=== PATIENT | male | born 1945 | race Caucasian/White ===

== ENCOUNTER 2021-05-02 07:51 | Emergency (ER) | payer OTHER, SELFPAY ==
[2021-05-02 07:51] VITALS: BP 140/75; PULSE 56; RESP 16; TEMP 35.8; O2SAT 99; BMI 26.2
--- NOTE | 2021-05-02 08:59 | RAD_ITS ---
STUDY: X-RAY - LEFT HAND REASON FOR EXAM: Male, 75 years old. Injury/Pain TECHNIQUE: 3 view(s) of the hand. COMPARISON: None. FINDINGS: Normal radiocarpal articulation. Normal distal radioulnar joint. Normal visualized carpal bones. Normal carpal articulations Normal carpometacarpal articulation of the thumb. Normal second through fifth carpometacarpal joints. Normal metacarpi. Normal metacarpophalangeal joint of the thumb. Normal interphalangeal joint of the thumb. Normal proximal and distal phalanges of the thumb. Normal metacarpophalangeal joints of the second through fifth fingers. Normal proximal and distal interphalangeal joints of the second through fifth fingers. Normal phalanges of the second through fifth fingers. The soft tissue structures are unremarkable. RAD/Hand Min 3 Views IMPRESSION: Normal x-ray examination of the hand. Electronically Signed: Heath Oneill DO at 9:54 EST Tel [phone], Service support ,
--- NOTE | 2021-05-02 08:59 | RAD_ITS ---
STUDY: X-RAY - PELVIS AND RIGHT HIP REASON FOR EXAM: Male, 75 years old. Injury/Pain TECHNIQUE: 4 views of the pelvis and hip. COMPARISON: None. FINDINGS: There is a non-specific bowel gas pattern. Colonic fecal retention. Normal visualized soft tissue structures. Normal bilateral iliac wings, sacroiliac joints and visualized sacrum. Normal bilateral superior and inferior pubic rami. Normal pubic symphysis. Normal bilateral ischial tuberosities. Normal visualized femoral head. Normal acetabulum. Normal hip joint. RAD/HIP, UNI W/ Pelvis 2-3 Views IMPRESSION: Normal x-ray examination of the pelvis and hip. Electronically Signed: Heath Oneill DO at 9:51 EST Tel [phone], Service support ,
--- NOTE | 2021-05-02 08:59 | RAD_ITS ---
HISTORY: Injury/Pain. TECHNIQUE: XR Elbow Min 3 Views. # of images incl. paperwork: 4. COMPARISON: None. FINDINGS: BONES: No acute fracture identified. Mineralization unremarkable. JOINT SPACES: No dislocation. Mild degenerative change. RAD/Elbow min 3 Views IMPRESSION: No acute fracture or dislocation identified in the right elbow. at 0956 Reported and signed by: aTsh Gannon MD Electronically Signed: Tash Gannon MD at 9:54 EST Tel , Service support ,
--- NOTE | 2021-05-02 08:59 | RAD_ITS ---
STUDY: X-RAY - RIGHT HAND REASON FOR EXAM: Male, 75 years old. Injury/Pain TECHNIQUE: 3 view(s) of the hand. COMPARISON: None. FINDINGS: Normal radiocarpal articulation. Normal distal radioulnar joint. Normal visualized carpal bones. Normal carpal articulations Normal carpometacarpal articulation of the thumb. Normal second through fifth carpometacarpal joints. Normal metacarpi. Normal metacarpophalangeal joint of the thumb. Normal interphalangeal joint of the thumb. Normal proximal and distal phalanges of the thumb. Normal metacarpophalangeal joints of the second through fifth fingers. Normal proximal and distal interphalangeal joints of the second through fifth fingers. Normal phalanges of the second through fifth fingers. The soft tissue structures are unremarkable. RAD/Hand Min 3 Views IMPRESSION: No acute bony injury of the hand. Electronically Signed: Heath Oneill DO at 9:48 EST Tel [phone], Service support ,
--- NOTE | 2021-05-02 09:00 | EDS_ITS ---
HPI HPI - Fall History of Present Illness Chief Complaint: Fall Informant: patient Occured/Mechanism Occurred: Today Narrative: Patient fell out of bed Pain/Injury Pain Location: neck, upper extremity (Bilateral hands, right elbow) and lower extremity (Bilateral hips) Worsened by: Nothing Relieved by: Nothing Associated Symptoms Associated Symptoms: Negative for Parasthesias, Weakness and Loss of consciousness Narrative Narrative: Patient presents after a fall that occurred today. Patient fell out of bed this morning. Patient thinks he hit his head. Patient denies any loss of consciousness. Patient complains of pain in both hands, the right elbow, and both hips. Patient thinks his last tetanus was approximately 10 years ago. Patient noted some skin tears on the backs of his hands. Patient also admits to some mild neck pain. Patient denies any paresthesias or weakness. Patient denies any other injuries. Tetanus Immunization: >10 years [facility] Medical History Coronary artery disease High cholesterol Hypertension Parkinson disease Allergy/AdvReac Type Severity Reaction Status Date / Time atorvastatin [From Lipitor] AdvReac Pain in Verified 05/02/21 07:54 joints Social History Smoking Status: Former smoker ROS ROS ED Constitutional Constitutional ED: Denies chills or fever(s) Eyes Eyes: Denies blurry vision or change in vision ENT ENT ED: Denies rhinorrhea or sore throat Cardiovascular Cardiovascular: Denies chest pain or palpitations Respiratory/Chest Respiratory/Chest: Denies cough or dyspnea Gastrointestinal Gastrointestinal: Denies nausea or vomiting Genitourinary Genitourinary ED: Denies dysuria or hematuria Musculoskeletal Musculoskeletal: Reports neck pain; Denies back pain Integumentary Denies abscess or rash Neurologic Neurologic: Denies headache(s) or weakness Allergic/Immunologic Allergic/Immunologic ED: Denies mouth swelling or urticaria EXAM Physical Exam Const Vital Signs: 05/02/21 07:51 05/02/21 08:06 Temperature 96.5 F L Temperature Source Temporal Pulse Rate 56 L Respiratory Rate 16 Respiratory Effort Normal Blood Pressure 140/75 H Blood Pressure Mean 96 Pulse Ox 99 Oxygen Delivery Method Room Air Positive well nourished and well developed General Appearance ED: well developed HEENT Reports normocephalic HEENT Narrative: There is a superficial abrasion over the right frontal scalp area. There is no active bleeding. There is no bony crepitance or step-off. Resp normal respiratory effort and clear to auscultation bilaterally Cardio regular rate and regular rhythm GI non-tender and non-distended Palpation: soft Extremity Extremity Narrative: There is tenderness of the hands bilaterally. There is mild tenderness of the right elbow. There is also mild tenderness over the shoulders bilaterally. There is no bony crepitance or step-off. There is no deformity noted. Range of motion was limited in all motions of the hands bilaterally and right elbow secondary to pain. Radial and pedal pulses are equal bilaterally. Strength is 5/5 bilaterally in the upper and lower extremities. There are no sensory deficits. Neuro oriented x3, CN's II-XII intact bilaterally, moves all extremities, no focal motor deficits and no sensory deficits noted Sensorium / Orientation: alert Psych mental status grossly normal Skin Skin Narrative: There are superficial skin tears noted over the dorsal aspects o f the hands bilaterally. There is no active bleeding. MDM MDM MDM Narrative Medical decision making narrative: X-rays of the right elbow were obtained. There are 4 views. On my interpretation, there is no acute fracture. There is no dislocation. There is no soft tissue swelling. Radiologist also interpreted the x-rays and agrees. X-rays of the left hand were obtained. There are 3 views. On my interpretation, there is no acute fracture. There is no dislocation. There is no soft tissue swelling. Radiologist also interpreted the x-rays and agrees. X-rays of the right hand were obtained. There are 3 views. On my interpretation, there is no acute fracture. There is no dislocation. There is no soft tissue swelling. Radiologist also interpreted the x-rays and agrees. X-rays of the right hip and pelvis were obtained. There are 4 views. On my interpretation, there is no acute fracture. There is no dislocation. There is no soft tissue swelling. There is no deformity noted. Radiologist also interpreted the x-rays and agrees. CT scan of the brain was obtained. There is no acute intracranial abnormality. This was interpreted by the radiologist and reviewed by myself. CT scan of the cervical spine was obtained. There are mild degenerative changes. There is no acute fracture or dislocation. This was interpreted by the radiologist and reviewed by myself. The skin tears were cleaned and dressed. Patient was given a tetanus booster. Patient was instructed to take Tylenol or ibuprofen as needed for pain. Patient was instructed to follow-up with his primary care physician in 5 to 7 days. Patient understood and was agreeable with the plan. All questions were answered. Radiography Diagnostic Testing: Clinical Impression(s) from Imaging Studies Elbow X-Ray 05/02/21 08:59 IMPRESSION: No acute fracture or dislocation identified in the right elbow. at 0956 Reported and signed by: Tash Gannon MD Electronically Signed: Tash Gannon MD at 9:54 EST Tel , Service support , Hand X-Ray 05/02/21 08:59 IMPRESSION: No acute bony injury of the hand. Electronically Signed: Heath Oneill DO at 9:48 EST Tel [phone], Service support , Hand X-Ray 05/02/21 08:59 IMPRESSION: Normal x-ray examination of the hand. Electronically Signed: Heath Oneill DO at 9:54 EST Tel [phone], Service support , Hip/Pelvis X-Ray 05/02/21 08:59 IMPRESSION: Normal x-ray examination of the pelvis and hip. Electronically Signed: Heath Oneill DO at 9:51 EST Tel [phone], Service support , Brain CT 05/02/21 09:08 IMPRESSION: No acute intracranial process identified. Chronic small vessel ischemic gliosis. Individualized dose optimization techniques were used for this CT. at 0958 Reported and signed by: Tash Gannon MD Electronically Signed: Tash Gannon MD at 9:57 EST Tel , Service support , Cervical Spine CT 05/02/21 09:08 IMPRESSION: No evidence of acute cervical spinal fracture or dislocation. Mild degenerative change. Individualized dose optimization techniques were used for this CT. at 1001 Reported and signed by: Tash Gannon MD Electronically Signed: Tash Gannon MD at 10:00 EST Tel , Service support , Discharge Plan Triage Chief Complaint: Fall ED Provider: Paul Mcneil Dx/Rx/DC Orders Clinical Impression: Multiple skin tears, Contusion of right elbow, Closed head injury Instructions: ED Contusion, Elbow, ED Head Injury (Adult), ED Skin Avulsion [facility] [Primary [facility] Provider[facility] - 3-5 Days Disposition Disposition: Home, Self Care
--- NOTE | 2021-05-02 09:08 | CT_ITS ---
HISTORY: Injury/Pain. TECHNIQUE: Multiple axial images were obtained of the brain without intravenous contrast. A radiation dose optimization technique was used for this scan. # of images incl. paperwork: 246. COMPARISON: None. FINDINGS: BRAIN PARENCHYMA:Multiple small foci and zones of low attenuation in the cerebral white matter most compatible with chronic small vessel ischemic gliosis. 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 INTRACRANIAL HEMORRHAGE: No acute intracranial hemorrhage. CSF SPACES/MASS EFFECT: Diffuse atrophy with compensatory ventricular enlargement. No midline shift or other significant mass effect. ORBITS: Left lens resection. CALVARIUM: Intact. PARANASAL SINUSES AND MASTOID AIR CELLS: Clear. CT/Brain/Head without Contrast IMPRESSION: No acute intracranial process identified. Chronic small vessel ischemic gliosis. Individualized dose optimization techniques were used for this CT. at 0958 Reported and signed by: Tash Gannon MD Electronically Signed: Tash Gannon MD at 9:57 EST Tel , Service support ,
--- NOTE | 2021-05-02 09:08 | CT_ITS ---
HISTORY: Injury/Pain. TECHNIQUE: Helically acquired images were obtained of the cervical spine. 2D reformatted images were reviewed. A radiation dose optimization technique was used for this scan. # of images incl. paperwork: 392. IV Contrast dosage and agent: None. COMPARISON: None. FINDINGS: VERTEBRAE: No acute fracture identified. Generalized osteopenia present. Old fracture of the left medial clavicle seen. VERTEBRAL ALIGNMENT: No significant anterior or posterior subluxation. Straightening of the cervical lordosis. DISCS: Mild posterior disc bulge osteophyte complexes with uncovertebral and facet arthropathy. SOFT TISSUES: No prevertebral soft tissue swelling. CT/Spine Cervical without Contras IMPRESSION: No evidence of acute cervical spinal fracture or dislocation. Mild degenerative change. Individualized dose optimization techniques were used for this CT. at 1001 Reported and signed by: Tash Gannon MD Electronically Signed: Tash Gannon MD at 10:00 EST Tel , Service support ,
[2021-05-02] MEDS: Diphth,Pertuss(Acell),Tet Vac 0.5 ML Vial IM (10:54)
[2021-05-02 11:10] VITALS: BP 138/72; PULSE 56; RESP 18; O2SAT 99
== END 2021-05-02 12:05 | disposition home or self-care (01) ==
PROVIDERS: Emergency Provider Emergency Medicine
DX: S61.411A Laceration without foreign body of right hand, initial encounter (principal); S61.412A Laceration without foreign body of left hand, initial encounter; S50.01XA Contusion of right elbow, initial encounter; S00.01XA Abrasion of scalp, initial encounter; Z23 Encounter for immunization; M54.2 Cervicalgia; M79.602 Pain in left arm; M25.551 Pain in right hip; M25.552 Pain in left hip; W06.XXXA Fall from bed, initial encounter; Y93.9 Activity, unspecified; Y92.9 Unspecified place or not applicable; Y99.9 Unspecified external cause status; I25.10 Atherosclerotic heart disease of native coronary artery without angina pectoris; G20 Parkinson's disease; I10 Essential (primary) hypertension; E78.00 Pure hypercholesterolemia, unspecified; Z87.891 Personal history of nicotine dependence
CPT/HCPCS: 70450; 72125; 73080; 73130; 73502; 90471; 90715; 99283

== ENCOUNTER 2021-05-05 18:14 | Inpatient (IN) | payer OTHER, SELFPAY ==
[2021-05-05 18:16] VITALS: TEMP 36.8; BMI 28.7
[2021-05-05 18:22] VITALS: BP 110/70; PULSE 68; RESP 17; TEMP 36.8; O2SAT 93
--- NOTE | 2021-05-05 18:44 | EKG12_ITS ---
Test Reason : FALL Blood Pressure : / mmHG Vent. Rate : 065 BPM Atrial Rate : 065 BPM P-R Int : 204 ms QRS Dur : 122 ms QT Int : 446 ms P-R-T Axes : 045 -38 053 degrees QTc Int : 463 ms Normal sinus rhythm Left axis deviation Septal infarct , age undetermined Abnormal ECG Confirmed by LORENZO CASTAÑEDA, LISA ([id number]), sports editor ALMA ELENA ([id number]) on 05/08/2021 6:58:52 AM Referred By: KRISTA Confirmed By:LISA VENTURA MD
--- NOTE | 2021-05-05 18:44 | CT_ITS ---
STUDY: CT CERVICAL SPINE WITHOUT CONTRAST REASON FOR EXAM: Male, 75 years old. Injury/Pain RADIATION DOSAGE (If Supplied By Facility): CTDIvol = ( 23.85 ) mGy, DLP = ( 451.07 ) mGycm TECHNIQUE: High resolution transaxial imaging was performed without contrast material. Sagittal and coronal images were reconstructed. Individualized dose optimization techniques were used for this CT. COMPARISON: None FINDINGS: Normal craniovertebral junction. Normal anterior atlantoaxial articulation. Normal odontoid process. Normal cervical lordosis. Normal vertebral bodies and posterior osseous elements. C2-3: Normal endplates. Normal disc height and morphology. Normal central canal and intervertebral neuroforamina. C3-4: Normal endplates. Normal disc height and morphology. Normal central canal and intervertebral neuroforamina. C4-5: Normal endplates. Normal disc height and morphology. Normal central canal and intervertebral neuroforamina. C5-6: Normal endplates. Normal disc height and morphology. Normal central canal and intervertebral neuroforamina. C6-7: Normal endplates. Normal disc height and morphology. Normal central canal and intervertebral neuroforamina. C7-T1: Normal endplates. Normal disc height and morphology. Normal central canal and intervertebral neuroforamina. Normal visualized soft tissue structures. CT/Spine Cervical without Contras IMPRESSION: Normal unenhanced CT examination of the cervical spine. Electronically Signed: Adi Rubio MD at 20:30 EST , Service support ,
--- NOTE | 2021-05-05 18:44 | RAD_ITS ---
STUDY: X-RAY - PELVIS AND RIGHT HIP REASON FOR EXAM: Male, 75 years old. Injury/Pain TECHNIQUE: 3 views of the pelvis and hip. COMPARISON: None. FINDINGS: There is a non-specific bowel gas pattern. Normal visualized soft tissue structures. Normal bilateral iliac wings, sacroiliac joints and visualized sacrum. Normal bilateral superior and inferior pubic rami. Normal pubic symphysis. Normal bilateral ischial tuberosities. Normal visualized femoral head. Mild acetabular spurring.. Narrowed hip joint. RAD/HIP, UNI W/ Pelvis 2-3 Views IMPRESSION: Degenerative changes of the right hip. No acute hip or pelvic fracture Electronically Signed: Adi Rubio MD at 20:33 EST , Service support ,
--- NOTE | 2021-05-05 18:44 | CT_ITS ---
STUDY: CT BRAIN WITHOUT CONTRAST REASON FOR EXAM: Male, 75 years old. Injury/Pain RADIATION DOSAGE (If Supplied By Facility): CTDIvol = ( 44.99 ) mGy, DLP = ( 880.47 ) mGycm TECHNIQUE: Transaxial CT imaging of the brain was performed without administration of intravenous contrast material. Individualized dose optimization techniques were used for this CT. COMPARISON: 05/02/2021. FINDINGS: Normal soft tissue structures. Normal calvarium. Mild calcification of cavernous carotids. Mild atrophy and periventricular white matter ischemic changes.. Normal basal ganglia and thalami. Normal brainstem. Normal cerebellum. There is no intracranial hemorrhage. There are no findings of an acute ischemic infarction. Postsurgical changes of left orbit. Normal visualized paranasal sinuses. CT/Brain/Head without Contrast IMPRESSION: Mild atrophy and periventricular white matter ischemic changes. No evidence for acute intracranial bleed Electronically Signed: Adi Rubio MD at 20:15 EST , Service support ,
--- NOTE | 2021-05-05 18:46 | ED.VIS.FALL ---
HPI HPI - Fall History of Present Illness Chief Complaint: Fall Informant: patient Occured/Mechanism Occurred: Today Mechanism/Context: Yes same level fall and Yes other see narrative below Usually ambulates: Walker Pain/Injury Pain Location: head, neck and abdomen Quality of Pain: Aching Worsened by: Movement Relieved by: Rest Associated Symptoms Associated Symptoms: Positive for Weakness and Inability to ambulate; Negative for Parasthesias, Loss of function and Loss of consciousness Narrative Narrative: Patient presents after a fall that occurred today. Patient did see actually fell twice at home. Patient states that when he tried to get up from his first fall and sit on the couch, he fell again. Patient complains of pain in his head, neck, and left side. Patient denies any loss of consciousness. Patient admits to some generalized weakness. Patient states his pain is aching. Patient admits to a mild cough. Patient denies any nausea or vomiting. Patient has been falling more frequently over the past couple weeks. [facility] Medical History (Updated 05/05/21 @ 22:25 by Ronna Dyson) Coronary artery disease DVT (deep venous thrombosis) Hearing loss, left Hearing loss, right High cholesterol Hypertension Kidney stones Myocardial infarct Parkinson disease Stroke/cerebrovascular accident Home Medications aspirin 81 mg PO DAILY 05/05/21 [History Last Taken Unknown] cyanocobalamin (vitamin B-12) 1,000 mcg PO DAILY 05/05/21 [History Last Taken Unknown] finasteride 5 mg PO DAILY 05/05/21 [History Last Taken Unknown] hydrochlorothiazide 25 mg PO DAILY 05/05/21 [History Last Taken Unknown] isosorbide mononitrate 30 mg PO DAILY 05/05/21 [History Last Taken Unknown] lisinopril 2.5 mg PO DAILY 05/05/21 [History Last Taken Unknown] metoprolol tartrate 12.5 mg PO DAILY 05/05/21 [History Last Taken Unknown] polyethylene glycol 3350 8.5 g PO BID 05/05/21 [History Last Taken Unknown] potassium chloride 20 meq PO DAILY 05/05/21 [History Last Taken Unknown] rabeprazole 20 mg PO DAILY 05/05/21 [History Last Taken Unknown] rosuvastatin 20 mg PO QHS 05/05/21 [History Last Taken Unknown] solifenacin 10 mg PO DAILY 05/05/21 [History Last Taken Unknown] tamsulosin 0.4 mg PO QHS 05/05/21 [History Last Taken Unknown] tramadol 50 mg PO BID PRN 05/05/21 [History Last Taken Unknown] Allergy/AdvReac Type Severity Reaction Status Date / Time atorvastatin [From Lipitor] AdvReac Pain in Verified 05/02/21 07:54 joints Family History (Updated 05/05/21 @ 21:[address] Martinez Calderon MD) Other Heart disease Surgical History History of heart valve repair Social History Smoking Status: Former smoker ROS ROS ED Constitutional Constitutional ED: Denies chills or fever(s) Eyes Eyes: Denies blurry vision or change in vision ENT ENT ED: Denies rhinorrhea or sore throat Cardiovascular Cardiovascular: Denies chest pain or palpitations Respiratory/Chest Respiratory/Chest: Reports cough; Denies dyspnea Gastrointestinal Gastrointestinal: Denies nausea or vomiting Genitourinary Genitourinary ED: Denies dysuria or hematuria Musculoskeletal Musculoskeletal: Reports back pain and neck pain Integumentary Reports Abrasions; Denies abscess or rash Neurologic Neurologic: Reports headache(s) and weakness Allergic/Immunologic Allergic/Immunologic ED: Denies mouth swelling or urticaria EXAM Physical Exam Const Vital Signs: 05/05/21 18:16 05/05/21 18:22 05/05/21 18:25 Temperature 98.2 F 98.2 F Temperature Source Oral Oral Pulse Rate 68 Respiratory Rate 17 Respiratory Effort Normal Respiratory Pattern Normal Blood Pressure 110/70 Blood Pressure Mean 83 Pulse Ox 93 Oxygen Delivery Method Room Air Room Air 05/05/21 19:15 05/05/21 20:56 05/05/21 21:32 Temperature 97.8 F Temperature Source Temporal Pulse Rate 72 76 70 Respiratory Rate 16 16 20 H Respiratory Effort Respiratory Pattern Blood Pressure 116/72 122/77 H 101/63 Blood Pressure Mean 86 92 75 Pulse Ox 93 93 93 Oxygen Delivery Method Room Air Room Air Room Air Positive well nourished and well developed General Appearance ED: well developed HEENT Reports normocephalic atraumatic Neck Neck Narrative: There is diffuse tenderness of the cervical spine and paraspinal muscles. There is no bony crepitance or step-off. There is no edema or ecchymosis. Range of motion was limited in all motion secondary to pain. Resp normal respiratory effort and clear to auscultation bilaterally Cardio regular rate and regular rhythm GI non-tender Palpation: soft Extremity Extremity Narrative: There is some mild tenderness over the right hip. There is mild pain with internal and external rotation of the right lower extremity. There is no obvious deformity noted. Neuro oriented x3, CN's II-XII intact bilaterally, moves all extremities, no focal motor deficits and no sensory deficits noted Sensorium / Orientation: alert Psych mental status grossly normal MDM MDM MDM Narrative Medical decision making narrative: Patient was given a dose of [place] here. EKG was obtained. On my interpretation, showed normal sinus rhythm with a borderline first-degree AV block. VT interval was 204 ms. QRS was slightly prolonged at 122 ms QTc interval was normal. There is left axis deviation at -38. There are no acute ST or T wave changes. CBC was within normal limits. Comprehensive metabolic profile showed a hypokalemia of 3.1. Urinalysis does not show any evidence of urinary tract infection. CT scan of the brain was obtained. There is no acute intracranial abnormality. CT scan of the cervical spine was obtained. There is no acute fracture or spondylolisthesis. These were interpreted by the radiologist and reviewed by myself. Portable 1 view chest x-ray was obtained. On my interpretation, lung fox are clear. There is normal cardiac silhouette. Bony thorax is normal. There is no acute process noted. Radiologist also interpreted the x-ray and agrees. X-ray of the right hip was obtained. There are 3 views. On my interpretation, there is no acute fracture or dislocation. There is no soft tissue swelling. Radiologist also interpreted the x-ray and agrees. Patient is unable to care for himself at home. is unable to care for him at home. Case was discussed with the hospitalist. He will admit the patient for observation. Patient understood and was agreeable with the plan. All questions were answered. Lab Data Attestation: I reviewed the patient's lab results. Labs: Laboratory Results - last 24 hr 05/05/21 05/05/21 05/05/21 18:55 18:55 19:15 WBC 5.6 RBC 4.33 L Hgb 13.3 Hct 39.4 L MCV 91.0 MCH 30.7 MCHC 33.8 RDW Std Deviation 47.7 H RDW Coeff of [place] 14.1 Plt Count 154 MPV 10.2 Immature Gran % (Auto) 0.200 Neut % (Auto) 71.3 H Lymph % (Auto) 12.3 L [place] % (Auto) 15.8 H Eos % (Auto) 0.0 Baso % (Auto) 0.4 Absolute Neuts (auto) 4.0 Absolute Lymphs (auto) 0.69 L Nucleated RBC % 0 Sodium 139 Potassium 3.1 L Chloride 106 Carbon Dioxide 25.0 Anion Gap 8 BUN 30 H Creatinine 1.22 Estim Creat Clear Calc 51.51 Est GFR (MDRD) Af Amer 74 Est GFR (MDRD) Non-Af 61 BUN/Creatinine Ratio 24.6 H Glucose 100 Calcium 7.6 L Total Bilirubin 0.60 AST 54 H ALT 22 Alkaline Phosphatase 45 Troponin I High Sens 19 Total Protein 6.2 L Albumin 3.0 L Globulin 3.2 Albumin/Globulin Ratio 0.9 Urine Color Yellow Urine Clarity Clear Urine pH 5.0 Ur Specific [place] 1.020 Urine Protein 15 H Urine Glucose (UA) Normal Urine Ketones Negative Urine Occult Blood 10 H Urine Nitrite Negative Urine Bilirubin 3 H Urine Urobilinogen Normal Ur Leukocyte Esterase Negative Urine RBC 0-5 SEEN Urine WBC 0 SEEN Ur Squamous Epith Cells 0 SEEN Calcium Oxalate Crystal 1+ Urine Bacteria 0 SEEN Urine Mucus 1+ Radiography Diagnostic Testing: Clinical Impression(s) from Imaging Studies Brain CT 05/05/21 18:44 IMPRESSION: Mild atrophy and periventricular white matter ischemic changes. No evidence for acute intracranial bleed Electronically Signed: Adi Rubio MD at 20:15 EST , Service support , Cervical Spine CT 05/05/21 18:44 IMPRESSION: Normal unenhanced CT examination of the cervical spine. Electronically Signed: Adi Rubio MD at 20:30 EST , Service support , Hip/Pelvis X-Ray 05/05/21 18:44 IMPRESSION: Degenerative changes of the right hip. No acute hip or pelvic fracture Electronically Signed: Adi Rubio MD at 20:33 EST , Service support , Chest X-Ray 05/05/21 19:20 IMPRESSION: Diminished inspiratory effort. No acute disease Electronically Signed: Adi Rubio MD at 20:32 EST , Service support , EKG Initial EKG: Attestation: I personally reviewed and interpreted this EKG as follows: Interpretation: Sinus Rhythm (65) and No Acute Injury Pattern Comments: There is left axis deviation at -38 Treatment and Re-Evaluation Vital Sign Attestation:: Vital signs were reviewed prior to admission. They are stable. Discharge Plan Dx/Rx/DC Orders Clinical Impression: Frequent falls Disposition Disposition: Acute Care Hospital [facility] Discharge Date/Time: 05/05/21 21:59
[2021-05-05 18:59] LABS: Absolute Lymphocyte Count 0.69 X10^3/uL (0.83-4.51); Basophil# 0.02 X10^3/uL; Basophil% 0.4 % (0-1); Hematocrit 39.4 % (40-54); Hemoglobin 13.3 g/dL (13.0-16.5); Lymphocyte # 0.69 X10^3/ul (0.83-4.51); Lymphocyte % 12.3 % (19-41); Mean Corp Hgb Conc 33.8 g/dL (32-36); Mean Corpuscular Hgb 30.7 pg (27.0-32.0); Mean Platelet Vol. 10.2 fl (6.2-12.0); Monocyte# 0.89 X10^3/uL; Monocyte% 15.8 % (0-10); NRBC Flagged by Analyzer 0 % (0-5); Neutrophil # 4.01 X10^3/uL (2.7-7.7); Neutrophil % 71.3 % (47-70); Platelet Count 154 K/mm3 (150-450); RBC Distribution Width CV 14.1 % (11.6-14.6); RBC Distribution Width SD 47.7 fl (35.1-43.9); Red Blood Count 4.33 M/mm3 (4.6-6.2); White Blood Count 5.6 K/mm3 (4.4-11.0)
[2021-05-05 19:15] VITALS: BP 116/72; PULSE 72; RESP 16; O2SAT 93
[2021-05-05 19:18] LABS: ALB/GLOB Ratio 0.9 RATIO (0.9-2.4); AST(SGOT) 54 U/L (15-37); Alanine Aminotransfer ALT/SGPT 22 U/L (16-61); Alkaline Phosphatase 45 U/L (45-117); Anion Gap 8 (5-15); BUN 30 mg/dL (7-18); BUN/Creat Ratio 24.6 RATIO (10-20); Calcium,Total 7.6 mg/dL (8.5-10.1); Chloride 106 mmol/L (98-107); Creatinine, Serum 1.22 mg/dL (0.70-1.30); EST Glomerular Filtration Rate 61 mL/min (>60); Est Glom Filt Rate - Afr Amer 74 mL/min (>60); Estimated Creatinine Clearance 51.51 ml/min; Globulin 3.2 g/dL (2.2-4.2); Glucose 100 mg/dL (74-106); Potassium 3.1 mmol/L (3.5-5.1); Protein, Total 6.2 g/dL (6.4-8.2); Sodium Level 139 mmol/L (136-145); Troponin-I HS 19 pg/mL (3.0-78.0)
--- NOTE | 2021-05-05 19:18 | ED.RN ---
PT NOTIFIED BY THIS RN OF PT PLAN OF CARE IN ED.
[2021-05-05 19:19] LABS: Bacteria 0 SEEN /hpf (None Seen); Squamous Epithelial Cells - UA 0 SEEN /hpf (0-5); White Blood Cells 0 SEEN /hpf (0-5)
--- NOTE | 2021-05-05 19:20 | RAD_ITS ---
STUDY: X-RAY CHEST REASON FOR EXAM: Male, 75 years old. Cough TECHNIQUE: AP portable COMPARISON: None. FINDINGS: Less than optimal inspiratory effort is seen however the lungs are clear. There is no demonstrated pleural abnormality. Appearance cardiomegaly exaggerated by radiographic technique. Normal mediastinum and iris. Normal visualized pulmonary arteries. Normal visualized aortic arch and descending thoracic aorta. Normal visualized thoracic spine. Normal visualized ribs, clavicles, and shoulders. There is no demonstrated abnormality of the visualized soft tissue structures of the upper abdomen. RAD/Chest 1 View (Portable) IMPRESSION: Diminished inspiratory effort. No acute disease Electronically Signed: Adi Rubio MD at 20:32 EST , Service support ,
[2021-05-05 19:23] LABS: Color, Urine Yellow (Yellow); Glucose, Dipstick Normal (Normal); Ketone-Dipstick Negative (Negative); Leukocyte Esterase-Dipstick Negative /ul (Negative); Nitrite-Dipstick Negative (Negative); Occult Blood-Urine 10 /ul (Negative); Protein-Dipstick 15 mg/dl (Negative); Urine Bilirubin Dipstick 3 mg/dL (Negative); Urine Clarity Clear (Clear); Urine Urobilinogen Normal (Normal)
[2021-05-05 19:30] LABS: Calcium Oxalate Crystals Ur 1+ /hpf (<or=2+); Mucous, Urine 1+ /hpf (<or=2+); Red Blood Cells-Urine 0-5 SEEN /hpf (0-5)
[2021-05-05] MEDS: HYDROcodone Bitartrate/Apap 5/325 Tablet PO (20:55)
[2021-05-05 20:56] VITALS: BP 122/77; PULSE 76; RESP 16; O2SAT 93
[2021-05-05 21:32] VITALS: BP 101/63; PULSE 70; RESP 20; TEMP 36.6; O2SAT 93
--- NOTE | 2021-05-05 21:32 | HP.PCM.HOS_ITS ---
HPI - General General Date of Admission: 05/05/21 HPI Narrative TERE CEDEÑO, is a 75 M with a significant history of hypertension who presents to the emergency department with multiple falls. Patient reports falling 3 times on the day of presentation. Patient was at emergency department recently (05/02/21) after a fall with a laceration to extremities. At that time admission was offered to patient but patient refused. This time around patient's reported that she is unable to take care of patient. [facility] Medical History Coronary artery disease DVT (deep venous thrombosis) Hearing loss, left Hearing loss, right High cholesterol Hypertension Kidney stones Myocardial infarct Parkinson disease Stroke/cerebrovascular accident Home Medications aspirin 81 mg PO DAILY 05/05/21 [History Last Taken Unknown] cyanocobalamin (vitamin B-12) 1,000 mcg PO DAILY 05/05/21 [History Last Taken Unknown] finasteride 5 mg PO DAILY 05/05/21 [History Last Taken Unknown] hydrochlorothiazide 25 mg PO DAILY 05/05/21 [History Last Taken Unknown] isosorbide mononitrate 30 mg PO DAILY 05/05/21 [History Last Taken Unknown] lisinopril 2.5 mg PO DAILY 05/05/21 [History Last Taken Unknown] metoprolol tartrate 12.5 mg PO DAILY 05/05/21 [History Last Taken Unknown] polyethylene glycol 3350 8.5 g PO BID 05/05/21 [History Last Taken Unknown] potassium chloride 20 meq PO DAILY 05/05/21 [History Last Taken Unknown] rabeprazole 20 mg PO DAILY 05/05/21 [History Last Taken Unknown] rosuvastatin 20 mg PO QHS 05/05/21 [History Last Taken Unknown] solifenacin 10 mg PO DAILY 05/05/21 [History Last Taken Unknown] tamsulosin 0.4 mg PO QHS 05/05/21 [History Last Taken Unknown] tramadol 50 mg PO BID PRN 05/05/21 [History Last Taken Unknown] Allergy/AdvReac Type Severity Reaction Status Date / Time atorvastatin [From Lipitor] AdvReac Pain in Verified 05/02/21 07:54 joints Family History Other Heart disease Surgical History History of heart valve repair Social History Smoking Status: Former smoker ROS ROS Narrative Constitutional: Denies fever, chills, fatigue, anorexia and change in weight Eyes: Denies blurry vision, change in eye color, change in vision, discharge from eye(s), double vision, erythema, eye pain, loss of vision or other HEENT: Denies abnormal hearing, dysphagia, ear pain, epistaxis, headache(s), hearing loss, nasal congestion, nasal discharge, post nasal drip, sinus pressure, sore throat or other Cardiovascular: Denies chest pain or palpitations. Denies dyspnea on exertion, orthopnea and paroxysmal nocturnal dyspnea Respiratory/Chest: Reports productive cough. Denies shortness of breath with exertion and wheezing Gastrointestinal: Denies abdominal pain, coffee ground emesis, constipation, diarrhea, dyspepsia, hematemesis, hematochezia, loose stools, melena, nausea, vomiting or other Genitourinary: Denies burning urination, difficulty urinating, dysuria, hematuria, nocturia, urinary frequency, urinary hesitancy, urinary incontinence, urinary urgency or other Musculoskeletal: Reports left arm pain and back pain. Denies myalgias. Neurologic: Denies abnormal gait, abnormal speech, confusion, disequilibrium, dizziness, focal weakness, headache(s), numbness, paresthesias, seizure-like activity, seizures, syncope, tingling, tremor(s) or other Psychiatric: Denies anxiety, depression, homicidal ideation, suicidal ideation or other Endocrinology: Denies change in body appearance, cold intolerance, excessive sweating, heat intolerance, polydipsia, polyuria or other Hematologic/Lymphatic: Denies anemia, easy bleeding, easy bruising, lymp hadenopathy or other Integumentary: Denies rashes Allergic/Immunologic: Denies rhinitis, hives, eczema, asthma or other Vital Signs Vital Signs Vital Signs: 05/05/21 18:16 05/05/21 18:22 05/05/21 18:25 Temperature 98.2 F 98.2 F Temperature Source Oral Oral Pulse Rate 68 Respiratory Rate 17 Respiratory Effort Normal Respiratory Pattern Normal Blood Pressure 110/70 Blood Pressure Mean 83 Pulse Ox 93 Oxygen Delivery Method Room Air Room Air 05/05/21 19:15 05/05/21 20:56 05/05/21 21:32 Temperature 97.8 F Temperature Source Temporal Pulse Rate 72 76 70 Respiratory Rate 16 16 20 H Respiratory Effort Respiratory Pattern Blood Pressure 116/72 122/77 H 101/63 Blood Pressure Mean 86 92 75 Pulse Ox 93 93 93 Oxygen Delivery Method Room Air Room Air Room Air Weight Weight: 88.3 kg Body Mass Index (BMI) 28.7 Results Lab / Micro Data Result Diagrams: 05/05/21 18:55 05/05/21 18:55 Labs: Laboratory Results - last 24 hr 05/05/21 18:55: WBC 5.6, RBC 4.33 L, Hgb 13.3, Hct 39.4 L, MCV 91.0, MCH 30.7, MCHC 33.8, RDW Std Deviation 47.7 H, RDW Coeff of Evin 14.1, Plt Count 154, MPV 10.2, Immature Gran % (Auto) 0.200, Neut % (Auto) 71.3 H, Lymph % (Auto) 12.3 L, [place] % (Auto) 15.8 H, Eos % (Auto) 0.0, Baso % (Auto) 0.4, Absolute Neuts (auto) 4.0, Absolute Lymphs (auto) 0.69 L, Nucleated RBC % 0 05/05/21 18:55: Sodium 139, Potassium 3.1 L, Chloride 106, Carbon Dioxide 25.0, Anion Gap 8, BUN 30 H, Creatinine 1.22, Estim Creat Clear Calc 51.51, Est GFR (MDRD) Af Amer 74, Est GFR (MDRD) Non-Af 61, BUN/Creatinine Ratio 24.6 H, Glucose 100, Calcium 7.6 L, Total Bilirubin 0.60, AST 54 H, ALT 22, Alkaline Phosphatase 45, Troponin I High Sens 19, Total Protein 6.2 L, Albumin 3.0 L, Globulin 3.2, Albumin/Globulin Ratio 0.9 05/05/21 19:15: Urine Color Yellow, Urine Clarity Clear, Urine pH 5.0, Ur Specific [place] 1.020, Urine Protein 15 H, Urine Glucose (UA) Normal, Urine Ketones Negative, Urine Occult Blood 10 H, Urine Nitrite Negative, Urine Bilirubin 3 H, Urine Urobilinogen Normal, Ur Leukocyte Esterase Negative, Urine RBC 0-5 SEEN, Urine WBC 0 SEEN, Ur Squamous Epith Cells 0 SEEN, Calcium Oxalate Crystal 1+, Urine Bacteria 0 SEEN, Urine Mucus 1+ Radiology Impression Brain CT 05/05/21 18:44 IMPRESSION: Mild atrophy and periventricular white matter ischemic changes. No evidence for acute intracranial bleed Electronically Signed: Adi Rubio MD at 20:15 EST , Service support , Cervical Spine CT 05/05/21 18:44 IMPRESSION: Normal unenhanced CT examination of the cervical spine. Electronically Signed: Adi Rubio MD at 20:30 EST , Service support , Hip/Pelvis X-Ray 05/05/21 18:44 IMPRESSION: Degenerative changes of the right hip. No acute hip or pelvic fracture Electronically Signed: Adi Rubio MD at 20:33 EST , Service support , Chest X-Ray 05/05/21 19:20 IMPRESSION: Diminished inspiratory effort. No acute disease Electronically Signed: Adi Rubio MD at 20:32 EST , Service support , Assessment & Plan Assessment/Plan (1) Frequent falls: (2) Multiple skin tears: (3) Debility: PLAN: Debility with frequent falls PT and OT to work with patient for strengthening and balance training. Check vitamin D level. Check TSH. Check B12 Multiple skin Dressing to bilateral dorsal hands. Hypokalemia Review of labs showed potassium of 3.1 on presentation. 40 mEq of potassium x1 ordered. Continue home [place] supplementation. Trend BMP. Hypertension Blood pressure is not within goal Hydrochlorothiazide, lisinopril, and metoprolol continued. Trend blood pressure and adjust blood pressure medications. BPH Finasteride continued DVT prophylaxis: SCD ordered Charges/Coding Visit Charges OBSV E&M: 42588 Initial observation care L2
--- NOTE | 2021-05-05 22:01 | ED.RN ---
, Tita, updated on admission and room number.
[2021-05-05 22:08] VITALS: BMI 25.7
[2021-05-05 22:13] VITALS: BP 124/74; PULSE 61; RESP 18; TEMP 36.9; O2SAT 95
--- NOTE | 2021-05-05 22:27 | NURSING ---
pt unsure of the medications that he takes at home.
--- NOTE | 2021-05-05 22:28 | PCS.PANDOC ---
PANDEMIC DOCUMENTATION INITIATED: Date: 05/05/2021 Time: 2199
[2021-05-05] MEDS: Rosuvastatin 20 MG Tablet PO (22:41)
[2021-05-05] MEDS: Potassium Chloride Oral Tablet 20 MEQ 40 MEQ PO (22:41)
[2021-05-05] MEDS: Tamsulosin HCl 0.4 MG Capsule PO (22:41)
[2021-05-06] MEDS: Acetaminophen 325 MG Tablet 650 MG PO ×3 (02:36→21:49)
[2021-05-06 04:10] VITALS: BP 142/67; PULSE 72; RESP 16; TEMP 37; O2SAT 95
[2021-05-06 08:03] LABS: Anion Gap 9 (5-15); BUN 26 mg/dL (7-18); BUN/Creat Ratio 26.7 RATIO (10-20); Calcium,Total 7.9 mg/dL (8.5-10.1); Chloride 106 mmol/L (98-107); Creatinine, Serum 0.97 mg/dL (0.70-1.30); EST Glomerular Filtration Rate 80 mL/min (>60); Est Glom Filt Rate - Afr Amer 96 mL/min (>60); Estimated Creatinine Clearance 64.79 ml/min; Glucose 87 mg/dL (74-106); Potassium 3.1 mmol/L (3.5-5.1); Sodium Level 140 mmol/L (136-145); Thyroid Stim Hormone (TSH) 1.62 uIU/mL (0.358-3.74)
[2021-05-06 08:16] VITALS: O2SAT 94
[2021-05-06 08:33] LABS: Vitamin B12 702 pg/mL (211-911); Vitamin D,25 Hydroxy 9.8 ng/mL
--- NOTE | 2021-05-06 09:41 | CASEMGMT ---
Social Work Note Pt is Vet. DYLLAN placed a call to Elías MIJARES at [facility]. Elías states pt is a Vet of [place] and pt is 100% service connected. Elías states pt's SW is named Neda (SP?) and her phone number is [phone] ext [phone] and fax number is [phone]. Elías states that if pt needs skilled or half-way, [place] would pay for a service connected facility. GEC form would need to be completed and faxed to [place]. [facility] SNF are [facility], [facility], [facility], [facility], [facility] and [facility]. SW to follow up with pt. Kristina Ruiz AMMONIUM NITRATE CRYSTALLIZER, COMMUNITY RECREATION PROGRAMMER
[2021-05-06 09:44] VITALS: BP 139/83; PULSE 73; RESP 18; TEMP 37.2; O2SAT 92
[2021-05-06] MEDS: Cyanocobalamin 500 MCG Tablet 1000 MCG PO (09:55)
[2021-05-06] MEDS: Aspirin 81 MG TAB.CHEW PO (09:55)
[2021-05-06] MEDS: hydroCHLOROthiazide 25 MG Tablet PO (09:55)
[2021-05-06] MEDS: Lisinopril 2.5 MG Tablet PO (09:55)
[2021-05-06 09:56] VITALS: BP 139/83; PULSE 73
[2021-05-06] MEDS: Metoprolol Tartrate 25 MG Tablet 12.5 MG PO (09:56)
[2021-05-06] MEDS: Isosorbide Mononitrate 30 MG Tablet PO (09:58)
[2021-05-06] MEDS: Tolterodine Tartrate 4 MG CAP.SA PO (09:58)
[2021-05-06] MEDS: Potassium Chloride Oral Tablet 20 MEQ PO (09:58)
[2021-05-06] MEDS: Finasteride 5 MG Tablet PO (09:58)
[2021-05-06] MEDS: Polyethylene Glycol 3350 17 GM PACKET 8.5 GM PO ×2 (09:59→21:50)
[2021-05-06] MEDS: Pantoprazole Sodium 20 MG Tablet PO (10:03)
--- NOTE | 2021-05-06 10:53 | CASEMGMT ---
Social Work Assessment Referral Date: 05/06/2021 Date of Assessment: 05/06/2021 Reason for consult: Possible SNF placement Informant: DYLLAN Personal Status: SW met with pt to complete initial assessment. Pt is alert and orientated, answers questions appropriately. Pt didn't open eyes during conversation. Living Arrangements: Pt states he lives with his in a one story home with 3-4 steps to enter with one rail on one side of the steps. DME: [facility] PCP: Dr. Interiano [place] Physician Pharmacy: [place] Specialists: Dr. Farrell - prostate ADLs: Pt states he was previously independent with ADLs before he started falling. Pt states he has had 3-4 falls recently. Pt states his is able to assist and has been assisting lately with ADLS. Substance Abuse Hx: Denied Mental Health Hx: Denied HHC: None. Pt states he is unsure if [place] has arranged any Aides or HHC services SNF: None SW spoke with pt regarding discharge plans. Pt states he is not sure about discharge plans, may consider SNF if he can go home from SNF eventually. SW informed pt that he would just be going to SNF for short term rehab. Patient was provided a list of SNF providers including quality and resource use data and consistent with the patient?s preferred geographic region, medical needs, and insurance network. Pt states he is not sure about SNF, gave this worker permission to call his Tita. SW placed a call to pt's Tita. DYLLAN introduced self and role at [facility]. Tita states the [facility] was talking about sending aides into the home but hasn't done that yet. Tita states she has been helping pt with all ADLs lately and she is exhausted. SW spoke with Tita about SNF. Tita states if he is agreeable to that. SW informed Tita that this worker spoke with pt and pt wanted this worker to call her regarding SNF. Tita was verbally provided a list of SNF providers including quality and resource use data and consistent with the patient?s preferred geographic region, medical needs, and insurance network. Tita states [facility] in [place] would be closest and agreeable to referral being sent. DYLLAN explained referral process and that pt will need [place] approval. Tita states understanding. DYLLAN placed a call to Ghazal Greenberg at [facility] and provided referral. Plan: SNF pending acceptance and [facility] approval Kristina Ruiz LOCK AND DAM EQUIPMENT REPAIRER, COLUMNIST/COMMENTATOR
--- NOTE | 2021-05-06 11:18 | PN.HOSP_ITS ---
Documented by User: Edi LEA 05/06/21 11:29 Subjective Subjective Patient is a 75-year-old male lying in bed, alert and orient x3. Denies development of any new symptoms overnight. Denies chest pain, shortness of breath, palpitations, hemoptysis, sputum production, fever, chills, N/V/D. Does not appear in acute distress. Objective Data Objective Data Vital Signs: Vital Signs Temp Pulse Resp BP Pulse Ox 99.0 F 73 18 139/83 H 92 05/06/21 09:44 05/06/21 09:56 05/06/21 09:44 05/06/21 09:56 05/06/21 09:44 Oxygen Delivery Method Room Air Weight: 173 lb 15.115 oz Body Mass Index (BMI) 25.7 Intake & Output: Intake and Output for Last 24 Hours 05/04/21 05/05/21 05/06/21 23:59 23:59 23:59 Intake Total 100 / 100 Output Total 200 / 200 Balance -100 / -100 Lab / Micro Data Result Diagrams: 05/05/21 18:55 05/06/21 06:25 Labs: Laboratory Results - last 24 hr 05/05/21 18:55: WBC 5.6, RBC 4.33 L, Hgb 13.3, Hct 39.4 L, MCV 91.0, MCH 30.7, MCHC 33.8, RDW Std Deviation 47.7 H, RDW Coeff of Evin 14.1, Plt Count 154, MPV 10.2, Immature Gran % (Auto) 0.200, Neut % (Auto) 71.3 H, Lymph % (Auto) 12.3 L, [place] % (Auto) 15.8 H, Eos % (Auto) 0.0, Baso % (Auto) 0.4, Absolute Neuts (auto) 4.0, Absolute Lymphs (auto) 0.69 L, Nucleated RBC % 0 05/05/21 18:55: Sodium 139, Potassium 3.1 L, Chloride 106, Carbon Dioxide 25.0, Anion Gap 8, BUN 30 H, Creatinine 1.22, Estim Creat Clear Calc 51.51, Est GFR (MDRD) Af Amer 74, Est GFR (MDRD) Non-Af 61, BUN/Creatinine Ratio 24.6 H, Glucose 100, Calcium 7.6 L, Total Bilirubin 0.60, AST 54 H, ALT 22, Alkaline Phosphatase 45, Troponin I High Sens 19, Total Protein 6.2 L, Albumin 3.0 L, Globulin 3.2, Albumin/Globulin Ratio 0.9 05/05/21 19:15: Urine Color Yellow, Urine Clarity Clear, Urine pH 5.0, Ur Spec ific [place] 1.020, Urine Protein 15 H, Urine Glucose (UA) Normal, Urine Ketones Negative, Urine Occult Blood 10 H, Urine Nitrite Negative, Urine Bilirubin 3 H, Urine Urobilinogen Normal, Ur Leukocyte Esterase Negative, Urine RBC 0-5 SEEN, Urine WBC 0 SEEN, Ur Squamous Epith Cells 0 SEEN, Calcium Oxalate Crystal 1+, Urine Bacteria 0 SEEN, Urine Mucus 1+ 05/06/21 06:25: Sodium 140, Potassium 3.1 L, Chloride 106, Carbon Dioxide 25.0, Anion Gap 9, BUN 26 H, Creatinine 0.97, Estim Creat Clear Calc 64.79, Est GFR (MDRD) Af Amer 96, Est GFR (MDRD) Non-Af 80, BUN/Creatinine Ratio 26.7 H, Glucose 87, Calcium 7.9 L, TSH 1.62 05/06/21 06:25: Vitamin B12 702, Vitamin D 25-Hydroxy 9.8 Radiography Diagnostic Testing: Radiology Impression Brain CT 05/05/21 18:44 IMPRESSION: Mild atrophy and periventricular white matter ischemic changes. No evidence for acute intracranial bleed Electronically Signed: Adi Rubio MD at 20:15 EST , Service support , Cervical Spine CT 05/05/21 18:44 IMPRESSION: Normal unenhanced CT examination of the cervical spine. Electronically Signed: Adi Rubio MD at 20:30 EST , Service support , Hip/Pelvis X-Ray 05/05/21 18:44 IMPRESSION: Degenerative changes of the right hip. No acute hip or pelvic fracture Electronically Signed: Adi Rubio MD at 20:33 EST , Service support , Chest X-Ray 05/05/21 19:20 IMPRESSION: Diminished inspiratory effort. No acute disease Electronically Signed: Adi Rubio MD at 20:32 EST , Service support , Physical Exam Const alert, oriented x3 and no apparent distress HEENT head/scalp atraumatic, moist oral mucous membranes and oropharynx normal Head and Scalp: normocephalic Eyes PERRL, EOMs intact bilaterally and conjunctivae normal Neck no lymphadenopathy, supple and no JVD Resp normal respiratory effort, no retractions and no use of accessory muscles Cardio regular rate, regular rhythm, no murmurs and no JVD GI normal to inspection, nondistended, normoactive bowel sounds, soft to palpation and non-tender Extremity normal to inspection, full ROM and no clubbing, cyanosis or edema Skin no rashes or lesions noted, no wounds and skin turgor normal Neuro CN's II-XII intact bilaterally Psych affect normal Assessment & Plan Assessment/Plan (1) Frequent falls: (2) Debility: PLAN: Day 1 Discharge planning: Plan is for patient to discharge to [facility] pending acceptance and [facility] approval. 1) debility with frequent falls Vitamin B12, vitamin D and TSH within normal limits. Home B12 continued. Discharge planning as above. 2) lacerations to the hands Noted on admission, secondary to fall. Appropriately wrapped. 3) hypokalemia Potassium currently 3.1, oral replacement ordered. Continue to trend BMP. 4) HTN Stable, continue hydrochlorothiazide, lisinopril and metoprolol. 5) BPH Continue Proscar and Flomax. 6) hyperlipidemia Continue statin. DVT prophylaxis - SCDs Patient seen by Edi Bledsoe PA-C, under the supervision of Dr. Quintanilla. Documented by User: Dr. Austen Quintanilla MD 05/06/21 16:16 Objective Data Lab / Micro Data Result Diagrams: 05/05/21 18:55 05/06/21 06:25 Charges/Coding Addendum Addendum: Dr. Quintanilla: I personally reviewed the chart and examined the patient, and agree with the above findings. 75-year-old male presents from home after multiple falls. He describes significant weakness and debility and was brought in because his can no longer take care of him. Did come in a few days earlier but wanted to go home. Repeated CT scans of the brain on the and the are negative for stroke. Urine was unremarkable for UTI and chest x-ray was negative for pn eumonia. Currently denies any new symptoms and will have him work with PT/OT for evaluation. Will discuss the case with case management for possible placement for rehab. Visit Charges Inpatient E&M: 45430 Subs Hosp L2
--- NOTE | 2021-05-06 11:21 | CASEMGMT ---
Addendum entered by Mindy Arce 05/06/21 11:23: SW spoke w/Ghazal Greenberg at [facility], they can take pt. ISHMAEL Freed Original Note: Referal faxed to [facility], message left in admissions. PAS/RR started. ISHMAEL Freed
--- NOTE | 2021-05-06 11:55 | CASEMGMT ---
Social Work Note SW received call from pt's Tita asking about SNF in [place]. SW provided information. Tita states she would like to speak to additional family members and then call this worker back. SW received call from Tita stating she is agreeable to [facility]. DYLLAN informed Tita that [facility] has accepted pt, pt will need to remain at [facility] until approval from [place] is obtained. DYLLAN placed a call to pt's SW Edra at [facility] and left message that pt has been accepted to [facility] and that this worker will fax clinicals, [facility], forms to her when completed. DYLLAN informed Edra that pt is medically ready for discharge once [facility] approves SNF. SW to fax clinicals to Edra [facility] SW at [place] when PT/OT notes are available. Plan: [facility] pending VA approval Kristina Ruiz MSW, METAL BONDING ASSEMBLER
--- NOTE | 2021-05-06 12:54 | CASEMGMT ---
Addendum entered by Kristina Ruiz 05/06/21 16:33: SW faxed referral to Chiquita at [facility] to fax [phone]. SW received message from Azalea confirming she received referral and will start SNF process. Original Note: Social Work Note SW received call from Edra from [facility] stating to fax referral to the [facility] at [phone]. Edra states it is a process to get pt approved through the VA, will start the process once referral is received. DYLLAN will fax referral to VA once PT/OT is available. Plan: [facility] pending VA approval Kristina Ruiz PHOTOVOLTAIC FABRICATION TECHNICIAN, RETIREMENT BENEFITS SPECIALIST
[2021-05-06 15:15] VITALS: BP 100/58; PULSE 66; RESP 18; TEMP 37.1; O2SAT 94
--- NOTE | 2021-05-06 16:03 | CHAPLAIN ---
Type of Pastoral Visit _x__ Initial Visit ___ Follow-up Visit ___ On-call Visit ___ General Patient Visit ___ Spiritual Assessment ___ Family Conference ___ Bereavement ___ Rapid Response ___ Code Blue ___ Other (describe below) Pastoral Care Referral From _x__ Patient ___ Family ___ Nurse ___ Physician ___ Acute Care Nurse Practitioner ___ Associate Research Scientist ___ Other (describe below) Sacrament/Intervention _x__ Active listening ___ Anointing ___ Caodaism ___ Bereavement ___ Communion _x__ Rosanna exploration ___ ___ Life review _x__ Prayer ___ Reconciliation ___ Sacrament of Sick _x__ Supportive presence ___ Wedding ___ Other (describe below) Pastoral Comments patient speaks about his health and becomes tearful; pt explains his concerns which are spiritual regarding his relationship with God; pt says that he sees this as a wake up call for his life; pt requests prayer support and help to deal with these needs; presence and prayer
[2021-05-06 21:35] VITALS: BP 146/74; PULSE 75; RESP 18; TEMP 38.3; O2SAT 93
[2021-05-06] MEDS: Rosuvastatin 20 MG Tablet PO (21:49)
[2021-05-06] MEDS: Tamsulosin HCl 0.4 MG Capsule PO (21:49)
[2021-05-07] VITALS (7 sets, daily range): BP systolic 95–113; BP diastolic 54–65; PULSE 60–68; RESP 18; TEMP 36.9–37.7; O2SAT 92–94
[2021-05-07 07:14] LABS: Phosphorus 2.1 mg/dL (2.5-4.9)
[2021-05-07] MEDS: Aspirin 81 MG TAB.CHEW PO (08:10)
[2021-05-07] MEDS: Ondansetron 4 MG/2 ML Vial IV (08:14)
[2021-05-07] MEDS: 0.9% Saline Lock 10 ML Syringe IV ×3 (08:15→16:35)
[2021-05-07 08:16] LABS: Anion Gap 9 (5-15); BUN 24 mg/dL (7-18); BUN/Creat Ratio 24.5 RATIO (10-20); Chloride 102 mmol/L (98-107); Creatinine, Serum 0.98 mg/dL (0.70-1.30); EST Glomerular Filtration Rate 79 mL/min (>60); Est Glom Filt Rate - Afr Amer 96 mL/min (>60); Estimated Creatinine Clearance 64.13 ml/min; Glucose 99 mg/dL (74-106); Magnesium 2.1 mg/dL (1.6-2.6); Potassium 2.7 mmol/L (3.5-5.1); Sodium Level 138 mmol/L (136-145)
--- NOTE | 2021-05-07 09:04 | PN.HOSP_ITS ---
Documented by User: Jazzy Michele NP-C 05/07/21 09:10 Subjective Subjective Patient seen and examined. PT and OT at bedside working with patient, patient continues to have difficulty ambulating with walker and to assist. Patient denies needs at this time, sitting in chair no distress noted. Objective Data Objective Data Vital Signs: Vital Signs Temp Pulse Resp BP Pulse Ox 99.8 F H 68 18 112/59 L 92 05/07/21 03:27 05/07/21 03:27 05/07/21 03:27 05/07/21 03:27 05/07/21 03:27 Oxygen Delivery Method Room Air Weight: 173 lb 15.115 oz Body Mass Index (BMI) 25.7 Intake & Output: Intake and Output for Last 24 Hours 05/05/21 05/06/21 05/07/21 23:59 23:59 23:59 Intake Total 850 / 850 400 / 400 Output Total 425 / 425 150 / 150 Balance 425 / 425 250 / 250 Lab / Micro Data Result Diagrams: 05/05/21 18:55 05/07/21 06:15 Labs: Laboratory Results - last 24 hr 05/07/21 06:15: Sodium 138, Potassium 2.7 L*, Chloride 102, Carbon Dioxide 27.0, Anion Gap 9, BUN 24 H, Creatinine 0.98, Estim Creat Clear Calc 64.13, Est GFR (MDRD) Af Amer 96, Est GFR (MDRD) Non-Af 79, BUN/Creatinine Ratio 24.5 H, Glucose 99, Calcium 8.0 L, Magnesium 2.1 05/07/21 06:15: Phosphorus 2.1 L Physical Exam Const alert, oriented x3 and no apparent distress HEENT head/scalp atraumatic Head and Scalp: normocephalic Eyes conjunctivae normal and no scleral icterus Neck supple General: trachea midline Resp normal respiratory effort, normal air movement and clear to auscultation bilaterally Effort and Inspection: able to speak in complete sentences and symmetric chest movement Cardio regular rate, regular rhythm, S1 normal heart sound and S2 normal heart sound GI normal to inspection, nondistended, normoactive bowel sounds, soft to palpation and non-tender Extremity normal to inspection and no clubbing, cyanosis or edema Peripheral Pulses: Yes pulses 2+ throughout Skin no rashes or lesions noted, no wounds and skin turgor normal Neuro oriented x3, moves all extremities, no focal motor deficits and no sensory deficits noted Sensorium / Orientation: awake, alert and oriented to person Psych affect normal Assessment & Plan Assessment/Plan (1) Debility: (2) Frequent falls: PLAN: 1. Debility with frequent falls -Continue home B12 -Plan to discharge patient to [facility] upon discharge for further therapy -Fall precautions in place -PT and OT following 2. Laceration to the hands -Dressings to bilateral hands dry and intact 3. Hypokalemia -Potassium 2.7 -P.o. potassium chloride 40 mEq ordered along with potassium phosphate 30 mm x 1 as phosphate is 2.1 -Daily BMP ordered 4. Hypertension -Continue hydrochlorothiazide, lisinopril, metoprolol -Vital signs per protocol 5. BPH -Continue prescribed Flomax 6. Hyperlipidemia -Continue statin DVT prophylaxis-SCDs This patient was seen by MIKAEL Todd under the supervision of Dr. Quintanilla. Documented by User: Dr. Austen Quintanilla MD 05/07/21 12:23 Objective Data Lab / Micro Data Result Diagrams: 05/05/21 18:55 05/07/21 06:15 Charges/Coding Addendum Addendum: Dr. Quintanilla: I personally reviewed the chart and examined the patient, and agree with the above findings. 75-year-old male presents from home after multiple falls. He describes significant weakness and debility and was brought in because his can no longer take care of him. Did come in a few days earlier but wanted to go home. Repeated CT scans of the brain on the and the are negative for stroke. Urine was unremarkable for UTI and chest x-ray was negative for pneumonia. Currently denies any new symptoms and will have him work with PT/OT for evaluation. Will discuss the case with case management for possible placement for rehab. 05/07/2021: Doing well, states that he has been getting weaker for several weeks prior to admitting to the hospital. He still having difficulty with ambulation but he is working with PT and OT. Continue with case management consult to evaluate for possible placement Visit Charges OBSV E&M: 26618 Subsequent observation care L2
[2021-05-07] MEDS: Cyanocobalamin 500 MCG Tablet 1000 MCG PO (10:10)
[2021-05-07] MEDS: Isosorbide Mononitrate 30 MG Tablet PO (10:10)
[2021-05-07] MEDS: Potassium Chloride Oral Tablet 20 MEQ 40 MEQ PO (10:11)
[2021-05-07] MEDS: hydroCHLOROthiazide 25 MG Tablet PO (10:12)
[2021-05-07] MEDS: Tolterodine Tartrate 4 MG CAP.SA PO (10:12)
[2021-05-07] MEDS: Pantoprazole Sodium 20 MG Tablet PO (10:12)
[2021-05-07] MEDS: Metoprolol Tartrate 25 MG Tablet 12.5 MG PO (10:13)
[2021-05-07] MEDS: Finasteride 5 MG Tablet PO (10:13)
[2021-05-07] MEDS: Lisinopril 2.5 MG Tablet PO (10:15)
[2021-05-07] MEDS: Potassium Chloride Oral Tablet 20 MEQ PO (10:17)
[2021-05-07] MEDS: Ibuprofen 600 MG Tablet PO (10:24)
[2021-05-07] MEDS: Tamsulosin HCl 0.4 MG Capsule PO (20:12)
[2021-05-07] MEDS: Rosuvastatin 20 MG Tablet PO (20:12)
[2021-05-08] VITALS (17 sets, daily range): BP systolic 95–131; BP diastolic 61–80; PULSE 64–92; RESP 18–30; TEMP 36.5–37.9; O2SAT 87–97
--- NOTE | 2021-05-08 00:30 | RAD_ITS ---
STUDY: X-RAY CHEST REASON FOR EXAM: Male, 75 years old. Cough TECHNIQUE: Single AP portable view of the chest. COMPARISON: None. FINDINGS: The lungs are underexpanded. There is no demonstrated pleural abnormality. Normal size heart. Normal mediastinum and iris. Normal visualized pulmonary arteries. Normal visualized aortic arch and descending thoracic aorta. Normal visualized thoracic spine. There is degenerative osteoarthritis of the bilateral shoulders. There is no demonstrated abnormality of the visualized soft tissue structures of the upper abdomen. RAD/Chest 1 View (Portable) IMPRESSION: Degenerative changes, as described above. No demonstrated acute cardiopulmonary process. Electronically Signed: Lynn Olivas MD at 2:02 EST Tel , Service support ,
[2021-05-08 00:56] LABS: Absolute Lymphocyte Count 0.81 X10^3/uL (0.83-4.51); Absolute Neutrophil Count 6.6 X10^3/uL (2.0-7.7); Basophil# 0.02 X10^3/uL; Basophil% 0.2 % (0-1); Hemoglobin 13.9 g/dL (13.0-16.5); Lymphocyte # 0.81 X10^3/ul (0.83-4.51); Lymphocyte % 10.1 % (19-41); Mean Corp Hgb Conc 34.8 g/dL (32-36); Mean Corpuscular Hgb 30.9 pg (27.0-32.0); Mean Corpuscular Volume 88.9 fL (80-94); Mean Platelet Vol. 10.1 fl (6.2-12.0); Monocyte% 7.5 % (0-10); NRBC Flagged by Analyzer 0 % (0-5); Platelet Count 145 K/mm3 (150-450); RBC Distribution Width CV 13.9 % (11.6-14.6); RBC Distribution Width SD 45.1 fl (35.1-43.9); White Blood Count 8.1 K/mm3 (4.4-11.0)
--- NOTE | 2021-05-08 02:22 | PCM.PN.BLA ---
Progress Note Patient with persistent nonproductive cough. Temperature 100.4 ?F. Chest x-ray unremarkable. On 4 L nasal cannula oxygen. Previously on room air. We will get a rapid Covid. We will get a urine culture. Will get urinalysis. We will get blood culture x2. DuoNeb [id number] ordered. Incentive spirometer and Acapella ordered. Rapid flu ordered.
[2021-05-08] MEDS: guaiFENesin 1,200 MG Tablet 1200 MG PO ×3 (02:57→20:58)
[2021-05-08] MEDS: Ipratropium/Albuterol Sulfate 3 ML AMPUL.NEB INHALATION ×5 (03:05→22:12)
[2021-05-08 03:08] LABS: Absolute Lymphocyte Count 0.73 X10^3/uL (0.83-4.51); Absolute Neutrophil Count 6.6 X10^3/uL (2.0-7.7); Basophil# 0.01 X10^3/uL; Basophil% 0.1 % (0-1); Hematocrit 39.1 % (40-54); Hemoglobin 13.5 g/dL (13.0-16.5); Lymphocyte # 0.73 X10^3/ul (0.83-4.51); Lymphocyte % 9.2 % (19-41); Mean Corp Hgb Conc 34.5 g/dL (32-36); Mean Corpuscular Hgb 31.2 pg (27.0-32.0); Mean Corpuscular Volume 90.3 fL (80-94); Mean Platelet Vol. 10.3 fl (6.2-12.0); Monocyte# 0.56 X10^3/uL; Monocyte% 7.1 % (0-10); NRBC Flagged by Analyzer 0 % (0-5); Neutrophil % 83.3 % (47-70); Platelet Count 148 K/mm3 (150-450); RBC Distribution Width CV 13.9 % (11.6-14.6); RBC Distribution Width SD 46.1 fl (35.1-43.9); Red Blood Count 4.33 M/mm3 (4.6-6.2); White Blood Count 7.9 K/mm3 (4.4-11.0)
[2021-05-08 03:43] LABS: Anion Gap 9 (5-15); BUN 27 mg/dL (7-18); BUN/Creat Ratio 24.1 RATIO (10-20); Calcium,Total 7.8 mg/dL (8.5-10.1); Chloride 101 mmol/L (98-107); Creatinine, Serum 1.12 mg/dL (0.70-1.30); EST Glomerular Filtration Rate 68 mL/min (>60); Est Glom Filt Rate - Afr Amer 82 mL/min (>60); Estimated Creatinine Clearance 56.11 ml/min; Glucose 110 mg/dL (74-106); Potassium 3.4 mmol/L (3.5-5.1); Sodium Level 138 mmol/L (136-145)
--- NOTE | 2021-05-08 03:53 | PCM.PN.BLA ---
Progress Note Rapid Covid is positive. Chest x-ray does not show any stigmata of Covid. Patient is hypoxic. Will start patient on Decadron. Will check LFT. Consider remdesivir if LFT is normal.
[2021-05-08 04:06] LABS: AST(SGOT) 60 U/L (15-37); Alanine Aminotransfer ALT/SGPT 36 U/L (16-61); Albumin, Serum 2.6 g/dL (3.2-5.0); Alkaline Phosphatase 42 U/L (45-117); Bilirubin, Direct 0.19 mg/dL (0.00-0.30); Globulin 3.4 g/dL (2.2-4.2)
[2021-05-08] MEDS: dexAMETHasone 2 MG TABLET 6 MG PO (04:49)
[2021-05-08] MEDS: Ondansetron 4 MG/2 ML Vial IV (04:49)
[2021-05-08] MEDS: 0.9% Saline Lock 10 ML Syringe IV ×2 (04:50→21:01)
[2021-05-08 05:20] LABS: Mucous, Urine 0 SEEN /hpf (<or=2+); Squamous Epithelial Cells - UA 0 SEEN /hpf (0-5)
[2021-05-08 05:21] LABS: Color, Urine Yellow (Yellow); Glucose, Dipstick Normal (Normal); Ketone-Dipstick 5 mg/dl (Negative); Leukocyte Esterase-Dipstick Negative /ul (Negative); Nitrite-Dipstick Negative (Negative); Occult Blood-Urine 250 /ul (Negative); Protein-Dipstick 100 mg/dl (Negative); Urine Bilirubin Dipstick Negative (Negative); Urine Clarity Clear (Clear); Urine Urobilinogen Normal (Normal)
[2021-05-08 05:24] LABS: D-Dimer Quantitative (DVT/PE) 0.68 FEU/ug/m (0.27-0.49)
[2021-05-08 05:41] LABS: Bacteria RARE /hpf (None Seen); Red Blood Cells-Urine 10-25 SEEN /hpf (0-5); White Blood Cells 0-5 SEEN /hpf (0-5)
--- NOTE | 2021-05-08 06:12 | NURSING ---
Tita called and updated on patients status. Informed about patients COVID diagnosis, and no visitors allowed. While speaking to the she informed this RN that she has not been feeling well either over the past few days. This RN encouraged her to also get tested and if she felt as though her symptoms were worsening and unable to take care of herself at home to go to the ER.
[2021-05-08] MEDS: hydroCHLOROthiazide 25 MG Tablet PO (09:00)
[2021-05-08] MEDS: Metoprolol Tartrate 25 MG Tablet 12.5 MG PO (09:00)
[2021-05-08] MEDS: Isosorbide Mononitrate 30 MG Tablet PO (09:00)
[2021-05-08] MEDS: Tolterodine Tartrate 4 MG CAP.SA PO (09:00)
[2021-05-08] MEDS: Pantoprazole Sodium 20 MG Tablet PO (09:00)
[2021-05-08] MEDS: Aspirin 81 MG TAB.CHEW PO (09:00)
[2021-05-08] MEDS: Cyanocobalamin 500 MCG Tablet 1000 MCG PO (09:01)
[2021-05-08] MEDS: Lisinopril 2.5 MG Tablet PO (09:02)
[2021-05-08] MEDS: Finasteride 5 MG Tablet PO (09:02)
[2021-05-08] MEDS: Potassium Chloride Oral Tablet 20 MEQ PO (09:10)
[2021-05-08] MEDS: Enoxaparin 30 MG/0.3 ML Syringe SC ×2 (09:10→20:58)
--- NOTE | 2021-05-08 09:50 | PCM.PN.HOSP ---
Subjective Subjective Short of breath last night and placed on oxygen. His Covid test was obtained which did come back positive this obviously explains his weakness in light of no other findings. He does not have pneumonia as his chest x-ray on admission was clear Objective Data Objective Data Vital Signs: Vital Signs Temp Pulse Resp BP Pulse Ox 99 F 83 28 H 115/62 95 05/08/21 07:47 05/08/21 09:00 05/08/21 07:47 05/08/21 07:47 05/08/21 07:47 Oxygen Flow Rate (L/min) 4 Oxygen Delivery Method Nasal Cannula Weight: 173 lb 15.115 oz Body Mass Index (BMI) 25.7 Intake & Output: Intake and Output for Last 24 Hours 05/07/21 05/08/21 05/09/21 03:59 03:59 03:59 Intake Total 1050 / 1050 1060 / 1060 250 / 250 Output Total 425 / 425 150 / 150 200 / 200 Balance 625 / 625 910 / 910 50 / 50 Lab / Micro Data Result Diagrams: 05/08/21 02:50 05/08/21 02:50 Labs: Laboratory Results - last 24 hr 05/08/21 00:49: WBC 8.1, RBC 4.50 L, Hgb 13.9, Hct 40.0, MCV 88.9, MCH 30.9, MCHC 34.8, RDW Std Deviation 45.1 H, RDW Coeff of Evin 13.9, Plt Count 145 L, MPV 10.1, Immature Gran % (Auto) 0.200, Neut % (Auto) 82.0 H, Lymph % (Auto) 10.1 L, [place] % (Auto) 7.5, Eos % (Auto) 0.0, Baso % (Auto) 0.2, Absolute Neuts (auto) 6.6, Absolute Lymphs (auto) 0.81 L, Nucleated RBC % 0 05/08/21 02:30: Urine Color Yellow, Urine Clarity Clear, Urine pH 5.0, Ur Specific [place] 1.020, Urine Protein 100 H, Urine Glucose (UA) Normal, Urine Ketones 5 H, Urine Occult Blood 250 H, Urine Nitrite Negative, Urine Bilirubin Negative, Urine Urobilinogen Normal, Ur Leukocyte Esterase Negative, Urine RBC 10-25 SEEN, Urine WBC 0-5 SEEN, Ur Squamous Epith Cells 0 SEEN, Urine Bacteria RARE, Urine Mucus 0 SEEN 05/08/21 02:50: WBC 7.9, RBC 4.33 L, Hgb 13.5, Hct 39.1 L, MCV 90.3, MCH 31.2, MCHC 34.5, RDW Std Deviation 46.1 H, RDW Coeff of Evin 13.9, Plt Count 148 L, MPV 10.3, Immature Gran % (Auto) 0.300, Neut % (Auto) 83.3 H, Lymph % (Auto) 9.2 L, [place] % (Auto) 7.1, Eos % (Auto) 0.0, Baso % (Auto) 0.1, Absolute Neuts (auto) 6.6, Absolute Lymphs (auto) 0.73 L, Nucleated RBC % 0 05/08/21 02:50: Sodium 138, Potassium 3.4 L, Chloride 101, Carbon Dioxide 28.0, Anion Gap 9, BUN 27 H, Creatinine 1.12, Estim Creat Clear Calc 56.11, Est GFR (MDRD) Af Amer 82, Est GFR (MDRD) Non-Af 68, BUN/Creatinine Ratio 24.1 H, Glucose 110 H, Calcium 7.8 L 05/08/21 02:50: Total Bilirubin 0.50, Direct Bilirubin 0.19, AST 60 H, ALT 36, Alkaline Phosphatase 42 L, Total Protein 6.0 L, Albumin 2.6 L, Globulin 3.4 05/08/21 04:50: D-Dimer Quant (PE/DVT) 0.68 H* Micro: Microbiology 05/08/21 02:50 Mucosa - Nasopharyngeal Influenza Types A,B Direct FA (EUSEBIO) - Final 05/08/21 02:50 Nasal Secretion SARS-CoV-2 Antigen (Rapid) - Final SARS-CoV-2 (COVID 19) Radiography Diagnostic Testing: Radiology Impression Chest X-Ray 05/08/21 00:30 IMPRESSION: Degenerative changes, as described above. No demonstrated acute cardiopulmonary process. Electronically Signed: Lynn Olivas MD at 2:02 EST Tel , Service support , Physical Exam Const alert, oriented x3 and no apparent distress General Appearance: cooperative HEENT normocephalic and moist oral mucous membranes Eyes PERRL, EOMs intact bilaterally and conjunctivae normal Neck supple and no JVD Resp normal respiratory effort, no retractions and no use of accessory muscles Auscultation: diminished lung sounds; Negative for crackles, rales, rhonchi or wheezes Cardio regular rate, regular rhythm, S1 normal heart sound, S2 normal heart sound and no murmurs GI soft to palpation, non-tender and non-distended; Negative for hepatosplenomegaly Extremity no clubbing, cyanosis or edema Skin no rashes or lesions noted Neuro no focal motor deficits and no sensory deficits noted Psych affect normal Appearance: appropriate Assessment & Plan Assessment/Plan (1) Debility: (2) Frequent falls: (3) Acute respiratory failure with hypoxia: (4) COVID-19: PLAN: 1. Debility with frequent falls with acute hypoxic respiratory failure secondary to COVID-19 -Continue home B12 -Plan to discharge patient to [facility] upon discharge for further therapy -Fall precautions in place -PT and OT following -Continue with remdesivir and Decadron, currently on nasal cannula we will continue to monitor and make adjustments. If he gets worse, may need to proceed with infectious disease consult for baricitinib 2. Laceration to the hands -Dressings to bilateral hands dry and intact 3. Hypokalemia ?Resolved 4. HTN/HLD -Continue hydrochlorothiazide, lisinopril, metoprolol -Vital signs per protocol ?Blood pressure stable ?Continue with statin 5. BPH -Continue prescribed Flomax DVT: Lovenox Charges/Coding Visit Charges Inpatient E&M: 91303 Subs Hosp L2
--- NOTE | 2021-05-08 10:00 | CASEMGMT ---
Addendum entered by Kristina Ruiz 05/08/21 11:34: DYLLAN also placed a call to Mahsa with [facility] to inquire if they accept COVID+ pt's. Mahsa states pt needs to be 10-14 days post positive tests before they would consider COVID+ pt's. Addendum entered by Kristina Ruiz 05/08/21 11:31: DYLLAN also placed a call to pt's Tita and updated her that since pt is now COVID+, [facility] is not able to accept pt. DYLLAN informed Tita that this worker will be calling around [place] contracted SNF to inquire if any are taking COVID+ pt's. Tita states understanding. Addendum entered by Kristina Ruiz 05/08/21 11:29: DYLLAN received message from [facility] stating additional [place] contracted SNF are [facility], [facility], [facility], and [facility]. DYLLAN placed a call to all SNF, none of these SNF are taking COVID+ pt's. SW will continue to follow for SNF. Addendum entered by Kristina Ruiz 05/08/21 10:42: DYLLAN placed a call to [facility] SW and left message asking if he could email or call this worker back with a list of all [place] contracted SNF in [place] so this worker can start calling SNF to determine if any [place] contracted facilities take COVID+ pt's. DYLLAN waiting for call back from [facility]. Original Note: Social Work Note SW reviewed chart. Pt is now COVID+. DYLLAN placed a call to Ghazal Greenberg at [facility], they are not accepting COVID+ pt's. DYLLAN reviewed nursing homes that are [facility] connected and their COVID Policies. Nile Mcdermott: Pt is out of precautions and showing no symptoms. [facility]: May consider if out of precautions. Mary Kateperth: (14 days post positive and asymptomatic for 24 hours). DYLLAN placed a call to [facility] and spoke with Shandra. Shandra states they are not taking COVID+ pt's. DYLLAN placed a call to pt's DYLLAN Tristan at [facility] and left message asking if she is aware of any [place] connected SNF that are accepting COVID+ pt's. DYLLAN waiting for call back from [place] SW. SW received message from [facility]ro at [place] stating he is not aware of any [facility] connected SNF taking COVID+ pt's. SW to try to find [facility] connected SNF that are taking COVID+ pt's. Kristina Ruiz LANDING MAN, CLOTH WORKER
--- NOTE | 2021-05-08 20:41 | NURSING ---
Pt's Grandson, Xavier, called to say that his Grandmother, Paulette, his mother, and he and been discussing placement options for Koby. Xavier and his mother both work at [employer] and feel this would be a good fit for Koby. This nurse advised this would be passed on to Case Management and primary RN.
[2021-05-08] MEDS: Menthol/Lanolin/Calamine/Znox 113 GM Tube 1 APPLIC TOPICAL (20:57)
[2021-05-08] MEDS: Ibuprofen 600 MG Tablet PO (20:58)
[2021-05-08] MEDS: Tamsulosin HCl 0.4 MG Capsule PO (20:58)
[2021-05-08] MEDS: Rosuvastatin 20 MG Tablet PO (20:58)
[2021-05-09] VITALS (16 sets, daily range): BP systolic 93–139; BP diastolic 63–97; PULSE 51–79; RESP 16–20; TEMP 36.4–36.8; O2SAT 88–97
[2021-05-09 06:33] LABS: Absolute Neutrophil Count 3.9 X10^3/uL (2.0-7.7); Hematocrit 37.6 % (40-54); Hemoglobin 12.7 g/dL (13.0-16.5); Lymphocyte % 13.6 % (19-41); Mean Corp Hgb Conc 33.8 g/dL (32-36); Mean Corpuscular Hgb 30.3 pg (27.0-32.0); Mean Corpuscular Volume 89.7 fL (80-94); Mean Platelet Vol. 10.6 fl (6.2-12.0); Monocyte# 0.51 X10^3/uL; Monocyte% 9.9 % (0-10); NRBC Flagged by Analyzer 0 % (0-5); Neutrophil # 3.93 X10^3/uL (2.7-7.7); Neutrophil % 76.1 % (47-70); Platelet Count 148 K/mm3 (150-450); RBC Distribution Width CV 13.7 % (11.6-14.6); RBC Distribution Width SD 45.5 fl (35.1-43.9); Red Blood Count 4.19 M/mm3 (4.6-6.2); White Blood Count 5.2 K/mm3 (4.4-11.0)
[2021-05-09 07:07] LABS: ALB/GLOB Ratio 0.7 RATIO (0.9-2.4); AST(SGOT) 49 U/L (15-37); Alanine Aminotransfer ALT/SGPT 33 U/L (16-61); Albumin, Serum 2.3 g/dL (3.2-5.0); Alkaline Phosphatase 38 U/L (45-117); Anion Gap 7 (5-15); BUN 31 mg/dL (7-18); BUN/Creat Ratio 31.8 RATIO (10-20); Chloride 104 mmol/L (98-107); Creatinine, Serum 0.98 mg/dL (0.70-1.30); EST Glomerular Filtration Rate 79 mL/min (>60); Est Glom Filt Rate - Afr Amer 96 mL/min (>60); Estimated Creatinine Clearance 64.13 ml/min; Globulin 3.4 g/dL (2.2-4.2); Glucose 144 mg/dL (74-106); Potassium 3.6 mmol/L (3.5-5.1); Protein, Total 5.7 g/dL (6.4-8.2); Sodium Level 138 mmol/L (136-145)
[2021-05-09] MEDS: Ipratropium/Albuterol Sulfate 3 ML AMPUL.NEB INHALATION ×4 (07:25→19:24)
[2021-05-09] MEDS: Potassium Chloride Oral Tablet 20 MEQ PO (08:43)
[2021-05-09] MEDS: Cyanocobalamin 500 MCG Tablet 1000 MCG PO (08:43)
[2021-05-09] MEDS: guaiFENesin 1,200 MG Tablet 1200 MG PO ×2 (08:43→20:47)
[2021-05-09] MEDS: Aspirin 81 MG TAB.CHEW PO (08:43)
[2021-05-09] MEDS: Finasteride 5 MG Tablet PO (08:43)
[2021-05-09] MEDS: Metoprolol Tartrate 25 MG Tablet 12.5 MG PO (08:44)
[2021-05-09] MEDS: Tolterodine Tartrate 4 MG CAP.SA PO (08:44)
[2021-05-09] MEDS: Pantoprazole Sodium 20 MG Tablet PO (08:44)
[2021-05-09] MEDS: Lisinopril 2.5 MG Tablet PO (08:44)
[2021-05-09] MEDS: Isosorbide Mononitrate 30 MG Tablet PO (08:44)
[2021-05-09] MEDS: dexAMETHasone 2 MG TABLET 6 MG PO (08:44)
[2021-05-09] MEDS: hydroCHLOROthiazide 25 MG Tablet PO (08:49)
[2021-05-09] MEDS: Menthol/Lanolin/Calamine/Znox 113 GM Tube 1 APPLIC TOPICAL ×2 (08:49→20:47)
[2021-05-09] MEDS: Enoxaparin 30 MG/0.3 ML Syringe SC ×2 (08:49→20:47)
--- NOTE | 2021-05-09 09:33 | PN.HOSP_ITS ---
Subjective Subjective Feels okay, no issues overnight. Breathing is about the same he is maintaining his oxygen sats on 4 L nasal cannula. Objective Data Objective Data Vital Signs: Vital Signs Temp Pulse Resp BP Pulse Ox 98.2 F 58 L 20 H 137/75 H 94 05/09/21 08:56 05/09/21 08:56 05/09/21 08:56 05/09/21 08:56 05/09/21 08:56 Oxygen Flow Rate (L/min) 4 Oxygen Delivery Method Nasal Cannula Weight: 173 lb 15.115 oz Body Mass Index (BMI) 25.7 Intake & Output: Intake and Output for Last 24 Hours 05/08/21 05/09/21 05/10/21 03:59 03:59 03:59 Intake Total 1060 / 1060 1050 / 1050 200 / 200 Output Total 150 / 150 400 / 400 Balance 910 / 910 650 / 650 200 / 200 Lab / Micro Data Result Diagrams: 05/09/21 05:52 05/09/21 05:52 Labs: Laboratory Results - last 24 hr 05/09/21 05:52: WBC 5.2, RBC 4.19 L, Hgb 12.7 L, Hct 37.6 L, MCV 89.7, MCH 30.3, MCHC 33.8, RDW Std Deviation 45.5 H, RDW Coeff of Evin 13.7, Plt Count 148 L, MPV 10.6, Immature Gran % (Auto) 0.400, Neut % (Auto) 76.1 H, Lymph % (Auto) 13.6 L, [place] % (Auto) 9.9, Eos % (Auto) 0.0, Baso % (Auto) 0.0, Absolute Neuts (auto) 3.9, Absolute Lymphs (auto) 0.70 L, Nucleated RBC % 0 05/09/21 05:52: Sodium 138, Potassium 3.6, Chloride 104, Carbon Dioxide 27.0, An ion Gap 7, BUN 31 H, Creatinine 0.98, Estim Creat Clear Calc 64.13, Est GFR ( MDRD) Af Amer 96, Est GFR (MDRD) Non-Af 79, BUN/Creatinine Ratio 31.8 H, Glucose 144 H, Calcium 8.0 L, Total Bilirubin 0.40, AST 49 H, ALT 33, Alkaline Phosphatase 38 L, Total Protein 5.7 L, Albumin 2.3 L, Globulin 3.4, Albumin /Globulin Ratio 0.7 L Micro: Microbiology 05/08/21 02:50 Mucosa - Nasopharyngeal Influenza Types A,B Direct FA (EUSEBIO) - Final 05/08/21 02:50 Nasal Secretion SARS-CoV-2 Antigen (Rapid) - Final SARS-CoV-2 (COVID 19) Physical Exam Const alert, oriented x3 and no apparent distress General Appearance: cooperative HEENT normocephalic and moist oral mucous membranes Eyes PERRL, EOMs intact bilaterally and conjunctivae normal Neck supple and no JVD Resp normal respiratory effort, no retractions and no use of accessory muscles Auscultation: diminished lung sounds; Negative for crackles, rales, rhonchi or wheezes Cardio regular rate, regular rhythm, S1 normal heart sound, S2 normal heart sound and no murmurs GI soft to palpation, non-tender and non-distended; Negative for hepatosplenomegaly Extremity no clubbing, cyanosis or edema Skin no rashes or lesions noted Neuro no focal motor deficits and no sensory deficits noted Psych affect normal Appearance: appropriate Assessment & Plan Assessment/Plan (1) Debility: (2) Frequent falls: (3) Acute respiratory failure with hypoxia: (4) COVID-19: PLAN: 1. Debility with frequent falls with acute hypoxic respiratory failure secondary to COVID-19 -Continue home B12 -Plan to discharge patient to [facility] upon discharge for further therapy -Fall precautions in place -PT and OT following -Continue with remdesivir and Decadron, currently on nasal cannula we will continue to monitor and make adjustments. If he gets worse, may need to proceed with infectious disease consult for baricitinib 2. Laceration to the hands -Dressings to bilateral hands dry and intact 3. Hypokalemia ?Resolved 4. HTN/HLD -Continue hydrochlorothiazide, lisinopril, metoprolol -Vital signs per protocol ?Blood pressure stable ?Continue with statin 5. BPH -Continue prescribed Flomax DVT: Lovenox Charges/Coding Visit Charges Inpatient E&M: 98808 Subs Hosp L2
[2021-05-09] MEDS: Ibuprofen 600 MG Tablet PO (15:32)
[2021-05-09] MEDS: Rosuvastatin 20 MG Tablet PO (20:47)
[2021-05-09] MEDS: Tamsulosin HCl 0.4 MG Capsule PO (20:47)
[2021-05-10] VITALS (13 sets, daily range): BP systolic 89–159; BP diastolic 65–88; PULSE 57–78; RESP 18–24; TEMP 36.4–36.9; O2SAT 92–97
[2021-05-10] MEDS: Ibuprofen 600 MG Tablet PO (04:51)
[2021-05-10 07:49] LABS: Absolute Neutrophil Count 6.1 X10^3/uL (2.0-7.7); Hematocrit 39.8 % (40-54); Hemoglobin 13.4 g/dL (13.0-16.5); Lymphocyte % 8.2 % (19-41); Mean Corp Hgb Conc 33.7 g/dL (32-36); Mean Corpuscular Hgb 30.3 pg (27.0-32.0); Mean Platelet Vol. 10.9 fl (6.2-12.0); Monocyte# 0.61 X10^3/uL; Monocyte% 8.3 % (0-10); NRBC Flagged by Analyzer 0 % (0-5); Neutrophil # 6.12 X10^3/uL (2.7-7.7); Neutrophil % 83.1 % (47-70); POSITIVE DIFFERENTIAL YES; Platelet Count 187 K/mm3 (150-450); RBC Distribution Width CV 13.6 % (11.6-14.6); RBC Distribution Width SD 45.1 fl (35.1-43.9); Red Blood Count 4.42 M/mm3 (4.6-6.2); White Blood Count 7.4 K/mm3 (4.4-11.0)
[2021-05-10 07:50] LABS: Differential Indicated SCAN CRITERIA MET
[2021-05-10 08:07] LABS: ALB/GLOB Ratio 0.7 RATIO (0.9-2.4); AST(SGOT) 70 U/L (15-37); Alanine Aminotransfer ALT/SGPT 57 U/L (16-61); Albumin, Serum 2.4 g/dL (3.2-5.0); Alkaline Phosphatase 42 U/L (45-117); Anion Gap 6 (5-15); BUN 33 mg/dL (7-18); BUN/Creat Ratio 35.8 RATIO (10-20); Calcium,Total 8.5 mg/dL (8.5-10.1); Chloride 104 mmol/L (98-107); Creatinine, Serum 0.92 mg/dL (0.70-1.30); EST Glomerular Filtration Rate 85 mL/min (>60); Est Glom Filt Rate - Afr Amer 102 mL/min (>60); Estimated Creatinine Clearance 68.31 ml/min; Globulin 3.4 g/dL (2.2-4.2); Glucose 152 mg/dL (74-106); Potassium 4.1 mmol/L (3.5-5.1); Protein, Total 5.8 g/dL (6.4-8.2); Sodium Level 138 mmol/L (136-145)
[2021-05-10] MEDS: Aspirin 81 MG TAB.CHEW PO (08:35)
[2021-05-10] MEDS: Metoprolol Tartrate 25 MG Tablet 12.5 MG PO (08:35)
[2021-05-10] MEDS: Isosorbide Mononitrate 30 MG Tablet PO (08:35)
[2021-05-10] MEDS: Pantoprazole Sodium 20 MG Tablet PO (08:35)
[2021-05-10] MEDS: Tolterodine Tartrate 4 MG CAP.SA PO (08:35)
[2021-05-10] MEDS: dexAMETHasone 2 MG TABLET 6 MG PO (08:35)
[2021-05-10] MEDS: hydroCHLOROthiazide 25 MG Tablet PO ×2 (08:35→08:36)
[2021-05-10] MEDS: Lisinopril 2.5 MG Tablet PO (08:36)
[2021-05-10] MEDS: Finasteride 5 MG Tablet PO (08:36)
[2021-05-10] MEDS: Menthol/Lanolin/Calamine/Znox 113 GM Tube 1 APPLIC TOPICAL ×2 (08:36→22:45)
[2021-05-10] MEDS: guaiFENesin 1,200 MG Tablet 1200 MG PO ×2 (08:36→22:45)
[2021-05-10] MEDS: Cyanocobalamin 500 MCG Tablet 1000 MCG PO (08:36)
[2021-05-10] MEDS: Potassium Chloride Oral Tablet 20 MEQ PO (08:37)
[2021-05-10] MEDS: Enoxaparin 30 MG/0.3 ML Syringe SC ×2 (08:37→22:46)
[2021-05-10] MEDS: Polyethylene Glycol 3350 17 GM PACKET 8.5 GM PO ×2 (08:39→22:45)
--- NOTE | 2021-05-10 09:16 | CPS ---
patient was not feeling well refused Aero
--- NOTE | 2021-05-10 11:49 | PN.HOSP_ITS ---
Subjective Subjective Maintaining his oxygen saturations around 3 to 4 L nasal cannula. Continue with treatment for Covid. Planning for discharge to a long term for rehab. Objective Data Objective Data Vital Signs: Vital Signs Temp Pulse Resp BP Pulse Ox 98.5 F 57 L 18 159/79 H 95 05/10/21 08:32 05/10/21 08:35 05/10/21 08:51 05/10/21 08:35 05/10/21 09:17 Oxygen Flow Rate (L/min) 3 Oxygen Delivery Method Nasal Cannula Weight: 173 lb 15.115 oz Body Mass Index (BMI) 25.7 Intake & Output: Intake and Output for Last 24 Hours 05/09/21 05/10/21 05/11/21 03:59 03:59 03:59 Intake Total 1050 / 1050 750 / 750 Output Total 400 / 400 150 / 150 200 / 200 Balance 650 / 650 600 / 600 -200 / -200 Lab / Micro Data Result Diagrams: 05/10/21 06:27 05/10/21 06:27 Labs: Laboratory Results - last 24 hr 05/10/21 06:27: WBC 7.4, RBC 4.42 L, Hgb 13.4, Hct 39.8 L, MCV 90.0, MCH 30.3, M CHC 33.7, RDW Std Deviation 45.1 H, RDW Coeff of Evin 13.6, Plt Count 187, MPV 10.9, Immature Gran % (Auto) 0.400, Neut % (Auto) 83.1 H, Lymph % (Auto) 8.2 L, [place] % (Auto) 8.3, Eos % (Auto) 0.0, Baso % (Auto) 0.0, Absolute Neuts (auto) 6.1, Absolute Lymphs (auto) 0.60 L, Nucleated RBC % 0 05/10/21 06:27: Sodium 138, Potassium 4.1, Chloride 104, Carbon Dioxide 28.0, Anion Gap 6, BUN 33 H, Creatinine 0.92, Estim Creat Clear Calc 68.31, Est GFR (MDRD) Af Amer 102, Est GFR (MDRD) Non-Af 85, BUN/Creatinine Ratio 35.8 H, Glucose 152 H, Calcium 8.5, Total Bilirubin 0.60, AST 70 H, ALT 57, Alkaline Phosphatase 42 L, Total Protein 5.8 L, Albumin 2.4 L, Globulin 3.4, Albumin/Globulin Ratio 0.7 L Micro: Microbiology 05/08/21 02:30 Urine, Catheterized Urine Culture - Final Culture exhibits no growth. 05/08/21 02:50 Mucosa - Nasopharyngeal Influenza Types A,B Direct FA (EUSEBIO) - Final 05/08/21 02:50 Nasal Secretion SARS-CoV-2 Antigen (Rapid) - Final SARS-CoV-2 (COVID 19) Physical Exam Const alert, oriented x3 and no apparent distress General Appearance: cooperative HEENT normocephalic and moist oral mucous membranes Eyes PERRL, EOMs intact bilaterally and conjunctivae normal Neck supple and no JVD Resp normal respiratory effort, no retractions and no use of accessory muscles Auscultation: diminished lung sounds; Negative for crackles, rales, rhonchi or wheezes Cardio regular rate, regular rhythm, S1 normal heart sound, S2 normal heart sound and no murmurs GI soft to palpation, non-tender and non-distended; Negative for hepatosplenomegaly Extremity no clubbing, cyanosis or edema Skin no rashes or lesions noted Neuro no focal motor deficits and no sensory deficits noted Psych affect normal Appearance: appropriate Assessment & Plan Assessment/Plan (1) Debility: (2) Frequent falls: (3) Acute respiratory failure with hypoxia: (4) COVID-19: PLAN: 1. Debility with frequent falls with acute hypoxic respiratory failure secondary to COVID-19 -Continue home B12 -Plan to discharge patient to [facility] upon disc harge for further therapy -Fall precautions in place -PT and OT following -Continue with remdesivir and Decadron, currently on 4 L nasal cannula we will continue to monitor and make adjustments. If he gets worse, may need to proceed with infectious disease consult for baricitinib 2. Laceration to the hands -Dressings to bilateral hands dry and intact 3. Hypokalemia ?Resolved 4. HTN/HLD -Continue hydrochlorothiazide, lisinopril, metoprolol -Vital signs per protocol ?Blood pressure stable ?Continue with statin 5. BPH -Continue prescribed Flomax DVT: Lovenox Charges/Coding Visit Charges Inpatient E&M: 63007 Subs Hosp L2
[2021-05-10] MEDS: Ipratropium/Albuterol Sulfate 3 ML AMPUL.NEB INHALATION ×3 (12:13→20:43)
[2021-05-10] MEDS: Tamsulosin HCl 0.4 MG Capsule PO (22:45)
[2021-05-10] MEDS: Rosuvastatin 20 MG Tablet PO (22:45)
[2021-05-10] MEDS: 0.9% Saline Lock 10 ML Syringe IV (22:50)
[2021-05-11] VITALS (14 sets, daily range): BP systolic 115–148; BP diastolic 69–87; PULSE 52–88; RESP 18–22; TEMP 36.4–36.9; O2SAT 92–97
[2021-05-11] MEDS: Ipratropium/Albuterol Sulfate 3 ML AMPUL.NEB INHALATION ×4 (07:07→19:26)
[2021-05-11 07:22] LABS: Absolute Lymphocyte Count 0.58 X10^3/uL (0.83-4.51); Absolute Neutrophil Count 5.6 X10^3/uL (2.0-7.7); Hematocrit 39.9 % (40-54); Hemoglobin 13.7 g/dL (13.0-16.5); Lymphocyte # 0.58 X10^3/ul (0.83-4.51); Lymphocyte % 8.1 % (19-41); Mean Corp Hgb Conc 34.3 g/dL (32-36); Mean Corpuscular Hgb 30.5 pg (27.0-32.0); Mean Corpuscular Volume 88.9 fL (80-94); Mean Platelet Vol. 10.4 fl (6.2-12.0); Monocyte# 0.89 X10^3/uL; Monocyte% 12.5 % (0-10); NRBC Flagged by Analyzer 0 % (0-5); Neutrophil % 78.7 % (47-70); POSITIVE DIFFERENTIAL YES; Platelet Count 188 K/mm3 (150-450); RBC Distribution Width CV 13.4 % (11.6-14.6); RBC Distribution Width SD 43.9 fl (35.1-43.9); Red Blood Count 4.49 M/mm3 (4.6-6.2); White Blood Count 7.1 K/mm3 (4.4-11.0)
[2021-05-11 07:35] LABS: Differential Indicated SCAN CRITERIA MET
[2021-05-11 07:55] LABS: ALB/GLOB Ratio 0.7 RATIO (0.9-2.4); AST(SGOT) 66 U/L (15-37); Alanine Aminotransfer ALT/SGPT 87 U/L (16-61); Albumin, Serum 2.5 g/dL (3.2-5.0); Alkaline Phosphatase 42 U/L (45-117); Anion Gap 6 (5-15); BUN 30 mg/dL (7-18); BUN/Creat Ratio 36.8 RATIO (10-20); Calcium,Total 8.4 mg/dL (8.5-10.1); Chloride 103 mmol/L (98-107); Creatinine, Serum 0.82 mg/dL (0.70-1.30); EST Glomerular Filtration Rate 97 mL/min (>60); Est Glom Filt Rate - Afr Amer 118 mL/min (>60); Estimated Creatinine Clearance 76.64 ml/min; Globulin 3.5 g/dL (2.2-4.2); Glucose 150 mg/dL (74-106); Potassium 3.9 mmol/L (3.5-5.1); Sodium Level 136 mmol/L (136-145)
[2021-05-11 07:57] LABS: Differential Comment SCANNED
[2021-05-11] MEDS: Potassium Chloride Oral Tablet 20 MEQ PO (09:13)
[2021-05-11] MEDS: guaiFENesin 1,200 MG Tablet 1200 MG PO ×2 (09:13→22:51)
[2021-05-11] MEDS: Finasteride 5 MG Tablet PO (09:13)
[2021-05-11] MEDS: Lisinopril 2.5 MG Tablet PO (09:14)
[2021-05-11] MEDS: Isosorbide Mononitrate 30 MG Tablet PO (09:14)
[2021-05-11] MEDS: Cyanocobalamin 500 MCG Tablet 1000 MCG PO (09:14)
[2021-05-11] MEDS: Pantoprazole Sodium 20 MG Tablet PO (09:14)
[2021-05-11] MEDS: Metoprolol Tartrate 25 MG Tablet 12.5 MG PO (09:14)
[2021-05-11] MEDS: Tolterodine Tartrate 4 MG CAP.SA PO (09:15)
[2021-05-11] MEDS: dexAMETHasone 2 MG TABLET 6 MG PO (09:15)
[2021-05-11] MEDS: Aspirin 81 MG TAB.CHEW PO (09:15)
[2021-05-11] MEDS: hydroCHLOROthiazide 25 MG Tablet PO (09:16)
[2021-05-11] MEDS: Enoxaparin 30 MG/0.3 ML Syringe SC ×2 (09:16→22:52)
[2021-05-11] MEDS: Menthol/Lanolin/Calamine/Znox 113 GM Tube 1 APPLIC TOPICAL ×2 (09:17→22:50)
--- NOTE | 2021-05-11 10:18 | PN.HOSP_ITS ---
Subjective Subjective Patient is a 75-year-old gentleman admitted with progressive generalized weakness and multiple falls at home. Was diagnosed with COVID-19 pneumonia Objective Data Objective Data Vital Signs: Vital Signs Temp Pulse Resp BP Pulse Ox 98 F 66 18 144/87 H 94 05/11/21 09:22 05/11/21 09:22 05/11/21 09:22 05/11/21 09:22 05/11/21 09:22 Oxygen Flow Rate (L/min) 4 Oxygen Delivery Method Nasal Cannula Weight: 78.9 kg Body Mass Index (BMI) 25.7 Intake & Output: Intake and Output for Last 24 Hours 05/09/21 05/10/21 05/11/21 23:59 23:59 23:59 Intake Total 500 / 500 1170 / 1170 490 / 490 Output Total 150 / 150 1000 / 1000 600 / 600 Balance 350 / 350 170 / 170 -110 / -110 Lab / Micro Data Result Diagrams: 05/11/21 07:07 05/11/21 07:07 Labs: Laboratory Results - last 24 hr 05/11/21 07:07: WBC 7.1, RBC 4.49 L, Hgb 13.7, Hct 39.9 L, MCV 88.9, MCH 30.5, MCHC 34.3, RDW Std Deviation 43.9, RDW Coeff of Evin 13.4, Plt Count 188, MPV 10.4, Immature Gran % (Auto) 0.700, Neut % (Auto) 78.7 H, Lymph % (Auto) 8.1 L, [place] % (Auto) 12.5 H, Eos % (Auto) 0.0, Baso % (Auto) 0.0, Absolute Neuts (auto) 5.6, Absolute Lymphs (auto) 0.58 L, Nucleated RBC % 0, Differential Comment SCANNED 05/11/21 07:07: Sodium 136, Potassium 3.9, Chloride 103, Carbon Dioxide 27.0, Anion Gap 6, BUN 30 H, Creatinine 0.82, Estim Creat Clear Calc 76.64, Est GFR (MDRD) Af Amer 118, Est GFR (MDRD) Non-Af 97, BUN/Creatinine Ratio 36.8 H, Glucose 150 H, Calcium 8.4 L, Total Bilirubin 0.60, AST 66 H, ALT 87 H, Alkaline Phosphatase 42 L, Total Protein 6.0 L, Albumin 2.5 L, Globulin 3.5, Albumin/Globulin Ratio 0.7 L Micro: Microbiology 05/08/21 04:50 Blood Culture (Wb) - Anticubital Right Blood Culture - Preliminary No growth in 48 hours. 05/08/21 02:50 Blood Culture (Wb) - Anticubital Right Blood Culture - Preliminary No growth in 48 hours. 05/08/21 02:30 Urine, Catheterized Urine Culture - Final Culture exhibits no growth. 05/08/21 02:50 Mucosa - Nasopharyngeal Influenza Types A,B Direct FA (EUSEBIO) - Final 05/08/21 02:50 Nasal Secretion SARS-CoV-2 Antigen (Rapid) - Final SARS-CoV-2 (COVID 19) Physical Exam Narrative GENERAL: Lethargic but arousable HEENT: Atraumatic; EYES; Anicteric, Normal Conjunctiva NECK; supple, normal thyroid, RESPIRATORY: Diminished to auscultation CARDIOVASCULAR: Regular S1 S2, GI: soft, normoactive bowel sounds, : No Renal angle tenderness; EXTREMITIES: Lacerations on both hands in surgical dressing MUSCULOSKELETAL: no muscle waisting NEURO: Awake; no lateralizing signs. SKIN: No Rash PSYCH; Flat affect Assessment & Plan Assessment/Plan (1) Debility: (2) Frequent falls: (3) Acute respiratory failure with hypoxia: (4) COVID-19: PLAN: Patient is a 75-year-old gentleman admitted with progressive generalized weakness and multiple falls at home. Was diagnosed with COVID-19 pneumonia 1. Acute hypoxic respiratory failure ?Secondary to COVID-19 pneumonia managed with remdesivir and Decadron in addition to supplemental oxygen titrated to keep saturation greater than 90 2. Physical deconditioning with multiple falls - Requested for PT OT eval and social media content specialist to assist with discharge planning 3. Hypokalemia ?Corrected per protocol 4. Hypertension - Blood pressure controlled, home medications continued with dose adjustment as needed 5. Dyslipidemia ?Patient is on rosuvastatin did continue 6. GERD ?Patient is on PPI did continue 7. BPH ?Patient is prescribed Flomax from home did continue 8. DVT prophylaxis ?Lovenox Charges/Coding Visit Charges Inpatient E&M: 45953 Subs Hosp L2
--- NOTE | 2021-05-11 12:09 | CASEMGMT ---
Social Work Note YDLLAN placed a call to [facility] DYLLAN. DYLLAN asked Az[place]a if there are any [place] SN[place] that [place]'s. Az[place]a [place] that all [place] SNF [place] requiring at least 10 days post positive COVID+ before they will accept pt. DYLLAN updated Azalea that this worker will speak to [facility] and pt's family to continue to discuss SNF placement and then let her know. Azalea states understanding. DYLLAN placed a call to Ghazal Greenberg at [facility]. Ghazal Greenberg states their COVID policy is that pt has to be 10 days post positive COVID test and asymptomatic before they can admit pt. DYLLAN informed Ghazal Greenberg that this worker will check with family to confirm SNF. DYLLAN placed a call to pt's Tita. DYLLAN updated Tita that all [place] contracted SNF are stating pt's must be 10 days post COVID+ test and asymptomatic before they can admit pt. DYLLAN reviewed notes and it was noted that pt's family was requesting [place] [facility]. DYLLAN asked Tita about [place] request. Tita confirms she would like pt to discharge to [place]. DYLLAN informed Tita that [place] is not a [place] contracted facility so pt cannot go there under his [place] benefits. Tita states understanding, states she is agreeable to [facility]. DYLLAN placed a call to Ghazal Greenberg and updated her that pt's family is still agreeable to [facility], approval from VA is also needed. Ghazal Greenberg states understanding. DYLLAN placed a call to [facility] DYLLAN and left message that pt's family is still agreeable to [facility], pt will need approval from [place]. DYLLAN faxed updated clinicals to Ghazal Greenberg at [facility]. Plan: [facility] skilled once pt is 10 days post COVID+ test and pt is asymptomatic pending [place] approval Kristina Ruiz ONSITE HEALTH COACH, DISCHARGE COORDINATOR
[2021-05-11 14:38] LABS: Pathologist Review Reviewed
[2021-05-11] MEDS: Rosuvastatin 20 MG Tablet PO (22:51)
[2021-05-11] MEDS: 0.9% Saline Lock 10 ML Syringe IV (22:51)
[2021-05-11] MEDS: Tamsulosin HCl 0.4 MG Capsule PO (22:51)
[2021-05-11] MEDS: Polyethylene Glycol 3350 17 GM PACKET 8.5 GM PO (22:52)
[2021-05-12] VITALS (44 sets, daily range): BP systolic 72–144; BP diastolic 51–119; PULSE 62–118; RESP 12–34; TEMP 36.5–38.3; O2SAT 85–97
--- NOTE | 2021-05-12 02:45 | EKG12_ITS ---
Test Reason : CP Blood Pressure : / mmHG Vent. Rate : 064 BPM Atrial Rate : 064 BPM P-R Int : 168 ms QRS Dur : 108 ms QT Int : 446 ms P-R-T Axes : 044 -35 051 degrees QTc Int : 460 ms Normal sinus rhythm Left axis deviation Incomplete left bundle branch block Prolonged QT Abnormal ECG Confirmed by MAGY CASTAÑEDA, LEILANI ([id number]), copy editor ALMA ELENA ([id number]) on 05/13/2021 8:44:21 AM Referred By: KIERRA Confirmed By:LEILANI BHATTI MD
[2021-05-12] MEDS: LORazepam 2 MG/ML Syringe 0.5 MG IV (03:54)
--- NOTE | 2021-05-12 06:48 | CT_ITS ---
STUDY: CTA CHEST REASON FOR EXAM: Male, 75 years old. hypoxia, covid, RADIATION DOSAGE (If Supplied By Facility): CTDIvol = ( 16.07 ) mGy, DLP = ( 447.05 ) mGycm TECHNIQUE: The examination was performed with the intravenous administration of IV 100mL Isovue-370. Post-processing of the angiographic images was performed, with multiplanar reformation and 3D reconstruction. Individualized dose optimization techniques were used for this CT. COMPARISON: None. FINDINGS: Normal enhancement of the main pulmonary artery and right and left pulmonary arteries. Evaluation of the lower lobe segmental branches inhibited by respiratory motion. However, there are a few scattered segmental and subsegmental filling defects involving the bilateral lower lobe pulmonary artery branches. For instance, left lower lobe subsegmental pulmonary embolism seen on image 109 of series 2. No saddle embolus or CTA evidence of right heart strain. Normal thoracic aorta and visualized great vessels. There is no demonstrated aortic dissection. Normal heart and pericardium. There are endovascular stent(s) present. Normal mediastinum. Normal hilar regions. Multifocal interstitial and groundglass infiltrates with features commonly reported with COVID pneumonia. Localized consolidation of the medial right lower lobe abuts the pleural surface on image 124 of series 2 . Normal pleura. Normal chest wall structures. There are degenerative changes of thoracic spine. Normal visualized upper abdomen. CT/CTA Chest W/WO Contrast IMPRESSION: 1. Bilateral lower lobe segmental and subsegmental pulmonary embolism. No saddle embolus or evidence of right heart strain. 2. Multifocal infiltrates with features commonly reported with COVID pneumonia. 3. Localized consolidation of the posterior right lower lobe could represent superimposed bacterial pneumonia versus pulmonary infarction in the setting of pulmonary embolism. Electronically Signed: Cory Curtis MD (Brooks) at 8:57 EST , Service support ,
[2021-05-12] MEDS: Ipratropium/Albuterol Sulfate 3 ML AMPUL.NEB INHALATION ×3 (07:25→20:35)
--- NOTE | 2021-05-12 07:27 | CPS ---
found pt with oxygen out of nose. placed back on and sats increased.
--- NOTE | 2021-05-12 07:32 | PCM.PN.HOSP ---
Subjective Subjective Patient did develop chest pain stat CTA obtained demonstrated Bilateral lower lobe segmental and subsegmental pulmonary embolism. No saddle embolus or evidence of right heart strain. Multifocal infiltrates with features commonly reported with COVID pneumonia. Localized consolidation of the posterior right lower lobe couldrepresent superimposed bacterial pneumonia versus pulmonary infarction in the setting of pulmonary embolism.. Patient was transferred to the intensive care unit Objective Data Objective Data Vital Signs: Vital Signs Temp Pulse Resp BP Pulse Ox 97.7 F L 77 22 H 139/86 H 95 05/12/21 02:47 05/12/21 07:25 05/12/21 07:25 05/12/21 02:47 05/12/21 07:25 Oxygen Flow Rate (L/min) 11 Oxygen Delivery Method Nasal Cannula Weight: 78.9 kg Body Mass Index (BMI) 25.7 Intake & Output: Intake and Output for Last 24 Hours 05/10/21 05/11/21 05/12/21 23:59 23:59 23:59 Intake Total 1170 / 1170 690 / 690 250 / 250 Output Total 1000 / 1000 1550 / 1550 450 / 450 Balance 170 / 170 -860 / -860 -200 / -200 Lab / Micro Data Result Diagrams: 05/12/21 07:30 05/12/21 07:30 Labs: Laboratory Results - last 24 hr 05/10/21 06:27: Diff Path Review Reviewed 05/11/21 07:07: WBC 7.1, RBC 4.49 L, Hgb 13.7, Hct 39.9 L, MCV 88.9, MCH 30.5, MCHC 34.3, RDW Std Deviation 43.9, RDW Coeff of Evin 13.4, Plt Count 188, MPV 10.4, Immature Gran % (Auto) 0.700, Neut % (Auto) 78.7 H, Lymph % (Auto) 8.1 L, [place] % (Auto) 12.5 H, Eos % (Auto) 0.0, Baso % (Auto) 0.0, Absolute Neuts (auto) 5.6, Absolute Lymphs (auto) 0.58 L, Nucleated RBC % 0, Differential Comment SCANNED 05/11/21 07:07: Sodium 136, Potassium 3.9, Chloride 103, Carbon Dioxide 27.0, Anion Gap 6, BUN 30 H, Creatinine 0.82, Estim Creat Clear Calc 76.64, Est GFR (MDRD) Af Amer 118, Est GFR (MDRD) Non-Af 97, BUN/Creatinine Ratio 36.8 H, Glucose 150 H, Calcium 8.4 L, Total Bilirubin 0.60, AST 66 H, ALT 87 H, Alkaline Phosphatase 42 L, Total Protein 6.0 L, Albumin 2.5 L, Globulin 3.5, Albumin/Globulin Ratio 0.7 L Micro: Microbiology 05/08/21 04:50 Blood Culture (Wb) - Anticubital Right Blood Culture - Preliminary No growth in 48 hours. 05/08/21 02:50 Blood Culture (Wb) - Anticubital Right Blood Culture - Preliminary No growth in 48 hours. 05/08/21 02:30 Urine, Catheterized Urine Culture - Final Culture exhibits no growth. 05/08/21 02:50 Mucosa - Nasopharyngeal Influenza Types A,B Direct FA (EUSEBIO) - Final 05/08/21 02:50 Nasal Secretion SARS-CoV-2 Antigen (Rapid) - Final SARS-CoV-2 (COVID 19) Physical Exam Narrative GENERAL: Lethargic but arousable HEENT: Atraumatic; EYES; Anicteric, Normal Conjunctiva NECK; supple, normal thyroid, RESPIRATORY: Diminished to auscultation CARDIOVASCULAR: Regular S1 S2, GI: soft, normoactive bowel sounds, : No Renal angle tenderness; EXTREMITIES: Lacerations on both hands in surgical dressing MUSCULOSKELETAL: no muscle waisting NEURO: no lateralizing signs. SKIN: No Rash PSYCH; Flat affect Assessment & Plan Assessment/Plan (1) Debility: (2) Frequent falls: (3) Acute respiratory failure with hypoxia: (4) COVID-19: PLAN: Patient is a 75-year-old gentleman admitted with progressive generalized weakness and multiple falls at home. Was diagnosed with COVID-19 pneumonia 1. Acute hypoxic respiratory failure ?Secondary to COVID-19 pneumonia managed with remdesivir and Decadron in addition to supplemental oxygen titrated to keep saturation greater than 90 -05/12/2021. Patient did develop chest pain CTA demonstrated pulmonary embolism. Patient was transferred to the intensive care unit consult placed to pulmonary/intensive care 2. Acute pulmonary embolism Patient did develop chest pain stat CTA obtained demonstrated Bilateral lower lobe segmental and subsegmental pulmonary embolism. No saddle embolus or evidence of right heart strain. Multifocal infiltrates with features commonly reported with COVID pneumonia. Localized consolidation of the posterior right lower lobe couldrepresent superimposed bacterial pneumonia versus pulmonary infarction in the setting of pulmonary embolism.. Patient was transferred to the intensive care unit 3. Hypokalemia ?Corrected per protocol 4. Hypertension - Blood pressure controlled, home medications continued with dose adjustment as needed 5. Dyslipidemia ?Patient is on rosuvastatin did continue 6. GERD ?Patient is on PPI did continue 7. BPH ?Patient is prescribed Flomax from home did continue 8. Physical deconditioning with multiple falls - Requested for PT OT eval and social service technician to assist with discharge planning Advance planning; did discuss with the patient's family (patient's ) regarding advanced directives as well as CODE STATUS. Did explain the various scenarios involved ( FULL CODE, DNR CCA, DNR CCA with no intubation, and DNR CC and what each meant) patient's emphasized about maintaining patient current CODE STATUS which is full code. Time spent on discussion 18 minutes. Total critical care time spent stabilizing patient underwent CTA reviewing chart discussion with other consulting physician and nursing staff and having patient transferred to the ICU; 50 minutes Charges/Coding Procedures Hospitalists Procedures: [id number] Advncd Care Plan 30 Min Multi Select Codes Hospitalists' Procedures Procedures: 96159 Critial Care 1st Hr
[2021-05-12 08:19] LABS: Absolute Lymphocyte Count 0.98 X10^3/uL (0.83-4.51); Absolute Neutrophil Count 8.7 X10^3/uL (2.0-7.7); Basophil# 0.02 X10^3/uL; Basophil% 0.2 % (0-1); Eosinophil# 0.01 X10^3/uL; Eosinophils% 0.1 % (0-5); Hematocrit 42.3 % (40-54); Hemoglobin 14.2 g/dL (13.0-16.5); Lymphocyte # 0.98 X10^3/ul (0.83-4.51); Lymphocyte % 8.7 % (19-41); Mean Corp Hgb Conc 33.6 g/dL (32-36); Mean Corpuscular Hgb 30.1 pg (27.0-32.0); Mean Corpuscular Volume 89.6 fL (80-94); Mean Platelet Vol. 10.8 fl (6.2-12.0); Monocyte# 1.45 X10^3/uL; Monocyte% 12.8 % (0-10); NRBC Flagged by Analyzer 0 % (0-5); Neutrophil # 8.74 X10^3/uL (2.7-7.7); Neutrophil % 77.2 % (47-70); Platelet Count 217 K/mm3 (150-450); RBC Distribution Width CV 13.2 % (11.6-14.6); RBC Distribution Width SD 43.6 fl (35.1-43.9); Red Blood Count 4.72 M/mm3 (4.6-6.2); White Blood Count 11.3 K/mm3 (4.4-11.0)
[2021-05-12] MEDS: Ibuprofen 600 MG Tablet PO (08:43)
--- NOTE | 2021-05-12 08:51 | NURSING ---
dr helton notified that pt c/o chest pain, confused, needing more oxygen. spoke to and pt is full code. pt to be transferred to icu.
[2021-05-12] MEDS: Enoxaparin 30 MG/0.3 ML Syringe SC (08:55)
[2021-05-12] MEDS: Menthol/Lanolin/Calamine/Znox 113 GM Tube 1 APPLIC TOPICAL ×2 (08:57→23:00)
[2021-05-12 09:05] LABS: ALB/GLOB Ratio 0.8 RATIO (0.9-2.4); AST(SGOT) 58 U/L (15-37); Alanine Aminotransfer ALT/SGPT 98 U/L (16-61); Albumin, Serum 2.7 g/dL (3.2-5.0); Alkaline Phosphatase 46 U/L (45-117); Anion Gap 8 (5-15); BUN 35 mg/dL (7-18); BUN/Creat Ratio 42.5 RATIO (10-20); Calcium,Total 8.4 mg/dL (8.5-10.1); Chloride 104 mmol/L (98-107); Creatinine, Serum 0.82 mg/dL (0.70-1.30); EST Glomerular Filtration Rate 96 mL/min (>60); Est Glom Filt Rate - Afr Amer 117 mL/min (>60); Estimated Creatinine Clearance 76.64 ml/min; Globulin 3.4 g/dL (2.2-4.2); Glucose 108 mg/dL (74-106); Potassium 4.1 mmol/L (3.5-5.1); Protein, Total 6.1 g/dL (6.4-8.2); Sodium Level 137 mmol/L (136-145)
--- NOTE | 2021-05-12 09:14 | NURSING ---
called report to icu. pt transferred to icu bed 10
[2021-05-12 10:32] LABS: BNP,B-Type NATRIURETIC PEPTIDE 32.8 pg/mL (0-100)
[2021-05-12 11:19] LABS: Procalcitonin 0.12 ng/mL (0.00-0.09)
--- NOTE | 2021-05-12 11:46 | CON.PCM.ID_ITS ---
Assessment & Plan Assessment/Plan (1) COVID-19: PLAN: Unclear symptom onset, likely 05/02/21. Now with PEs and worsened O2. Now on therapeutic anticoagulation. On dex, completed remdesivir. Reviewed EUA and risks/benefits with him, we agree with starting baricitinib. Will follow, thank you (2) Acute respiratory failure with hypoxia: HPI Consult Data Date of Consult: 05/12/21 HPI Narrative HPI Narrative: TERE CEDEÑO, is a 75 M who presented to ED 05/05 with several days of falls, weakness, cough, aches. In ED 05/02 for same. also sick at home and unable to care for him. Admitted with planned ECF placement but developed temp 100.4, continued cough, hypoxia in early AM 05/08, and covid was (+). Started on dex and remdesivir. Now worsening O2, CT showed PEs, moved to icu and started on bipap. Full ROS performed and neg except as noted above. [facility] Medical History Coronary artery disease DVT (deep venous thrombosis) Hearing loss, left Hearing loss, right High cholesterol Hypertension Kidney stones Myocardial infarct Parkinson disease Stroke/cerebrovascular accident Home Medications aspirin 81 mg PO DAILY 05/05/21 [History Last Taken Unknown] cyanocobalamin (vitamin B-12) 1,000 mcg PO DAILY 05/05/21 [History Last Taken Unknown] finasteride 5 mg PO DAILY 05/05/21 [History Last Taken Unknown] hydrochlorothiazide 25 mg PO DAILY 05/05/21 [History Last Taken Unknown] isosorbide mononitrate 30 mg PO DAILY 05/05/21 [History Last Taken Unknown] lisinopril 2.5 mg PO DAILY 05/05/21 [History Last Taken Unknown] metoprolol tartrate 12.5 mg PO DAILY 05/05/21 [History Last Taken Unknown] polyethylene glycol 3350 8.5 g PO BID 05/05/21 [History Last Taken Unknown] potassium chloride 20 meq PO DAILY 05/05/21 [History Last Taken Unknown] rabeprazole 20 mg PO DAILY 05/05/21 [History Last Taken Unknown] rosuvastatin 20 mg PO QHS 05/05/21 [History Last Taken Unknown] solifenacin 10 mg PO DAILY 05/05/21 [History Last Taken Unknown] tamsulosin 0.4 mg PO QHS 05/05/21 [History Last Taken Unknown] tramadol 50 mg PO BID PRN 05/05/21 [History Last Taken Unknown] Allergy/AdvReac Type Severity Reaction Status Date / Time atorvastatin [From Lipitor] AdvReac Pain in Verified 05/02/21 07:54 joints Family History Other Heart disease Surgical History History of heart valve repair Social History Smoking Status: Former smoker Physical Exam Const Constitutional Narrative: ill appearing Exam Limitations: no limitations HEENT normocephalic and head/scalp atraumatic Eyes PERRL and EOMs intact bilaterally Neck supple and No nodes Resp Auscultation: diminished lung sounds Cardio Rate: tachycardic GI normal to inspection, nondistended, normoactive bowel sounds Extremity no clubbing, cyanosis or edema Skin no rashes or lesions noted Neuro CN's II-XII intact bilaterally Lab / Micro Data Result Diagrams: 05/12/21 07:30 05/12/21 07:30 Labs: Laboratory Results - last 24 hr 05/10/21 06:27: Diff Path Review Reviewed 05/12/21 07:30: WBC 11.3 H, RBC 4.72, Hgb 14.2, Hct 42.3, MCV 89.6, MCH 30.1, MCHC 33.6, RDW Std Deviation 43.6, RDW Coeff of Evin 13.2, Plt Count 217, MPV 10.8, Immature Gran % (Auto) 1.000 H, Neut % (Auto) 77.2 H, Lymph % (Auto) 8.7 L , Douglas % (Auto) 12.8 H, Eos % (Auto) 0.1, Baso % (Auto) 0.2, Absolute Neuts (auto) 8.7 H, Absolute Lymphs (auto) 0.98, Nucleated RBC % 0 05/12/21 07:30: Sodium 137, Potassium 4.1, Chloride 104, Carbon Dioxide 25.0, Anion Gap 8, BUN 35 H, Creatinine 0.82, Estim Creat Clear Calc 76.64, Est GFR (MDRD) Af Amer 117, Est GFR (MDRD) Non-Af 96, BUN/Creatinine Ratio 42.5 H, Glucose 108 H, Calcium 8.4 L, Total Bilirubin 0.80, AST 58 H, ALT 98 H, Alkaline Phosphatase 46, Total Protein 6.1 L, Albumin 2.7 L, Globulin 3.4, Albumin/Globulin Ratio 0.8 L 05/12/21 07:30: C-React Prot Ext Range 14.90 H 05/12/21 07:30: B-Natriuretic Peptide 32.8 05/12/21 10:15: Procalcitonin 0.12 H Radiology Impression Chest CTA 05/12/21 06:48 IMPRESSION: 1. Bilateral lower lobe segmental and subsegmental pulmonary embolism. No saddle embolus or evidence of right heart strain. 2. Multifocal infiltrates with features commonly reported with COVID pneumonia. 3. Localized consolidation of the posterior right lower lobe could represent superimposed bacterial pneumonia versus pulmonary infarction in the setting of pulmonary embolism. Electronically Signed: Cory Curtis MD (Brooks) at 8:57 EST , Service support ,
[2021-05-12] MEDS: Etomidate 20 MG/10 ML Vial IV (11:55)
[2021-05-12] MEDS: Propofol 10MG/Ml 1,000 MG/100 ML Bottle 4.7 MG CONT INF (12:00)
--- NOTE | 2021-05-12 12:15 | RAD_ITS ---
STUDY: X-RAY CHEST REASON FOR EXAM: Male, 75 years old. Intubation TECHNIQUE: AP COMPARISON: 05/08/2021, earlier today. FINDINGS: Endotracheal tube present with tip terminating 3.4 cm above the manuela. Esophagogastric tube extends stomach. Ill-defined multilobar pulmonary infiltrates are better seen on CTA from earlier today. There is no demonstrated pleural abnormality. Normal size heart. Normal mediastinum and iris. Normal visualized pulmonary arteries. Normal visualized aortic arch and descending thoracic aorta. No acute bony process. There is no demonstrated abnormality of the visualized soft tissue structures of the upper abdomen. RAD/Chest 1 View (Portable) IMPRESSION: Endotracheal and esophagogastric tubes, as above. Multilobar pulmonary infiltrates, as seen on CTA earlier today. Electronically Signed: Cory Curtis MD (Brooks) at 12:33 EST , Service support ,
--- NOTE | 2021-05-12 12:17 | CASEMGMT ---
SW called Tita, offered support. She states it is okay to give information to pt's daughter Nallely Han and to the cncfkop[facility] Margaret, should either of them call in. SW explained that we normally just have one designated person per pt to call in. states that she doesn't understand everything however and gets all mixed up. SW encouraged her to call into the ICU should she have any questions. states understanding. ISHMAEL Freed
[2021-05-12 12:41] LABS: Base Excess 1 mmol/L (-2 to +2); Bicarbonate 25.3 mmol/L (22-26); Blood Gas Specimen Type ART; FI02 50; Mode AC; O2 Delivery Device Adult Vent; PEEP 5; PO2 51 mmHG (75-100); RR 14; SITE R Brach; SO2 87 % (95-99); Total Carbon Dioxide 26 mmol/L; Vt 450; pCO2 36.4 mmHg (35-45); pH 7.45 (7.35-7.45)
--- NOTE | 2021-05-12 13:01 | NURSING ---
Dr. Calderon, RT, this RN and Hetal Yun at bedside to intubate patient Etomidate 20mg given at 1155 Successful intubation with positive color change and equal lung sounds at 1158.
[2021-05-12 13:24] LABS: CPK Total, Creatine Kinase 118 U/L (39-308); Triglycerides 94 mg/dL
--- NOTE | 2021-05-12 14:15 | PCM.RX.CS ---
Consult Pharmacy has been consulted to manage selected antiobiotic: Vancomycin Type of Consult: New start Suspected Infection: Pneumonia Labs: Sodium 137 mmol/L (136-145) 05/12/21 07:30 Potassium 4.1 mmol/L (3.5-5.1) 05/12/21 07:30 Chloride 104 mmol/L (98-107) 05/12/21 07:30 Carbon Dioxide 25.0 mmol/L (21.0-32.0) 05/12/21 07:30 Anion Gap 8 (5-15) 05/12/21 07:30 BUN 35 mg/dL (7-18) H 05/12/21 07:30 Creatinine 0.82 mg/dL (0.70-1.30) 05/12/21 07:30 Est GFR (MDRD) Af Amer 117 mL/min (>60) 05/12/21 07:30 Est GFR (MDRD) Non-Af 96 mL/min (>60) 05/12/21 07:30 BUN/Creatinine Ratio 42.5 RATIO (10-20) H 05/12/21 07:30 Glucose 108 mg/dL (74-106) H 05/12/21 07:30 Microbiology: Microbiology 05/12/21 12:00 Sputum, Induced/Lukens Gram Stain - Final 05/08/21 04:50 Blood Culture (Wb) - Anticubital Right Blood Culture - Preliminary No growth in 48 hours. 05/08/21 02:50 Blood Culture (Wb) - Anticubital Right Blood Culture - Preliminary No growth in 48 hours. 05/08/21 02:30 Urine, Catheterized Urine Culture - Final Culture exhibits no growth. 05/08/21 02:50 Mucosa - Nasopharyngeal Influenza Types A,B Direct FA (EUSEBIO) - Final 05/08/21 02:50 Nasal Secretion SARS-CoV-2 Antigen (Rapid) - Final SARS-CoV-2 (COVID 19) Goal Trough: 15-20 mcg/mL Pharmacy Plan for Drug Dosing: NEW START IV VANCOMYCIN Consulting Physician: Fani Indication: Pneumonia Goal Trough: 15-20 SrCr: 0.82 CrCl: 77 mls/min Comments: pt to receive a x1 dose of 1250mg on 05/12/21 Vancomcyin Dose: based on pts weight and renal function, recommend an intitial dose of 1000mg q12h starting 05/13/21 at 0200. trough before the 4th dose Pending Level: 05/14/21 at 0130 Pharmacy Service will continue to monitor and adjust dosing as required. Follow-Up Labs: Trough Vancomycin - 05/14/21 at 0130
--- NOTE | 2021-05-12 14:45 | CON.PCM.CC_ITS ---
Assessment & Plan Assessment/Plan (1) Acute respiratory failure with hypoxia: (2) COVID-19: (3) Debility: (4) Parkinson disease: PLAN: RECOMMENDATIONS: 1. Continue mechanical ventilation with spontaneous breathing and awakening trials per protocol 2. Wean PEEP and supplemental oxygen as tolerated 3. Initiate empiric antibiotics 4. Titrate pressors to keep MAP of 65 5. Okay to continue parkinsonian medications 6. Continue full anticoagulation IMPRESSIONS: 1. Acute hypoxic respiratory failure secondary to Covid pneumonia and subse quent PE Patient with progressive respiratory [place] over the last 24 to 48 hours. Patient currently mechanically ventilated. Will attempt to keep plateau pressures less than 30. Spontaneous breathing and awakening trials per protocol. Diuretics as necessary. Patient with significant secretions noted immediately on intubation. Empiric antibiotics will be initiated. Patient is c urrently on Decadron and has completed Remdesivir. Patient was initiated on baricitinib. Patient will be continued on full anticoagulation. Pancultures have been sent. 2. Shock Unclear etiology. Patient did have secretions suggestive of bacterial pneumonia. Pancultures and antibiotics have been initiated. Patient also receiving medications to help with vent synchrony. Titrate Levophed as necessary. 3. Hypertension/dyslipidemia/GERD/BPH/Parkinson's Complicates care, management, recovery and prognosis. Okay to continue with baseline Parkinson's meds. BPH meds are not necessary as patient is currently with a Collazo catheter. Discontinue antihypertensives given hypotension. TIME: 62 minutes of critical care time were spent addressing patient's acute hypoxic respiratory failure, shock, review of all data and collaboration with care team HPI Consult Data Date of Consult: 05/12/21 HPI Narrative HPI Narrative: TERE CEDEÑO is a 75 M, with past medical history listed below, who presents to [facility] 05/05/2021 secondary to a fall. Patient reportedly had had a fall and then attempted to get back up and fell again. Patient had complained of a headache, neck pain and left side pain. Patient had reported a mild cough, but no nausea or vomiting. Patient had been falling more frequently over the last couple of weeks. In the ER, patient was afebrile and normotensive saturating well on room air. ER physician had reported diffuse tenderness of the cervical and paraspinal muscles without step-off. Laboratory data showed a white blood cell count of 5.6, hemoglobin of 13.3, potassium of 3.1 and creatinine of 1.22. Liver function studies were within normal limits. CT of the head showed mild atrophy with periventricular white ischemic changes, but no bleed. Patient initially refused hospitalization, but was eventually admitted secondary to reporting that she cannot care for him. Patient was admitted to the floor and monitored for several days. Patient had some hypokalemia that required repletion and was being planned to send to a intermediate. On the night of 05/08/2021, patient developed a fever, nonproductive cough and was requiring supplemental oxygen. A work-up including a rapid Covid and flu were ordered. Patient's Covid testing came back positive and was felt to be the cause of his weakness and hypoxia. Patient was initiated on Remdesivir and Decadron. This morning, patient was found to be significantly worse from an oxygenation standpoint. The patient was placed on BiPAP therapy and transferred to the intensive care unit for further evaluation. While in the intensive care unit, patient became more more agitated pulling at his BiPAP mask. Medical intervention was attempted along with a sitter but was unsuccessful. Patient was eventually intubated by myself using a glide scope. Post intubation, patient started to have issues with hypotension and had to be placed on pressors. Patient has had a PICC line ordered, but this has not been placed at this time. Unable to obtain a review of systems secondary to the severity of the medical situation. [facility] Medical History (Updated 05/12/21 @ 14:[address] Yoel Calderon MD) Coronary artery disease DVT (deep venous thrombosis) Hearing loss, left Hearing loss, right High cholesterol Hypertension Kidney stones Myocardial infarct Parkinson disease Stroke/cerebrovascular accident Home Medications aspirin 81 mg PO DAILY 05/05/21 [History Last Taken Unknown] cyanocobalamin (vitamin B-12) 1,000 mcg PO DAILY 05/05/21 [History Last Taken Unknown] finasteride 5 mg PO DAILY 05/05/21 [History Last Taken Unknown] hydrochlorothiazide 25 mg PO DAILY 05/05/21 [History Last Taken Unknown] isosorbide mononitrate 30 mg PO DAILY 05/05/21 [History Last Taken Unknown] lisinopril 2.5 mg PO DAILY 05/05/21 [History Last Taken Unknown] metoprolol tartrate 12.5 mg PO DAILY 05/05/21 [History Last Taken Unknown] polyethylene glycol 3350 8.5 g PO BID 05/05/21 [History Last Taken Unknown] potassium chloride 20 meq PO DAILY 05/05/21 [History Last Taken Unknown] rabeprazole 20 mg PO DAILY 05/05/21 [History Last Taken Unknown] rosuvastatin 20 mg PO QHS 05/05/21 [History Last Taken Unknown] solifenacin 10 mg PO DAILY 05/05/21 [History Last Taken Unknown] tamsulosin 0.4 mg PO QHS 05/05/21 [History Last Taken Unknown] tramadol 50 mg PO BID PRN 05/05/21 [History Last Taken Unknown] Allergy/AdvReac Type Severity Reaction Status Date / Time atorvastatin [From Lipitor] AdvReac Pain in Verified 05/02/21 07:54 joints Family History Other Heart disease Surgical History History of heart valve repair Social History Smoking Status: Former smoker ROS ROS Narrative See HPI Physical Exam Const General Appearance: cooperative, in distress Positive for severe (Prior to intubation), diaphoretic, intubated and patient mechanically ventilated HEENT normocephalic and moist oral mucous membranes Eyes PERRL, EOMs intact bilaterally and conjunctivae normal Neck supple and no JVD Chest Chest Narrative: Significant kyphoscoliosis Chest: symmetrical chest wall rise; Negative for crepitus Resp Effort and Inspection: labored and audible wheezes Auscultation: wheezes and diminished lung sounds; Negative for rales or rhonchi Cardio regular rate, regular rhythm, S1 normal heart sound, S2 normal heart sound and no murmurs GI soft to palpation, non-tender and non-distended; Negative for hepatosplenomegaly Extremity no clubbing, cyanosis or edema Skin no rashes or lesions noted Neuro no focal motor deficits and no sensory deficits noted Psych affect normal Appearance: appropriate Lab / Micro Data Result Diagrams: 05/12/21 07:30 05/12/21 07:30 Labs: Laboratory Results - last 24 hr 05/12/21 07:30: WBC 11.3 H, RBC 4.72, Hgb 14.2, Hct 42.3, MCV 89.6, MCH 30.1, MCHC 33.6, RDW Std Deviation 43.6, RDW Coeff of Evin 13.2, Plt Count 217, MPV 10.8, Immature Gran % (Auto) 1.000 H, Neut % (Auto) 77.2 H, Lymph % (Auto) 8.7 L , Ward % (Auto) 12.8 H, Eos % (Auto) 0.1, Baso % (Auto) 0.2, Absolute Neuts (auto) 8.7 H, Absolute Lymphs (auto) 0.98, Nucleated RBC % 0 05/12/21 07:30: Sodium 137, Potassium 4.1, Chloride 104, Carbon Dioxide 25.0, Anion Gap 8, BUN 35 H, Creatinine 0.82, Estim Creat Clear Calc 76.64, Est GFR (MDRD) Af Amer 117, Est GFR (MDRD) Non-Af 96, BUN/Creatinine Ratio 42.5 H, Glucose 108 H, Calcium 8.4 L, Total Bilirubin 0.80, AST 58 H, ALT 98 H, Alkaline Phosphatase 46, Total Protein 6.1 L, Albumin 2.7 L, Globulin 3.4, Albumin/Globulin Ratio 0.8 L 05/12/21 07:30: C-React Prot Ext Range 14.90 H 05/12/21 07:30: B-Natriuretic Peptide 32.8 05/12/21 07:30: Total Creatine Kinase 118, Triglycerides 94 05/12/21 10:15: Procalcitonin 0.12 H Micro: Microbiology 05/12/21 12:00 Sputum, Induced/Lukens Gram Stain - Final ABG Data ABG results: ABG 05/12/21 12:35 Specimen Type ART Sample Site R Brach pH 7.45 Bicarbonate Actual 25.3 Total CO2 26 Base Excess 1 O2 Saturation 87 L O2 % 50 ABG pCO2 36.4 ABG pO2 51 L Respiration Rate 14 O2 Delivery Device Adult Vent Vent Mode AC Tidal Volume 450 POC PEEP 5 Radiology Impression Chest CTA 05/12/21 06:48 IMPRESSION: 1. Bilateral lower lobe segmental and subsegmental pulmonary embolism. No saddle embolus or evidence of right heart strain. 2. Multifocal infiltrates with features commonly reported with COVID pneumonia. 3. Localized consolidation of the posterior right lower lobe could represent superimposed bacterial pneumonia versus pulmonary infarction in the setting of pulmonary embolism. Electronically Signed: Cory Curtis MD (Brooks) at 8:57 EST , Service support , Chest X-Ray 05/12/21 12:15 IMPRESSION: Endotracheal and esophagogastric tubes, as above. Multilobar pulmonary infiltrates, as seen on CTA earlier today. Electronically Signed: Cory Curtis MD (Brooks) at 12:33 EST , Service support , Intubation Indication: Acute hypoxic respiratory failure Consent was obtained from: Emergent The patient was placed in the appropriate sniffing position. Preoxygenated sedation via bag mask ventilation was provided for a minimum of 3 minutes. The patient had continuous cardiac as well as pulse oximetry monitoring during the procedure. Procedure sedation was provided by the administration of etomidate 20 mg. [place] scope laryngoscopy was then performed using a number 4 blade, which revealed a grade 1 view. Patient noted to have significant secretions around the vocal cords. A 7.5 mm endotracheal tube was visualized advancing between the cords to the level of 25 cm at the lip. The stylette was then removed and discarded. Tube placement was confirmed by fogging in the tube along with equal and bilateral breath sounds. Colorimetric change was visualized on the CO2 meter. The cuff was then inflated and the tube secured using a commercially available device. Patient did cough up secretions into the endotracheal tube before initiation of mechanical ventilation. A good pulse oximetry waveform was seen on the monitor throughout the procedure. A portable chest x-ray has been ordered to confirm appropriate placement. The patient tolerated the procedure well. Charges/Coding Procedures Hospitalists Procedures: [id number]
[2021-05-12] MEDS: Propofol 10MG/Ml 1,000 MG/100 ML Bottle 7.1 MG CONT INF (15:09)
[2021-05-12 16:02] LABS: M R Staph aureus DNA By PCR Negative (Negative); Probe Check PASS; Specimen Processing Control PASS
[2021-05-12] MEDS: levoFLOXacin IV 750 MG/150 ML BAG 100 MG IV (18:07)
[2021-05-12] MEDS: Polyethylene Glycol 3350 17 GM PACKET 8.5 GM PO (20:39)
[2021-05-12] MEDS: Enoxaparin 80 MG/0.8 ML Syringe SC (20:39)
[2021-05-12] MEDS: Rosuvastatin 20 MG Tablet PO (20:40)
[2021-05-12] MEDS: guaiFENesin 1,200 MG Tablet 1200 MG PO (20:40)
[2021-05-12] MEDS: Tamsulosin HCl 0.4 MG Capsule PO (20:40)
[2021-05-12] MEDS: Acetaminophen 325 MG Tablet 650 MG PO (20:42)
[2021-05-13] VITALS (39 sets, daily range): BP systolic 89–140; BP diastolic 58–84; PULSE 63–96; RESP 14–24; TEMP 36.8–38.3; O2SAT 89–97
[2021-05-13] MEDS: Vancomycin IV 1,000 MG/200 ML BAG 200 MG IV ×2 (02:58→13:56)
[2021-05-13 03:59] LABS: Absolute Lymphocyte Count 1.39 X10^3/uL (0.83-4.51); Basophil# 0.05 X10^3/uL; Basophil% 0.3 % (0-1); Eosinophil# 0.21 X10^3/uL; Eosinophils% 1.4 % (0-5); Hematocrit 42.8 % (40-54); Hemoglobin 14.1 g/dL (13.0-16.5); Lymphocyte # 1.39 X10^3/ul (0.83-4.51); Lymphocyte % 9.3 % (19-41); Mean Corp Hgb Conc 32.9 g/dL (32-36); Mean Corpuscular Volume 91.1 fL (80-94); Mean Platelet Vol. 10.4 fl (6.2-12.0); Monocyte# 1.14 X10^3/uL; Monocyte% 7.6 % (0-10); NRBC Flagged by Analyzer 0 % (0-5); Neutrophil # 11.96 X10^3/uL (2.7-7.7); Neutrophil % 79.7 % (47-70); Platelet Count 213 K/mm3 (150-450); RBC Distribution Width CV 13.7 % (11.6-14.6); RBC Distribution Width SD 46.4 fl (35.1-43.9)
[2021-05-13] MEDS: Propofol 10MG/Ml 1,000 MG/100 ML Bottle 2.4 MG CONT INF (04:08)
[2021-05-13 04:17] LABS: ALB/GLOB Ratio 0.7 RATIO (0.9-2.4); AST(SGOT) 51 U/L (15-37); Alanine Aminotransfer ALT/SGPT 77 U/L (16-61); Albumin, Serum 2.3 g/dL (3.2-5.0); Alkaline Phosphatase 41 U/L (45-117); Anion Gap 6 (5-15); BUN 43 mg/dL (7-18); BUN/Creat Ratio 37.1 RATIO (10-20); Calcium,Total 7.7 mg/dL (8.5-10.1); Chloride 103 mmol/L (98-107); Creatinine, Serum 1.16 mg/dL (0.70-1.30); EST Glomerular Filtration Rate 65 mL/min (>60); Est Glom Filt Rate - Afr Amer 79 mL/min (>60); Estimated Creatinine Clearance 54.18 ml/min; Globulin 3.3 g/dL (2.2-4.2); Glucose 166 mg/dL (74-106); Potassium 4.1 mmol/L (3.5-5.1); Protein, Total 5.6 g/dL (6.4-8.2); Sodium Level 137 mmol/L (136-145)
[2021-05-13] MEDS: CHLORHEXIDINE GLUC 2% CLOTH 1 EACH TOWELETTE TOPICAL (04:40)
[2021-05-13] MEDS: Ipratropium/Albuterol Sulfate 3 ML AMPUL.NEB INHALATION ×4 (07:15→19:43)
--- NOTE | 2021-05-13 07:25 | NURSING ---
During the shift, PICC RN removed pt's BP cuff and was not reapplied. Not caught due to rapid response occurring elsewhere on floor. Pt. missing a 2200 and 2300 BP.
--- NOTE | 2021-05-13 07:28 | PN.CC_ITS ---
Assessment & Plan Assessment/Plan (1) Acute respiratory failure with hypoxia: (2) COVID-19: (3) Debility: (4) Parkinson disease: PLAN: RECOMMENDATIONS: 1. Continue to wean FiO2 and PEEP to maintain oxygen saturations at or above 90%. 2. Continue Decadron and baricitinib to complete treatment courses. 3. Continue antimicrobials pending finalized culture results. 4. Propofol and fentanyl for sedation. 5. Continue therapeutic Lovenox. 6. Start tube feeds. 7. Hold antihypertensives. 8. Continue appropriate GI prophylaxis. IMPRESSIONS: 1. Acute hypoxic respiratory failure secondary to combined Covid and staphylococcal pneumonia/bilateral PE The patient presented to the hospital with COVID-19 pneumonia with symptom onset sometime around May 02. Subsequent work-up did also reveal evidence of bilateral pulmonary emboli. To date, the patient has completed a treatment course of remdesivir and remains on Decadron and baricitinib. Ultimately, the patient continued to decompensate from a respiratory perspective and was subsequently intubated. Sputum culture was positive for staph aureus. The patient is on appropriate antimicrobials. Plan to continue invasive mechanical ventilatory support and wean FiO2 for saturations greater than 90%. Okay to start tube feeds today from my perspective. 2. Shock Likely multifactorial with bacterial pneumonia and effects of sedation contributing. The patient has been weaned from vasopressor support at this time. Plan to continue to monitor clinically. 3. Hypertension/dyslipidemia/GERD/BPH/Parkinson's Complicates care, management, recovery and prognosis. Okay to continue with baseline Parkinson's meds. Hold antihypertensives for now. Okay to work with physical therapy. TIME: 38 minutes of critical care time, independent of procedures, was spent addressing the patient's acute hypoxemic respiratory failure, COVID-19 pneumonia, staphylococcal pneumonia, bilateral pulmonary emboli, shock, review of all data and collaboration with care team. Subjective Subjective The patient was seen and examined at the bedside this morning. Events from the last 24 hours have been reviewed. The patient is currently afebrile, hemodynamically stable and maintaining appropriate oxygen saturations on assist control mode of mechanical ventilation with an FiO2 requirement of 50% and PEEP of 5. The patient does continue to have significant endotracheal secretion production. All sedation is currently off. The patient is able to follow simple commands. His Levophed was able to be discontinued overnight. He does continue to have coffee ground output from his OG tube. He is currently documented to be overall net +2.7 L for the hospitalization. White count is elevated at 15,000. Objective Data Objective Data The patient's most recent lab work, culture data and imaging studies have all been personally reviewed. Rapid coronavirus antigen testing was positive on May 08. Vital Signs: Vital Signs Temp Pulse Resp BP Pulse Ox 98.3 F 79 20 H 112/67 92 05/13/21 04:00 05/13/21 07:18 05/13/21 07:18 05/13/21 07:00 05/13/21 07:15 Oxygen Flow Rate (L/min) 100 Oxygen Delivery Method Mechanical Ventilator Weight: 76.1 kg Body Mass Index (BMI) 25.7 Intake & Output: Intake and Output for Last 24 Hours 05/11/21 05/12/21 05/13/21 23:59 23:59 23:59 Intake Total 690 / 690 1273.80 / 1475.60 562.65 / 562.65 Output Total 1550 / 1550 700 / 700 300 / 300 Balance -860 / -860 573.80 / 775.60 262.65 / 262.65 Lab / Micro Data Attestation: I reviewed the patient's lab results. Result Diagrams: 05/13/21 03:45 05/13/21 03:45 Labs: Laboratory Results - last 24 hr 05/12/21 07:30: WBC 11.3 H, RBC 4.72, Hgb 14.2, Hct 42.3, MCV 89.6, MCH 30.1, MCHC 33.6, RDW Std Deviation 43.6, RDW Coeff of Evin 13.2, Plt Count 217, MPV 10.8, Immature Gran % (Auto) 1.000 H, Neut % (Auto) 77.2 H, Lymph % (Auto) 8.7 L , [place] % (Auto) 12.8 H, Eos % (Auto) 0.1, Baso % (Auto) 0.2, Absolute Neuts (auto) 8.7 H, Absolute Lymphs (auto) 0.98, Nucleated RBC % 0 05/12/21 07:30: Sodium 137, Potassium 4.1, Chloride 104, Carbon Dioxide 25.0, Anion Gap 8, BUN 35 H, Creatinine 0.82, Estim Creat Clear Calc 76.64, Est GFR (MDRD) Af Amer 117, Est GFR (MDRD) Non-Af 96, BUN/Creatinine Ratio 42.5 H, Glucose 108 H, Calcium 8.4 L, Total Bilirubin 0.80, AST 58 H, ALT 98 H, Alkaline Phosphatase 46, Total Protein 6.1 L, Albumin 2.7 L, Globulin 3.4, Albumin/Globulin Ratio 0.8 L 05/12/21 07:30: C-React Prot Ext Range 14.90 H 05/12/21 07:30: B-Natriuretic Peptide 32.8 05/12/21 07:30: Total Creatine Kinase 118, Triglycerides 94 05/12/21 10:15: Procalcitonin 0.12 H 05/12/21 14:10: MRSA (PCR) Negative 05/13/21 03:45: WBC 15.0 H, RBC 4.70, Hgb 14.1, Hct 42.8, MCV 91.1, MCH 30.0, MCHC 32.9, RDW Std Deviation 46.4 H, RDW Coeff of Evin 13.7, Plt Count 213, MPV 10.4, Immature Gran % (Auto) 1.700 H, Neut % (Auto) 79.7 H, Lymph % (Auto) 9.3 L , [place] % (Auto) 7.6, Eos % (Auto) 1.4, Baso % (Auto) 0.3, Absolute Neuts (auto) 12.0 H, Absolute Lymphs (auto) 1.39, Nucleated RBC % 0 05/13/21 03:45: Sodium 137, Potassium 4.1, Chloride 103, Carbon Dioxide 28.0, Anion Gap 6, BUN 43 H, Creatinine 1.16, Estim Creat Clear Calc 54.18, Est GFR (MDRD) Af Amer 79, Est GFR (MDRD) Non-Af 65, BUN/Creatinine Ratio 37.1 H, Glucose 166 H, Calcium 7.7 L, Total Bilirubin 1.20 H, AST 51 H, ALT 77 H, Alkaline Phosphatase 41 L, Total Protein 5.6 L, Albumin 2.3 L, Globulin 3.3, Albumin/Globulin Ratio 0.7 L Micro: Microbiology 05/12/21 14:30 Urine Catheter - Collazo Legionella Antigen - Final 05/12/21 14:30 Urine Catheter - Collazo Streptococcus pneumoniae Antigen (M - Final 05/12/21 12:00 Sputum, Induced/Lukens Gram Stain - Final 05/08/21 04:50 Blood Culture (Wb) - Anticubital Right Blood Culture - Preliminary No growth in 48 hours. 05/08/21 02:50 Blood Culture (Wb) - Anticubital Right Blood Culture - Preliminary No growth in 48 hours. 05/08/21 02:30 Urine, Catheterized Urine Culture - Final Culture exhibits no growth. 05/08/21 02:50 Mucosa - Nasopharyngeal Influenza Types A,B Direct FA (EUSEBIO) - Final 05/08/21 02:50 Nasal Secretion SARS-CoV-2 Antigen (Rapid) - Final SARS-CoV-2 (COVID 19) ABG Data ABG results: ABG 05/12/21 12:35 Specimen Type ART Sample Site R Brach pH 7.45 Bicarbonate Actual 25.3 Total CO2 26 Base Excess 1 O2 Saturation 87 L O2 % 50 ABG pCO2 36.4 ABG pO2 51 L Respiration Rate 14 O2 Delivery Device Adult Vent Vent Mode AC Tidal Volume 450 POC PEEP 5 Radiography Diagnostic Testing: Radiology Impression Chest CTA 05/12/21 06:48 IMPRESSION: 1. Bilateral lower lobe segmental and subsegmental pulmonary embolism. No saddle embolus or evidence of right heart strain. 2. Multifocal infiltrates with features commonly reported with COVID pneumonia. 3. Localized consolidation of the posterior right lower lobe could represent superimposed bacterial pneumonia versus pulmonary infarction in the setting of pulmonary embolism. Electronically Signed: Cory Curtis MD ([place]) at 8:57 EST , Service support , Chest X-Ray 05/12/21 12:15 IMPRESSION: Endotracheal and esophagogastric tubes, as above. Multilobar pulmonary infiltrates, as seen on CTA earlier today. Electronically Signed: Cory Curtis MD ([place]) at 12:33 EST , Service support , Physical Exam Const General Appearance: ill appearing, intubated and patient mechanically ventilated HEENT normocephalic and head/scalp atraumatic Mouth: endotracheal tube in place and OG tube in place Eyes PERRL and EOMs intact bilaterally Neck supple General: trachea midline Chest inspection of chest normal Resp Auscultation: diminished lung sounds Cardio regular rate and regular rhythm GI normal to inspection, nondistended, normoactive bowel sounds Extremity no clubbing, cyanosis or edema Skin no rashes or lesions noted Neuro Sensorium / Orientation: sedated on vent Charges/Coding Procedures Hospitalists Procedures: 52301 Critial Care 1st Hr
--- NOTE | 2021-05-13 07:32 | PN.HOSP_ITS ---
Subjective Subjective Patient was transferred to the intensive care unit following deterioration in his respiratory status on 05/12/2021. CT of the chest obtained earlier on during the day had demonstrated pulmonary embolism. Patient had to be emergently intubated. Was found to have copious secretions consistent with suspected superimposed bacterial pneumonia. Broad-spectrum antibiotic therapy initiated Objective Data Objective Data Vital Signs: Vital Signs Temp Pulse Resp BP Pulse Ox 98.3 F 79 20 H 112/67 92 05/13/21 04:00 05/13/21 07:18 05/13/21 07:18 05/13/21 07:00 05/13/21 07:15 Oxygen Flow Rate (L/min) 100 Oxygen Delivery Method Mechanical Ventilator Weight: 76.1 kg Body Mass Index (BMI) 25.7 Intake & Output: Intake and Output for Last 24 Hours 05/11/21 05/12/21 05/13/21 23:59 23:59 23:59 Intake Total 690 / 690 1273.80 / 1475.60 562.65 / 562.65 Output Total 1550 / 1550 700 / 700 300 / 300 Balance -860 / -860 573.80 / 775.60 262.65 / 262.65 Lab / Micro Data Result Diagrams: 05/13/21 03:45 05/13/21 03:45 Labs: Laboratory Results - last 24 hr 05/12/21 07:30: WBC 11.3 H, RBC 4.72, Hgb 14.2, Hct 42.3, MCV 89.6, MCH 30.1, MCHC 33.6, RDW Std Deviation 43.6, RDW Coeff of Evin 13.2, Plt Count 217, MPV 10.8, Immature Gran % (Auto) 1.000 H, Neut % (Auto) 77.2 H, Lymph % (Auto) 8.7 L , [place] % (Auto) 12.8 H, Eos % (Auto) 0.1, Baso % (Auto) 0.2, Absolute Neuts (auto) 8.7 H, Absolute Lymphs (auto) 0.98, Nucleated RBC % 0 05/12/21 07:30: Sodium 137, Potassium 4.1, Chloride 104, Carbon Dioxide 25.0, Anion Gap 8, BUN 35 H, Creatinine 0.82, Estim Creat Clear Calc 76.64, Est GFR (MDRD) Af Amer 117, Est GFR (MDRD) Non-Af 96, BUN/Creatinine Ratio 42.5 H, Glucose 108 H, Calcium 8.4 L, Total Bilirubin 0.80, AST 58 H, ALT 98 H, Alkaline Phosphatase 46, Total Protein 6.1 L, Albumin 2.7 L, Globulin 3.4, Albumin/Globulin Ratio 0.8 L 05/12/21 07:30: C-React Prot Ext Range 14.90 H 05/12/21 07:30: B-Natriuretic Peptide 32.8 05/12/21 07:30: Total Creatine Kinase 118, Triglycerides 94 05/12/21 10:15: Procalcitonin 0.12 H 05/12/21 14:10: MRSA (PCR) Negative 05/13/21 03:45: WBC 15.0 H, RBC 4.70, Hgb 14.1, Hct 42.8, MCV 91.1, MCH 30.0, MCHC 32.9, RDW Std Deviation 46.4 H, RDW Coeff of Evin 13.7, Plt Count 213, MPV 1 0.4, Immature Gran % (Auto) 1.700 H, Neut % (Auto) 79.7 H, Lymph % (Auto) 9.3 L, [place] % (Auto) 7.6, Eos % (Auto) 1.4, Baso % (Auto) 0.3, Absolute Neuts (auto) 12.0 H, Absolute Lymphs (auto) 1.39, Nucleated RBC % 0 05/13/21 03:45: Sodium 137, Potassium 4.1, Chloride 103, Carbon Dioxide 28.0, Anion Gap 6, BUN 43 H, Creatinine 1.16, Estim Creat Clear Calc 54.18, Est GFR (MDRD) Af Amer 79, Est GFR (MDRD) Non-Af 65, BUN/Creatinine Ratio 37.1 H, Glucose 166 H, Calcium 7.7 L, Total Bilirubin 1.20 H, AST 51 H, ALT 77 H, Alkaline Phosphatase 41 L, Total Protein 5.6 L, Albumin 2.3 L, Globulin 3.3, Albumin/Globulin Ratio 0.7 L Micro: Microbiology 05/12/21 14:30 Urine Catheter - Collazo Legionella Antigen - Final 05/12/21 14:30 Urine Catheter - Collazo Streptococcus pneumoniae Antigen (M - Final 05/12/21 12:00 Sputum, Induced/Lukens Gram Stain - Final 05/08/21 04:50 Blood Culture (Wb) - Anticubital Right Blood Culture - Preliminary No growth in 48 hours. 05/08/21 02:50 Blood Culture (Wb) - Anticubital Right Blood Culture - Preliminary No growth in 48 hours. 05/08/21 02:30 Urine, Catheterized Urine Culture - Final Culture exhibits no growth. 05/08/21 02:50 Mucosa - Nasopharyngeal Influenza Types A,B Direct FA (EUSEBIO) - Final 05/08/21 02:50 Nasal Secretion SARS-CoV-2 Antigen (Rapid) - Final SARS-CoV-2 (COVID 19) ABG Data ABG results: ABG 05/12/21 12:35 Specimen Type ART Sample Site R Brach pH 7.45 Bicarbonate Actual 25.3 Total CO2 26 Base Excess 1 O2 Saturation 87 L O2 % 50 ABG pCO2 36.4 ABG pO2 51 L Respiration Rate 14 O2 Delivery Device Adult Vent Vent Mode AC Tidal Volume 450 POC PEEP 5 Radiography Diagnostic Testing: Radiology Impression Chest CTA 05/12/21 06:48 IMPRESSION: 1. Bilateral lower lobe segmental and subsegmental pulmonary embolism. No saddle embolus or evidence of right heart strain. 2. Multifocal infiltrates with features commonly reported with COVID pneumonia. 3. Localized consolidation of the posterior right lower lobe could represent superimposed bacterial pneumonia versus pulmonary infarction in the setting of pulmonary embolism. Electronically Signed: Cory Curtis MD ([place]) at 8:57 EST , Service support , Chest X-Ray 05/12/21 12:15 IMPRESSION: Endotracheal and esophagogastric tubes, as above. Multilobar pulmonary infiltrates, as seen on CTA earlier today. Electronically Signed: Cory Curtis MD ([place]) at 12:33 EST , Service support , Physical Exam Narrative GENERAL: Patient on the vent but arousable HEENT: Atraumatic; EYES; Anicteric, Normal Conjunctiva NECK; supple, normal thyroid, RESPIRATORY: Diminished to auscultation CARDIOVASCULAR: Regular S1 S2, GI: soft, normoactive bowel sounds, : No Renal angle tenderness; EXTREMITIES: Lacerations on both hands in surgical dressing MUSCULOSKELETAL: no muscle waisting NEURO: Patient on the vent SKIN: No Rash PSYCH; Flat affect Assessment & Plan Assessment/Plan (1) Debility: (2) Frequent falls: (3) Acute respiratory failure with hypoxia: (4) COVID-19: PLAN: Patient is a 75-year-old gentleman admitted with progressive generalized weakness and multiple falls at home. Was diagnosed with COVID-19 pneumonia 1. Acute hypoxic respiratory failure ?Secondary to COVID-19 pneumonia managed with remdesivir and Decadron in addition to supplemental oxygen titrated to keep saturation greater than 90 -05/12/2021. Patient did develop chest pain CTA demonstrated pulmonary embolism. Patient was transferred to the intensive care unit consult placed to pulmonary/intensive care -05/13/2021 Patient was transferred to the intensive care unit following deterioration in his respiratory status on 05/12/2021. CT of the chest obtained earlier on during the day had demonstrated pulmonary embolism. Patient had to be emergently intubated. Was found to have copious secretions consistent with suspected superimposed bacterial pneumonia. Broad-spectrum antibiotic therapy initiated 2. Acute pulmonary embolism Patient did develop chest pain stat CTA obtained demonstrated Bilateral lower lobe segmental and subsegmental pulmonary embolism. No saddle embolus or evid ence of right heart strain. Multifocal infiltrates with features commonly reported with COVID pneumonia. Localized consolidation of the posterior right lower lobe couldrepresent superimposed bacterial pneumonia versus pulmonary infarction in the setting of pulmonary embolism.. Patient was transferred to the intensive care unit 3. Suspected bacterial pneumonia ?Patient was started on broad-spectrum antibiotic therapy cultures sent following his intubation 4. Septic shock ?Secondary to above patient was managed with IV fluids in addition to broad- spectrum antibiotic therapy and pressor support with norepinephrine 4. Hypertension - Blood pressure controlled, home medications continued with dose adjustment as needed ?05/13/2021 antihypertensives held in view of low blood pressure 5. Dyslipidemia ?Patient is on rosuvastatin 6. GERD ?Patient is on PPI did continue 7. BPH ?Patient is prescribed Flomax f 8. Physical deconditioning with multiple falls - Requested for PT OT eval and mental health social worker to assist with discharge planning 9. Hypokalemia -corrected per protocol Charges/Coding Visit Charges Inpatient E&M: 53194 Subs Hosp L3
[2021-05-13] MEDS: TITRATION PARAMETER CHANGE 1 EACH IV (08:08)
[2021-05-13] MEDS: Menthol/Lanolin/Calamine/Znox 113 GM Tube 1 APPLIC TOPICAL (08:20)
[2021-05-13] MEDS: Aspirin 81 MG TAB.CHEW PO (08:22)
[2021-05-13] MEDS: Cyanocobalamin 500 MCG Tablet 1000 MCG GT (09:54)
[2021-05-13] MEDS: levoFLOXacin IV 750 MG/150 ML BAG 100 MG IV (09:55)
[2021-05-13] MEDS: Enoxaparin 80 MG/0.8 ML Syringe SC ×2 (09:55→21:15)
[2021-05-13] MEDS: Polyethylene Glycol 3350 17 GM PACKET 8.5 GM GT ×2 (09:55→21:16)
[2021-05-13] MEDS: dexAMETHasone 2 MG TABLET 6 MG GT (09:55)
[2021-05-13] MEDS: Potassium Chloride Oral Soln 20 MEQ/15 ML UDC GT (09:55)
[2021-05-13] MEDS: Finasteride 5 MG Tablet GT (09:56)
[2021-05-13] MEDS: Lansoprazole 15 MG Capsule.DR GT (09:56)
[2021-05-13] MEDS: 0.9% Saline Lock 10 ML Syringe IV (10:07)
[2021-05-13] MEDS: Vital AF 1.2 Cal Liquid 1,000 ML 15 ML GT (12:40)
[2021-05-13] MEDS: Propofol 10MG/Ml 1,000 MG/100 ML Bottle 2.3 MG CONT INF (16:05)
[2021-05-13] MEDS: Acetaminophen 650 MG/20 ML UDC GT (16:26)
[2021-05-13] MEDS: Rosuvastatin 20 MG Tablet GT (21:16)
[2021-05-13] MEDS: Chlorhexidine 15 ML PO (22:00)
[2021-05-14] VITALS (41 sets, daily range): BP systolic 103–162; BP diastolic 62–95; PULSE 60–126; RESP 14–33; TEMP 36.8–37.8; O2SAT 91–99
[2021-05-14] MEDS: Menthol/Lanolin/Calamine/Znox 113 GM Tube 1 APPLIC TOPICAL ×3 (00:37→20:23)
[2021-05-14] MEDS: Vancomycin IV 1,000 MG/200 ML BAG 200 MG IV (02:16)
[2021-05-14] MEDS: CHLORHEXIDINE GLUC 2% CLOTH 1 EACH TOWELETTE TOPICAL (04:25)
--- NOTE | 2021-05-14 04:39 | PCM.RX.CS ---
Consult Pharmacy has been consulted to manage selected antiobiotic: Vancomycin Type of Consult: Follow-up Labs: Sodium 137 mmol/L (136-145) 05/13/21 03:45 Potassium 4.1 mmol/L (3.5-5.1) 05/13/21 03:45 Chloride 103 mmol/L (98-107) 05/13/21 03:45 Carbon Dioxide 28.0 mmol/L (21.0-32.0) 05/13/21 03:45 Anion Gap 6 (5-15) 05/13/21 03:45 BUN 43 mg/dL (7-18) H 05/13/21 03:45 Creatinine 1.16 mg/dL (0.70-1.30) 05/13/21 03:45 Est GFR (MDRD) Af Amer 79 mL/min (>60) 05/13/21 03:45 Est GFR (MDRD) Non-Af 65 mL/min (>60) 05/13/21 03:45 BUN/Creatinine Ratio 37.1 RATIO (10-20) H 05/13/21 03:45 Glucose 166 mg/dL (74-106) H 05/13/21 03:45 Microbiology: Microbiology 05/12/21 12:00 Sputum, Induced/Lukens Gram Stain - Final 05/12/21 12:00 Sputum, Induced/Lukens Respiratory Culture - Preliminary Staphylococcus aureus 05/08/21 04:50 Blood Culture (Wb) - Anticubital Right Blood Culture - Final No growth in 5 days. 05/08/21 02:50 Blood Culture (Wb) - Anticubital Right Blood Culture - Final No growth in 5 days. 05/12/21 14:30 Urine Catheter - Collazo Legionella Antigen - Final 05/12/21 14:30 Urine Catheter - Collazo Streptococcus pneumoniae Antigen (M - Final 05/08/21 02:30 Urine, Catheterized Urine Culture - Final Culture exhibits no growth. 05/08/21 02:50 Mucosa - Nasopharyngeal Influenza Types A,B Direct FA (EUSEBIO) - Final 05/08/21 02:50 Nasal Secretion SARS-CoV-2 Antigen (Rapid) - Final SARS-CoV-2 (COVID 19) Goal Trough: 15-20 mcg/mL Pharmacy Plan for Drug Dosing: Pharmacy Service will continue to monitor and adjust dosing as required. TROUGH NOT DRAWN AT 0130, REORDERED NEW TROUGH FOR 1330 TODAY Follow-Up Labs: Trough Vancomycin Labs to be done on [date and time ordered]: 05/14 @ 3859
--- NOTE | 2021-05-14 06:45 | PN.CC_ITS ---
Assessment & Plan Assessment/Plan (1) Acute respiratory failure with hypoxia: (2) COVID-19: (3) Debility: (4) Parkinson disease: PLAN: RECOMMENDATIONS: 1. Continue to wean FiO2 and PEEP to maintain oxygen saturations at or above 90%. 2. Continue patient on pressure support as tolerated today. Transition back to assist control for overnight support. 3. Minimize sedation as tolerated. 4. Continue Decadron and baricitinib to complete treatment courses. 5. Continue antimicrobials. 6. Continue therapeutic Lovenox. 7. Continue tube feeds. 8. Hold antihypertensives. 9. Continue appropriate GI prophylaxis. IMPRESSIONS: 1. Acute hypoxic respiratory failure secondary to combined Covid and staphylococcal pneumonia/bilateral PE The patient presented to the hospital with COVID-19 pneumonia with symptom onset sometime around May 02. Subsequent work-up did also reveal evidence of bilateral pulmonary emboli. To date, the patient has completed a treatment course of remdesivir and remains on Decadron and baricitinib. Ultimately, the patient continued to decompensate from a respiratory perspective and was subsequently intubated. Sputum culture was positive for staph aureus. The patient is on appropriate antimicrobials. Plan to continue invasive mechanical ventilatory support and wean FiO2 for saturations greater than 90%. Okay to continue tube feeds as tolerated. 2. Shock Resolved. Likely multifactorial with bacterial pneumonia and effects of sedation contributing. The patient has been weaned from vasopressor support at this time. Plan to continue to monitor clinically. 3. Hypertension/dyslipidemia/GERD/BPH/Parkinson's Complicates care, management, recovery and prognosis. Okay to continue with baseline Parkinson's meds. Hold antihypertensives for now. Okay to work with physical therapy. TIME: 33 minutes of critical care time, independent of procedures, was spent addressing the patient's acute hypoxemic respiratory failure, COVID-19 pneumonia, staphylococcal pneumonia, bilateral pulmonary emboli, shock, review of all data and collaboration with care team. Subjective Subjective The patient was seen and examined at the bedside this morning. Events from the last 24 hours have been reviewed. The patient is currently afebrile, he modynamically stable and maintaining appropriate oxygen saturations on pressure support mode mechanical ventilation with an FiO2 requirement of 45%. All sedation is currently on hold. No overnight issues were identified by the nursing staff. The patient's secretion output is improving. He is currently documented to be overall net +2.9 L for the hospitalization. Objective Data Objective Data The patient's most recent lab work, culture data and imaging studies have all been personally reviewed. Rapid coronavirus antigen testing was positive on May 08. Sputum culture is currently growing 3+ staph aureus. Vital Signs: Vital Signs Temp Pulse Resp BP Pulse Ox 98.3 F 80 22 H 144/78 H 94 05/14/21 04:00 05/14/21 05:00 05/14/21 05:14 05/14/21 05:00 05/14/21 05:00 Oxygen Flow Rate (L/min) 100 Oxygen Delivery Method Mechanical Ventilator Weight: 76.9 kg Body Mass Index (BMI) 25.7 Intake & Output: Intake and Output for Last 24 Hours 05/12/21 05/13/21 05/14/21 23:59 23:59 23:59 Intake Total 1273.80 / 1475.60 1405.23 / 1704.95 562.90 / 562.90 Output Total 700 / 700 1000 / 1300 525 / 525 Balance 573.80 / 775.60 405.23 / 404.95 37.90 / 37.90 Medical Nutrition Assessment Dietitian: Malnutrition Criteria Met Start: 05/13/21 10:34 Freq: Status: Active Protocol: Document 05/13/21 10:34 (Rec: 05/13/21 10:34 [id number]) Nutrition Malnutrition Evidence of Malnutrition Exists Yes Malnutrition (severe): Acute Illness/Injury Evidenced By Suboptimal Energy Intake ( Severe),Weight Loss (Severe) Intake Problem Inadequate Oral Intake Etiology r/t resp. failure Signs/Symptoms as evidenced by NPO status Status Active Problem Clinical Problem Acute Disease or Injury Related Malnutrition Etiology severe, acute malnutrition r/t inadequate energy intake w/ acute illness Signs/Symptoms as evidenced by unintentional wt loss of 2.8kg/3.5% x 1 week , estimated PO intake meeting <50% of estimated nutritional needs x 1 week Status Active Problem Altered Nutrient-Related Laboratory Values Etiology - Signs/Symptoms - Status Inactive Problem Unintended Weight Loss Etiology r/t predicted suboptimal energy intake d/t debility Signs/Symptoms as evidenced by unintentional wt loss of 4.1#/2.3% unknown timeframe Status Active Problem Recommendation Dietitian Recommendations/Changes NPO while intubated. Per kyle Hanna to start trophic enteral nutrition via OGT. Will start Vital AF 1.2 at 15mL/hour. Goal rate is 65mL/hour w/100mL H2O flush every 4 hours to provide 1872 calories, 117 g protein, and 1865mL total fluid/day. When appropraite, would increase by 15mL/hour every 8 to 12 hours as pt tolerated until goal rate is achieved. Lab / Micro Data Attestation: I reviewed the patient's lab results. Result Diagrams: 05/13/21 03:45 05/14/21 04:30 Micro: Microbiology 05/12/21 12:00 Sputum, Induced/Lukens Gram Stain - Final 05/12/21 12:00 Sputum, Induced/Lukens Respiratory Culture - Preliminary Staphylococcus aureus 05/08/21 04:50 Blood Culture (Wb) - Anticubital Right Blood Culture - Final No growth in 5 days. 05/08/21 02:50 Blood Culture (Wb) - Anticubital Right Blood Culture - Final No growth in 5 days. 05/12/21 14:30 Urine Catheter - Collazo Legionella Antigen - Final 05/12/21 14:30 Urine Catheter - Collazo Streptococcus pneumoniae Antigen (M - Final 05/08/21 02:30 Urine, Catheterized Urine Culture - Final Culture exhibits no growth. 05/08/21 02:50 Mucosa - Nasopharyngeal Influenza Types A,B Direct FA (EUSEBIO) - Final 05/08/21 02:50 Nasal Secretion SARS-CoV-2 Antigen (Rapid) - Final SARS-CoV-2 (COVID 19) Physical Exam Const General Appearance: intubated and patient mechanically ventilated HEENT normocephalic and head/scalp atraumatic Mouth: endotracheal tube in place and OG tube in place Eyes PERRL and EOMs intact bilaterally Neck supple General: trachea midline Chest inspection of chest normal Resp Auscultation: diminished lung sounds Cardio regular rate and regular rhythm GI normal to inspection, nondistended, normoactive bowel sounds Extremity no clubbing, cyanosis or edema Skin no rashes or lesions noted Neuro Neuro Narrative: Occasional parkinsonian tremors Sensorium / Orientation: sedated on vent Charges/Coding Procedures Hospitalists Procedures: [id number] Critial Care 1st Hr
--- NOTE | 2021-05-14 07:18 | PN.HOSP_ITS ---
Subjective Subjective Patient seen remains on the vent. Sputum cultures obtained came back positive for methicillin sensitive staph aureus. Objective Data Objective Data Vital Signs: Vital Signs Temp Pulse Resp BP Pulse Ox 98.3 F 80 22 H 144/78 H 94 05/14/21 04:00 05/14/21 05:00 05/14/21 05:14 05/14/21 05:00 05/14/21 05:00 Oxygen Flow Rate (L/min) 100 Oxygen Delivery Method Mechanical Ventilator Weight: 76.9 kg Body Mass Index (BMI) 25.7 Intake & Output: Intake and Output for Last 24 Hours 05/12/21 05/13/21 05/14/21 23:59 23:59 23:59 Intake Total 1273.80 / 1475.60 1405.23 / 1704.95 562.90 / 562.90 Output Total 700 / 700 1000 / 1300 525 / 525 Balance 573.80 / 775.60 405.23 / 404.95 37.90 / 37.90 Medical Nutrition Assessment Dietitian: Malnutrition Criteria Met Start: 05/13/21 10:34 Freq: Status: Active Protocol: Document 05/13/21 10:34 AG (Rec: 05/13/21 10:34 [id number]) Nutrition Malnutrition Evidence of Malnutrition Exists Yes Malnutrition (severe): Acute Illness/Injury Evidenced By Suboptimal Energy Intake ( Severe),Weight Loss (Severe) Intake Problem Inadequate Oral Intake Etiology r/t resp. failure Signs/Symptoms as evidenced by NPO status Status Active Problem Clinical Problem Acute Disease or Injury Related Malnutrition Etiology severe, acute malnutrition r/t inadequate energy intake w/ acute illness Signs/Symptoms as evidenced by unintentional wt loss of 2.8kg/3.5% x 1 week , estimated PO intake meeting <50% of estimated nutritional needs x 1 week Status Active Problem Altered Nutrient-Related Laboratory Values Etiology - Signs/Symptoms - Status Inactive Problem Unintended Weight Loss Etiology r/t predicted suboptimal energy intake d/t debility Signs/Symptoms as evidenced by unintentional wt loss of 4.1#/2.3% unknown timeframe Status Active Problem Recommendation Dietitian Recommendations/Changes NPO while intubated. Per kyle Hanna to start trophic enteral nutrition via OGT. Will start Vital AF 1.2 at 15mL/hour. Goal rate is 65mL/hour w/100mL H2O flush every 4 hours to provide 1872 calories, 117 g protein, and 1865mL total fluid/day. When appropraite, would increase by 15mL/hour every 8 to 12 hours as pt tolerated until goal rate is achieved. Lab / Micro Data Result Diagrams: 05/13/21 03:45 05/14/21 04:30 Micro: Microbiology 05/12/21 12:00 Sputum, Induced/Lukens Gram Stain - Final 05/12/21 12:00 Sputum, Induced/Lukens Respiratory Culture - Preliminary Staphylococcus aureus 05/08/21 04:50 Blood Culture (Wb) - Anticubital Right Blood Culture - Final No growth in 5 days. 05/08/21 02:50 Blood Culture (Wb) - Anticubital Right Blood Culture - Final No growth in 5 days. 05/12/21 14:30 Urine Catheter - Collazo Legionella Antigen - Final 05/12/21 14:30 Urine Catheter - Collazo Streptococcus pneumoniae Antigen (M - Final 05/08/21 02:30 Urine, Catheterized Urine Culture - Final Culture exhibits no growth. 05/08/21 02:50 Mucosa - Nasopharyngeal Influenza Types A,B Direct FA (EUSEBIO) - Final 05/08/21 02:50 Nasal Secretion SARS-CoV-2 Antigen (Rapid) - Final SARS-CoV-2 (COVID 19) Physical Exam Narrative GENERAL: Patient on the vent HEENT: Atraumatic; EYES; Anicteric, Normal Conjunctiva NECK; supple, normal thyroid, RESPIRATORY: Diminished to auscultation CARDIOVASCULAR: Regular S1 S2, GI: soft, normoactive bowel sounds, : No Renal angle tenderness; EXTREMITIES: Lacerations on both hands in surgical dressing MUSCULOSKELETAL: no muscle waisting NEURO: Patient on the vent SKIN: No Rash PSYCH; Flat affect Assessment & Plan Assessment/Plan (1) Debility: (2) Frequent falls: (3) Acute respiratory failure with hypoxia: (4) COVID-19: PLAN: Patient is a 75-year-old gentleman admitted with progressive generalized weakness and multiple falls at home. Was diagnosed with COVID-19 pneumonia 1. Acute hypoxic respiratory failure ?Secondary to COVID-19 pneumonia managed with remdesivir and Decadron in addition to supplemental oxygen titrated to keep saturation greater than 90 -05/12/2021. Patient did develop chest pain CTA demonstrated pulmonary embolism. Patient was transferred to the intensive care unit consult placed to pulmonary/intensive care -05/13/2021 Patient was transferred to the intensive care unit following deterioration in his respiratory status on 05/12/2021. CT of the chest obtained earlier on during the day had demonstrated pulmonary embolism. Patient had to be emergently intubated. Was found to have copious secretions consistent with suspected superimposed bacterial pneumonia. Broad-spectrum antibiotic therapy initiated ?05/14/2021; patient remains on the vent. Case discussed with Dr. Valladares with intensive care plan is to continue to manage patient on the vent with possible weaning trial starting 05/15/2021. 2. Acute pulmonary embolism Patient did develop chest pain stat CTA obtained demonstrated Bilateral lower lobe segmental and subsegmental pulmonary embolism. No saddle embolus or evidence of right heart strain. Multifocal infiltrates with features commonly reported with COVID pneumonia. Localized consolidation of the posterior right lower lobe couldrepresent superimposed bacterial pneumonia versus pulmonary infarction in the setting of pulmonary embolism.. Patient was transferred to the intensive care unit 3. Suspected bacterial pneumonia ?Patient was started on broad-spectrum antibiotic therapy cultures sent following his intubation -05/14/2021;Patient seen remains on the vent. Sputum cultures obtained came back positive for methicillin sensitive staph aureus. Adjusted patient antibiotic therapy with discontinuation of vancomycin 4. Septic shock ?Secondary to above patient was managed with IV fluids in addition to broad- spectrum antibiotic therapy and pressor support with norepinephrine 4. Hypertension - Blood pressure controlled, home medications continued with dose adjustment as needed ?05/13/2021 antihypertensives held in view of low blood pressure 5. Dyslipidemia ?Patient is on rosuvastatin 6. GERD ?Patient is on PPI did continue 7. BPH ?Patient is prescribed Flomax f 8. Physical deconditioning with multiple falls - Requested for PT OT eval and social services counselor to assist with discharge planning 9. Hypokalemia -corrected per protocol Charges/Coding Visit Charges Inpatient E&M: 94737 Subs Hosp L3
[2021-05-14] MEDS: Ipratropium/Albuterol Sulfate 3 ML AMPUL.NEB INHALATION ×4 (07:28→19:30)
[2021-05-14 09:14] LABS: ALB/GLOB Ratio 0.6 RATIO (0.9-2.4); AST(SGOT) 45 U/L (15-37); Alanine Aminotransfer ALT/SGPT 58 U/L (16-61); Albumin, Serum 2.1 g/dL (3.2-5.0); Alkaline Phosphatase 41 U/L (45-117); Anion Gap 7 (5-15); BUN 36 mg/dL (7-18); BUN/Creat Ratio 36.5 RATIO (10-20); Calcium,Total 7.9 mg/dL (8.5-10.1); Chloride 104 mmol/L (98-107); Creatinine, Serum 0.99 mg/dL (0.70-1.30); EST Glomerular Filtration Rate 78 mL/min (>60); Est Glom Filt Rate - Afr Amer 95 mL/min (>60); Estimated Creatinine Clearance 63.48 ml/min; Globulin 3.4 g/dL (2.2-4.2); Glucose 279 mg/dL (74-106); Protein, Total 5.5 g/dL (6.4-8.2); Sodium Level 137 mmol/L (136-145)
[2021-05-14] MEDS: levoFLOXacin IV 750 MG/150 ML BAG 100 MG IV (09:28)
[2021-05-14] MEDS: Finasteride 5 MG Tablet GT (09:56)
[2021-05-14] MEDS: dexAMETHasone 2 MG TABLET 6 MG GT (09:57)
[2021-05-14] MEDS: Cyanocobalamin 500 MCG Tablet 1000 MCG GT (09:57)
[2021-05-14] MEDS: Aspirin 81 MG TAB.CHEW GT (09:58)
[2021-05-14] MEDS: Potassium Chloride Oral Soln 20 MEQ/15 ML UDC GT (09:58)
[2021-05-14] MEDS: Enoxaparin 80 MG/0.8 ML Syringe SC ×2 (09:58→20:23)
[2021-05-14] MEDS: Polyethylene Glycol 3350 17 GM PACKET 8.5 GM GT ×2 (09:58→20:22)
[2021-05-14] MEDS: Lansoprazole 15 MG Capsule.DR GT (09:58)
[2021-05-14] MEDS: Chlorhexidine 15 ML PO ×2 (09:59→20:23)
[2021-05-14] MEDS: 0.9% Saline Lock 10 ML Syringe IV ×2 (10:00→13:47)
[2021-05-14] MEDS: Propofol 10MG/Ml 1,000 MG/100 ML Bottle 4.6 MG CONT INF (14:15)
[2021-05-14] MEDS: Cefazolin 2 GM in 0.9% Normal Saline 100 ML IV ×2 (14:24→20:53)
--- NOTE | 2021-05-14 14:42 | CASEMGMT ---
Social Work Voicemail left with DYLLAN Torres at [facility] requesting update status on the referral that was faxed on 05/06 regarding [facility] approval for SNF placement. DYLLAN will await return call. EUGENE Hawkins
[2021-05-14] MEDS: Rosuvastatin 20 MG Tablet GT (20:22)
[2021-05-15] VITALS (38 sets, daily range): BP systolic 103–146; BP diastolic 59–88; PULSE 56–72; RESP 10–25; TEMP 36.7–37.8; O2SAT 92–98
[2021-05-15] MEDS: Acetaminophen 650 MG/20 ML UDC GT (03:37)
[2021-05-15 03:41] LABS: Absolute Lymphocyte Count 0.52 X10^3/uL (0.83-4.51); Absolute Neutrophil Count 9.9 X10^3/uL (2.0-7.7); Basophil# 0.03 X10^3/uL; Basophil% 0.3 % (0-1); Hematocrit 37.4 % (40-54); Hemoglobin 12.4 g/dL (13.0-16.5); Lymphocyte # 0.52 X10^3/ul (0.83-4.51); Lymphocyte % 4.4 % (19-41); Mean Corp Hgb Conc 33.2 g/dL (32-36); Mean Corpuscular Hgb 30.4 pg (27.0-32.0); Mean Corpuscular Volume 91.7 fL (80-94); Mean Platelet Vol. 10.7 fl (6.2-12.0); Monocyte# 0.94 X10^3/uL; Monocyte% 7.9 % (0-10); NRBC Flagged by Analyzer 0 % (0-5); Neutrophil # 9.85 X10^3/uL (2.7-7.7); Neutrophil % 82.9 % (47-70); POSITIVE DIFFERENTIAL YES; Platelet Count 231 K/mm3 (150-450); RBC Distribution Width CV 14.1 % (11.6-14.6); Red Blood Count 4.08 M/mm3 (4.6-6.2); White Blood Count 11.9 K/mm3 (4.4-11.0)
[2021-05-15 03:46] LABS: Differential Indicated SCAN CRITERIA MET
[2021-05-15 03:59] LABS: ALB/GLOB Ratio 0.6 RATIO (0.9-2.4); AST(SGOT) 32 U/L (15-37); Alanine Aminotransfer ALT/SGPT 42 U/L (16-61); Albumin, Serum 1.9 g/dL (3.2-5.0); Alkaline Phosphatase 37 U/L (45-117); Anion Gap 5 (5-15); BUN 35 mg/dL (7-18); BUN/Creat Ratio 32.7 RATIO (10-20); Calcium,Total 7.6 mg/dL (8.5-10.1); Chloride 106 mmol/L (98-107); Creatinine, Serum 1.07 mg/dL (0.70-1.30); EST Glomerular Filtration Rate 71 mL/min (>60); Est Glom Filt Rate - Afr Amer 86 mL/min (>60); Estimated Creatinine Clearance 58.73 ml/min; Globulin 3.3 g/dL (2.2-4.2); Glucose 258 mg/dL (74-106); Potassium 4.6 mmol/L (3.5-5.1); Protein, Total 5.2 g/dL (6.4-8.2); Sodium Level 137 mmol/L (136-145)
[2021-05-15 04:07] LABS: Atypical Lymphocyte 1+ %
[2021-05-15] MEDS: Cefazolin 2 GM in 0.9% Normal Saline 100 ML IV ×3 (05:30→21:22)
[2021-05-15 06:30] LABS: Allen Test Positive; Base Excess 0 mmol/L (-2 to +2); Bicarbonate 23.9 mmol/L (22-26); Blood Gas Specimen Type ART; FI02 40; Mode CPAP/PS; O2 Delivery Device Adult Vent; PEEP 5; PO2 84 mmHG (75-100); PS 5; SITE L Radial; SO2 97 % (95-99); Total Carbon Dioxide 25 mmol/L; pCO2 33.8 mmHg (35-45); pH 7.46 (7.35-7.45)
--- NOTE | 2021-05-15 07:06 | PCM.PN.INT ---
Assessment & Plan Assessment/Plan (1) Acute respiratory failure with hypoxia: (2) COVID-19: (3) Debility: (4) Parkinson disease: PLAN: RECOMMENDATIONS: 1. Continue to wean FiO2 and PEEP to maintain oxygen saturations at or above 90%. 2. Continue patient on pressure support as tolerated today. 3. Continue to hold all sedating medications. 4. If mentation does not begin to improve over the next several hours, will consider CT head. 5. Continue Decadron and baricitinib to complete treatment courses. 6. Continue antimicrobials. 7. Continue therapeutic Lovenox. 8. Continue appropriate GI prophylaxis. IMPRESSIONS: 1. Acute hypoxic respiratory failure secondary to combined Covid and staphylococcal pneumonia/bilateral PE The patient presented to the hospital with COVID-19 pneumonia with symptom onset sometime around May 02. Subsequent work-up did also reveal evidence of bilateral pulmonary emboli. To date, the patient has completed a treatment course of remdesivir and remains on Decadron and baricitinib. Ultimately, the patient continued to decompensate from a respiratory perspective and was subsequently intubated. Sputum culture was positive for staph aureus. The patient is on appropriate antimicrobials. Plan to continue invasive mechanical ventilatory support and wean FiO2 for saturations greater than 90%. Okay to continue tube feeds as tolerated. 2. Encephalopathy Continue to hold all sedating medications this morning. Arterial blood gas was obtained and appears to be within normal limits. The patient's encephalopathy may be secondary to recent sedating medication use. However, if his mentation does not begin to improve over the next several hours, will obtain CT head. 3. Hypertension/dyslipidemia/GERD/BPH/Parkinson's Complicates care, management, recovery and prognosis. Okay to continue with baseline Parkinson's meds. Hold antihypertensives for now. Okay to work with physical therapy. TIME: 34 minutes of critical care time, independent of procedures, was spent addressing the patient's acute hypoxemic respiratory failure, COVID-19 pneumonia, staphylococcal pneumonia, bilateral pulmonary emboli, encephalopathy, review of all data and collaboration with care team. Subjective Subjective The patient was seen and examined at the bedside this morning. Events from the last 24 hours have been reviewed. The patient is currently afebrile, hemodynamically stable and maintaining appropriate oxygen saturations on pressure support mode mechanical ventilation with an FiO2 requirement of 40%. All sedating medications are currently on hold along with tube feeds. Although the patient is tolerating his spontaneous breathing trial, he is still somewhat somnolent. Arterial blood gas obtained this morning on his spontaneous breathing trial reviewed a pH of 7.45 with a PCO2 of 34 and PO2 of 84. The patient is currently documented to be overall net +3.9 L for the hospitalization. Nursing staff did report improvement in the volume of his endotracheal tube secretions. Objective Data Objective Data The patient's most recent lab work, culture data and imaging studies have all been personally reviewed. Rapid coronavirus antigen testing was positive on May 08. Sputum culture is currently growing 3+ MSSA. Vital Signs: Vital Signs Temp Pulse Resp BP Pulse Ox 100.1 F H 59 L 14 118/69 95 05/15/21 04:00 05/15/21 07:00 05/15/21 07:00 05/15/21 07:00 05/15/21 07:00 Oxygen Flow Rate (L/min) 45 Oxygen Delivery Method Mechanical Ventilator Weight: 78.3 kg Body Mass Index (BMI) 25.7 Intake & Output: Intake and Output for Last 24 Hours 05/13/21 05/14/21 05/15/21 23:59 23:59 23:59 Intake Total 1405.23 / 1704.95 2227.38 / 2230.18 450.65 / 450.65 Output Total 1000 / 1300 1475 / 1475 200 / 200 Balance 405.23 / 404.95 752.38 / 755.18 250.65 / 250.65 Medical Nutrition Assessment Dietitian: Malnutrition Criteria Met Start: 05/13/21 10:34 Freq: Status: Active Protocol: Document 05/13/21 10:34 (Rec: 05/13/21 10:34 [id number]) Nutrition Malnutrition Evidence of Malnutrition Exists Yes Malnutrition (severe): Acute Illness/Injury Evidenced By Suboptimal Energy Intake ( Severe),Weight Loss (Severe) Intake Problem Inadequate Oral Intake Etiology r/t resp. failure Signs/Symptoms as evidenced by NPO status Status Active Problem Clinical Problem Acute Disease or Injury Related Malnutrition Etiology severe, acute malnutrition r/t inadequate energy intake w/ acute illness Signs/Symptoms as evidenced by unintentional wt loss of 2.8kg/3.5% x 1 week , estimated PO intake meeting <50% of estimated nutritional needs x 1 week Status Active Problem Altered Nutrient-Related Laboratory Values Etiology - Signs/Symptoms - Status Inactive Problem Unintended Weight Loss Etiology r/t predicted suboptimal energy intake d/t debility Signs/Symptoms as evidenced by unintentional wt loss of 4.1#/2.3% unknown timeframe Status Active Problem Recommendation Dietitian Recommendations/Changes NPO while intubated. Per kyle Hanna to start trophic enteral nutrition via OGT. Will start Vital AF 1.2 at 15mL/hour. Goal rate is 65mL/hour w/100mL H2O flush every 4 hours to provide 1872 calories, 117 g protein, and 1865mL total fluid/day. When appropraite, would increase by 15mL/hour every 8 to 12 hours as pt tolerated until goal rate is achieved. Lab / Micro Data Attestation: I reviewed the patient's lab results. Result Diagrams: 05/15/21 03:30 05/15/21 03:30 Labs: Laboratory Results - last 24 hr 05/14/21 04:30: Sodium 137, Potassium 4.0, Chloride 104, Carbon Dioxide 26.0, Anion Gap 7, BUN 36 H, Creatinine 0.99, Estim Creat Clear Calc 63.48, Est GFR (MDRD) Af Amer 95, Est GFR (MDRD) Non-Af 78, BUN/Creatinine Ratio 36.5 H, Glucose 279 H, Calcium 7.9 L, Total Bilirubin 0.80, AST 45 H, ALT 58, Alkaline Phosphatase 41 L, Total Protein 5.5 L, Albumin 2.1 L, Globulin 3.4, Albumin/Globulin Ratio 0.6 L 05/15/21 03:30: WBC 11.9 H, RBC 4.08 L, Hgb 12.4 L, Hct 37.4 L, MCV 91.7, MCH 30.4, MCHC 33.2, RDW Std Deviation 48.0 H, RDW Coeff of Evin 14.1, Plt Count 231, MPV 10.7, Immature Gran % (Auto) 4.500 H, Neut % (Auto) 82.9 H, Lymph % (Auto) 4.4 L, Travis % (Auto) 7.9, Eos % (Auto) 0.0, Baso % (Auto) 0.3, Absolute Neuts (auto) 9.9 H, Absolute Lymphs (auto) 0.52 L, Nucleated RBC % 0, Atypical Lymphocytes 1+ 05/15/21 03:30: Sodium 137, Potassium 4.6, Chloride 106, Carbon Dioxide 26.0, Anion Gap 5, BUN 35 H, Creatinine 1.07, Estim Creat Clear Calc 58.73, Est GFR (MDRD) Af Amer 86, Est GFR (MDRD) Non-Af 71, BUN/Creatinine Ratio 32.7 H, Glucose 258 H, Calcium 7.6 L, Total Bilirubin 0.50, AST 32, ALT 42, Alkaline Phosphatase 37 L, Total Protein 5.2 L, Albumin 1.9 L, Globulin 3.3, Albumin/Globulin Ratio 0.6 L Micro: Microbiology 05/12/21 14:40 Blood Culture (Wb) - Left Forearm Blood Culture - Preliminary No growth in 48 hours. 05/12/21 14:30 Blood Culture (Wb) - Left Hand Blood Culture - Preliminary No growth in 48 hours. 05/13/21 10:15 Wound - Hand Gram Stain - Final 05/13/21 10:15 Wound - Hand Wound Culture - Preliminary Staphylococcus aureus 05/12/21 12:00 Sputum, Induced/Lukens Gram Stain - Final 05/12/21 12:00 Sputum, Induced/Lukens Respiratory Culture - Final Staphylococcus aureus 05/08/21 04:50 Blood Culture (Wb) - Anticubital Right Blood Culture - Final No growth in 5 days. 05/08/21 02:50 Blood Culture (Wb) - Anticubital Right Blood Culture - Final No growth in 5 days. 05/12/21 14:30 Urine Catheter - Collazo Legionella Antigen - Final 05/12/21 14:30 Urine Catheter - Collazo Streptococcus pneumoniae Antigen (M - Final 05/08/21 02:30 Urine, Catheterized Urine Culture - Final Culture exhibits no growth. 05/08/21 02:50 Mucosa - Nasopharyngeal Influenza Types A,B Direct FA (EUSEBIO) - Final 05/08/21 02:50 Nasal Secretion SARS-CoV-2 Antigen (Rapid) - Final SARS-CoV-2 (COVID 19) ABG Data ABG results: ABG 05/15/21 06:23 Specimen Type ART Sample Site L Radial pH 7.46 H Bicarbonate Actual 23.9 Total CO2 25 Base Excess 0 O2 Saturation 97 O2 % 40 ABG pCO2 33.8 L ABG pO2 84 Jairo Test Positive O2 Delivery Device Adult Vent Vent Mode CPAP/PS POC PEEP 5 POC Pressure Suppt 5 Physical Exam Const General Appearance: intubated and patient mechanically ventilated Orientation / Consciousness: lethargic HEENT normocephalic and head/scalp atraumatic Mouth: endotracheal tube in place and OG tube in place Eyes PERRL and EOMs intact bilaterally Neck supple General: trachea midline Chest inspection of chest normal Resp Auscultation: diminished lung sounds Cardio regular rate and regular rhythm GI normal to inspection, nondistended, normoactive bowel sounds Extremity no clubbing, cyanosis or edema Skin no rashes or lesions noted Neuro Neuro Narrative: Occasional parkinsonian tremors. The patient will not respond to verbal or tactile stimulation. Charges/Coding Procedures Hospitalists Procedures: [id number] Critial Care 1st Hr
--- NOTE | 2021-05-15 07:11 | PCM.PN.HOSP ---
Subjective Subjective Patient seen remains on the vent with plans for patient to undergo weaning trial with possible extubation if he passes. Objective Data Objective Data Vital Signs: Vital Signs Temp Pulse Resp BP Pulse Ox 100.1 F H 59 L 14 118/69 95 05/15/21 04:00 05/15/21 07:00 05/15/21 07:00 05/15/21 07:00 05/15/21 07:00 Oxygen Flow Rate (L/min) 45 Oxygen Delivery Method Mechanical Ventilator Weight: 78.3 kg Body Mass Index (BMI) 25.7 Intake & Output: Intake and Output for Last 24 Hours 05/13/21 05/14/21 05/15/21 23:59 23:59 23:59 Intake Total 1405.23 / 1704.95 2227.38 / 2230.18 450.65 / 450.65 Output Total 1000 / 1300 1475 / 1475 200 / 200 Balance 405.23 / 404.95 752.38 / 755.18 250.65 / 250.65 Medical Nutrition Assessment Dietitian: Malnutrition Criteria Met Start: 05/13/21 10:34 Freq: Status: Active Protocol: Document 05/13/21 10:34 AG (Rec: 05/13/21 10:34 [id number]) Nutrition Malnutrition Evidence of Malnutrition Exists Yes Malnutrition (severe): Acute Illness/Injury Evidenced By Suboptimal Energy Intake ( Severe),Weight Loss (Severe) Intake Problem Inadequate Oral Intake Etiology r/t resp. failure Signs/Symptoms as evidenced by NPO status Status Active Problem Clinical Problem Acute Disease or Injury Related Malnutrition Etiology severe, acute malnutrition r/t inadequate energy intake w/ acute illness Signs/Symptoms as evidenced by unintentional wt loss of 2.8kg/3.5% x 1 week , estimated PO intake meeting <50% of estimated nutritional needs x 1 week Status Active Problem Altered Nutrient-Related Laboratory Values Etiology - Signs/Symptoms - Status Inactive Problem Unintended Weight Loss Etiology r/t predicted suboptimal energy intake d/t debility Signs/Symptoms as evidenced by unintentional wt loss of 4.1#/2.3% unknown timeframe Status Active Problem Recommendation Dietitian Recommendations/Changes NPO while intubated. Per kyle Hanna to start trophic enteral nutrition via OGT. Will start Vital AF 1.2 at 15mL/hour. Goal rate is 65mL/hour w/100mL H2O flush every 4 hours to provide 1872 calories, 117 g protein, and 1865mL total fluid/day. When appropraite, would increase by 15mL/hour every 8 to 12 hours as pt tolerated until goal rate is achieved. Lab / Micro Data Result Diagrams: 05/15/21 03:30 05/15/21 03:30 Labs: Laboratory Results - last 24 hr 05/14/21 04:30: Sodium 137, Potassium 4.0, Chloride 104, Carbon Dioxide 26.0, Anion Gap 7, BUN 36 H, Creatinine 0.99, Estim Creat Clear Calc 63.48, Est GFR (MDRD) Af Amer 95, Est GFR (MDRD) Non-Af 78, BUN/Creatinine Ratio 36.5 H, Glucose 279 H, Calcium 7.9 L, Total Bilirubin 0.80, AST 45 H, ALT 58, Alkaline Phosphatase 41 L, Total Protein 5.5 L, Albumin 2.1 L, Globulin 3.4, Albumin/Globulin Ratio 0.6 L 05/15/21 03:30: WBC 11.9 H, RBC 4.08 L, Hgb 12.4 L, Hct 37.4 L, MCV 91.7, MCH 30.4, MCHC 33.2, RDW Std Deviation 48.0 H, RDW Coeff of Evin 14.1, Plt Count 231, MPV 10.7, Immature Gran % (Auto) 4.500 H, Neut % (Auto) 82.9 H, Lymph % (Auto) 4.4 L, Coleman % (Auto) 7.9, Eos % (Auto) 0.0, Baso % (Auto) 0.3, Absolute Neuts (auto) 9.9 H, Absolute Lymphs (auto) 0.52 L, Nucleated RBC % 0, Atypical Lymphocytes 1+ 05/15/21 03:30: Sodium 137, Potassium 4.6, Chloride 106, Carbon Dioxide 26.0, Anion Gap 5, BUN 35 H, Creatinine 1.07, Estim Creat Clear Calc 58.73, Est GFR (MDRD) Af Amer 86, Est GFR (MDRD) Non-Af 71, BUN/Creatinine Ratio 32.7 H, Glucose 258 H, Calcium 7.6 L, Total Bilirubin 0.50, AST 32, ALT 42, Alkaline Phosphatase 37 L, Total Protein 5.2 L, Albumin 1.9 L, Globulin 3.3, Albumin/Globulin Ratio 0.6 L Micro: Microbiology 05/12/21 14:40 Blood Culture (Wb) - Left Forearm Blood Culture - Preliminary No growth in 48 hours. 05/12/21 14:30 Blood Culture (Wb) - Left Hand Blood Culture - Preliminary No growth in 48 hours. 05/13/21 10:15 Wound - Hand Gram Stain - Final 05/13/21 10:15 Wound - Hand Wound Culture - Preliminary Staphylococcus aureus 05/12/21 12:00 Sputum, Induced/Lukens Gram Stain - Final 05/12/21 12:00 Sputum, Induced/Lukens Respiratory Culture - Final Staphylococcus aureus 05/08/21 04:50 Blood Culture (Wb) - Anticubital Right Blood Culture - Final No growth in 5 days. 05/08/21 02:50 Blood Culture (Wb) - Anticubital Right Blood Culture - Final No growth in 5 days. 05/12/21 14:30 Urine Catheter - Collazo Legionella Antigen - Final 05/12/21 14:30 Urine Catheter - Collazo Streptococcus pneumoniae Antigen (M - Final 05/08/21 02:30 Urine, Catheterized Urine Culture - Final Culture exhibits no growth. 05/08/21 02:50 Mucosa - Nasopharyngeal Influenza Types A,B Direct FA (EUSEBIO) - Final 05/08/21 02:50 Nasal Secretion SARS-CoV-2 Antigen (Rapid) - Final SARS-CoV-2 (COVID 19) ABG Data ABG results: ABG 05/15/21 06:23 Specimen Type ART Sample Site L Radial pH 7.46 H Bicarbonate Actual 23.9 Total CO2 25 Base Excess 0 O2 Saturation 97 O2 % 40 ABG pCO2 33.8 L ABG pO2 84 Jairo Test Positive O2 Delivery Device Adult Vent Vent Mode CPAP/PS POC PEEP 5 POC Pressure Suppt 5 Physical Exam Narrative GENERAL: Patient on the vent HEENT: Atraumatic; EYES; Anicteric, Normal Conjunctiva NECK; supple, normal thyroid, RESPIRATORY: Diminished to auscultation CARDIOVASCULAR: Regular S1 S2, GI: soft, normoactive bowel sounds, : No Renal angle tenderness; EXTREMITIES: Lacerations on both hands in surgical dressing MUSCULOSKELETAL: no muscle waisting NEURO: Patient on the vent SKIN: No Rash PSYCH; Flat affect Assessment & Plan Assessment/Plan (1) Debility: (2) Frequent falls: (3) Acute respiratory failure with hypoxia: (4) COVID-19: PLAN: Patient is a 75-year-old gentleman admitted with progressive generalized weakness and multiple falls at home. Was diagnosed with COVID-19 pneumonia 1. Acute hypoxic respiratory failure ?Secondary to COVID-19 pneumonia managed with remdesivir and Decadron in addition to supplemental oxygen titrated to keep saturation greater than 90 -05/12/2021. Patient did develop chest pain CTA demonstrated pulmonary embolism. Patient was transferred to the intensive care unit consult placed to pulmonary/intensive care -05/13/2021 Patient was transferred to the intensive care unit following deterioration in his respiratory status on 05/12/2021. CT of the chest obtained earlier on during the day had demonstrated pulmonary embolism. Patient had to be emergently intubated. Was found to have copious secretions consistent with suspected superimposed bacterial pneumonia. Broad-spectrum antibiotic therapy initiated ?05/14/2021; patient remains on the vent. Case discussed with Dr. Valladares with intensive care plan is to continue to manage patient on the vent with possible weaning trial starting 05/15/2021. ?05/15/2021;Patient seen remains on the vent with plans for patient to undergo weaning trial with possible extubation if he passes. 2. Acute pulmonary embolism Patient did develop chest pain stat CTA obtained demonstrated Bilateral lower lobe segmental and subsegmental pulmonary embolism. No saddle embolus or evidence of right heart strain. Multifocal infiltrates with features commonly reported with COVID pneumonia. Localized consolidation of the posterior right lower lobe couldrepresent superimposed bacterial pneumonia versus pulmonary infarction in the setting of pulmonary embolism.. Patient was transferred to the intensive care unit 3. Suspected bacterial pneumonia with methicillin sensitive staph aureus ?Patient was started on broad-spectrum antibiotic therapy cultures sent following his intubation -05/14/2021;Patient seen remains on the vent. Sputum cultures obtained came back positive for methicillin sensitive staph aureus. Adjusted patient antibiotic therapy with discontinuation of vancomycin 4. Septic shock ?Secondary to above patient was managed with IV fluids in addition to broad-spectrum antibiotic therapy and pressor support with norepinephrine 4. Hypertension - Blood pressure controlled, home medications continued with dose adjustment as needed ?05/13/2021 antihypertensives held in view of low blood pressure 5. Dyslipidemia ?Patient is on rosuvastatin 6. GERD ?Patient is on PPI did continue 7. BPH ?Patient is prescribed Flomax f 8. Physical deconditioning with multiple falls - Requested for PT OT eval and social media campaign manager to assist with discharge planning 9. Hypokalemia -corrected per protocol 10. Severe, acute malnutrition r/t inadequate energy intake w/ acute illness -as evidenced by unintentional wt loss of 2.8kg/3.5% x 1 week, estimated PO intake meeting <50% of estimated nutritional needs x 1 week. Patient was seen in consultation by dietitian and recommendedEN at 15mL/hour and increase by 15mL/hour every 8 to 12 hours as pt tolerates until goal rate of 65mL/hour is achieved. 100mL H2O flush every 4 hours. At goal rate, enteral nutrition will provide 1872 calories, 117 g protein, and 1865mL total fluid/day. Charges/Coding Visit Charges Inpatient E&M: 24000 Subs Hosp L3
[2021-05-15] MEDS: Ipratropium/Albuterol Sulfate 3 ML AMPUL.NEB INHALATION ×3 (07:15→14:46)
[2021-05-15] MEDS: Chlorhexidine 15 ML PO ×2 (08:35→20:18)
[2021-05-15] MEDS: Polyethylene Glycol 3350 17 GM PACKET 8.5 GM GT ×2 (08:35→20:18)
[2021-05-15] MEDS: Lansoprazole 15 MG Capsule.DR GT (08:36)
[2021-05-15] MEDS: Potassium Chloride Oral Soln 20 MEQ/15 ML UDC GT (08:36)
[2021-05-15] MEDS: dexAMETHasone 2 MG TABLET 6 MG GT (08:36)
[2021-05-15] MEDS: Enoxaparin 80 MG/0.8 ML Syringe SC ×2 (08:37→20:18)
[2021-05-15] MEDS: Finasteride 5 MG Tablet GT (08:37)
[2021-05-15] MEDS: Cyanocobalamin 500 MCG Tablet 1000 MCG GT (08:37)
[2021-05-15] MEDS: Aspirin 81 MG TAB.CHEW GT (08:37)
[2021-05-15] MEDS: Menthol/Lanolin/Calamine/Znox 113 GM Tube 1 APPLIC TOPICAL ×2 (08:38→20:19)
--- NOTE | 2021-05-15 10:54 | CASEMGMT ---
Social Work DYLLAN spoke with Edra DYLLAN at [place]. Edra states request for short term SNF stay has been submitted. When SW knows date of discharge, Edra is to be updated and she will file the discharge date and then approval will be determined. Edra updated that pt is not ready for discharge at this time. SW will continue to follow for discharge planning when appropriate. EUGENE Hawkins
--- NOTE | 2021-05-15 11:26 | CASEMGMT ---
Social Work Phone call to pt and support offered. Pt dgt lives in [place] but is support over the phone. Pts states her grandson is local and has been staying with her on and off. Denies any needs at this time. SW will remain available for further support. EUGENE Hawkins
[2021-05-15] MEDS: CHLORHEXIDINE GLUC 2% CLOTH 1 EACH TOWELETTE TOPICAL (11:45)
[2021-05-15] MEDS: Insulin Lispro 100 UNIT/ML INSULN.PEN SC ×2 (11:47→18:10)
--- NOTE | 2021-05-15 12:21 | CT_ITS ---
STUDY: CT HEAD STROKE PROTOCOL W/O CONTRAST INJECTION REASON FOR EXAM: Male, 75 years old. Encephalopathy RADIATION DOSAGE (If Supplied By Facility): CTDIvol = ( 47.06 ) mGy, DLP = ( 890.33 ) mGycm TECHNIQUE: Transaxial CT imaging of the brain was performed without administration of intravenous contrast material. Individualized dose optimization techniques were used for this CT. COMPARISON: Comparison is made with prior examination dated 05/04/2021. FINDINGS: An endotracheal tube is in situ. Normal soft tissue structures. Normal calvarium. There is mild cerebral atrophy with widening of the extra-axial spaces and ventricular dilatation. There are areas of decreased attenuation within the white matter tracts of the supratentorial brain, consistent with microvascular disease changes. 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 Normal brainstem. Normal cerebellum. There is no intracranial hemorrhage. There are no findings of an acute ischemic infarction. Atherosclerotic calcification of the cavernous portions of the internal carotid arteries bilaterally. Normal visualized paranasal sinuses. CT/STROKE Brain/Head without Cont IMPRESSION: Chronic involutional changes of the brain. N.B. : The above Results were Read Back by Boone Leonard MD to ISRAEL SEGURA and understanding confirmed on 05/15/2021 14:18:52 (ET). Electronically Signed: Boone Leonard MD at 14:19 EST , Service support ,
[2021-05-15 12:31] LABS: Bedside Glucose 209 mg/dL (70-110)
[2021-05-15 18:56] LABS: Bedside Glucose 240 mg/dL (70-110)
[2021-05-15] MEDS: 0.9% Saline Lock 10 ML Syringe IV ×2 (20:17→20:19)
[2021-05-15] MEDS: Rosuvastatin 20 MG Tablet GT (20:18)
[2021-05-16] VITALS (34 sets, daily range): BP systolic 111–144; BP diastolic 66–93; PULSE 24–88; RESP 14–26; TEMP 36.6–37.9; O2SAT 89–95
[2021-05-16] MEDS: Insulin Lispro 100 UNIT/ML INSULN.PEN SC ×5 (00:25→23:51)
[2021-05-16 01:56] LABS: Bedside Glucose 231 mg/dL (70-110)
[2021-05-16] MEDS: 0.9% Saline Lock 10 ML Syringe IV (04:37)
[2021-05-16] MEDS: CHLORHEXIDINE GLUC 2% CLOTH 1 EACH TOWELETTE TOPICAL (04:37)
[2021-05-16] MEDS: Cefazolin 2 GM in 0.9% Normal Saline 100 ML IV ×3 (05:37→21:39)
--- NOTE | 2021-05-16 06:45 | PCM.PN.HOSP ---
Subjective Subjective Patient seen remains on the vent. Patient did not pass his weaning trial today prior Objective Data Objective Data Vital Signs: Vital Signs Temp Pulse Resp BP Pulse Ox 98.4 F 57 L 14 130/74 H 94 05/16/21 04:00 05/16/21 06:00 05/16/21 06:00 05/16/21 06:00 05/16/21 06:00 Oxygen Flow Rate (L/min) 45 Oxygen Delivery Method Mechanical Ventilator Weight: 76 kg Body Mass Index (BMI) 25.7 Intake & Output: Intake and Output for Last 24 Hours 05/14/21 05/15/21 05/16/21 23:59 23:59 23:59 Intake Total 2227.38 / 2230.18 1090.65 / 1090.65 321.75 / 321.75 Output Total 1475 / 1475 1200 / 1400 400 / 400 Balance 752.38 / 755.18 -109.35 / -309.35 -78.25 / -78.25 Medical Nutrition Assessment Dietitian: Malnutrition Criteria Met Start: 05/13/21 10:34 Freq: Status: Active Protocol: Document 05/13/21 10:34 (Rec: 05/13/21 10:34 [id number]) Nutrition Malnutrition Evidence of Malnutrition Exists Yes Malnutrition (severe): Acute Illness/Injury Evidenced By Suboptimal Energy Intake ( Severe),Weight Loss (Severe) Intake Problem Inadequate Oral Intake Etiology r/t resp. failure Signs/Symptoms as evidenced by NPO status Status Active Problem Clinical Problem Acute Disease or Injury Related Malnutrition Etiology severe, acute malnutrition r/t inadequate energy intake w/ acute illness Signs/Symptoms as evidenced by unintentional wt loss of 2.8kg/3.5% x 1 week , estimated PO intake meeting <50% of estimated nutritional needs x 1 week Status Active Problem Altered Nutrient-Related Laboratory Values Etiology - Signs/Symptoms - Status Inactive Problem Unintended Weight Loss Etiology r/t predicted suboptimal energy intake d/t debility Signs/Symptoms as evidenced by unintentional wt loss of 4.1#/2.3% unknown timeframe Status Active Problem Recommendation Dietitian Recommendations/Changes NPO while intubated. Per kyle Hanna to start trophic enteral nutrition via OGT. Will start Vital AF 1.2 at 15mL/hour. Goal rate is 65mL/hour w/100mL H2O flush every 4 hours to provide 1872 calories, 117 g protein, and 1865mL total fluid/day. When appropraite, would increase by 15mL/hour every 8 to 12 hours as pt tolerated until goal rate is achieved. Lab / Micro Data Result Diagrams: 05/15/21 03:30 05/15/21 03:30 Labs: Laboratory Results - last 24 hr 05/15/21 03:30: TSH 0.10 L 05/15/21 11:47: POC Glucose 209 H 05/15/21 13:40: Ammonia 23.0 05/15/21 18:09: POC Glucose 240 H 05/16/21 00:23: POC Glucose 231 H Micro: Microbiology 05/13/21 10:15 Wound - Hand Gram Stain - Final 05/13/21 10:15 Wound - Hand Wound Culture - Final Staphylococcus aureus 05/12/21 14:40 Blood Culture (Wb) - Left Forearm Blood Culture - Preliminary No growth in 48 hours. 05/12/21 14:30 Blood Culture (Wb) - Left Hand Blood Culture - Preliminary No growth in 48 hours. 05/12/21 12:00 Sputum, Induced/Lukens Gram Stain - Final 05/12/21 12:00 Sputum, Induced/Lukens Respiratory Culture - Final Staphylococcus aureus 05/08/21 04:50 Blood Culture (Wb) - Anticubital Right Blood Culture - Final No growth in 5 days. 05/08/21 02:50 Blood Culture (Wb) - Anticubital Right Blood Culture - Final No growth in 5 days. 05/12/21 14:30 Urine Catheter - Collazo Legionella Antigen - Final 05/12/21 14:30 Urine Catheter - Collazo Streptococcus pneumoniae Antigen (M - Final 05/08/21 02:30 Urine, Catheterized Urine Culture - Final Culture exhibits no growth. 05/08/21 02:50 Mucosa - Nasopharyngeal Influenza Types A,B Direct FA (EUSEBIO) - Final 05/08/21 02:50 Nasal Secretion SARS-CoV-2 Antigen (Rapid) - Final SARS-CoV-2 (COVID 19) Radiography Diagnostic Testing: Radiology Impression Brain CT 05/15/21 12:21 IMPRESSION: Chronic involutional changes of the brain. N.B. : The above Results were Read Back by Boone Leonard MD to ISRAEL VALLADARES and understanding confirmed on 05/15/2021 14:18:52 (ET). Electronically Signed: Boone Leonard MD at 14:19 EST , Service support , ADDENDUM: 05/15/21 1426 IMPRESSION: Chronic involutional changes of the brain. N.B. : The above Results were Read Back by Boone Leonard MD to ISRAEL VALLADARES and understanding confirmed on 05/15/2021 14:18:52 (ET). Electronically Signed: Boone Leonard MD at 14:19 EST , Service support , Physical Exam Narrative GENERAL: Patient on the vent HEENT: Atraumatic; EYES; Anicteric, Normal Conjunctiva NECK; supple, normal thyroid, RESPIRATORY: Diminished to auscultation CARDIOVASCULAR: Regular S1 S2, GI: soft, normoactive bowel sounds, : No Renal angle tenderness; EXTREMITIES: Lacerations on both hands in surgical dressing MUSCULOSKELETAL: no muscle waisting NEURO: Patient on the vent SKIN: No Rash Assessment & Plan Assessment/Plan (1) Debility: (2) Frequent falls: (3) Acute respiratory failure with hypoxia: (4) COVID-19: PLAN: Patient is a 75-year-old gentleman admitted with progressive generalized weakness and multiple falls at home. Was diagnosed with COVID-19 pneumonia 1. Acute hypoxic respiratory failure ?Secondary to COVID-19 pneumonia managed with remdesivir and Decadron in addition to supplemental oxygen titrated to keep saturation greater than 90 -05/12/2021. Patient did develop chest pain CTA demonstrated pulmonary embolism. Patient was transferred to the intensive care unit consult placed to pulmonary/intensive care -05/13/2021 Patient was transferred to the intensive care unit following deterioration in his respiratory status on 05/12/2021. CT of the chest obtained earlier on during the day had demonstrated pulmonary embolism. Patient had to be emergently intubated. Was found to have copious secretions consistent with suspected superimposed bacterial pneumonia. Broad-spectrum antibiotic therapy initiated ?05/14/2021; patient remains on the vent. Case discussed with Dr. Valladares with intensive care plan is to continue to manage patient on the vent with possible weaning trial starting 05/15/2021. ?05/15/2021;Patient seen remains on the vent with plans for patient to undergo weaning trial with possible extubation if he passes. ?05/16/2021;Patient seen remains on the vent. Patient did not pass his weaning trial today prior 2. Acute pulmonary embolism Patient did develop chest pain stat CTA obtained demonstrated Bilateral lower lobe segmental and subsegmental pulmonary embolism. No saddle embolus or evidence of right heart strain. Multifocal infiltrates with features commonly reported with COVID pneumonia. Localized consolidation of the posterior right lower lobe couldrepresent superimposed bacterial pneumonia versus pulmonary infarction in the setting of pulmonary embolism.. Patient was transferred to the intensive care unit 3. Suspected bacterial pneumonia with methicillin sensitive staph aureus ?Patient was started on broad-spectrum antibiotic therapy cultures sent following his intubation -05/14/2021;Patient seen remains on the vent. Sputum cultures obtained came back positive for methicillin sensitive staph aureus. Adjusted patient antibiotic therapy with discontinuation of vancomycin 4. Septic shock ?Secondary to above patient was managed with IV fluids in addition to broad-spectrum antibiotic therapy and pressor support with norepinephrine 4. Hypertension - Blood pressure controlled, home medications continued with dose adjustment as needed ?05/13/2021 antihypertensives held in view of low blood pressure 5. Dyslipidemia ?Patient is on rosuvastatin 6. GERD ?Patient is on PPI did continue 7. BPH ?Patient is prescribed Flomax f 8. Physical deconditioning with multiple falls - Requested for PT OT eval and psychotherapist social worker to assist with discharge planning 9. Hypokalemia -corrected per protocol 10. Severe, acute malnutrition r/t inadequate energy intake w/ acute illness -as evidenced by unintentional wt loss of 2.8kg/3.5% x 1 week, estimated PO intake meeting <50% of estimated nutritional needs x 1 week. Patient was seen in consultation by dietitian and recommendedEN at 15mL/hour and increase by 15mL/hour every 8 to 12 hours as pt tolerates until goal rate of 65mL/hour is achieved. 100mL H2O flush every 4 hours. At goal rate, enteral nutrition will provide 1872 calories, 117 g protein, and 1865mL total fluid/day. Charges/Coding Visit Charges Inpatient E&M: 88523 Subs Hosp L3
--- NOTE | 2021-05-16 07:17 | PN.CC_ITS ---
Assessment & Plan Assessment/Plan (1) Acute respiratory failure with hypoxia: (2) COVID-19: (3) Debility: (4) Parkinson disease: PLAN: RECOMMENDATIONS: 1. Continue to wean FiO2 and PEEP to maintain oxygen saturations at or above 90%. 2. Continue patient on pressure support as tolerated today. 3. Continue to hold all sedating medications. 4. Continue Decadron and baricitinib to complete treatment courses. 5. Continue antimicrobials. 6. Continue therapeutic Lovenox. 7. Continue appropriate GI prophylaxis. IMPRESSIONS: 1. Acute hypoxic respiratory failure secondary to combined Covid and staphylococcal pneumonia/bilateral PE The patient presented to the hospital with COVID-19 pneumonia with symptom onset sometime around May 02. Subsequent work-up did also reveal evidence of bilateral pulmonary emboli. To date, the patient has completed a treatment course of remdesivir and remains on Decadron and baricitinib. Ultimately, the patient continued to decompensate from a respiratory perspective and was subsequently intubated. Sputum culture was positive for staph aureus. The patient is on appropriate antimicrobials. Plan to continue invasive mechanical ventilatory support and wean FiO2 for saturations greater than 90%. Okay to continue tube feeds as tolerated. 2. Encephalopathy Unclear etiology. There is no other discernible metabolic abnormality identified. CT head showed no acute process. Arterial blood gas has been within normal limits. Recommend continuing to hold sedating medications. We will need to discuss goals of care with the patient's family prior to consi deration for extubation. 3. Hypertension/dyslipidemia/GERD/BPH/Parkinson's Complicates care, management, recovery and prognosis. Okay to continue with baseline Parkinson's meds. Hold antihypertensives for now. Okay to work with physical therapy. TIME: 32 minutes of critical care time, independent of procedures, was spent addressing the patient's acute hypoxemic respiratory failure, COVID-19 pneumonia, staphylococcal pneumonia, bilateral pulmonary emboli, encephalopathy, review of all data and collaboration with care team. Subjective Subjective The patient was seen and examined at the bedside this morning. Events from the last 24 hours have been reviewed. The patient is currently afebrile, hemodynamically stable and maintaining appropriate oxygen saturations on pressure support mode mechanical ventilation with an FiO2 requirement of 30%. The patient has been off of all sedating medications since yesterday morning. The patient is currently documented to be overall net +3.4 L for the hospitalization. CT head completed yesterday afternoon demonstrated no acute findings. Objective Data Objective Data The patient's most recent lab work, culture data and imaging studies have all been personally reviewed. Rapid coronavirus antigen testing was positive on May 08. Sputum culture is currently growing 3+ MSSA. Vital Signs: Vital Signs Temp Pulse Resp BP Pulse Ox 98.4 F 64 16 139/79 H 93 05/16/21 04:00 05/16/21 07:00 05/16/21 07:00 05/16/21 07:00 05/16/21 07:00 Oxygen Flow Rate (L/min) 45 Oxygen Delivery Method Mechanical Ventilator Weight: 76 kg Body Mass Index (BMI) 25.7 Intake & Output: Intake and Output for Last 24 Hours 05/14/21 05/15/21 05/16/21 23:59 23:59 23:59 Intake Total 2227.38 / 2230.18 1090.65 / 1090.65 321.75 / 321.75 Output Total 1475 / 1475 1200 / 1400 400 / 400 Balance 752.38 / 755.18 -109.35 / -309.35 -78.25 / -78.25 Medical Nutrition Assessment Dietitian: Malnutrition Criteria Met Start: 05/13/21 10:34 Freq: Status: Active Protocol: Document 05/13/21 10:34 (Rec: 05/13/21 10:34 [id number]) Nutrition Malnutrition Evidence of Malnutrition Exists Yes Malnutrition (severe): Acute Illness/Injury Evidenced By Suboptimal Energy Intake ( Severe),Weight Loss (Severe) Intake Problem Inadequate Oral Intake Etiology r/t resp. failure Signs/Symptoms as evidenced by NPO status Status Active Problem Clinical Problem Acute Disease or Injury Related Malnutrition Etiology severe, acute malnutrition r/t inadequate energy intake w/ acute illness Signs/Symptoms as evidenced by unintentional wt loss of 2.8kg/3.5% x 1 week , estimated PO intake meeting <50% of estimated nutritional needs x 1 week Status Active Problem Altered Nutrient-Related Laboratory Values Etiology - Signs/Symptoms - Status Inactive Problem Unintended Weight Loss Etiology r/t predicted suboptimal energy intake d/t debility Signs/Symptoms as evidenced by unintentional wt loss of 4.1#/2.3% unknown timeframe Status Active Problem Recommendation Dietitian Recommendations/Changes NPO while intubated. Per kyle Hanna to start trophic enteral nutrition via OGT. Will start Vital AF 1.2 at 15mL/hour. Goal rate is 65mL/hour w/100mL H2O flush every 4 hours to provide 1872 calories, 117 g protein, and 1865mL total fluid/day. When appropraite, would increase by 15mL/hour every 8 to 12 hours as pt tolerated until goal rate is achieved. Lab / Micro Data Attestation: I reviewed the patient's lab results. Result Diagrams: 05/15/21 03:30 05/15/21 03:30 Labs: Laboratory Results - last 24 hr 05/15/21 03:30: TSH 0.10 L 05/15/21 11:47: POC Glucose 209 H 05/15/21 13:40: Ammonia 23.0 05/15/21 18:09: POC Glucose 240 H 05/16/21 00:23: POC Glucose 231 H Micro: Microbiology 05/13/21 10:15 Wound - Hand Gram Stain - Final 05/13/21 10:15 Wound - Hand Wound Culture - Final Staphylococcus aureus 05/12/21 14:40 Blood Culture (Wb) - Left Forearm Blood Culture - Preliminary No growth in 48 hours. 05/12/21 14:30 Blood Culture (Wb) - Left Hand Blood Culture - Preliminary No growth in 48 hours. 05/12/21 12:00 Sputum, Induced/Lukens Gram Stain - Final 05/12/21 12:00 Sputum, Induced/Lukens Respiratory Culture - Final Staphylococcus aureus 05/08/21 04:50 Blood Culture (Wb) - Anticubital Right Blood Culture - Final No growth in 5 days. 05/08/21 02:50 Blood Culture (Wb) - Anticubital Right Blood Culture - Final No growth in 5 days. 05/12/21 14:30 Urine Catheter - Collazo Legionella Antigen - Final 05/12/21 14:30 Urine Catheter - Collazo Streptococcus pneumoniae Antigen (M - Final 05/08/21 02:30 Urine, Catheterized Urine Culture - Final Culture exhibits no growth. 05/08/21 02:50 Mucosa - Nasopharyngeal Influenza Types A,B Direct FA (EUSEBIO) - Final 05/08/21 02:50 Nasal Secretion SARS-CoV-2 Antigen (Rapid) - Final SARS-CoV-2 (COVID 19) Radiography Diagnostic Testing: Radiology Impression Brain CT 05/15/21 12:21 IMPRESSION: Chronic involutional changes of the brain. N.B. : The above Results were Read Back by Boone Leonard MD to ISRAEL SEGURA and understanding confirmed on 05/15/2021 14:18:52 (ET). Electronically Signed: Boone Leonard MD at 14:19 EST , Service support , ADDENDUM: 05/15/21 1426 IMPRESSION: Chronic involutional changes of the brain. N.B. : The above Results were Read Back by Boone Leonard MD to ISRAEL SEGURA and understanding confirmed on 05/15/2021 14:18:52 (ET). Electronically Signed: Boone Leonard MD at 14:19 EST , Service support , Physical Exam Const General Appearance: intubated and patient mechanically ventilated Orientation / Consciousness: lethargic HEENT normocephalic and head/scalp atraumatic Mouth: endotracheal tube in place and OG tube in place Neck supple General: trachea midline Chest inspection of chest normal Resp Auscultation: diminished lung sounds Cardio regular rate and regular rhythm GI normal to inspection, nondistended, normoactive bowel sounds Extremity no clubbing, cyanosis or edema Skin no rashes or lesions noted Neuro Neuro Narrative: Occasional parkinsonian tremors. The patient will not respond to verbal or tactile stimulation. He does appear to attempt to open his eyes but will not follow any commands for me.
[2021-05-16 07:26] LABS: Bedside Glucose 176 mg/dL (70-110)
[2021-05-16] MEDS: Ipratropium/Albuterol Sulfate 3 ML AMPUL.NEB INHALATION ×4 (08:02→19:12)
[2021-05-16 08:04] LABS: Free T3 < 0.5 pg/mL (2.18-3.98); T4 Free Direct 1.25 ng/dL (0.76-1.46)
[2021-05-16] MEDS: dexAMETHasone 2 MG TABLET 6 MG GT (08:49)
[2021-05-16] MEDS: Potassium Chloride Oral Soln 20 MEQ/15 ML UDC GT (08:49)
[2021-05-16] MEDS: Cyanocobalamin 500 MCG Tablet 1000 MCG GT (08:49)
[2021-05-16] MEDS: Finasteride 5 MG Tablet GT (08:49)
[2021-05-16] MEDS: Polyethylene Glycol 3350 17 GM PACKET 8.5 GM GT ×2 (08:50→21:40)
[2021-05-16] MEDS: Enoxaparin 80 MG/0.8 ML Syringe SC ×2 (08:50→21:38)
[2021-05-16] MEDS: Aspirin 81 MG TAB.CHEW GT (08:50)
[2021-05-16] MEDS: Lansoprazole 15 MG Capsule.DR GT (08:50)
[2021-05-16] MEDS: Chlorhexidine 15 ML PO ×2 (09:06→21:38)
[2021-05-16] MEDS: Menthol/Lanolin/Calamine/Znox 113 GM Tube 1 APPLIC TOPICAL ×2 (09:08→22:06)
[2021-05-16] MEDS: Vital AF 1.2 Cal Liquid 1,000 ML 65 ML GT (10:01)
[2021-05-16 12:45] LABS: Bedside Glucose 211 mg/dL (70-110)
[2021-05-16 18:05] LABS: Bedside Glucose 237 mg/dL (70-110)
[2021-05-16] MEDS: Rosuvastatin 20 MG Tablet GT (21:38)
[2021-05-17] VITALS (33 sets, daily range): BP systolic 118–141; BP diastolic 69–96; PULSE 56–85; RESP 14–30; TEMP 36.6–37.2; O2SAT 74–96
[2021-05-17 00:01] LABS: Bedside Glucose 244 mg/dL (70-110)
[2021-05-17 04:49] LABS: Absolute Lymphocyte Count 0.75 X10^3/uL (0.83-4.51); Absolute Neutrophil Count 10.7 X10^3/uL (2.0-7.7); Basophil# 0.04 X10^3/uL; Basophil% 0.3 % (0-1); Hematocrit 39.2 % (40-54); Hemoglobin 13.3 g/dL (13.0-16.5); Lymphocyte # 0.75 X10^3/ul (0.83-4.51); Lymphocyte % 5.5 % (19-41); Mean Corp Hgb Conc 33.9 g/dL (32-36); Mean Corpuscular Hgb 30.6 pg (27.0-32.0); Mean Corpuscular Volume 90.3 fL (80-94); Mean Platelet Vol. 10.5 fl (6.2-12.0); Monocyte# 1.45 X10^3/uL; Monocyte% 10.7 % (0-10); NRBC Flagged by Analyzer 0 % (0-5); Neutrophil # 10.73 X10^3/uL (2.7-7.7); Neutrophil % 79.1 % (47-70); Platelet Count 266 K/mm3 (150-450); RBC Distribution Width SD 46.3 fl (35.1-43.9); Red Blood Count 4.34 M/mm3 (4.6-6.2); White Blood Count 13.6 K/mm3 (4.4-11.0)
[2021-05-17 05:06] LABS: ALB/GLOB Ratio 0.6 RATIO (0.9-2.4); AST(SGOT) 18 U/L (15-37); Alanine Aminotransfer ALT/SGPT 26 U/L (16-61); Albumin, Serum 2.2 g/dL (3.2-5.0); Alkaline Phosphatase 39 U/L (45-117); Anion Gap 6 (5-15); BUN 40 mg/dL (7-18); BUN/Creat Ratio 45.6 RATIO (10-20); Chloride 107 mmol/L (98-107); Creatinine, Serum 0.88 mg/dL (0.70-1.30); EST Glomerular Filtration Rate 90 mL/min (>60); Est Glom Filt Rate - Afr Amer 108 mL/min (>60); Estimated Creatinine Clearance 71.41 ml/min; Globulin 3.4 g/dL (2.2-4.2); Glucose 232 mg/dL (74-106); Potassium 4.7 mmol/L (3.5-5.1); Protein, Total 5.6 g/dL (6.4-8.2); Sodium Level 138 mmol/L (136-145)
[2021-05-17] MEDS: Cefazolin 2 GM in 0.9% Normal Saline 100 ML IV ×3 (05:36→21:01)
[2021-05-17] MEDS: Insulin Lispro 100 UNIT/ML INSULN.PEN SC ×2 (06:17→18:05)
[2021-05-17 06:30] LABS: Bedside Glucose 177 mg/dL (70-110)
--- NOTE | 2021-05-17 06:39 | PN.CC_ITS ---
Assessment & Plan Assessment/Plan (1) Acute respiratory failure with hypoxia: (2) COVID-19: (3) Debility: (4) Parkinson disease: PLAN: RECOMMENDATIONS: 1. Proceed with a trial of extubation this morning. 2. Once extubated, wean supplemental oxygen to maintain saturations at or above 90%. 3. Patient to remain n.p.o. pending improvement in mentation and evaluation by speech therapy. 4. Continue Decadron and baricitinib to complete treatment courses. 5. Continue antimicrobials. 6. Continue therapeutic Lovenox. 7. Aggressive physical therapy. IMPRESSIONS: 1. Acute hypoxic respiratory failure secondary to combined Covid and staphylococcal pneumonia/bilateral PE The patient presented to the hospital with COVID-19 pneumonia with symptom onset sometime around May 02. Subsequent work-up did also reveal evidence of bilateral pulmonary emboli. To date, the patient has completed a treatment course of remdesivir and remains on Decadron and baricitinib. Ultimately, the patient continued to decompensate from a respiratory perspective and was subsequently intubated. Sputum culture was positive for staph aureus. The pa tient is on appropriate antimicrobials. The patient has been on pressure support for the last 48 hours pending improvement in mentation. Given that the patient appears to be more alert this morning and passed his spontaneous breathing trial, we will proceed with a trial of extubation. Once extubated, wean supplemental oxygen to maintain saturations at or above 90%. 2. Encephalopathy Unclear etiology. There is no other discernible metabolic abnormality identified. CT head showed no acute process. Arterial blood gas has been within normal limits. Recommend continuing to hold sedating medications. 3. Hypertension/dyslipidemia/GERD/BPH/Parkinson's Complicates care, management, recovery and prognosis. Okay to continue with baseline Parkinson's meds. Hold antihypertensives for now. Okay to work with physical therapy. TIME: 33 minutes of critical care time, independent of procedures, was spent addre ssing the patient's acute hypoxemic respiratory failure, COVID-19 pneumonia, staphylococcal pneumonia, bilateral pulmonary emboli, encephalopathy, review of all data and collaboration with care team. Subjective Subjective The patient was seen and examined at the bedside this morning. Events from the last 24 hours have been reviewed. The patient is currently afebrile, hemodynamically stable and maintaining appropriate oxygen saturations on pressure support mode mechanical ventilation with an FiO2 requirement of 21%. The patient has been off of all sedating medications for the last 48 hours. The patient is currently documented to be overall net +3.7 L for the hospitalization. The patient appears a bit more responsive this morning and is able to follow some simple commands. Objective Data Objective Data The patient's most recent lab work, culture data and imaging studies have all been personally reviewed. Rapid coronavirus antigen testing was positive on May 08. Sputum culture is currently growing 3+ MSSA. Vital Signs: Vital Signs Temp Pulse Resp BP Pulse Ox 98.2 F 72 23 H 134/81 H 95 05/17/21 04:00 05/17/21 06:00 05/17/21 06:00 05/17/21 06:00 05/17/21 06:00 Oxygen Flow Rate (L/min) 45 Oxygen Delivery Method Mechanical Ventilator Weight: 74.6 kg Body Mass Index (BMI) 25.7 Intake & Output: Intake and Output for Last 24 Hours 05/15/21 05/16/21 05/17/21 23:59 23:59 23:59 Intake Total 1090.65 / 1090.65 1563.75 / 1663.75 610 / 610 Output Total 1200 / 1400 1175 / 1550 825 / 825 Balance -109.35 / -309.35 388.75 / 113.75 -215 / -215 Medical Nutrition Assessment Dietitian: Malnutrition Criteria Met Start: 05/13/21 10:34 Freq: Status: Active Protocol: Document 05/16/21 09:43 BP (Rec: 05/16/21 09:43 BP [id number]) Nutrition Malnutrition Evidence of Malnutrition Exists Yes Malnutrition (severe): Acute Illness/Injury Evidenced By Suboptimal Energy Intake ( Severe),Weight Loss (Severe) Intake Problem Inadequate Oral Intake Etiology r/t resp. failure Signs/Symptoms as evidenced by NPO status Status Active Problem Clinical Problem Acute Disease or Injury Related Malnutrition Etiology severe, acute malnutrition r/t inadequate energy intake w/ acute illness Signs/Symptoms as evidenced by unintentional wt loss of 2.8kg/3.5% x 1 week , estimated PO intake meeting <50% of estimated nutritional needs x 1 week Status Active Problem Altered Nutrient-Related Laboratory Values Etiology - Signs/Symptoms - Status Inactive Problem Unintended Weight Loss Etiology r/t predicted suboptimal energy intake d/t debility Signs/Symptoms as evidenced by unintentional wt loss of 4.1#/2.3% unknown timeframe Status Active Problem Recommendation Dietitian Recommendations/Changes NPO while intubated. Continue enteral nutrition support via OGT. Goal rate is 65mL/hour w/ 100mL H2O flush every 4 hours to provide 1872 calories, 117 g protein, and 1865mL total fluid/day. Lab / Micro Data Attestation: I reviewed the patient's lab results. Result Diagrams: 05/17/21 04:25 05/17/21 04:25 Labs: Laboratory Results - last 24 hr 05/16/21 03:30: Free T4 1.25, Free T3 pg/dL < 0.5 L 05/16/21 06:04: POC Glucose 176 H 05/16/21 12:22: POC Glucose 211 H 05/16/21 17:54: POC Glucose 237 H 05/16/21 23:49: POC Glucose 244 H 05/17/21 04:25: WBC 13.6 H, RBC 4.34 L, Hgb 13.3, Hct 39.2 L, MCV 90.3, MCH 30.6, MCHC 33.9, RDW Std Deviation 46.3 H, RDW Coeff of Evin 14.0, Plt Count 266, MPV 10.5, Immature Gran % (Auto) 4.400 H, Neut % (Auto) 79.1 H, Lymph % (Auto) 5.5 L, Thayer % (Auto) 10.7 H, Eos % (Auto) 0.0, Baso % (Auto) 0.3, Absolute Neuts (auto) 10.7 H, Absolute Lymphs (auto) 0.75 L, Nucleated RBC % 0 05/17/21 04:25: Sodium 138, Potassium 4.7, Chloride 107, Carbon Dioxide 25.0, Anion Gap 6, BUN 40 H, Creatinine 0.88, Estim Creat Clear Calc 71.41, Est GFR (MDRD) Af Amer 108, Est GFR (MDRD) Non-Af 90, BUN/Creatinine Ratio 45.6 H, Glucose 232 H, Calcium 8.0 L, Total Bilirubin 0.90, AST 18, ALT 26, Alkaline Phosphatase 39 L, Total Protein 5.6 L, Albumin 2.2 L, Globulin 3.4, Albumin/Globulin Ratio 0.6 L 05/17/21 06:18: POC Glucose 177 H Micro: Microbiology 05/13/21 10:15 Wound - Hand Gram Stain - Final 05/13/21 10:15 Wound - Hand Wound Culture - Final Staphylococcus aureus 05/12/21 14:40 Blood Culture (Wb) - Left Forearm Blood Culture - Preliminary No growth in 48 hours. 05/12/21 14:30 Blood Culture (Wb) - Left Hand Blood Culture - Preliminary No growth in 48 hours. 05/12/21 12:00 Sputum, Induced/Lukens Gram Stain - Final 05/12/21 12:00 Sputum, Induced/Lukens Respiratory Culture - Final Staphylococcus aureus 05/08/21 04:50 Blood Culture (Wb) - Anticubital Right Blood Culture - Final No growth in 5 days. 05/08/21 02:50 Blood Culture (Wb) - Anticubital Right Blood Culture - Final No growth in 5 days. 05/12/21 14:30 Urine Catheter - Collazo Legionella Antigen - Final 05/12/21 14:30 Urine Catheter - Collazo Streptococcus pneumoniae Antigen (M - Final 05/08/21 02:30 Urine, Catheterized Urine Culture - Final Culture exhibits no growth. 05/08/21 02:50 Mucosa - Nasopharyngeal Influenza Types A,B Direct FA (EUSEBIO) - Final 05/08/21 02:50 Nasal Secretion SARS-CoV-2 Antigen (Rapid) - Final SARS-CoV-2 (COVID 19) Physical Exam Const no apparent distress General Appearance: intubated and patient mechanically ventilated HEENT normocephalic and head/scalp atraumatic Mouth: endotracheal tube in place and OG tube in place Neck supple General: trachea midline Chest inspection of chest normal Resp Auscultation: diminished lung sounds Cardio regular rate and regular rhythm GI normal to inspection, nondistended, normoactive bowel sounds Extremity no clubbing, cyanosis or edema Skin no rashes or lesions noted Neuro Neuro Narrative: Occasional parkinsonian tremors. The patient will attempt to open eyes to verbal cues and attempt to squeeze hand. He appears quite weak in general from a musculoskeletal perspective. Charges/Coding Procedures Hospitalists Procedures: [id number] Critial Care 1st Hr
[2021-05-17] MEDS: Ipratropium/Albuterol Sulfate 3 ML AMPUL.NEB INHALATION ×4 (07:15→19:07)
--- NOTE | 2021-05-17 07:21 | PCM.PN.HOSP ---
Subjective Subjective Patient seen in the ICU currently undergoing weaning trial with plans for patient to be extubated Objective Data Objective Data Vital Signs: Vital Signs Temp Pulse Resp BP Pulse Ox 98.2 F 72 23 H 134/81 H 95 05/17/21 04:00 05/17/21 06:00 05/17/21 06:00 05/17/21 06:00 05/17/21 06:00 Oxygen Flow Rate (L/min) 45 Oxygen Delivery Method Mechanical Ventilator Weight: 74.6 kg Body Mass Index (BMI) 25.7 Intake & Output: Intake and Output for Last 24 Hours 05/15/21 05/16/21 05/17/21 23:59 23:59 23:59 Intake Total 1090.65 / 1090.65 1563.75 / 1663.75 610 / 610 Output Total 1200 / 1400 1175 / 1550 825 / 825 Balance -109.35 / -309.35 388.75 / 113.75 -215 / -215 Medical Nutrition Assessment Dietitian: Malnutrition Criteria Met Start: 05/13/21 10:34 Freq: Status: Active Protocol: Document 05/16/21 09:43 BP (Rec: 05/16/21 09:43 BP [id number]) Nutrition Malnutrition Evidence of Malnutrition Exists Yes Malnutrition (severe): Acute Illness/Injury Evidenced By Suboptimal Energy Intake ( Severe),Weight Loss (Severe) Intake Problem Inadequate Oral Intake Etiology r/t resp. failure Signs/Symptoms as evidenced by NPO status Status Active Problem Clinical Problem Acute Disease or Injury Related Malnutrition Etiology severe, acute malnutrition r/t inadequate energy intake w/ acute illness Signs/Symptoms as evidenced by unintentional wt loss of 2.8kg/3.5% x 1 week , estimated PO intake meeting <50% of estimated nutritional needs x 1 week Status Active Problem Altered Nutrient-Related Laboratory Values Etiology - Signs/Symptoms - Status Inactive Problem Unintended Weight Loss Etiology r/t predicted suboptimal energy intake d/t debility Signs/Symptoms as evidenced by unintentional wt loss of 4.1#/2.3% unknown timeframe Status Active Problem Recommendation Dietitian Recommendations/Changes NPO while intubated. Continue enteral nutrition support via OGT. Goal rate is 65mL/hour w/ 100mL H2O flush every 4 hours to provide 1872 calories, 117 g protein, and 1865mL total fluid/day. Lab / Micro Data Result Diagrams: 05/17/21 04:25 05/17/21 04:25 Labs: Laboratory Results - last 24 hr 05/16/21 03:30: Free T4 1.25, Free T3 pg/dL < 0.5 L 05/16/21 06:04: POC Glucose 176 H 05/16/21 12:22: POC Glucose 211 H 05/16/21 17:54: POC Glucose 237 H 05/16/21 23:49: POC Glucose 244 H 05/17/21 04:25: WBC 13.6 H, RBC 4.34 L, Hgb 13.3, Hct 39.2 L, MCV 90.3, MCH 30.6, MCHC 33.9, RDW Std Deviation 46.3 H, RDW Coeff of Evin 14.0, Plt Count 266, MPV 10.5, Immature Gran % (Auto) 4.400 H, Neut % (Auto) 79.1 H, Lymph % (Auto) 5.5 L, [place] % (Auto) 10.7 H, Eos % (Auto) 0.0, Baso % (Auto) 0.3, Absolute Neuts (auto) 10.7 H, Absolute Lymphs (auto) 0.75 L, Nucleated RBC % 0 05/17/21 04:25: Sodium 138, Potassium 4.7, Chloride 107, Carbon Dioxide 25.0, Anion Gap 6, BUN 40 H, Creatinine 0.88, Estim Creat Clear Calc 71.41, Est GFR (MDRD) Af Amer 108, Est GFR (MDRD) Non-Af 90, BUN/Creatinine Ratio 45.6 H, Glucose 232 H, Calcium 8.0 L, Total Bilirubin 0.90, AST 18, ALT 26, Alkaline Phosphatase 39 L, Total Protein 5.6 L, Albumin 2.2 L, Globulin 3.4, Albumin/Globulin Ratio 0.6 L 05/17/21 06:18: POC Glucose 177 H Micro: Microbiology 05/13/21 10:15 Wound - Hand Gram Stain - Final 05/13/21 10:15 Wound - Hand Wound Culture - Final Staphylococcus aureus 05/12/21 14:40 Blood Culture (Wb) - Left Forearm Blood Culture - Preliminary No growth in 48 hours. 05/12/21 14:30 Blood Culture (Wb) - Left Hand Blood Culture - Preliminary No growth in 48 hours. 05/12/21 12:00 Sputum, Induced/Lukens Gram Stain - Final 05/12/21 12:00 Sputum, Induced/Lukens Respiratory Culture - Final Staphylococcus aureus 05/08/21 04:50 Blood Culture (Wb) - Anticubital Right Blood Culture - Final No growth in 5 days. 05/08/21 02:50 Blood Culture (Wb) - Anticubital Right Blood Culture - Final No growth in 5 days. 05/12/21 14:30 Urine Catheter - Collazo Legionella Antigen - Final 05/12/21 14:30 Urine Catheter - Collazo Streptococcus pneumoniae Antigen (M - Final 05/08/21 02:30 Urine, Catheterized Urine Culture - Final Culture exhibits no growth. 05/08/21 02:50 Mucosa - Nasopharyngeal Influenza Types A,B Direct FA (EUSEBIO) - Final 05/08/21 02:50 Nasal Secretion SARS-CoV-2 Antigen (Rapid) - Final SARS-CoV-2 (COVID 19) Physical Exam Narrative GENERAL: Patient on the vent HEENT: Atraumatic; EYES; Anicteric, Normal Conjunctiva NECK; supple, normal thyroid, RESPIRATORY: Diminished to auscultation CARDIOVASCULAR: Regular S1 S2, GI: soft, normoactive bowel sounds, : No Renal angle tenderness; EXTREMITIES: Lacerations on both hands in surgical dressing MUSCULOSKELETAL: no muscle waisting NEURO: Patient on the vent SKIN: No Rash Assessment & Plan Assessment/Plan (1) Debility: (2) Frequent falls: (3) Acute respiratory failure with hypoxia: (4) COVID-19: PLAN: Patient is a 75-year-old gentleman admitted with progressive generalized weakness and multiple falls at home. Was diagnosed with COVID-19 pneumonia 1. Acute hypoxic respiratory failure ?Secondary to COVID-19 pneumonia managed with remdesivir and Decadron in addition to supplemental oxygen titrated to keep saturation greater than 90 -05/12/2021. Patient did develop chest pain CTA demonstrated pulmonary embolism. Patient was transferred to the intensive care unit consult placed to pulmonary/intensive care -05/13/2021 Patient was transferred to the intensive care unit following deterioration in his respiratory status on 05/12/2021. CT of the chest obtained earlier on during the day had demonstrated pulmonary embolism. Patient had to be emergently intubated. Was found to have copious secretions consistent with suspected superimposed bacterial pneumonia. Broad-spectrum antibiotic therapy initiated ?05/14/2021; patient remains on the vent. Case discussed with Dr. Valladares with intensive care plan is to continue to manage patient on the vent with possible weaning trial starting 05/15/2021. ?05/15/2021;Patient seen remains on the vent with plans for patient to undergo weaning trial with possible extubation if he passes. ?05/16/2021;Patient seen remains on the vent. Patient did not pass his weaning trial today prior ?05/17/2021;Patient seen in the ICU currently undergoing weaning trial with plans for patient to be extubated 2. Acute pulmonary embolism Patient did develop chest pain stat CTA obtained demonstrated Bilateral lower lobe segmental and subsegmental pulmonary embolism. No saddle embolus or evidence of right heart strain. Multifocal infiltrates with features commonly reported with COVID pneumonia. Localized consolidation of the posterior right lower lobe couldrepresent superimposed bacterial pneumonia versus pulmonary infarction in the setting of pulmonary embolism.. Patient was transferred to the intensive care unit 3. Suspected bacterial pneumonia with methicillin sensitive staph aureus ?Patient was started on broad-spectrum antibiotic therapy cultures sent following his intubation -05/14/2021;Patient seen remains on the vent. Sputum cultures obtained came back positive for methicillin sensitive staph aureus. Adjusted patient antibiotic therapy with discontinuation of vancomycin 4. Septic shock ?Secondary to above patient was managed with IV fluids in addition to broad-spectrum antibiotic therapy and pressor support with norepinephrine 4. Hypertension - Blood pressure controlled, home medications continued with dose adjustment as needed ?05/13/2021 antihypertensives held in view of low blood pressure 5. Dyslipidemia ?Patient is on rosuvastatin 6. GERD ?Patient is on PPI did continue 7. BPH ?Patient is prescribed Flomax 8. Physical deconditioning with multiple falls - Requested for PT OT eval and manager social responsibility to assist with discharge planning 9. Hypokalemia -corrected per protocol 10. Severe, acute malnutrition r/t inadequate energy intake w/ acute illness -as evidenced by unintentional wt loss of 2.8kg/3.5% x 1 week, estimated PO intake meeting <50% of estimated nutritional needs x 1 week. Patient was seen in consultation by dietitian and recommendedEN at 15mL/hour and increase by 15mL/hour every 8 to 12 hours as pt tolerates until goal rate of 65mL/hour is achieved. 100mL H2O flush every 4 hours. At goal rate, enteral nutrition will provide 1872 calories, 117 g protein, and 1865mL total fluid/day. Charges/Coding Visit Charges Inpatient E&M: 07806 Subs Hosp L3
[2021-05-17] MEDS: Menthol/Lanolin/Calamine/Znox 113 GM Tube 1 APPLIC TOPICAL ×2 (11:11→20:52)
[2021-05-17] MEDS: CHLORHEXIDINE GLUC 2% CLOTH 1 EACH TOWELETTE TOPICAL (11:12)
[2021-05-17] MEDS: Enoxaparin 80 MG/0.8 ML Syringe SC ×2 (11:19→20:51)
[2021-05-17 11:26] LABS: Bedside Glucose 143 mg/dL (70-110)
[2021-05-17 18:15] LABS: Bedside Glucose 154 mg/dL (70-110)
[2021-05-18] VITALS (24 sets, daily range): BP systolic 102–134; BP diastolic 63–86; PULSE 67–93; RESP 18–35; TEMP 36.3–36.9; O2SAT 91–95
[2021-05-18 00:36] LABS: Bedside Glucose 129 mg/dL (70-110)
[2021-05-18] MEDS: Cefazolin 2 GM in 0.9% Normal Saline 100 ML IV ×3 (05:16→20:54)
[2021-05-18 05:25] LABS: Bedside Glucose 121 mg/dL (70-110)
[2021-05-18 05:45] LABS: Absolute Lymphocyte Count 0.81 X10^3/uL (0.83-4.51); Absolute Neutrophil Count 16.7 X10^3/uL (2.0-7.7); Basophil# 0.07 X10^3/uL; Basophil% 0.4 % (0-1); Hematocrit 38.6 % (40-54); Lymphocyte # 0.81 X10^3/ul (0.83-4.51); Lymphocyte % 4.1 % (19-41); Mean Corp Hgb Conc 33.7 g/dL (32-36); Mean Corpuscular Hgb 30.5 pg (27.0-32.0); Mean Corpuscular Volume 90.6 fL (80-94); NRBC Flagged by Analyzer 0 % (0-5); Neutrophil # 16.69 X10^3/uL (2.7-7.7); Neutrophil % 83.4 % (47-70); POSITIVE DIFFERENTIAL YES; Platelet Count 307 K/mm3 (150-450); RBC Distribution Width SD 46.4 fl (35.1-43.9); Red Blood Count 4.26 M/mm3 (4.6-6.2)
[2021-05-18 05:49] LABS: Differential Indicated SCAN CRITERIA MET
[2021-05-18 06:12] LABS: ALB/GLOB Ratio 0.6 RATIO (0.9-2.4); AST(SGOT) 20 U/L (15-37); Alanine Aminotransfer ALT/SGPT 19 U/L (16-61); Albumin, Serum 2.1 g/dL (3.2-5.0); Alkaline Phosphatase 39 U/L (45-117); Anion Gap 5 (5-15); BUN 31 mg/dL (7-18); BUN/Creat Ratio 42.5 RATIO (10-20); Calcium,Total 8.2 mg/dL (8.5-10.1); Chloride 110 mmol/L (98-107); Creatinine, Serum 0.73 mg/dL (0.70-1.30); EST Glomerular Filtration Rate 111 mL/min (>60); Est Glom Filt Rate - Afr Amer 134 mL/min (>60); Estimated Creatinine Clearance 62.84 ml/min; Globulin 3.4 g/dL (2.2-4.2); Glucose 126 mg/dL (74-106); Potassium 4.1 mmol/L (3.5-5.1); Protein, Total 5.5 g/dL (6.4-8.2); Sodium Level 140 mmol/L (136-145)
--- NOTE | 2021-05-18 06:20 | RAD_ITS ---
History: NG PLACEMENT Abdomen: Findings: AP upright views of the abdomen demonstrate tip of the endogastric tube to extend to the level of the gastric antrum. Incomplete evaluation of the bowel. No free air, pathologic calcification or organomegaly. No acute osseous abnormality. IMPRESSION: Satisfactory endogastric tube placement.. at 0808 Reported and signed by: Raz Vicente MD Electronically Signed: Raz Vicente MD at 8:07 EST Tel , Service support , RAD/Abdomen Single View
[2021-05-18] MEDS: Lidocaine 2% Jelly 1 APPLIC Tube TOPICAL (07:08)
[2021-05-18] MEDS: Ipratropium/Albuterol Sulfate 3 ML AMPUL.NEB INHALATION ×4 (07:27→20:05)
--- NOTE | 2021-05-18 08:23 | PCM.PN.HOSP ---
Subjective Subjective Follow-up on acute hypoxic respiratory failure/acute COVID-19 pneumonia: Patient was seen and examined. An NG tube was placed today as patient has not been on his antiparkinson medications for the past 2 days. He is on 4 L of oxygen. He failed his swallow evaluation yesterday Objective Data Objective Data Vital Signs: Vital Signs Temp Pulse Resp BP Pulse Ox 97.7 F L 71 24 H 127/77 H 92 05/18/21 05:00 05/18/21 07:28 05/18/21 07:28 05/18/21 05:57 05/18/21 07:28 Oxygen Flow Rate (L/min) 7 Oxygen Delivery Method Nasal Cannula Weight: 73 kg Body Mass Index (BMI) 25.7 Intake & Output: Intake and Output for Last 24 Hours 05/16/21 05/17/21 05/18/21 23:59 23:59 23:59 Intake Total 1563.75 / 1663.75 1297.25 / 1297.25 220.25 / 220.25 Output Total 1175 / 1550 1950 / 1950 350 / 350 Balance 388.75 / 113.75 -652.75 / -652.75 -129.75 / -129.75 Medical Nutrition Assessment Dietitian: Malnutrition Criteria Met Start: 05/13/21 10:34 Freq: Status: Active Protocol: Document 05/17/21 10:36 BP (Rec: 05/17/21 10:36 BP [id number]) Nutrition Malnutrition Evidence of Malnutrition Exists Yes Malnutrition (severe): Acute Illness/Injury Evidenced By Suboptimal Energy Intake ( Severe),Weight Loss (Severe) Intake Problem Inadequate Oral Intake Etiology r/t resp. failure Signs/Symptoms as evidenced by NPO status Status Active Problem Clinical Problem Acute Disease or Injury Related Malnutrition Etiology severe, acute malnutrition r/t inadequate energy intake w/ acute illness Signs/Symptoms as evidenced by unintentional wt loss of 2.8kg/3.5% x 1 week , estimated PO intake meeting <50% of estimated nutritional needs x 1 week Status Active Problem Altered Nutrient-Related Laboratory Values Status Inactive Problem Unintended Weight Loss Etiology r/t predicted suboptimal energy intake d/t debility Signs/Symptoms as evidenced by unintentional wt loss of 4.1#/2.3% unknown timeframe Status Active Problem Recommendation Dietitian Recommendations/Changes Rec TARUN Regular with Ensure compact 120 ml 4x/day w/ medpass and Ahsan 1 pkt BID to w/ meals to promote wound healing. Lab / Micro Data Result Diagrams: 05/18/21 04:55 05/18/21 04:55 Labs: Laboratory Results - last 24 hr 05/17/21 11:19: POC Glucose 143 H 05/17/21 18:03: POC Glucose 154 H 05/18/21 00:01: POC Glucose 129 H 05/18/21 04:55: WBC 20.0 H, RBC 4.26 L, Hgb 13.0, Hct 38.6 L, MCV 90.6, MCH 30.5, MCHC 33.7, RDW Std Deviation 46.4 H, RDW Coeff of Evin 14.0, Plt Count 307, MPV 11.0, Immature Gran % (Auto) 3.100 H, Neut % (Auto) 83.4 H, Lymph % (Auto) 4.1 L, [place] % (Auto) 9.0, Eos % (Auto) 0.0, Baso % (Auto) 0.4, Absolute Neuts (auto) 16.7 H, Absolute Lymphs (auto) 0.81 L, Nucleated RBC % 0, Diff Path Review October05/18/21 04:55: Sodium 140, Potassium 4.1, Chloride 110 H, Carbon Dioxide 25.0, Anion Gap 5, BUN 31 H, Creatinine 0.73, Estim Creat Clear Calc 62.84, Est GFR (MDRD) Af Amer 134, Est GFR (MDRD) Non-Af 111, BUN/Creatinine Ratio 42.5 H, Glucose 126 H, Calcium 8.2 L, Total Bilirubin 1.50 H, AST 20, ALT 19, Alkaline Phosphatase 39 L, Total Protein 5.5 L, Albumin 2.1 L, Globulin 3.4, Albumin/Globulin Ratio 0.6 L 05/18/21 05:14: POC Glucose 121 H Micro: Microbiology 05/12/21 14:40 Blood Culture (Wb) - Left Forearm Blood Culture - Final No growth in 5 days. 05/12/21 14:30 Blood Culture (Wb) - Left Hand Blood Culture - Final No growth in 5 days. 05/13/21 10:15 Wound - Hand Gram Stain - Final 05/13/21 10:15 Wound - Hand Wound Culture - Final Staphylococcus aureus 05/12/21 12:00 Sputum, Induced/Lukens Gram Stain - Final 05/12/21 12:00 Sputum, Induced/Lukens Respiratory Culture - Final Staphylococcus aureus 05/08/21 04:50 Blood Culture (Wb) - Anticubital Right Blood Culture - Final No growth in 5 days. 05/08/21 02:50 Blood Culture (Wb) - Anticubital Right Blood Culture - Final No growth in 5 days. 05/12/21 14:30 Urine Catheter - Collazo Legionella Antigen - Final 05/12/21 14:30 Urine Catheter - Collazo Streptococcus pneumoniae Antigen (M - Final 05/08/21 02:30 Urine, Catheterized Urine Culture - Final Culture exhibits no growth. 05/08/21 02:50 Mucosa - Nasopharyngeal Influenza Types A,B Direct FA (EUSEBIO) - Final 05/08/21 02:50 Nasal Secretion SARS-CoV-2 Antigen (Rapid) - Final SARS-CoV-2 (COVID 19) Radiography Diagnostic Testing: Radiology Impression KUB X-Ray 05/18/21 06:20 Physical Exam Narrative Physical exam: General: Alert, Oriented x3, Cooperative, No apparent distress, appeared frail, masked facies HEENT: Atraumatic Oral: Moist Mucosa Neck: Supple Lungs: Diminished to auscultation Cardiovascular: HS I+II, regular, no murmurs Abdomen: Bowel Sounds Present, Soft, Non Tender Extremities: No edema Assessment & Plan Assessment/Plan (1) Acute respiratory failure with hypoxia: (2) COVID-19: (3) Parkinson disease: (4) Severe malnutrition: PLAN: 1. Acute hypoxic respiratory failure secondary to acute COVID-19 pneumonia/superimposed MSSA pneumonia Status post extubation on 05/17/21 Currently on 4 L of oxygen Continue with breathing treatments, baricitinib, Wean off oxygen for SPO2 more than 94% 2. Acute PE, noted on CTA of the chest on 05/12 3. MSSA pneumonia, continue on cefazolin(day5) 4. Septic shock resolved 5. Hypokalemia, resolved 6. Severe acute malnutrition, flatwork assembler consulted, 7. Dysphagia, likely secondary to #1, patient has also not been on his Parkinson's medications Status post NG tube today 05/18/21 Speech therapy consulted, following 8. Rest of his chronic medical conditions including hypertension, dyslipidemia, GERD, BPH, remained stable Meds reviewed Charges/Coding Visit Charges Inpatient E&M: 71378 Subs Hosp L2
[2021-05-18] MEDS: Dext 5%-0.45% NS 1,000 ML 75 ML IV (09:30)
--- NOTE | 2021-05-18 10:00 | PN.CC_ITS ---
Assessment & Plan Assessment/Plan (1) Acute respiratory failure with hypoxia: (2) COVID-19: (3) Debility: (4) Parkinson disease: PLAN: RECOMMENDATIONS: 1. Place NG to facilitate parkinsonian meds 2. Once extubated, wean supplemental oxygen to maintain saturations at or above 90%. 3. Continue speech therapy. Possible tube feeds in 24 hours if not improving 4. Continue Decadron and baricitinib to complete treatment courses. 5. Continue antimicrobials. 6. Continue therapeutic Lovenox. 7. Okay to leave the intensive care unit from my perspective IMPRESSIONS: 1. Acute hypoxic respiratory failure secondary to combined Covid and staphylococcal pneumonia/bilateral PE The patient presented to the hospital with COVID-19 pneumonia with symptom onset sometime around May 02. Subsequent work-up did also reveal evidence of bilateral pulmonary emboli. To date, the patient has completed a treatment course of remdesivir and remains on Decadron and baricitinib. Ultimately, the patient continued to decompensate from a respiratory perspective and was subsequently intubated. Sputum culture was positive for staph aureus. The patient is on appropriate antimicrobials. The patient was successfully extubated yesterday. Patient has protected his airway, but continues to be very stiff overall. We will place an NG for Parkinson's meds 2. Encephalopathy Unclear etiology. There is no other discernible metabolic abnormality identified. CT head showed no acute process. Arterial blood gas has been within normal limits. Recommend continuing to hold sedating medications. Clinical suspicion for uncontrolled Parkinson's 3. Hypertension/dyslipidemia/GERD/BPH/Parkinson's Complicates care, management, recovery and prognosis. Okay to continue with baseline Parkinson's meds. Hold antihypertensives for now. Okay to work with physical therapy. Subjective Subjective The patient did okay overnight from a hemodynamic standpoint. Oxygenation has been doing well, but patient has not been very interactive. Patient reportedly failed a swallow evaluation by speech therapy yesterday. Patient doing well on nasal cannula at this time. Objective Data Objective Data Vital Signs: Vital Signs Temp Pulse Resp BP Pulse Ox 36.7 C 82 31 H 103/68 95 05/18/21 08:00 05/18/21 09:00 05/18/21 09:00 05/18/21 09:00 05/18/21 09:00 Oxygen Flow Rate (L/min) 4 Oxygen Delivery Method Nasal Cannula Weight: 73 kg Body Mass Index (BMI) 25.7 Intake & Output: Intake and Output for Last 24 Hours 05/16/21 05/17/21 05/18/21 23:59 23:59 23:59 Intake Total 1563.75 / 1663.75 1297.25 / 1297.25 220.25 / 220.25 Output Total 1175 / 1550 1950 / 1950 350 / 350 Balance 388.75 / 113.75 -652.75 / -652.75 -129.75 / -129.75 Medical Nutrition Assessment Dietitian: Malnutrition Criteria Met Start: 05/13/21 10:34 Freq: Status: Active Protocol: Document 05/17/21 10:36 BP (Rec: 05/17/21 10:36 BP [id number]) Nutrition Malnutrition Evidence of Malnutrition Exists Yes Malnutrition (severe): Acute Illness/Injury Evidenced By Suboptimal Energy Intake ( Severe),Weight Loss (Severe) Intake Problem Inadequate Oral Intake Etiology r/t resp. failure Signs/Symptoms as evidenced by NPO status Status Active Problem Clinical Problem Acute Disease or Injury Related Malnutrition Etiology severe, acute malnutrition r/t inadequate energy intake w/ acute illness Signs/Symptoms as evidenced by unintentional wt loss of 2.8kg/3.5% x 1 week , estimated PO intake meeting <50% of estimated nutritional needs x 1 week Status Active Problem Altered Nutrient-Related Laboratory Values Status Inactive Problem Unintended Weight Loss Etiology r/t predicted suboptimal energy intake d/t debility Signs/Symptoms as evidenced by unintentional wt loss of 4.1#/2.3% unknown timeframe Status Active Problem Recommendation Dietitian Recommendations/Changes Rec TARUN Regular with Ensure compact 120 ml 4x/day w/ medpass and Ahsan 1 pkt BID to w/ meals to promote wound healing. Lab / Micro Data Result Diagrams: 05/18/21 04:55 05/18/21 04:55 Labs: Laboratory Results - last 24 hr 05/17/21 11:19: POC Glucose 143 H 05/17/21 18:03: POC Glucose 154 H 05/18/21 00:01: POC Glucose 129 H 05/18/21 04:55: WBC 20.0 H, RBC 4.26 L, Hgb 13.0, Hct 38.6 L, MCV 90.6, MCH 30.5, MCHC 33.7, RDW Std Deviation 46.4 H, RDW Coeff of Evin 14.0, Plt Count 307, MPV 11.0, Immature Gran % (Auto) 3.100 H, Neut % (Auto) 83.4 H, Lymph % (Auto) 4.1 L, [place] % (Auto) 9.0, Eos % (Auto) 0.0, Baso % (Auto) 0.4, Absolute Neuts (auto) 16.7 H, Absolute Lymphs (auto) 0.81 L, Nucleated RBC % 0, Diff Path Review October05/18/21 04:55: Sodium 140, Potassium 4.1, Chloride 110 H, Carbon Dioxide 25.0, Anion Gap 5, BUN 31 H, Creatinine 0.73, Estim Creat Clear Calc 62.84, Est GFR (MDRD) Af Amer 134, Est GFR (MDRD) Non-Af 111, BUN/Creatinine Ratio 42.5 H, Glucose 126 H, Calcium 8.2 L, Total Bilirubin 1.50 H, AST 20, ALT 19, Alkaline Phosphatase 39 L, Total Protein 5.5 L, Albumin 2.1 L, Globulin 3.4, Albumin/Globulin Ratio 0.6 L 05/18/21 05:14: POC Glucose 121 H Micro: Microbiology 05/12/21 14:40 Blood Culture (Wb) - Left Forearm Blood Culture - Final No growth in 5 days. 05/12/21 14:30 Blood Culture (Wb) - Left Hand Blood Culture - Final No growth in 5 days. 05/13/21 10:15 Wound - Hand Gram Stain - Final 05/13/21 10:15 Wound - Hand Wound Culture - Final Staphylococcus aureus 05/12/21 12:00 Sputum, Induced/Lukens Gram Stain - Final 05/12/21 12:00 Sputum, Induced/Lukens Respiratory Culture - Final Staphylococcus aureus 05/08/21 04:50 Blood Culture (Wb) - Anticubital Right Blood Culture - Final No growth in 5 days. 05/08/21 02:50 Blood Culture (Wb) - Anticubital Right Blood Culture - Final No growth in 5 days. 05/12/21 14:30 Urine Catheter - Collazo Legionella Antigen - Final 05/12/21 14:30 Urine Catheter - Collazo Streptococcus pneumoniae Antigen (M - Final 05/08/21 02:30 Urine, Catheterized Urine Culture - Final Culture exhibits no growth. 05/08/21 02:50 Mucosa - Nasopharyngeal Influenza Types A,B Direct FA (EUSEBIO) - Final 05/08/21 02:50 Nasal Secretion SARS-CoV-2 Antigen (Rapid) - Final SARS-CoV-2 (COVID 19) Radiography Diagnostic Testing: Radiology Impression KUB X-Ray 05/18/21 06:20 Physical Exam Const no apparent distress Constitutional Narrative: Masked facies General Appearance: cooperative and comfortable; Negative for intubated or patient mechanically ventilated HEENT normocephalic and head/scalp atraumatic HEENT Narrative: NG tube placed after my assessment Neck supple General: trachea midline Chest inspection of chest normal Resp Auscultation: diminished lung sounds; Negative for rales, rhonchi or wheezes Cardio regular rate, regular rhythm, S1 normal heart sound, S2 normal heart sound, no murmurs, no rub and no gallops GI normal to inspection, nondistended, normoactive bowel sounds Extremity no clubbing, cyanosis or edema Skin no rashes or lesions noted Neuro Neuro Narrative: Occasional parkinsonian tremors. The patient will attempt to open eyes to verbal cues and attempt to squeeze hand. He appears quite weak in general from a musculoskeletal perspective. Charges/Coding Visit Charges Inpatient E&M: 59963 Subs Hosp L3
--- NOTE | 2021-05-18 10:04 | CASEMGMT ---
Addendum entered by Mindy Arce 05/18/21 16:28: PT/OT updates faxed to [facility] and to the [place]. ISHMAEL Freed Addendum entered by Mindy Arce 05/18/21 13:38: SW faxed updates to [facility] and [place]. PT/OT still pending for today. ISHMAEL Freed Addendum entered by Mindy Arce 05/18/21 10:40: SW received a call back from [place], no message left. SW also received a call back from Ghazal Greenberg at [facility], they anticipate being able to take pt when he is medically ready. [facility], spoke [facility]Norma Carrington(verified the correct spelling of her name, it's not Azalea as listed below and in other notes). She asked for clinical updates. Once pt has participated in therapy today SW will send clinical updates for pt. SW will continue to follow. ISHMAEL Freed Original Note: SW participated in ICU rounds this morning. Pt is still in contact precautions. SW called [facility], message left for Ghazal Greenberg asking when they would be able to take pt. SW called [facility], message left for Azalea Carrington in regard to pt going to a half-way likely later this week, inquired if she needs any additional information. DYLLAN will continue to follow. ISHMAEL Freed
[2021-05-18] MEDS: Cyanocobalamin 500 MCG Tablet 1000 MCG GT (11:16)
[2021-05-18] MEDS: dexAMETHasone 2 MG TABLET 6 MG GT (11:17)
[2021-05-18] MEDS: Finasteride 5 MG Tablet GT (11:18)
[2021-05-18] MEDS: Lansoprazole 15 MG Capsule.DR GT (11:18)
[2021-05-18] MEDS: Aspirin 81 MG TAB.CHEW GT (11:19)
[2021-05-18] MEDS: Potassium Chloride Oral Soln 20 MEQ/15 ML UDC GT (11:20)
[2021-05-18] MEDS: Polyethylene Glycol 3350 17 GM PACKET 8.5 GM GT ×2 (11:20→20:43)
[2021-05-18] MEDS: Enoxaparin 80 MG/0.8 ML Syringe SC ×2 (11:21→20:44)
[2021-05-18] MEDS: Insulin Lispro 100 UNIT/ML INSULN.PEN SC ×3 (12:05→23:27)
[2021-05-18] MEDS: Menthol/Lanolin/Calamine/Znox 113 GM Tube 1 APPLIC TOPICAL ×2 (12:06→20:43)
[2021-05-18] MEDS: 0.9% Saline Lock 10 ML Syringe IV (12:07)
[2021-05-18 12:16] LABS: Bedside Glucose 164 mg/dL (70-110)
[2021-05-18 13:16] LABS: Pathologist Review Reviewed
--- NOTE | 2021-05-18 14:31 | PCM.PN.ID ---
Physical Exam Narrative No fever, minimally interactive Const no apparent distress Resp Auscultation: diminished lung sounds Cardio regular rate and regular rhythm GI normal to inspection, nondistended, normoactive bowel sounds Skin no rashes or lesions noted ID ID: Route of nutrition/ use of supplements: [] Nutritional Intake: [] IV Site: [] Collazo Catheter: [] Assessment & Plan Assessment/Plan (1) COVID-19: PLAN: Unclear symptom onset, likely 05/02/21. Now with PEs and worsened O2. Now on therapeutic anticoagulation. On dex, completed remdesivir, on baricitinib. On cefazolin for mssa infection in hand and sputum. Down to 4L NC. Will follow (2) Acute respiratory failure with hypoxia:
[2021-05-18 17:30] LABS: Bedside Glucose 199 mg/dL (70-110)
--- NOTE | 2021-05-18 17:51 | CASEMGMT ---
MALIHA CM: Per the request of Emma at the [facility] transfer [facility], updated clinicals faxed to Sylvia at the [facility] F:[phone], P: [phone] [id number]. Pt is 100% service connected. Nestor Peace RN CM
[2021-05-18] MEDS: Rosuvastatin 20 MG Tablet GT (20:43)
[2021-05-18 23:46] LABS: Bedside Glucose 198 mg/dL (70-110)
[2021-05-19] VITALS (16 sets, daily range): BP systolic 94–127; BP diastolic 63–77; PULSE 57–79; RESP 18–23; TEMP 36.6–36.9; O2SAT 92–95
[2021-05-19 03:28] LABS: Absolute Lymphocyte Count 0.73 X10^3/uL (0.83-4.51); Absolute Neutrophil Count 12.9 X10^3/uL (2.0-7.7); Basophil# 0.03 X10^3/uL; Basophil% 0.2 % (0-1); Hematocrit 36.4 % (40-54); Hemoglobin 12.4 g/dL (13.0-16.5); Lymphocyte # 0.73 X10^3/ul (0.83-4.51); Lymphocyte % 4.8 % (19-41); Mean Corp Hgb Conc 34.1 g/dL (32-36); Mean Corpuscular Hgb 30.8 pg (27.0-32.0); Mean Corpuscular Volume 90.3 fL (80-94); Mean Platelet Vol. 10.8 fl (6.2-12.0); Monocyte# 0.87 X10^3/uL; Monocyte% 5.8 % (0-10); NRBC Flagged by Analyzer 0 % (0-5); Neutrophil # 12.87 X10^3/uL (2.7-7.7); Neutrophil % 85.4 % (47-70); Platelet Count 321 K/mm3 (150-450); RBC Distribution Width CV 14.1 % (11.6-14.6); RBC Distribution Width SD 46.6 fl (35.1-43.9); Red Blood Count 4.03 M/mm3 (4.6-6.2); White Blood Count 15.1 K/mm3 (4.4-11.0)
[2021-05-19 04:32] LABS: ALB/GLOB Ratio 0.6 RATIO (0.9-2.4); AST(SGOT) 16 U/L (15-37); Alanine Aminotransfer ALT/SGPT 19 U/L (16-61); Alkaline Phosphatase 39 U/L (45-117); Anion Gap 5 (5-15); BUN 33 mg/dL (7-18); Calcium,Total 7.7 mg/dL (8.5-10.1); Chloride 109 mmol/L (98-107); Creatinine, Serum 0.67 mg/dL (0.70-1.30); EST Glomerular Filtration Rate 122 mL/min (>60); Est Glom Filt Rate - Afr Amer 147 mL/min (>60); Estimated Creatinine Clearance 62.84 ml/min; Globulin 3.4 g/dL (2.2-4.2); Glucose 162 mg/dL (74-106); Potassium 4.2 mmol/L (3.5-5.1); Protein, Total 5.4 g/dL (6.4-8.2); Sodium Level 138 mmol/L (136-145)
[2021-05-19] MEDS: Cefazolin 2 GM in 0.9% Normal Saline 100 ML IV (05:20)
[2021-05-19] MEDS: 0.9% Saline Lock 10 ML Syringe IV ×3 (05:20→18:00)
[2021-05-19] MEDS: Insulin Lispro 100 UNIT/ML INSULN.PEN SC ×3 (06:10→22:37)
[2021-05-19 06:21] LABS: Bedside Glucose 157 mg/dL (70-110)
[2021-05-19] MEDS: Ipratropium/Albuterol Sulfate 3 ML AMPUL.NEB INHALATION ×4 (07:01→19:45)
--- NOTE | 2021-05-19 08:15 | PCM.PN.INT ---
Assessment & Plan Assessment/Plan (1) Acute respiratory failure with hypoxia: (2) COVID-19: (3) Debility: (4) Parkinson disease: PLAN: RECOMMENDATIONS: 1. Continue NG to facilitate parkinsonian meds 2. Wean supplemental oxygen to maintain saturations at or above 90%. 3. Continue speech therapy. Okay to start tube feeds from my perspective 4. Continue Decadron and baricitinib to complete treatment courses. 5. Continue antimicrobials. 6. Discontinue Lovenox. Consider Coumadin versus 10 a inhibitor versus heparin drip 7. Await PCU bed IMPRESSIONS: 1. Acute hypoxic respiratory failure secondary to combined Covid and staphylococcal pneumonia/bilateral PE The patient presented to the hospital with COVID-19 pneumonia with symptom onset sometime around May 02. Subsequent work-up did also reveal evidence of bilateral pulmonary emboli. To date, the patient has completed a treatment course of remdesivir and remains on Decadron and baricitinib. Ultimately, the patient continued to decompensate from a respiratory perspective and was subsequently intubated. Sputum culture was positive for MSSA. The patient is on appropriate antimicrobials. The patient was successfully extubated 05/18/2021. Patient has protected his airway, but continues to be very stiff overall. We will place an NG for Parkinson's meds. We will have to transition patient to a p.o. alternative versus heparin drip. H&H has remained relatively stable, but continue to follow on a daily basis 2. Encephalopathy Unclear etiology. There is no other discernible metabolic abnormality identified. CT head showed no acute process. Arterial blood gas has been within normal limits. Recommend continuing to hold sedating medications. Clinical suspicion for uncontrolled Parkinson's 3. Hypertension/dyslipidemia/GERD/BPH/Parkinson's Complicates care, management, recovery and prognosis. Okay to continue with baseline Parkinson's meds. Hold antihypertensives for now. Okay to work with physical therapy. Subjective Subjective Patient has done okay following extubation. Patient did have a bowel movement overnight. Patient developed significant abdominal bruising yesterday. Patient is more interactive, but still mumbles. Patient is tracking better than yesterday. Objective Data Objective Data Vital Signs: Vital Signs Temp Pulse Resp BP Pulse Ox 36.6 C 68 22 H 116/74 94 05/19/21 03:28 05/19/21 07:13 05/19/21 07:05 05/19/21 03:28 05/19/21 07:05 Oxygen Flow Rate (L/min) 2 Oxygen Delivery Method Nasal Cannula Weight: 73.1 kg Body Mass Index (BMI) 25.7 Intake & Output: Intake and Output for Last 24 Hours 05/17/21 05/18/21 05/19/21 23:59 23:59 23:59 Intake Total 1297.25 / 1297.25 2300.00 / 2300.00 110 / 110 Output Total 1950 / 1950 700 / 700 200 / 200 Balance -652.75 / -652.75 1600.00 / 1600.00 -90 / -90 Medical Nutrition Assessment Dietitian: Malnutrition Criteria Met Start: 05/13/21 10:34 Freq: Status: Active Protocol: Document 05/18/21 11:14 SAVANAH (Rec: 05/18/21 11:14 SLA [id number]) Nutrition Malnutrition Evidence of Malnutrition Exists Yes Malnutrition (severe): Acute Illness/Injury Evidenced By Suboptimal Energy Intake ( Severe),Weight Loss (Severe) Intake Problem Inadequate Oral Intake Etiology r/t resp. failure Signs/Symptoms as evidenced by NPO status Status Active Problem Clinical Problem Acute Disease or Injury Related Malnutrition Etiology severe, acute malnutrition r/t inadequate energy intake w/ acute illness Signs/Symptoms as evidenced by unintentional wt loss of 7.5% wt loss since adm, estimated PO intake meeting <50% of estimated nutritional needs x 1 week Status Active Problem Unintended Weight Loss Status Inactive Problem Recommendation Dietitian Recommendations/Changes When medically able, rec TARUN Regular with Ensure compact 120 ml 4x/day w/ medpass Lab / Micro Data Result Diagrams: 05/19/21 03:05 05/19/21 03:05 Labs: Laboratory Results - last 24 hr 05/18/21 04:55: Diff Path Review Reviewed 05/18/21 12:04: POC Glucose 164 H 05/18/21 17:07: POC Glucose 199 H 05/18/21 23:27: POC Glucose 198 H 05/19/21 03:05: WBC 15.1 H, RBC 4.03 L, Hgb 12.4 L, Hct 36.4 L, MCV 90.3, MCH 30.8, MCHC 34.1, RDW Std Deviation 46.6 H, RDW Coeff of Evin 14.1, Plt Count 321, MPV 10.8, Immature Gran % (Auto) 3.800 H, Neut % (Auto) 85.4 H, Lymph % (Auto) 4.8 L, [place] % (Auto) 5.8, Eos % (Auto) 0.0, Baso % (Auto) 0.2, Absolute Neuts (auto) 12.9 H, Absolute Lymphs (auto) 0.73 L, Nucleated RBC % 0 05/19/21 03:05: Sodium 138, Potassium 4.2, Chloride 109 H, Carbon Dioxide 24.0, Anion Gap 5, BUN 33 H, Creatinine 0.67 L, Estim Creat Clear Calc 62.84, Est GFR (MDRD) Af Amer 147, Est GFR (MDRD) Non-Af 122, BUN/Creatinine Ratio 49.0 H, Glucose 162 H, Calcium 7.7 L, Total Bilirubin 0.90, AST 16, ALT 19, Alkaline Phosphatase 39 L, Total Protein 5.4 L, Albumin 2.0 L, Globulin 3.4, Albumin/Globulin Ratio 0.6 L 05/19/21 06:09: POC Glucose 157 H Micro: Microbiology 05/12/21 14:40 Blood Culture (Wb) - Left Forearm Blood Culture - Final No growth in 5 days. 05/12/21 14:30 Blood Culture (Wb) - Left Hand Blood Culture - Final No growth in 5 days. 05/13/21 10:15 Wound - Hand Gram Stain - Final 05/13/21 10:15 Wound - Hand Wound Culture - Final Staphylococcus aureus 05/12/21 12:00 Sputum, Induced/Lukens Gram Stain - Final 05/12/21 12:00 Sputum, Induced/Lukens Respiratory Culture - Final Staphylococcus aureus 05/08/21 04:50 Blood Culture (Wb) - Anticubital Right Blood Culture - Final No growth in 5 days. 05/08/21 02:50 Blood Culture (Wb) - Anticubital Right Blood Culture - Final No growth in 5 days. 05/12/21 14:30 Urine Catheter - Collazo Legionella Antigen - Final 05/12/21 14:30 Urine Catheter - Collazo Streptococcus pneumoniae Antigen (M - Final 05/08/21 02:30 Urine, Catheterized Urine Culture - Final Culture exhibits no growth. 05/08/21 02:50 Mucosa - Nasopharyngeal Influenza Types A,B Direct FA (EUSEBIO) - Final 05/08/21 02:50 Nasal Secretion SARS-CoV-2 Antigen (Rapid) - Final SARS-CoV-2 (COVID 19) Physical Exam Const no apparent distress Constitutional Narrative: Masked facies General Appearance: cooperative and comfortable; Negative for intubated or patient mechanically ventilated HEENT normocephalic and head/scalp atraumatic HEENT Narrative: NG tube placed after my assessment Neck supple General: trachea midline Chest inspection of chest normal Resp Auscultation: diminished lung sounds; Negative for rales, rhonchi or wheezes Cardio regular rate, regular rhythm, S1 normal heart sound, S2 normal heart sound, no murmurs, no rub and no gallops GI normal to inspection, nondistended, normoactive bowel sounds Extremity no clubbing, cyanosis or edema Skin Skin Narrative: Large abdominal hematoma noted General Skin Exam: ecchymosis Neuro Neuro Narrative: Occasional parkinsonian tremors. The patient will attempt to open eyes to verbal cues and attempt to squeeze hand. He appears quite weak in general from a musculoskeletal perspective. Charges/Coding Visit Charges Inpatient E&M: 53563 Subs Hosp L3
[2021-05-19] MEDS: Polyethylene Glycol 3350 17 GM PACKET 8.5 GM GT (10:43)
[2021-05-19] MEDS: Potassium Chloride Oral Soln 20 MEQ/15 ML UDC GT (10:43)
[2021-05-19] MEDS: dexAMETHasone 2 MG TABLET 6 MG GT (10:44)
[2021-05-19] MEDS: Aspirin 81 MG TAB.CHEW GT (10:44)
[2021-05-19] MEDS: Cyanocobalamin 500 MCG Tablet 1000 MCG GT (10:45)
[2021-05-19] MEDS: Lansoprazole 15 MG Capsule.DR GT (10:45)
[2021-05-19] MEDS: Finasteride 5 MG Tablet GT (10:45)
[2021-05-19] MEDS: Menthol/Lanolin/Calamine/Znox 113 GM Tube 1 APPLIC TOPICAL ×2 (10:46→22:09)
[2021-05-19 11:21] LABS: Partial Thromboplast Time 28.7 Seconds (24.1-36.2)
[2021-05-19] MEDS: HEPARIN/D5w 25,000 UNITS 25,000 UNITS/250 ML IV.SOLN. 11 UNITS IV (11:41)
[2021-05-19 12:25] LABS: Bedside Glucose 120 mg/dL (70-110)
--- NOTE | 2021-05-19 12:42 | CASEMGMT ---
Social Work SW called Norma Carrington at the [facility], message left inquiring if she received the updates and if anything else is needed, let her know also pt is not ready for discharge. SW called Ghazal Greenberg at [facility], also let her know pt is not yet ready for discharge. SW will continue to follow. ISHMAEL Freed
--- NOTE | 2021-05-19 13:58 | PCM.PN.HOSP ---
Subjective Subjective Follow-up on acute hypoxic respiratory failure/acute COVID-19 pneumonia: Patient was seen and examined. Patient's Lovenox was put on hold for rapidly expanding hematoma of the abdomen. Tube feeds are going to be started today. Objective Data Objective Data Vital Signs: Vital Signs Temp Pulse Resp BP Pulse Ox 98.4 F 63 20 H 127/77 H 92 05/19/21 08:33 05/19/21 12:24 05/19/21 10:42 05/19/21 08:33 05/19/21 08:33 Oxygen Flow Rate (L/min) 2 Oxygen Delivery Method Nasal Cannula Weight: 73.1 kg Body Mass Index (BMI) 25.7 Intake & Output: Intake and Output for Last 24 Hours 05/17/21 05/18/21 05/19/21 23:59 23:59 23:59 Intake Total 1297.25 / 1297.25 2300.00 / 2300.00 110 / 110 Output Total 1950 / 1950 700 / 700 350 / 350 Balance -652.75 / -652.75 1600.00 / 1600.00 -240 / -240 Medical Nutrition Assessment Dietitian: Malnutrition Criteria Met Start: 05/13/21 10:34 Freq: Status: Active Protocol: Document 05/18/21 11:14 SAVANAH (Rec: 05/18/21 11:14 SAVANAH [id number]) Nutrition Malnutrition Evidence of Malnutrition Exists Yes Malnutrition (severe): Acute Illness/Injury Evidenced By Suboptimal Energy Intake ( Severe),Weight Loss (Severe) Intake Problem Inadequate Oral Intake Etiology r/t resp. failure Signs/Symptoms as evidenced by NPO status Status Active Problem Clinical Problem Acute Disease or Injury Related Malnutrition Etiology severe, acute malnutrition r/t inadequate energy intake w/ acute illness Signs/Symptoms as evidenced by unintentional wt loss of 7.5% wt loss since adm, estimated PO intake meeting <50% of estimated nutritional needs x 1 week Status Active Problem Unintended Weight Loss Status Inactive Problem Recommendation Dietitian Recommendations/Changes When medically able, rec TARUN Regular with Ensure compact 120 ml 4x/day w/ medpass Lab / Micro Data Result Diagrams: 05/19/21 03:05 05/19/21 03:05 Labs: Laboratory Results - last 24 hr 05/18/21 17:07: POC Glucose 199 H 05/18/21 23:27: POC Glucose 198 H 05/19/21 03:05: WBC 15.1 H, RBC 4.03 L, Hgb 12.4 L, Hct 36.4 L, MCV 90.3, MCH 30.8, MCHC 34.1, RDW Std Deviation 46.6 H, RDW Coeff of Evin 14.1, Plt Count 321, MPV 10.8, Immature Gran % (Auto) 3.800 H, Neut % (Auto) 85.4 H, Lymph % (Auto) 4.8 L, [place] % (Auto) 5.8, Eos % (Auto) 0.0, Baso % (Auto) 0.2, Absolute Neuts (auto) 12.9 H, Absolute Lymphs (auto) 0.73 L, Nucleated RBC % 0 05/19/21 03:05: Sodium 138, Potassium 4.2, Chloride 109 H, Carbon Dioxide 24.0, Anion Gap 5, BUN 33 H, Creatinine 0.67 L, Estim Creat Clear Calc 62.84, Est GFR (MDRD) Af Amer 147, Est GFR (MDRD) Non-Af 122, BUN/Creatinine Ratio 49.0 H, Glucose 162 H, Calcium 7.7 L, Total Bilirubin 0.90, AST 16, ALT 19, Alkaline Phosphatase 39 L, Total Protein 5.4 L, Albumin 2.0 L, Globulin 3.4, Albumin/Globulin Ratio 0.6 L 05/19/21 06:09: POC Glucose 157 H 05/19/21 11:00: APTT 28.7 05/19/21 11:50: POC Glucose 120 H Micro: Microbiology 05/12/21 14:40 Blood Culture (Wb) - Left Forearm Blood Culture - Final No growth in 5 days. 05/12/21 14:30 Blood Culture (Wb) - Left Hand Blood Culture - Final No growth in 5 days. 05/13/21 10:15 Wound - Hand Gram Stain - Final 05/13/21 10:15 Wound - Hand Wound Culture - Final Staphylococcus aureus 05/12/21 12:00 Sputum, Induced/Lukens Gram Stain - Final 05/12/21 12:00 Sputum, Induced/Lukens Respiratory Culture - Final Staphylococcus aureus 05/08/21 04:50 Blood Culture (Wb) - Anticubital Right Blood Culture - Final No growth in 5 days. 05/08/21 02:50 Blood Culture (Wb) - Anticubital Right Blood Culture - Final No growth in 5 days. 05/12/21 14:30 Urine Catheter - Collazo Legionella Antigen - Final 05/12/21 14:30 Urine Catheter - Collazo Streptococcus pneumoniae Antigen (M - Final 05/08/21 02:30 Urine, Catheterized Urine Culture - Final Culture exhibits no growth. 05/08/21 02:50 Mucosa - Nasopharyngeal Influenza Types A,B Direct FA (EUSEBIO) - Final 05/08/21 02:50 Nasal Secretion SARS-CoV-2 Antigen (Rapid) - Final SARS-CoV-2 (COVID 19) Physical Exam Narrative Physical exam: General: Alert, Oriented x3, Cooperative, No apparent distress, appeared frail, masked facies HEENT: Atraumatic Oral: Moist Mucosa Neck: Supple Lungs: Diminished to auscultation Cardiovascular: HS I+II, regular, no murmurs Abdomen: Hematoma/reddish discoloration of skin in the anterior abdominal wall, bowel Sounds Present, Soft, Non Tender Extremities: No edema Assessment & Plan Assessment/Plan (1) Acute respiratory failure with hypoxia: (2) COVID-19: (3) Parkinson disease: (4) Severe malnutrition: PLAN: 1. Acute hypoxic respiratory failure secondary to acute COVID-19 pneumonia/superimposed MSSA pneumonia Status post extubation on 05/17/21 Currently on 2 L of oxygen Continue with breathing treatments, baricitinib Completed Remdesivir Wean off oxygen for SPO2 more than 94% 2. Acute PE, noted on CTA of the chest on 05/12 Lovenox held mometarily yesterday on account of abdominal hematoma Restarted on Heparin drip 3. MSSA pneumonia, continue on cefazolin(day6) 4. Septic shock resolved 5. Hypokalemia, resolved 6. Severe acute malnutrition, jumpbasting collar baster consulted, on tube feeds 7. Dysphagia, likely secondary to #1, resumed on Parkinson's meds Status post NG tube today 05/18/21 Speech therapy consulted, following 8. Rest of his chronic medical conditions including hypertension, dyslipidemia, GERD, BPH, remained stable Meds reviewed Charges/Coding Visit Charges Inpatient E&M: 31866 Subs Hosp L3
[2021-05-19 14:13] LABS: International Normalized Ratio 1.3
--- NOTE | 2021-05-19 14:46 | CHAPLAIN ---
Type of Pastoral Visit ___ Initial Visit ___ Follow-up Visit ___ On-call Visit ___ General Patient Visit ___ Spiritual Assessment ___ Family Conference ___ Bereavement ___ Rapid Response ___ Code Blue _x__ Other (describe below) Pastoral Care Referral From _x__ Patient ___ Family ___ Nurse ___ Physician ___ Long Distance Operator ___ Grease Buffer ___ Other (describe below) Sacrament/Intervention ___ Active listening ___ Anointing ___ Anabaptism ___ Bereavement ___ Communion ___ Rosanna exploration ___ ___ Life review _x__ Prayer ___ Reconciliation ___ Sacrament of Sick ___ Supportive presence ___ Wedding _x__ Other (describe below) Pastoral Comments patient is in isolation and unable to talk on the phone but this telecommunications switch technician has gone last two days to stand at doorway for prayers and observation of pt
[2021-05-19] MEDS: Vital AF 1.2 Cal Liq 1,500 ML 300 ML GT ×3 (15:20→22:09)
[2021-05-19 18:39] LABS: Partial Thromboplast Time 55.2 Seconds (24.1-36.2)
[2021-05-19 19:11] LABS: Bedside Glucose 193 mg/dL (70-110)
[2021-05-19] MEDS: Rosuvastatin 20 MG Tablet GT (22:08)
[2021-05-19 23:01] LABS: Bedside Glucose 249 mg/dL (70-110)
[2021-05-20] VITALS (18 sets, daily range): BP systolic 103–123; BP diastolic 67–81; PULSE 53–76; RESP 20–28; TEMP 36.6–37; O2SAT 90–98
[2021-05-20 01:51] LABS: Partial Thromboplast Time 58.1 Seconds (24.1-36.2)
[2021-05-20 04:26] LABS: Hematocrit 34.4 % (40-54); Hemoglobin 11.7 g/dL (13.0-16.5); Mean Corpuscular Hgb 30.6 pg (27.0-32.0); Mean Corpuscular Volume 90.1 fL (80-94); Mean Platelet Vol. 10.7 fl (6.2-12.0); POSITIVE COUNT YES; POSITIVE MORPHOLOGY YES; Platelet Count 353 K/mm3 (150-450); RBC Distribution Width CV 14.1 % (11.6-14.6); RBC Distribution Width SD 45.9 fl (35.1-43.9); Red Blood Count 3.82 M/mm3 (4.6-6.2); White Blood Count 15.1 K/mm3 (4.4-11.0)
[2021-05-20 04:42] LABS: ALB/GLOB Ratio 0.6 RATIO (0.9-2.4); AST(SGOT) 20 U/L (15-37); Alanine Aminotransfer ALT/SGPT 19 U/L (16-61); Alkaline Phosphatase 39 U/L (45-117); Anion Gap 8 (5-15); BUN 34 mg/dL (7-18); BUN/Creat Ratio 47.6 RATIO (10-20); Calcium,Total 7.8 mg/dL (8.5-10.1); Chloride 109 mmol/L (98-107); Creatinine, Serum 0.71 mg/dL (0.70-1.30); EST Glomerular Filtration Rate 114 mL/min (>60); Est Glom Filt Rate - Afr Amer 138 mL/min (>60); Estimated Creatinine Clearance 62.84 ml/min; Globulin 3.2 g/dL (2.2-4.2); Glucose 194 mg/dL (74-106); Potassium 4.2 mmol/L (3.5-5.1); Protein, Total 5.2 g/dL (6.4-8.2); Sodium Level 140 mmol/L (136-145)
[2021-05-20 04:53] LABS: Differential Indicated MANUAL DIFF
[2021-05-20 05:01] LABS: Total Cells Counted 100 (MANUAL DIFF)
[2021-05-20 05:03] LABS: Lymphocyte 8 % (19-41); Metamyelocyte 1 % (0-1); Monocyte 5 % (0-10); Neutrophil-Band 3 % (0-5); Neutrophil-Segmented 83 % (47-70); Platelet Estimate ADEQUATE (ADEQ); Red Cell Morphology NORM C+C NORMAL (NORM C&C)
[2021-05-20 05:04] LABS: Absolute Lymphocyte Count 1.21 X10^3/uL (0.83-4.51); Lymphocyte # 1.21 X10^3/ul (0.83-4.51); Neutrophil # 13.01 X10^3/uL (2.7-7.7)
[2021-05-20] MEDS: Insulin Lispro 100 UNIT/ML INSULN.PEN SC ×4 (05:27→23:41)
[2021-05-20] MEDS: Vital AF 1.2 Cal Liq 1,500 ML 300 ML GT ×5 (05:28→20:22)
[2021-05-20 05:45] LABS: Bedside Glucose 160 mg/dL (70-110)
[2021-05-20] MEDS: Ipratropium/Albuterol Sulfate 3 ML AMPUL.NEB INHALATION ×3 (07:22→14:19)
[2021-05-20] MEDS: HEPARIN/D5w 25,000 UNITS 25,000 UNITS/250 ML IV.SOLN. 11 UNITS IV (07:26)
--- NOTE | 2021-05-20 07:36 | PCM.PN.INT ---
Assessment & Plan Assessment/Plan (1) Acute respiratory failure with hypoxia: (2) COVID-19: (3) Debility: (4) Parkinson disease: PLAN: RECOMMENDATIONS: 1. Continue NG to facilitate parkinsonian meds and nutrition 2. Wean supplemental oxygen to maintain saturations at or above 90%. 3. Consider neurology consult for reported Parkinson's 4. Continue Decadron and baricitinib to complete treatment courses. 5. Continue antimicrobials. 6. Continue heparin drip for now. Possible 10 a inhibitor in the future 7. Hemodynamically stable on minimal nasal cannula oxygen. Will sign off from a critical care perspective IMPRESSIONS: 1. Acute hypoxic respiratory failure secondary to combined Covid and staphylococcal pneumonia/bilateral PE The patient presented to the hospital with COVID-19 pneumonia with symptom onset sometime around May 02. Subsequent work-up did also reveal evidence of bilateral pulmonary emboli. To date, the patient has completed a treatment course of remdesivir and remains on Decadron and baricitinib. Ultimately, the patient continued to decompensate from a respiratory perspective and was subsequently intubated. Sputum culture was positive for MSSA. The patient is on appropriate antimicrobials. The patient was successfully extubated 05/18/2021. Patient has protected his airway, but continues to be very stiff overall. We placed a NG for Parkinson's meds and nutrition. Patient will require 3 months of anticoagulation at a minimum. Defer to hospitalist on transition to a 10 a inhibitor. 2. Encephalopathy Unclear etiology. There is no other discernible metabolic abnormality identified. CT head showed no acute process. Arterial blood gas has been within normal limits. Recommend continuing to hold sedating medications. Clinical suspicion for uncontrolled Parkinson's 3. Hypertension/dyslipidemia/GERD/BPH/Parkinson's Complicates care, management, recovery and prognosis. Patient carries a diagnosis of Parkinson's, but does not appear to be on Sinemet at baseline. Unclear if therapeutic challenge would be appropriate. Consider neurology consult. Blood pressures have been acceptable on current medications. Okay to work with physical therapy. Subjective Subjective Patient did well overnight. No acute issues were reported. Patient is slowly becoming more interactive, but is still very rigid. NG has been maintained. Patient tolerating bolus feeds. Objective Data Objective Data Vital Signs: Vital Signs Temp Pulse Resp BP Pulse Ox 37.0 C 65 26 H 112/68 93 05/20/21 07:00 05/20/21 07:23 05/20/21 07:23 05/20/21 07:00 05/20/21 07:23 Oxygen Flow Rate (L/min) 2 Oxygen Delivery Method Nasal Cannula Weight: 73.6 kg Body Mass Index (BMI) 25.7 Intake & Output: Intake and Output for Last 24 Hours 05/18/21 05/19/21 05/20/21 23:59 23:59 23:59 Intake Total 2300.00 / 2300.00 684.25 / 684.25 327.25 / 327.25 Output Total 700 / 700 650 / 650 Balance 1600.00 / 1600.00 34.25 / 34.25 327.25 / 327.25 Medical Nutrition Assessment Dietitian: Malnutrition Criteria Met Start: 05/13/21 10:34 Freq: Status: Active Protocol: Document 05/18/21 11:14 SAVANAH (Rec: 05/18/21 11:14 SAVANAH [id number]) Nutrition Malnutrition Evidence of Malnutrition Exists Yes Malnutrition (severe): Acute Illness/Injury Evidenced By Suboptimal Energy Intake ( Severe),Weight Loss (Severe) Intake Problem Inadequate Oral Intake Etiology r/t resp. failure Signs/Symptoms as evidenced by NPO status Status Active Problem Clinical Problem Acute Disease or Injury Related Malnutrition Etiology severe, acute malnutrition r/t inadequate energy intake w/ acute illness Signs/Symptoms as evidenced by unintentional wt loss of 7.5% wt loss since adm, estimated PO intake meeting <50% of estimated nutritional needs x 1 week Status Active Problem Unintended Weight Loss Status Inactive Problem Recommendation Dietitian Recommendations/Changes When medically able, rec TARUN Regular with Ensure compact 120 ml 4x/day w/ medpass Lab / Micro Data Result Diagrams: 05/20/21 03:55 05/20/21 03:55 Labs: Laboratory Results - last 24 hr 05/19/21 11:00: APTT 28.7 05/19/21 11:00: PT 15.0 H, INR 1.3 05/19/21 11:50: POC Glucose 120 H 05/19/21 17:29: POC Glucose 193 H 05/19/21 18:04: APTT 55.2 H 05/19/21 22:01: POC Glucose 249 H 05/20/21 01:25: APTT 58.1 H 05/20/21 03:55: WBC 15.1 H, RBC 3.82 L, Hgb 11.7 L, Hct 34.4 L, MCV 90.1, MCH 30.6, MCHC 34.0, RDW Std Deviation 45.9 H, RDW Coeff of Evin 14.1, Plt Count 353, MPV 10.7, Neut % (Auto) Not Reportable, Absolute Neuts (auto) 13.0 H, Absolute Lymphs (auto) 1.21, Total Counted 100, Neutrophils % (Manual) 83 H, Band Neutrophils % 3, Lymphocytes % (Manual) 8 L, Monocytes % (Manual) 5, Metamyelocytes % 1, Diff Path Review October, Platelet Estimate ADEQUATE, RBC Morphology NORM C+C 05/20/21 03:55: Sodium 140, Potassium 4.2, Chloride 109 H, Carbon Dioxide 23.0, Anion Gap 8, BUN 34 H, Creatinine 0.71, Estim Creat Clear Calc 62.84, Est GFR (MDRD) Af Amer 138, Est GFR (MDRD) Non-Af 114, BUN/Creatinine Ratio 47.6 H, Glucose 194 H, Calcium 7.8 L, Total Bilirubin 0.70, AST 20, ALT 19, Alkaline Phosphatase 39 L, Total Protein 5.2 L, Albumin 2.0 L, Globulin 3.2, Albumin/Globulin Ratio 0.6 L 05/20/21 05:18: POC Glucose 160 H Micro: Microbiology 05/12/21 14:40 Blood Culture (Wb) - Left Forearm Blood Culture - Final No growth in 5 days. 05/12/21 14:30 Blood Culture (Wb) - Left Hand Blood Culture - Final No growth in 5 days. 05/13/21 10:15 Wound - Hand Gram Stain - Final 05/13/21 10:15 Wound - Hand Wound Culture - Final Staphylococcus aureus 05/12/21 12:00 Sputum, Induced/Lukens Gram Stain - Final 05/12/21 12:00 Sputum, Induced/Lukens Respiratory Culture - Final Staphylococcus aureus 05/08/21 04:50 Blood Culture (Wb) - Anticubital Right Blood Culture - Final No growth in 5 days. 05/08/21 02:50 Blood Culture (Wb) - Anticubital Right Blood Culture - Final No growth in 5 days. 05/12/21 14:30 Urine Catheter - Collazo Legionella Antigen - Final 05/12/21 14:30 Urine Catheter - Collazo Streptococcus pneumoniae Antigen (M - Final 05/08/21 02:30 Urine, Catheterized Urine Culture - Final Culture exhibits no growth. 05/08/21 02:50 Mucosa - Nasopharyngeal Influenza Types A,B Direct FA (EUSEBIO) - Final 05/08/21 02:50 Nasal Secretion SARS-CoV-2 Antigen (Rapid) - Final SARS-CoV-2 (COVID 19) Physical Exam Const no apparent distress Constitutional Narrative: Masked facies General Appearance: cooperative and comfortable; Negative for intubated or patient mechanically ventilated HEENT normocephalic and head/scalp atraumatic HEENT Narrative: NG tube placed left nares Neck supple General: trachea midline Chest inspection of chest normal Resp Auscultation: diminished lung sounds; Negative for rales, rhonchi or wheezes Cardio regular rate, regular rhythm, S1 normal heart sound, S2 normal heart sound, no murmurs, no rub and no gallops GI normal to inspection, nondistended, normoactive bowel sounds Extremity no clubbing, cyanosis or edema Skin Skin Narrative: Large abdominal hematoma noted General Skin Exam: ecchymosis Neuro Neuro Narrative: Occasional parkinsonian tremors. Patient answering questions today. He appears quite weak and rigid in general from a musculoskeletal perspective. Charges/Coding Visit Charges Inpatient E&M: 05027 Subs Hosp L2
[2021-05-20] MEDS: Polyethylene Glycol 3350 17 GM PACKET 8.5 GM GT ×2 (08:54→20:03)
[2021-05-20] MEDS: Menthol/Lanolin/Calamine/Znox 113 GM Tube 1 APPLIC TOPICAL ×2 (08:54→20:03)
[2021-05-20] MEDS: Lansoprazole 15 MG Capsule.DR GT (08:55)
[2021-05-20] MEDS: Finasteride 5 MG Tablet GT (08:55)
[2021-05-20] MEDS: dexAMETHasone 2 MG TABLET 6 MG GT (08:55)
[2021-05-20] MEDS: Cyanocobalamin 500 MCG Tablet 1000 MCG GT (08:55)
[2021-05-20] MEDS: Aspirin 81 MG TAB.CHEW GT (08:55)
[2021-05-20] MEDS: Potassium Chloride Oral Soln 20 MEQ/15 ML UDC GT (08:56)
--- NOTE | 2021-05-20 09:39 | CASEMGMT ---
Social Work SW received call from Norma at the [facility]. She did receive all of the updates faxed by this SW. She states she is going to hold off moving forward with the precert however until we know for certain if pt needs short term or usp care. SW will continue to keep Edra informed, the plan has been for short term, Edra is concerned however pt may need usp. DYLLAN will continue to follow. ISHMAEL Freed
--- NOTE | 2021-05-20 10:02 | CASEMGMT ---
MALIHA SEWELL called Dr Interiano's nurse at [facility]. Message left with request for current med list to be faxed to [facility]. RN MELODIE left contact information. Awaiting fax or call back.
[2021-05-20] MEDS: Carbidopa/Levodopa 25/100 Tablet GT ×2 (12:02→15:00)
--- NOTE | 2021-05-20 12:07 | PN.HOSP_ITS ---
Subjective Subjective Follow-up on acute hypoxic respiratory failure/acute COVID-19 pneumonia: Patient was seen and examined. Patient remains lethargic. No other acute events Objective Data Objective Data Vital Signs: Vital Signs Temp Pulse Resp BP Pulse Ox 98 F 73 28 H 119/78 94 05/20/21 08:00 05/20/21 11:55 05/20/21 11:55 05/20/21 08:00 05/20/21 08:00 Oxygen Flow Rate (L/min) 2 Oxygen Delivery Method Nasal Cannula Weight: 73.6 kg Body Mass Index (BMI) 25.7 Intake & Output: Intake and Output for Last 24 Hours 05/18/21 05/19/21 05/20/21 23:59 23:59 23:59 Intake Total 2300.00 / 2300.00 684.25 / 684.25 837.25 / 837.25 Output Total 700 / 700 650 / 650 Balance 1600.00 / 1600.00 34.25 / 34.25 837.25 / 837.25 Medical Nutrition Assessment Dietitian: Malnutrition Criteria Met Start: 05/13/21 10:34 Freq: Status: Active Protocol: Document 05/18/21 11:14 [facility] (Rec: 05/18/21 11:14 [facility] [id number]) Nutrition Malnutrition Evidence of Malnutrition Exists Yes Malnutrition (severe): Acute Illness/Injury Evidenced By Suboptimal Energy Intake ( Severe),Weight Loss (Severe) Intake Problem Inadequate Oral Intake Etiology r/t resp. failure Signs/Symptoms as evidenced by NPO status Status Active Problem Clinical Problem Acute Disease or Injury Related Malnutrition Etiology severe, acute malnutrition r/t inadequate energy intake w/ acute illness Signs/Symptoms as evidenced by unintentional wt loss of 7.5% wt loss since adm, estimated PO intake meeting <50% of estimated nutritional needs x 1 week Status Active Problem Unintended Weight Loss Status Inactive Problem Recommendation Dietitian Recommendations/Changes When medically able, rec TARUN Regular with Ensure compact 120 ml 4x/day w/ medpass Lab / Micro Data Result Diagrams: 05/20/21 03:55 05/20/21 03:55 Labs: Laboratory Results - last 24 hr 05/19/21 11:00: PT 15.0 H, INR 1.3 05/19/21 11:50: POC Glucose 120 H 05/19/21 17:29: POC Glucose 193 H 05/19/21 18:04: APTT 55.2 H 05/19/21 22:01: POC Glucose 249 H 05/20/21 01:25: APTT 58.1 H 05/20/21 03:55: WBC 15.1 H, RBC 3.82 L, Hgb 11.7 L, Hct 34.4 L, MCV 90.1, MCH 30.6, MCHC 34.0, RDW Std Deviation 45.9 H, RDW Coeff of Evin 14.1, Plt Count 353, MPV 10.7, Neut % (Auto) Not Reportable, Absolute Neuts (auto) 13.0 H, Absolute Lymphs (auto) 1.21, Total Counted 100, Neutrophils % (Manual) 83 H, Band Neutrophils % 3, Lymphocytes % (Manual) 8 L, Monocytes % (Manual) 5, Metamyelocytes % 1, Diff Path Review October, Platelet Estimate ADEQUATE, RBC Morphology NORM C+C 05/20/21 03:55: Sodium 140, Potassium 4.2, Chloride 109 H, Carbon Dioxide 23.0, Anion Gap 8, BUN 34 H, Creatinine 0.71, Estim Creat Clear Calc 62.84, Est GFR (MDRD) Af Amer 138, Est GFR (MDRD) Non-Af 114, BUN/Creatinine Ratio 47.6 H, Glucose 194 H, Calcium 7.8 L, Total Bilirubin 0.70, AST 20, ALT 19, Alkaline P hosphatase 39 L, Total Protein 5.2 L, Albumin 2.0 L, Globulin 3.2, Albumin/Globulin Ratio 0.6 L 05/20/21 05:18: POC Glucose 160 H Micro: Microbiology 05/12/21 14:40 Blood Culture (Wb) - Left Forearm Blood Culture - Final No growth in 5 days. 05/12/21 14:30 Blood Culture (Wb) - Left Hand Blood Culture - Final No growth in 5 days. 05/13/21 10:15 Wound - Hand Gram Stain - Final 05/13/21 10:15 Wound - Hand Wound Culture - Final Staphylococcus aureus 05/12/21 12:00 Sputum, Induced/Lukens Gram Stain - Final 05/12/21 12:00 Sputum, Induced/Lukens Respiratory Culture - Final Staphylococcus aureus 05/08/21 04:50 Blood Culture (Wb) - Anticubital Right Blood Culture - Final No growth in 5 days. 05/08/21 02:50 Blood Culture (Wb) - Anticubital Right Blood Culture - Final No growth in 5 days. 05/12/21 14:30 Urine Catheter - Collazo Legionella Antigen - Final 05/12/21 14:30 Urine Catheter - Collazo Streptococcus pneumoniae Antigen (M - Final 05/08/21 02:30 Urine, Catheterized Urine Culture - Final Culture exhibits no growth. 05/08/21 02:50 Mucosa - Nasopharyngeal Influenza Types A,B Direct FA (EUSEBIO) - Final 05/08/21 02:50 Nasal Secretion SARS-CoV-2 Antigen (Rapid) - Final SARS-CoV-2 (COVID 19) Physical Exam Narrative Physical exam: General: Lethargic, Cooperative, No apparent distress, appeared frail, masked facies HEENT: Atraumatic Oral: Moist Mucosa Neck: Supple Lungs: Diminished to auscultation Cardiovascular: HS I+II, regular, no murmurs Abdomen: Hematoma/reddish discoloration of skin in the anterior abdominal wall, bowel Sounds Present, Soft, Non Tender Extremities: No edema Assessment & Plan Assessment/Plan (1) Acute respiratory failure with hypoxia: (2) COVID-19: (3) Parkinson disease: (4) Severe malnutrition: PLAN: 1. Acute hypoxic respiratory failure secondary to acute COVID-19 pneumonia/superimposed MSSA pneumonia Status post extubation on 05/17/21; on 2 L of oxygen Continue with breathing treatments, baricitinib Completed Remdesivir Wean off oxygen for SPO2 more than 94% 2. Acute PE, noted on CTA of the chest on 05/12 Continue on Heparin drip 3. Acute MSSA pneumonia, continue on cefazolin (day7) 4. Septic shock resolved 5. Hypokalemia, resolved 6. Severe acute malnutrition, acoustic sensor operator consulted, on tube feeds 7. Dysphagia, likely secondary to chronic, will resume on Parkinson's meds Status post NG tube today 05/18/21 Speech therapy following 8. Rest of his chronic medical conditions including hypertension, dyslipidemia, GERD, BPH, remained stable Meds reviewed Charges/Coding Visit Charges Inpatient E&M: 28163 Subs Hosp L2
[2021-05-20 12:21] LABS: Bedside Glucose 225 mg/dL (70-110)
[2021-05-20 13:38] LABS: Pathologist Review Reviewed
[2021-05-20 15:10] LABS: Allen Test Positive; Base Excess -3 mmol/L (-2 to +2); Bicarbonate 20.4 mmol/L (22-26); Blood Gas Specimen Type ART; O2 Delivery Device Cannula; PO2 61 mmHG (75-100); SITE L Radial; SO2 93 % (95-99); Total Carbon Dioxide 21 mmol/L; pCO2 27.6 mmHg (35-45); pH 7.48 (7.35-7.45)
[2021-05-20] MEDS: Rosuvastatin 20 MG Tablet GT (20:04)
--- NOTE | 2021-05-20 23:48 | NURSING ---
reduce 02 to 1lnc
[2021-05-20 23:51] LABS: Bedside Glucose 223 mg/dL (70-110)
[2021-05-21] VITALS (17 sets, daily range): BP systolic 102–133; BP diastolic 56–80; PULSE 54–78; RESP 19–26; TEMP 36.6; O2SAT 89–97
--- NOTE | 2021-05-21 00:11 | NURSING ---
pt all over the bed this shift. Pt has been pulled up multiple times. Pt confused. Pt talking nonstop. Unable to carry conversation with him
[2021-05-21] MEDS: Carbidopa/Levodopa 25/100 Tablet GT ×3 (04:14→16:20)
[2021-05-21] MEDS: Vital AF 1.2 Cal Liq 1,500 ML 300 ML GT ×5 (04:14→20:41)
[2021-05-21] MEDS: 0.9% Saline Lock 10 ML Syringe IV (04:14)
[2021-05-21 04:26] LABS: Absolute Lymphocyte Count 0.92 X10^3/uL (0.83-4.51); Absolute Neutrophil Count 16.2 X10^3/uL (2.0-7.7); Basophil# 0.04 X10^3/uL; Basophil% 0.2 % (0-1); Hemoglobin 11.1 g/dL (13.0-16.5); Lymphocyte # 0.92 X10^3/ul (0.83-4.51); Lymphocyte % 4.8 % (19-41); Mean Corp Hgb Conc 34.7 g/dL (32-36); Mean Corpuscular Hgb 30.9 pg (27.0-32.0); Mean Corpuscular Volume 89.1 fL (80-94); Mean Platelet Vol. 10.7 fl (6.2-12.0); Monocyte# 1.09 X10^3/uL; Monocyte% 5.7 % (0-10); NRBC Flagged by Analyzer 0 % (0-5); Neutrophil # 16.22 X10^3/uL (2.7-7.7); Platelet Count 349 K/mm3 (150-450); RBC Distribution Width SD 45.7 fl (35.1-43.9); Red Blood Count 3.59 M/mm3 (4.6-6.2); White Blood Count 19.1 K/mm3 (4.4-11.0)
[2021-05-21 04:40] LABS: Partial Thromboplast Time 66.6 Seconds (24.1-36.2)
[2021-05-21 04:42] LABS: ALB/GLOB Ratio 0.6 RATIO (0.9-2.4); AST(SGOT) 26 U/L (15-37); Alanine Aminotransfer ALT/SGPT 25 U/L (16-61); Alkaline Phosphatase 41 U/L (45-117); Anion Gap 6 (5-15); BUN 25 mg/dL (7-18); BUN/Creat Ratio 41.7 RATIO (10-20); Calcium,Total 7.9 mg/dL (8.5-10.1); Chloride 106 mmol/L (98-107); EST Glomerular Filtration Rate 139 mL/min (>60); Est Glom Filt Rate - Afr Amer 168 mL/min (>60); Estimated Creatinine Clearance 62.84 ml/min; Globulin 3.2 g/dL (2.2-4.2); Glucose 171 mg/dL (74-106); Potassium 4.4 mmol/L (3.5-5.1); Protein, Total 5.2 g/dL (6.4-8.2); Sodium Level 136 mmol/L (136-145)
[2021-05-21 05:25] LABS: Bedside Glucose 270 mg/dL (70-110)
[2021-05-21] MEDS: Insulin Lispro 100 UNIT/ML INSULN.PEN SC ×3 (05:26→17:34)
[2021-05-21 05:36] LABS: Bedside Glucose 213 mg/dL (70-110)
[2021-05-21] MEDS: HEPARIN/D5w 25,000 UNITS 25,000 UNITS/250 ML IV.SOLN. 11 UNITS IV (06:14)
[2021-05-21] MEDS: Ipratropium/Albuterol Sulfate 3 ML AMPUL.NEB INHALATION ×4 (07:22→18:56)
[2021-05-21] MEDS: Polyethylene Glycol 3350 17 GM PACKET 8.5 GM GT (09:14)
[2021-05-21] MEDS: dexAMETHasone 2 MG TABLET 6 MG GT (09:15)
[2021-05-21] MEDS: Potassium Chloride Oral Soln 20 MEQ/15 ML UDC GT (09:15)
[2021-05-21] MEDS: Aspirin 81 MG TAB.CHEW GT (09:16)
[2021-05-21] MEDS: Finasteride 5 MG Tablet GT (09:16)
[2021-05-21] MEDS: Cyanocobalamin 500 MCG Tablet 1000 MCG GT (09:17)
[2021-05-21] MEDS: Lansoprazole 15 MG Capsule.DR GT (09:17)
[2021-05-21] MEDS: Menthol/Lanolin/Calamine/Znox 113 GM Tube 1 APPLIC TOPICAL ×2 (09:18→20:40)
--- NOTE | 2021-05-21 10:46 | PCM.PN.ID ---
Physical Exam Narrative No fever, minimally responsive Const no apparent distress Resp clear to auscultation bilaterally Auscultation: diminished lung sounds Cardio regular rate and regular rhythm GI soft to palpation, non-tender and non-distended Skin no rashes or lesions noted ID ID: Route of nutrition/ use of supplements: [] Nutritional Intake: [] IV Site: [] Collazo Catheter: [] Assessment & Plan Assessment/Plan (1) COVID-19: PLAN: Unclear symptom onset, likely 05/02/21. Now with PEs and worsened O2. Now on therapeutic anticoagulation. On dex, completed remdesivir, on baricitinib. On cefazolin for mssa infection in hand and sputum. Down to 1L NC. On abx since 05/15, will stop today. Ok to stop isolation today, day 20 of symptoms. Will follow, d/w nursing (2) Acute respiratory failure with hypoxia:
[2021-05-21 12:40] LABS: Bedside Glucose 246 mg/dL (70-110)
--- NOTE | 2021-05-21 14:05 | PCM.PN.HOSP ---
Subjective Subjective Follow-up on acute hypoxic respiratory failure/acute COVID-19 pneumonia: Patient was seen and examined. Patient is a little bit more alert, confused. He failed his bedside swallow eval. Discussed his overall care with his and daughter. His wanted a PEG tube. GI consulted Out of COVID-19 isolation. Objective Data Objective Data Vital Signs: Vital Signs Temp Pulse Resp BP Pulse Ox 97.8 F 56 L 19 H 102/65 93 05/21/21 13:47 05/21/21 13:47 05/21/21 13:47 05/21/21 13:47 05/21/21 13:47 Oxygen Flow Rate (L/min) 1 Oxygen Delivery Method Room Air Weight: 71.8 kg Body Mass Index (BMI) 25.7 Intake & Output: Intake and Output for Last 24 Hours 05/19/21 05/20/21 05/21/21 23:59 23:59 23:59 Intake Total 684.25 / 684.25 2982.25 / 2982.25 2111.50 / 2111.50 Output Total 650 / 650 1050 / 1050 Balance 34.25 / 34.25 2982.25 / 2982.25 1061.50 / 1061.50 Medical Nutrition Assessment Dietitian: Malnutrition Criteria Met Start: 05/13/21 10:34 Freq: Status: Active Protocol: Document 05/18/21 11:14 [facility] (Rec: 05/18/21 11:14 [facility] [id number]) Nutrition Malnutrition Evidence of Malnutrition Exists Yes Malnutrition (severe): Acute Illness/Injury Evidenced By Suboptimal Energy Intake ( Severe),Weight Loss (Severe) Intake Problem Inadequate Oral Intake Etiology r/t resp. failure Signs/Symptoms as evidenced by NPO status Status Active Problem Clinical Problem Acute Disease or Injury Related Malnutrition Etiology severe, acute malnutrition r/t inadequate energy intake w/ acute illness Signs/Symptoms as evidenced by unintentional wt loss of 7.5% wt loss since adm, estimated PO intake meeting <50% of estimated nutritional needs x 1 week Status Active Problem Unintended Weight Loss Status Inactive Problem Recommendation Dietitian Recommendations/Changes When medically able, rec TARUN Regular with Ensure compact 120 ml 4x/day w/ medpass Lab / Micro Data Result Diagrams: 05/21/21 04:00 05/21/21 04:00 Labs: Laboratory Results - last 24 hr 05/20/21 18:11: POC Glucose 270 H 05/20/21 23:38: POC Glucose 223 H 05/21/21 04:00: WBC 19.1 H, RBC 3.59 L, Hgb 11.1 L, Hct 32.0 L, MCV 89.1, MCH 30.9, MCHC 34.7, RDW Std Deviation 45.7 H, RDW Coeff of Evin 14.0, Plt Count 349, MPV 10.7, Immature Gran % (Auto) 4.300 H, Neut % (Auto) 85.0 H, Lymph % (Auto) 4.8 L, [place] % (Auto) 5.7, Eos % (Auto) 0.0, Baso % (Auto) 0.2, Absolute Neuts (auto) 16.2 H, Absolute Lymphs (auto) 0.92, Nucleated RBC % 0 05/21/21 04:00: Sodium 136, Potassium 4.4, Chloride 106, Carbon Dioxide 24.0, Anion Gap 6, BUN 25 H, Creatinine 0.60 L, Estim Creat Clear Calc 62.84, Est GFR (MDRD) Af Amer 168, Est GFR (MDRD) Non-Af 139, BUN/Creatinine Ratio 41.7 H, Glucose 171 H, Calcium 7.9 L, Total Bilirubin 0.80, AST 26, ALT 25, Alkaline Phosphatase 41 L, Total Protein 5.2 L, Albumin 2.0 L, Globulin 3.2, Albumin/Globulin Ratio 0.6 L 05/21/21 04:00: APTT 66.6 H 05/21/21 05:25: POC Glucose 213 H 05/21/21 12:27: POC Glucose 246 H Micro: Microbiology 05/12/21 14:40 Blood Culture (Wb) - Left Forearm Blood Culture - Final No growth in 5 days. 05/12/21 14:30 Blood Culture (Wb) - Left Hand Blood Culture - Final No growth in 5 days. 05/13/21 10:15 Wound - Hand Gram Stain - Final 05/13/21 10:15 Wound - Hand Wound Culture - Final Staphylococcus aureus 05/12/21 12:00 Sputum, Induced/Lukens Gram Stain - Final 05/12/21 12:00 Sputum, Induced/Lukens Respiratory Culture - Final Staphylococcus aureus 05/08/21 04:50 Blood Culture (Wb) - Anticubital Right Blood Culture - Final No growth in 5 days. 05/08/21 02:50 Blood Culture (Wb) - Anticubital Right Blood Culture - Final No growth in 5 days. 05/12/21 14:30 Urine Catheter - Collazo Legionella Antigen - Final 05/12/21 14:30 Urine Catheter - Collazo Streptococcus pneumoniae Antigen (M - Final 05/08/21 02:30 Urine, Catheterized Urine Culture - Final Culture exhibits no growth. 05/08/21 02:50 Mucosa - Nasopharyngeal Influenza Types A,B Direct FA (EUSEBIO) - Final 05/08/21 02:50 Nasal Secretion SARS-CoV-2 Antigen (Rapid) - Final SARS-CoV-2 (COVID 19) ABG Data ABG results: ABG 05/20/21 15:07 Specimen Type ART Sample Site L Radial pH 7.48 H Bicarbonate Actual 20.4 L Total CO2 21 Base Excess -3 L O2 Saturation 93 L ABG pCO2 27.6 L ABG pO2 61 L Jairo Test Positive O2 Delivery Device Cannula Liter Flow 2.0 Physical Exam Narrative Physical exam: General: Lethargic, opens eyes to command, cooperative, appears confused, appeared frail, masked facies, NG tube in situ HEENT: Atraumatic Oral: Moist Mucosa Neck: Supple Lungs: Diminished to auscultation Cardiovascular: HS I+II, regular, no murmurs Abdomen: Hematoma/reddish discoloration of skin in the anterior abdominal wall, bowel Sounds Present, Soft, Non Tender Extremities: No edema Assessment & Plan Assessment/Plan (1) Acute respiratory failure with hypoxia: (2) COVID-19: (3) Parkinson disease: (4) Severe malnutrition: PLAN: 1. Acute hypoxic respiratory failure secondary to acute COVID-19 pneumonia/superimposed MSSA pneumonia Status post extubation on 05/17/21; on 1 L of oxygen Continue with breathing treatments, baricitinib and dexamethasone Completed Remdesivir Wean off oxygen for SPO2 more than 94% 2. Dysohagia, he failed a swallow eval this morning GI consulted for PEG tube placement 3. Acute PE, noted on CTA of the chest on 05/12 Continue on Heparin drip 4. Acute MSSA pneumonia, continue on cefazolin (day7) 5. Septic shock resolved 6. Hypokalemia, resolved 7. Severe acute malnutrition, biomedical technician consulted, on tube feeds 8. Rest of his chronic medical conditions including hypertension, dyslipidemia, GERD, BPH, remained stable Meds reviewed Charges/Coding Visit Charges Inpatient E&M: 20110 Subs Hosp L2
--- NOTE | 2021-05-21 15:14 | CASEMGMT ---
Social Work DYLLAN spoke with physician and pt will have PEG tube placed Tuesday with discharge planned for Tuesday. Phone call to DYLLAN Green at [facility], and requested that precert be started. Norma states she will start precert at this time. Phone call to Nancy Greenberg at [facility] and discussed discharge plan. [facility] is able to accept on Tuesday as long as precert is obtained from [facility]. Phone call to pt and updated on discharge plan. She is agreeable. DYLLAN to continue to follow. Plan: Delia, pending precert from [facility] EUGENE Hawkins
[2021-05-21] MEDS: NYSTATIN 500,000 UNIT/5 ML UDC 500000 UNIT PO ×2 (17:32→20:33)
[2021-05-21 17:50] LABS: Bedside Glucose 261 mg/dL (70-110)
--- NOTE | 2021-05-21 19:13 | EX.PCM.CON.G ---
HPI Consult Data Date of Consult: 05/21/21 HPI Narrative HPI Narrative: TERE CEDEÑO, is a 75 M who presents who presents to [facility] 05/05/2021 secondary to a fall. Patient reportedly had had a fall and then attempted to get back up and fell again. Patient had complained of a headache, neck pain and left side pain. Patient had reported a mild cough, but no nausea or vomiting. Patient had been falling more frequently over the last couple of weeks. Noted to be hypoxic in the ED. He had a chest x-ray did show bilateral pneumonia. He was diagnosed with Covid pneumonia. He was placed on medical therapy for Covid pneumonia after being intubated. Patient was able to be eventually extubated however he was never able to be fully coherent and he has been in the hospital for several weeks in the ICU. He recently came off of isolation and is suffering from poor nutrition along with lack of ability to feed him and give medicines to him orally. I was consulted for PEG tube placement. Unable to obtain a review of systems secondary to the severity of the medical situation. [facility] Medical History (Updated 05/18/21 @ 08:[address] Elaine Todd MD) Coronary artery disease DVT (deep venous thrombosis) Hearing loss, left Hearing loss, right High cholesterol Hypertension Kidney stones Myocardial infarct Parkinson disease Stroke/cerebrovascular accident Home Medications aspirin 81 mg PO DAILY 05/05/21 [History Last Taken Unknown] cyanocobalamin (vitamin B-12) 1,000 mcg PO DAILY 05/05/21 [History Last Taken Unknown] finasteride 5 mg PO DAILY 05/05/21 [History Last Taken Unknown] hydrochlorothiazide 25 mg PO DAILY 05/05/21 [History Last Taken Unknown] isosorbide mononitrate 30 mg PO DAILY 05/05/21 [History Last Taken Unknown] lisinopril 2.5 mg PO DAILY 05/05/21 [History Last Taken Unknown] metoprolol tartrate 12.5 mg PO DAILY 05/05/21 [History Last Taken Unknown] polyethylene glycol 3350 8.5 g PO BID 05/05/21 [History Last Taken Unknown] potassium chloride 20 meq PO DAILY 05/05/21 [History Last Taken Unknown] rabeprazole 20 mg PO DAILY 05/05/21 [History Last Taken Unknown] rosuvastatin 20 mg PO QHS 05/05/21 [History Last Taken Unknown] solifenacin 10 mg PO DAILY 05/05/21 [History Last Taken Unknown] tamsulosin 0.4 mg PO QHS 05/05/21 [History Last Taken Unknown] tramadol 50 mg PO BID PRN 05/05/21 [History Last Taken Unknown] Allergy/AdvReac Type Severity Reaction Status Date / Time atorvastatin [From Lipitor] AdvReac Pain in Verified 05/02/21 07:54 joints Family History Other Heart disease Surgical History History of heart valve repair Social History Smoking Status: Former smoker Physical Exam HEENT Head and Scalp: normal to inspection Face and Sinus: face symmetric Nose: external nose normal Mouth: oral and palatal mucosa normal Eyes conjunctivae normal General Eye: normal appearance of both eyes Neck full ROM General: normal visual inspection Lymph Lymphatic: no lymphadenopathy noted Chest inspection of chest normal and palpation of chest normal Chest: symmetrical chest wall rise Resp normal respiratory effort Effort and Inspection: able to speak in complete sentences Cardio regular rate GI non-distended Percussion: normal to percussion Rectal Exam: deferred Medical Records Data Medical Nutrition Assessment Dietitian: Malnutrition Criteria Met Start: 05/13/21 10:34 Freq: Status: Active Protocol: Document 05/18/21 11:14 [facility] (Rec: 05/18/21 11:14 [facility] [id number]) Nutrition Malnutrition Evidence of Malnutrition Exists Yes Malnutrition (severe): Acute Illness/Injury Evidenced By Suboptimal Energy Intake ( Severe),Weight Loss (Severe) Intake Problem Inadequate Oral Intake Etiology r/t resp. failure Signs/Symptoms as evidenced by NPO status Status Active Problem Clinical Problem Acute Disease or Injury Related Malnutrition Etiology severe, acute malnutrition r/t inadequate energy intake w/ acute illness Signs/Symptoms as evidenced by unintentional wt loss of 7.5% wt loss since adm, estimated PO intake meeting <50% of estimated nutritional needs x 1 week Status Active Problem Unintended Weight Loss Status Inactive Problem Recommendation Dietitian Recommendations/Changes When medically able, rec TARUN Regular with Ensure compact 120 ml 4x/day w/ medpass Lab / Micro Data Result Diagrams: 05/21/21 04:00 05/21/21 04:00 Labs: Laboratory Results - last 24 hr 05/20/21 18:11: POC Glucose 270 H 05/20/21 23:38: POC Glucose 223 H 05/21/21 04:00: WBC 19.1 H, RBC 3.59 L, Hgb 11.1 L, Hct 32.0 L, MCV 89.1, MCH 30.9, MCHC 34.7, RDW Std Deviation 45.7 H, RDW Coeff of Evin 14.0, Plt Count 349, MPV 10.7, Immature Gran % (Auto) 4.300 H, Neut % (Auto) 85.0 H, Lymph % (Auto) 4.8 L, [place] % (Auto) 5.7, Eos % (Auto) 0.0, Baso % (Auto) 0.2, Absolute Neuts (auto) 16.2 H, Absolute Lymphs (auto) 0.92, Nucleated RBC % 0 05/21/21 04:00: Sodium 136, Potassium 4.4, Chloride 106, Carbon Dioxide 24.0, Anion Gap 6, BUN 25 H, Creatinine 0.60 L, Estim Creat Clear Calc 62.84, Est GFR (MDRD) Af Amer 168, Est GFR (MDRD) Non-Af 139, BUN/Creatinine Ratio 41.7 H, Glucose 171 H, Calcium 7.9 L, Total Bilirubin 0.80, AST 26, ALT 25, Alkaline Phosphatase 41 L, Total Protein 5.2 L, Albumin 2.0 L, Globulin 3.2, Albumin/Globulin Ratio 0.6 L 05/21/21 04:00: APTT 66.6 H 05/21/21 05:25: POC Glucose 213 H 05/21/21 12:27: POC Glucose 246 H 05/21/21 17:34: POC Glucose 261 H Assessment & Plan Assessment/Plan (1) Severe malnutrition: PLAN: Patient will undergo PEG tube placement. The power of timber hewer will be explained alternatives, risk, benefits including outstanding bleeding, infection, sepsis, perforation, need for emergent . He will have an ASA 3 for the procedure. Charges/Coding Visit Charges Inpatient E&M: 41627 Init Hosp L2
[2021-05-21] MEDS: Rosuvastatin 20 MG Tablet GT (20:40)
[2021-05-22] VITALS (20 sets, daily range): BP systolic 96–147; BP diastolic 60–93; PULSE 56–85; RESP 16–22; TEMP 36.4–36.9; O2SAT 93–100; BMI 20.5
[2021-05-22] MEDS: Insulin Lispro 100 UNIT/ML INSULN.PEN SC (00:07)
[2021-05-22 00:35] LABS: Bedside Glucose 232 mg/dL (70-110)
[2021-05-22 05:08] LABS: Partial Thromboplast Time 55.8 Seconds (24.1-36.2)
[2021-05-22 06:00] LABS: Bedside Glucose 128 mg/dL (70-110)
[2021-05-22] MEDS: Ipratropium/Albuterol Sulfate 3 ML AMPUL.NEB INHALATION ×2 (06:34→10:06)
[2021-05-22 09:03] LABS: Absolute Lymphocyte Count 1.49 X10^3/uL (0.83-4.51); Absolute Neutrophil Count 17.8 X10^3/uL (2.0-7.7); Basophil# 0.05 X10^3/uL; Basophil% 0.2 % (0-1); Eosinophil# 0.01 X10^3/uL; Hematocrit 33.5 % (40-54); Hemoglobin 11.5 g/dL (13.0-16.5); Lymphocyte # 1.49 X10^3/ul (0.83-4.51); Mean Corp Hgb Conc 34.3 g/dL (32-36); Mean Corpuscular Hgb 30.8 pg (27.0-32.0); Mean Corpuscular Volume 89.8 fL (80-94); Mean Platelet Vol. 10.4 fl (6.2-12.0); Monocyte# 1.18 X10^3/uL; Monocyte% 5.5 % (0-10); NRBC Flagged by Analyzer 0 % (0-5); Neutrophil # 17.84 X10^3/uL (2.7-7.7); Neutrophil % 83.8 % (47-70); Platelet Count 364 K/mm3 (150-450); RBC Distribution Width SD 45.3 fl (35.1-43.9); Red Blood Count 3.73 M/mm3 (4.6-6.2); White Blood Count 21.3 K/mm3 (4.4-11.0)
[2021-05-22] MEDS: NYSTATIN 500,000 UNIT/5 ML UDC 500000 UNIT PO ×2 (09:06→23:27)
[2021-05-22 09:17] LABS: ALB/GLOB Ratio 0.7 RATIO (0.9-2.4); AST(SGOT) 37 U/L (15-37); Alanine Aminotransfer ALT/SGPT 39 U/L (16-61); Albumin, Serum 2.2 g/dL (3.2-5.0); Alkaline Phosphatase 43 U/L (45-117); Anion Gap 6 (5-15); BUN 21 mg/dL (7-18); BUN/Creat Ratio 36.5 RATIO (10-20); Calcium,Total 8.4 mg/dL (8.5-10.1); Chloride 107 mmol/L (98-107); Creatinine, Serum 0.58 mg/dL (0.70-1.30); EST Glomerular Filtration Rate 146 mL/min (>60); Est Glom Filt Rate - Afr Amer 176 mL/min (>60); Estimated Creatinine Clearance 62.84 ml/min; Globulin 3.2 g/dL (2.2-4.2); Glucose 134 mg/dL (74-106); Potassium 3.9 mmol/L (3.5-5.1); Protein, Total 5.4 g/dL (6.4-8.2); Sodium Level 137 mmol/L (136-145)
[2021-05-22 11:10] LABS: Bedside Glucose 118 mg/dL (70-110)
--- NOTE | 2021-05-22 11:53 | CT_ITS ---
STUDY: CT BRAIN WITHOUT CONTRAST REASON FOR EXAM: Male, 75 years old. altered mental status Individualized dose optimization techniques were used for this CT. TECHNIQUE: Transaxial CT imaging of the brain was performed without administration of intravenous contrast material. COMPARISON: 05/15/2021 FINDINGS: There are calcifications around the carotid artery. These are noted in the cavernous carotid arteries. Normal calvarium. Normal soft tissues. There is mild cerebral atrophy with widening of the extra-axial spaces and ventricular dilatation. Normal white matter tracts of the cerebral hemispheres. Old infarct of the left basal ganglia. Old infarct of the right caudate head. Normal brainstem. There is mild cerebellar atrophy. There is no intracranial hemorrhage. There are no findings of an acute ischemic infarction. Normal visualized paranasal sinuses. ASPECTS Score for Acute Strokes: 03/22 CT/Brain/Head without Contrast IMPRESSION: There are no acute findings. Electronically Signed: Kleber Miles MD at 18:39 EST , Service support ,
--- NOTE | 2021-05-22 12:41 | NURSING ---
PER HOUSEKEEPING PT OBSERVED SITTING ON SIDE OF BED AND SLID OFF SIDE OF BED. HOUSEKEEPING CALLED FOR HELP, NURSES ARRIVED. PT SITTING ON FLOOR WITH BACK AGAINST THE BED. PT ALERT, NO INJURIES NOTED. PT ASSISTED BACK TO BED X3. SIDE RAIL UP AND BED EXIT ON. NOTIFIED.
--- NOTE | 2021-05-22 14:01 | NURSING ---
ENDO TEAM IN ROOM TO PLACE PEG TUBE.
--- NOTE | 2021-05-22 15:17 | PN.HOSP_ITS ---
Subjective Subjective Follow-up on acute hypoxic respiratory failure/acute COVID-19 pneumonia: Patient was seen and examined. He is alert to himself. Going for PEG tube placement today. Objective Data Objective Data Vital Signs: Vital Signs Temp Pulse Resp BP Pulse Ox 97.8 F 70 20 H 111/60 96 05/22/21 15:04 05/22/21 15:04 05/22/21 15:04 05/22/21 15:04 05/22/21 15:04 Oxygen Flow Rate (L/min) 1 Oxygen Delivery Method Room Air Weight: 63.2 kg Body Mass Index (BMI) 20.5 Intake & Output: Intake and Output for Last 24 Hours 05/20/21 05/21/21 05/22/21 23:59 23:59 23:59 Intake Total 2982.25 / 2982.25 3886.50 / 4311.50 706.23 / 706.23 Output Total 2049 / 2049 1551 / 1551 Balance 2982.25 / 2982.25 1836.50 / 2261.50 -844.77 / -844.77 Medical Nutrition Assessment Dietitian: Malnutrition Criteria Met Start: 05/13/21 10:34 Freq: Status: Active Protocol: Document 05/18/21 11:14 SAVANAH (Rec: 05/18/21 11:14 [facility] [id number]) Nutrition Malnutrition Evidence of Malnutrition Exists Yes Malnutrition (severe): Acute Illness/Injury Evidenced By Suboptimal Energy Intake ( Severe),Weight Loss (Severe) Intake Problem Inadequate Oral Intake Etiology r/t resp. failure Signs/Symptoms as evidenced by NPO status Status Active Problem Clinical Problem Acute Disease or Injury Related Malnutrition Etiology severe, acute malnutrition r/t inadequate energy intake w/ acute illness Signs/Symptoms as evidenced by unintentional wt loss of 7.5% wt loss since adm, estimated PO intake meeting <50% of estimated nutritional needs x 1 week Status Active Problem Unintended Weight Loss Status Inactive Problem Recommendation Dietitian Recommendations/Changes When medically able, rec TARUN Regular with Ensure compact 120 ml 4x/day w/ medpass Lab / Micro Data Result Diagrams: 05/22/21 08:53 05/22/21 08:53 Labs: Laboratory Results - last 24 hr 05/21/21 17:34: POC Glucose 261 H 05/22/21 00:05: POC Glucose 232 H 05/22/21 04:42: APTT 55.8 H 05/22/21 05:58: POC Glucose 128 H 05/22/21 08:53: WBC 21.3 H, RBC 3.73 L, Hgb 11.5 L, Hct 33.5 L, MCV 89.8, MCH 30.8, MCHC 34.3, RDW Std Deviation 45.3 H, RDW Coeff of Evin 14.0, Plt Count 364, MPV 10.4, Immature Gran % (Auto) 3.500 H, Neut % (Auto) 83.8 H, Lymph % (Auto) 7.0 L, [place] % (Auto) 5.5, Eos % (Auto) 0.0, Baso % (Auto) 0.2, Absolute Neuts (auto) 17.8 H, Absolute Lymphs (auto) 1.49, Nucleated RBC % 0 05/22/21 08:53: Sodium 137, Potassium 3.9, Chloride 107, Carbon Dioxide 24.0, Anion Gap 6, BUN 21 H, Creatinine 0.58 L, Estim Creat Clear Calc 62.84, Est GFR (MDRD) Af Amer 176, Est GFR (MDRD) Non-Af 146, BUN/Creatinine Ratio 36.5 H, Glucose 134 H, Calcium 8.4 L, Total Bilirubin 1.30 H, AST 37, ALT 39, Alkaline Phosphatase 43 L, Total Protein 5.4 L, Albumin 2.2 L, Globulin 3.2, Albumin/Globulin Ratio 0.7 L 05/22/21 11:05: POC Glucose 118 H Micro: Microbiology 05/12/21 14:40 Blood Culture (Wb) - Left Forearm Blood Culture - Final No growth in 5 days. 05/12/21 14:30 Blood Culture (Wb) - Left Hand Blood Culture - Final No growth in 5 days. 05/13/21 10:15 Wound - Hand Gram Stain - Final 05/13/21 10:15 Wound - Hand Wound Culture - Final Staphylococcus aureus 05/12/21 12:00 Sputum, Induced/Lukens Gram Stain - Final 05/12/21 12:00 Sputum, Induced/Lukens Respiratory Culture - Final Staphylococcus aureus 05/08/21 04:50 Blood Culture (Wb) - Anticubital Right Blood Culture - Final No growth in 5 days. 05/08/21 02:50 Blood Culture (Wb) - Anticubital Right Blood Culture - Final No growth in 5 days. 05/12/21 14:30 Urine Catheter - Collazo Legionella Antigen - Final 05/12/21 14:30 Urine Catheter - Collazo Streptococcus pneumoniae Antigen (M - Final 05/08/21 02:30 Urine, Catheterized Urine Culture - Final Culture exhibits no growth. 05/08/21 02:50 Mucosa - Nasopharyngeal Influenza Types A,B Direct FA (EUSEBIO) - Final 05/08/21 02:50 Nasal Secretion SARS-CoV-2 Antigen (Rapid) - Final SARS-CoV-2 (COVID 19) Physical Exam Narrative Physical exam: General: Lethargic, opens eyes to command, cooperative, appears confused, appeared frail, masked facies, NG tube in situ HEENT: Atraumatic Oral: Moist Mucosa Neck: Supple Lungs: Diminished to auscultation Cardiovascular: HS I+II, regular, no murmurs Abdomen: Hematoma/reddish discoloration of skin in the anterior abdominal wall, bowel Sounds Present, Soft, Non Tender Extremities: No edema Assessment & Plan Assessment/Plan (1) Acute respiratory failure with hypoxia: (2) COVID-19: (3) Parkinson disease: (4) Severe malnutrition: PLAN: 1. Acute hypoxic respiratory failure secondary to acute COVID-19 pneumonia/superimposed MSSA pneumonia, resolved Status post extubation on 05/17/21. Continue with breathing treatments, baricitinib and dexamethasone Completed Remdesivir Wean off oxygen for SPO2 more than 94% 2. Dysphagia, going PEG tube today 3. Acute PE, noted on CTA of the chest on 05/12 Continue on Heparin drip 4. Acute MSSA pneumonia, continue on cefazolin (day7) 5. Septic shock resolved 6. Hypokalemia, resolved 7. 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 Rest of his chronic medical conditions including hypertension, dyslipidemia, GERD, BPH, remained stable Meds reviewed Charges/Coding Visit Charges Inpatient E&M: 65308 Subs Hosp L2
--- NOTE | 2021-05-22 15:26 | NURSING ---
DR MILLER NOT AVAILABLE FOR PEG TUBE PLACEMENT AT THE BEDSIDE SCHED. AWAITING TO HEAR BACK FROM DR MILLER WITH PEG TUBE PLACEMENT TIME.
--- NOTE | 2021-05-22 15:31 | CASEMGMT ---
Addendum entered by Cherelle Hoffmann 05/22/21 16:05: Social Work Return call from [facility] at [facility] who has spoke to [employer]AG PRODUCTION WORKER who determines precert. SLAG PRODUCTION WORKER spoke with bedside nurse and received clinical update. SLAG PRODUCTION WORKER has determined that pt is not appropriate for SNF at this time and has denied authorization for SNF placement. SW will reassess situation on Tuesday for appropriateness for SNF. [facility] updated that pt will not be coming over the weekend. EUGENE Hawkins Original Note: Social Work Call placed to [facility]ra at [facility] to check on precert at 1330 and again at 1530. Precert has not yet been obtained. SW provided Edra with phone number of ED SW in the event precert is obtained later today or tomorrow. Phone call to [facility] and they can accept pt should precert be obtained and pt were medically ready. Green Sheet placed on chart in the event these two criteria are met over the weekend. Plan: [facility], pending [facility] precert EUGENE Hawkins
--- NOTE | 2021-05-22 17:46 | OP.EGD_ITS ---
Patient Name: Koby Han Procedure Date: 05/22/2021 1:58 PM Date of : 1945 Age: 75 Procedure: Upper GI endoscopy Indications: Place PEG because patient is unable to eat, Place PEG due to impaired swallowing, Place PEG due to aspiration risk, Place PEG due to neurological disorder causing impaired swallowing Providers: Westley Davenport DO Medicines: See the Anesthesia note for documentation of the administered medications Patient Profile: This is a 75 year old male. Refer to note in patient chart for documentation of history and physical. Patient has symptoms. Complications: No immediate complications. Procedure: Pre-Anesthesia Assessment: - Prior to the procedure, a History and Physical was performed, and patient medications and allergies were reviewed. The patient is competent. The risks and benefits of the procedure and the sedation options and risks were discussed with the patient. All questions were answered and informed consent was obtained. Patient identification and proposed procedure were verified by the physician in the pre-procedure area. Mental Status Examination: alert and oriented. Airway Examination: normal oropharyngeal airway and neck mobility. Respiratory Examination: clear to auscultation. CV Examination: normal. Prophylactic Antibiotics: The patient does not require prophylactic antibiotics. Prior Anticoagulants: The patient has taken no previous anticoagulant or antiplatelet agents. ASA Grade Assessment: II - A patient with mild systemic disease. After reviewing the risks and benefits, the patient was deemed in satisfactory condition to undergo the procedure. The anesthesia plan was to use moderate sedation / analgesia (conscious sedation). Immediately prior to administration of medications, the patient was re-assessed for adequacy to receive sedatives. The heart rate, respiratory rate, oxygen saturations, blood pressure, adequacy of pulmonary ventilation, and response to care were monitored throughout the procedure. The physical status of the patient was re-assessed after the procedure. After obtaining informed consent, the endoscope was passed under direct vision. Throughout the procedure, the patient's blood pressure, pulse, and oxygen saturations were monitored continuously. The gastroscope was introduced through the mouth, and advanced to the second part of duodenum. The upper GI endoscopy was accomplished without difficulty. The patient tolerated the procedure well. Moderate Sedation: Moderate (conscious) sedation was administered by the endoscopy nurse and supervised by the endoscopist. The patient's oxygen saturation, heart rate, blood pressure and response to care were monitored. Total physician intraservice time was 15 minutes. Scope In: 5:12:02 PM Scope Out: 5:31:50 PM Total Procedure Duration Time 0 hours 19 minutes 48 seconds Findings: The examined esophagus was normal. Two non-bleeding cratered gastric ulcers with no stigmata of bleeding were found in the stomach. The largest lesion was 6 mm in largest dimension. Scattered severe inflammation with hemorrhage characterized by friability was found in the cardia. The second portion of the duodenum was normal. Impression: - Normal esophagus. - Non-bleeding gastric ulcers with no stigmata of bleeding. - Gastritis with hemorrhage. - Normal second portion of the duodenum. - No specimens collected. - An endoscopically removable PEG placement was successfully completed. Recommendation: - Please follow the post-PEG recommendations including: Nutrition consult for formula and volume, advance food and medications per primary care provider, external bolster 1 cm from abdominal wall, external bolster snug to abdominal wall, may place dressing under bumper after day 3, NPO x4 hrs then water today, may use PEG today for meds and water, may use PEG tomorrow for feedings, check site for bleeding q 4 hrs and clean site with soap and water daily and dry thoroughly. - The patient has taken no previous anticoagulant or antiplatelet agents. Procedure Code(s): --- Professional --- 07340, Esophagogastroduodenoscopy, flexible, transoral; diagnostic, including collection of specimen(s) by brushing or washing, when performed (separate procedure) 77572, 59, Moderate sedation services provided by the same physician or other qualified health caretaker grounds performing the diagnostic or therapeutic service that the sedation supports, requiring the presence of an independent trained observer to assist in the monitoring of the patient's level of consciousness and physiological status; initial 15 minutes of intraservice time, patient age 5 years or older B4087, Gastrostomy/jejunostomy tube, standard, any material, any type, each CPT copyright 2017 [employer]. All rights reserved. The codes documented in this report are preliminary and upon hose tender review may be revised to meet current compliance requirements. Westley Davenport DO 05/22/2021 5:46:38 PM This report has been signed electronically. Number of Addenda: 1 Note Initiated On: 05/22/2021 1:58 PM Addendum Number: 1 Addendum Date: 02/17/2022 7:06:34 AM MAC was used instead of moderate sedation for the patient. Westley aDvenport, 02/17/2022 7:06:38 AM This report has been signed electronically.
--- NOTE | 2021-05-22 17:47 | OP.CCLET_ITS ---
02/17/2022 [facility] Re : Upper GI endoscopy procedure for Koby [facility] This procedure was performed on Saturday, May 22, 2021. My impressions and recommendations are as follows: Impressions : - Normal esophagus. - Non-bleeding gastric ulcers with no stigmata of bleeding. - Gastritis with hemorrhage. - Normal second portion of the duodenum. - No specimens collected. - An endoscopically removable PEG placement was successfully completed. Recommendations : - Please follow the post-PEG recommendations including: Nutrition consult for formula and volume, advance food and medications per primary care provider, external bolster 1 cm from abdominal wall, external bolster snug to abdominal wall, may place dressing under bumper after day 3, NPO x4 hrs then water today, may use PEG today for meds and water, may use PEG tomorrow for feedings, check site for bleeding q 4 hrs and clean site with soap and water daily and dry thoroughly. - The patient has taken no previous anticoagulant or antiplatelet agents. My findings are described in the full procedure note, which is enclosed. If I can be of further assistance, please feel free to contact me at . Sincerely, Westley Davenport, 05/22/2021 5:46:38 PM This report has been signed electronically.
[2021-05-22 22:25] LABS: Partial Thromboplast Time 26.9 Seconds (24.1-36.2)
[2021-05-22] MEDS: Menthol/Lanolin/Calamine/Znox 113 GM Tube 1 APPLIC TOPICAL (22:31)
--- NOTE | 2021-05-22 22:41 | NURSING ---
Per Dr. Calderon verbal order restart heparin at current rate and no bolus to be given. Heparin restarted at 22:30 at current rate 11ml/ hr will recheck PTT at 4:30 am.
[2021-05-22] MEDS: Vital AF 1.2 Cal Liq 1,500 ML 300 ML GT (23:27)
[2021-05-22] MEDS: Rosuvastatin 20 MG Tablet GT (23:28)
[2021-05-22] MEDS: Polyethylene Glycol 3350 17 GM PACKET 8.5 GM GT (23:29)
[2021-05-22] MEDS: Acetaminophen 650 MG/20 ML UDC GT (23:52)
[2021-05-23] VITALS (13 sets, daily range): BP systolic 105–130; BP diastolic 65–82; PULSE 62–80; RESP 16–24; TEMP 36.8–37.1; O2SAT 92–94
[2021-05-23] MEDS: Insulin Lispro 100 UNIT/ML INSULN.PEN SC ×3 (01:30→17:57)
[2021-05-23 01:36] LABS: Bedside Glucose 206 mg/dL (70-110)
[2021-05-23 04:46] LABS: Absolute Lymphocyte Count 1.01 X10^3/uL (0.83-4.51); Absolute Neutrophil Count 16.2 X10^3/uL (2.0-7.7); Basophil# 0.03 X10^3/uL; Basophil% 0.2 % (0-1); Eosinophil# 0.05 X10^3/uL; Eosinophils% 0.3 % (0-5); Hematocrit 34.5 % (40-54); Hemoglobin 11.6 g/dL (13.0-16.5); Lymphocyte # 1.01 X10^3/ul (0.83-4.51); Lymphocyte % 5.5 % (19-41); Mean Corp Hgb Conc 33.6 g/dL (32-36); Mean Corpuscular Hgb 30.6 pg (27.0-32.0); Mean Platelet Vol. 10.4 fl (6.2-12.0); Monocyte# 0.82 X10^3/uL; Monocyte% 4.4 % (0-10); NRBC Flagged by Analyzer 0 % (0-5); Neutrophil # 16.17 X10^3/uL (2.7-7.7); Neutrophil % 87.2 % (47-70); Platelet Count 320 K/mm3 (150-450); RBC Distribution Width CV 14.4 % (11.6-14.6); RBC Distribution Width SD 47.3 fl (35.1-43.9); Red Blood Count 3.79 M/mm3 (4.6-6.2); White Blood Count 18.5 K/mm3 (4.4-11.0)
[2021-05-23 05:00] LABS: Partial Thromboplast Time 45.6 Seconds (24.1-36.2)
[2021-05-23 05:04] LABS: ALB/GLOB Ratio 0.7 RATIO (0.9-2.4); AST(SGOT) 44 U/L (15-37); Alanine Aminotransfer ALT/SGPT 57 U/L (16-61); Albumin, Serum 2.2 g/dL (3.2-5.0); Alkaline Phosphatase 76 U/L (45-117); Anion Gap 6 (5-15); BUN 28 mg/dL (7-18); BUN/Creat Ratio 44.3 RATIO (10-20); Calcium,Total 8.1 mg/dL (8.5-10.1); Chloride 106 mmol/L (98-107); Creatinine, Serum 0.63 mg/dL (0.70-1.30); EST Glomerular Filtration Rate 131 mL/min (>60); Est Glom Filt Rate - Afr Amer 158 mL/min (>60); Estimated Creatinine Clearance 56.18 ml/min; Globulin 3.2 g/dL (2.2-4.2); Glucose 139 mg/dL (74-106); Potassium 4.1 mmol/L (3.5-5.1); Protein, Total 5.4 g/dL (6.4-8.2); Sodium Level 138 mmol/L (136-145)
[2021-05-23] MEDS: Heparin Injection (Vial) 5,000 UNIT/ML VIAL IV (05:18)
[2021-05-23] MEDS: Carbidopa/Levodopa 25/100 Tablet GT ×3 (05:30→14:58)
[2021-05-23] MEDS: Vital AF 1.2 Cal Liq 1,500 ML 300 ML GT ×4 (06:27→18:00)
[2021-05-23] MEDS: Ipratropium/Albuterol Sulfate 3 ML AMPUL.NEB INHALATION ×4 (06:53→19:19)
[2021-05-23 07:06] LABS: Bedside Glucose 142 mg/dL (70-110)
[2021-05-23] MEDS: Potassium Chloride Oral Soln 20 MEQ/15 ML UDC GT (09:37)
[2021-05-23] MEDS: Finasteride 5 MG Tablet GT (09:37)
[2021-05-23] MEDS: Cyanocobalamin 500 MCG Tablet 1000 MCG GT (09:38)
[2021-05-23] MEDS: Aspirin 81 MG TAB.CHEW GT (09:38)
[2021-05-23] MEDS: dexAMETHasone 2 MG TABLET 6 MG GT (09:38)
[2021-05-23] MEDS: Menthol/Lanolin/Calamine/Znox 113 GM Tube 1 APPLIC TOPICAL ×2 (09:39→22:47)
[2021-05-23] MEDS: Polyethylene Glycol 3350 17 GM PACKET 8.5 GM GT ×2 (09:39→22:50)
[2021-05-23] MEDS: NYSTATIN 500,000 UNIT/5 ML UDC 500000 UNIT PO ×4 (09:40→22:47)
--- NOTE | 2021-05-23 09:48 | PN.HOSP_ITS ---
Subjective Subjective Follow-up on acute hypoxic respiratory failure/acute COVID-19 pneumonia: Patient was seen and examined. Patient went for PEG tube yesterday. He remains alert oriented only to self. CT of the brain is unremarkable. Objective Data Objective Data Vital Signs: Vital Signs Temp Pulse Resp BP Pulse Ox 98.2 F 68 18 105/71 93 05/23/21 05:31 05/23/21 07:00 05/23/21 06:53 05/23/21 05:31 05/23/21 06:53 Oxygen Flow Rate (L/min) 1 Oxygen Delivery Method Room Air Weight: 68.9 kg Body Mass Index (BMI) 20.5 Intake & Output: Intake and Output for Last 24 Hours 05/21/21 05/22/21 05/23/21 23:59 23:59 23:59 Intake Total 3886.50 / 4311.50 1131.23 / 1131.23 199.25 / 199.25 Output Total 2049 / 2049 2251 / 2251 100 / 100 Balance 1836.50 / 2261.50 -1119.77 / -1119.77 99.25 / 99.25 Medical Nutrition Assessment Dietitian: Malnutrition Criteria Met Start: 05/13/21 10:34 Freq: Status: Active Protocol: Document 05/18/21 11:14 SAVANAH (Rec: 05/18/21 11:14 SAVANAH [id number]) Nutrition Malnutrition Evidence of Malnutrition Exists Yes Malnutrition (severe): Acute Illness/Injury Evidenced By Suboptimal Energy Intake ( Severe),Weight Loss (Severe) Intake Problem Inadequate Oral Intake Etiology r/t resp. failure Signs/Symptoms as evidenced by NPO status Status Active Problem Clinical Problem Acute Disease or Injury Related Malnutrition Etiology severe, acute malnutrition r/t inadequate energy intake w/ acute illness Signs/Symptoms as evidenced by unintentional wt loss of 7.5% wt loss since adm, estimated PO intake meeting <50% of estimated nutritional needs x 1 week Status Active Problem Unintended Weight Loss Status Inactive Problem Recommendation Dietitian Recommendations/Changes When medically able, rec TARUN Regular with Ensure compact 120 ml 4x/day w/ medpass Lab / Micro Data Result Diagrams: 05/23/21 04:35 05/23/21 04:35 Labs: Laboratory Results - last 24 hr 05/22/21 11:05: POC Glucose 118 H 05/22/21 21:15: APTT 26.9 05/23/21 01:26: POC Glucose 206 H 05/23/21 04:35: Sodium 138, Potassium 4.1, Chloride 106, Carbon Dioxide 26.0, Anion Gap 6, BUN 28 H, Creatinine 0.63 L, Estim Creat Clear Calc 56.18, Est GFR (MDRD) Af Amer 158, Est GFR (MDRD) Non-Af 131, BUN/Creatinine Ratio 44.3 H, Glucose 139 H, Calcium 8.1 L, Total Bilirubin 1.20 H, AST 44 H, ALT 57, Alkaline Phosphatase 76, Total Protein 5.4 L, Albumin 2.2 L, Globulin 3.2, Alb umin/Globulin Ratio 0.7 L 05/23/21 04:35: WBC 18.5 H, RBC 3.79 L, Hgb 11.6 L, Hct 34.5 L, MCV 91.0, MCH 30.6, MCHC 33.6, RDW Std Deviation 47.3 H, RDW Coeff of Evin 14.4, Plt Count 320, MPV 10.4, Immature Gran % (Auto) 2.400 H, Neut % (Auto) 87.2 H, Lymph % (Auto) 5.5 L, [place] % (Auto) 4.4, Eos % (Auto) 0.3, Baso % (Auto) 0.2, Absolute Neuts (auto) 16.2 H, Absolute Lymphs (auto) 1.01, Nucleated RBC % 0 05/23/21 04:35: APTT 45.6 H 05/23/21 06:26: POC Glucose 142 H Micro: Microbiology 05/12/21 14:40 Blood Culture (Wb) - Left Forearm Blood Culture - Final No growth in 5 days. 05/12/21 14:30 Blood Culture (Wb) - Left Hand Blood Culture - Final No growth in 5 days. 05/13/21 10:15 Wound - Hand Gram Stain - Final 05/13/21 10:15 Wound - Hand Wound Culture - Final Staphylococcus aureus 05/12/21 12:00 Sputum, Induced/Lukens Gram Stain - Final 05/12/21 12:00 Sputum, Induced/Lukens Respiratory Culture - Final Staphylococcus aureus 05/08/21 04:50 Blood Culture (Wb) - Anticubital Right Blood Culture - Final No growth in 5 days. 05/08/21 02:50 Blood Culture (Wb) - Anticubital Right Blood Culture - Final No growth in 5 days. 05/12/21 14:30 Urine Catheter - Collazo Legionella Antigen - Final 05/12/21 14:30 Urine Catheter - Collazo Streptococcus pneumoniae Antigen (M - Final 05/08/21 02:30 Urine, Catheterized Urine Culture - Final Culture exhibits no growth. 05/08/21 02:50 Mucosa - Nasopharyngeal Influenza Types A,B Direct FA (EUSEBIO) - Final 05/08/21 02:50 Nasal Secretion SARS-CoV-2 Antigen (Rapid) - Final SARS-CoV-2 (COVID 19) Radiography Diagnostic Testing: Radiology Impression Brain CT 05/22/21 11:53 IMPRESSION: There are no acute findings. Electronically Signed: Kleber Miles MD at 18:39 EST , Service support , Physical Exam Narrative Physical exam: General: Lethargic, opens eyes to command, cooperative, appears confused, appeared frail, masked facies, NG tube in situ HEENT: Atraumatic Oral: Moist Mucosa Neck: Supple Lungs: Diminished to auscultation Cardiovascular: HS I+II, regular, no murmurs Abdomen: Hematoma/reddish discoloration of skin in the anterior abdominal wall, bowel Sounds Present, Soft, Non Tender Extremities: No edema HEENT normocephalic, head/scalp atraumatic and moist oral mucous membranes Assessment & Plan Assessment/Plan (1) Acute respiratory failure with hypoxia: (2) COVID-19: (3) Parkinson disease: (4) Severe malnutrition: PLAN: 1. Acute hypoxic respiratory failure secondary to acute COVID-19 pneumonia/superimposed MSSA pneumonia, resolved Status post extubation on 05/17/21. Patient is on room air Continue with breathing treatments, baricitinib and dexamethasone Completed Remdesivir Wean off oxygen for SPO2 more than 94% 2. Dysphagia, status post PEG tube placement 05/22, continue on tube feeds 3. Acute PE, noted on CTA of the chest on 05/12 We will DC heparin drip, transition to Eliquis 4. Anterior abdominal wound hematoma, likely secondary to anticoagulation Vitals have been stable. Hemoglobin is also been stable Continue to monitor on anticoagulation 5. Acute MSSA pneumonia, completed antibiotics 6. Septic shock resolved 7. Hypokalemia, resolved 8. 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 Rest of his chronic medical conditions including hypertension, dyslipidemia, GERD, BPH, remained stable Meds reviewed Charges/Coding Visit Charges Inpatient E&M: 78418 Subs Hosp L2
--- NOTE | 2021-05-23 09:56 | EX.PCM.PN.GI ---
Subjective Subjective Patient is status post PEG tube placement yesterday for esophageal dysphagia and high aspiration risk status post Covid infection. There were no signs of bleeding overnight. Anticoagulation was restarted. Objective Data Objective Data Vital Signs: Vital Signs Temp Pulse Resp BP Pulse Ox 98.2 F 68 18 105/71 93 05/23/21 05:31 05/23/21 07:00 05/23/21 06:53 05/23/21 05:31 05/23/21 06:53 Oxygen Flow Rate (L/min) 1 Oxygen Delivery Method Room Air Weight: 151 lb 14.376 oz Body Mass Index (BMI) 20.5 Intake & Output: Intake and Output for Last 24 Hours 05/21/21 05/22/21 05/23/21 23:59 23:59 23:59 Intake Total 3886.50 / 4311.50 1131.23 / 1131.23 199.25 / 199.25 Output Total 2049 / 2049 2251 / 2251 100 / 100 Balance 1836.50 / 2261.50 -1119.77 / -1119.77 99.25 / 99.25 Medical Nutrition Assessment Dietitian: Malnutrition Criteria Met Start: 05/13/21 10:34 Freq: Status: Active Protocol: Document 05/18/21 11:14 SAVANAH (Rec: 05/18/21 11:14 SAVANAH [id number]) Nutrition Malnutrition Evidence of Malnutrition Exists Yes Malnutrition (severe): Acute Illness/Injury Evidenced By Suboptimal Energy Intake ( Severe),Weight Loss (Severe) Intake Problem Inadequate Oral Intake Etiology r/t resp. failure Signs/Symptoms as evidenced by NPO status Status Active Problem Clinical Problem Acute Disease or Injury Related Malnutrition Etiology severe, acute malnutrition r/t inadequate energy intake w/ acute illness Signs/Symptoms as evidenced by unintentional wt loss of 7.5% wt loss since adm, estimated PO intake meeting <50% of estimated nutritional needs x 1 week Status Active Problem Unintended Weight Loss Status Inactive Problem Recommendation Dietitian Recommendations/Changes When medically able, rec TARUN Regular with Ensure compact 120 ml 4x/day w/ medpass Lab / Micro Data Result Diagrams: 05/23/21 04:35 05/23/21 04:35 Labs: Laboratory Results - last 24 hr 05/22/21 11:05: POC Glucose 118 H 05/22/21 21:15: APTT 26.9 05/23/21 01:26: POC Glucose 206 H 05/23/21 04:35: Sodium 138, Potassium 4.1, Chloride 106, Carbon Dioxide 26.0, Anion Gap 6, BUN 28 H, Creatinine 0.63 L, Estim Creat Clear Calc 56.18, Est GFR (MDRD) Af Amer 158, Est GFR (MDRD) Non-Af 131, BUN/Creatinine Ratio 44.3 H, Glucose 139 H, Calcium 8.1 L, Total Bilirubin 1.20 H, AST 44 H, ALT 57, Alkaline Phosphatase 76, Total Protein 5.4 L, Albumin 2.2 L, Globulin 3.2, Albumin/Globulin Ratio 0.7 L 05/23/21 04:35: WBC 18.5 H, RBC 3.79 L, Hgb 11.6 L, Hct 34.5 L, MCV 91.0, MCH 30.6, MCHC 33.6, RDW Std Deviation 47.3 H, RDW Coeff of Evin 14.4, Plt Count 320, MPV 10.4, Immature Gran % (Auto) 2.400 H, Neut % (Auto) 87.2 H, Lymph % (Auto) 5.5 L, [place] % (Auto) 4.4, Eos % (Auto) 0.3, Baso % (Auto) 0.2, Absolute Neuts (auto) 16.2 H, Absolute Lymphs (auto) 1.01, Nucleated RBC % 0 05/23/21 04:35: APTT 45.6 H 05/23/21 06:26: POC Glucose 142 H Micro: Microbiology 05/12/21 14:40 Blood Culture (Wb) - Left Forearm Blood Culture - Final No growth in 5 days. 05/12/21 14:30 Blood Culture (Wb) - Left Hand Blood Culture - Final No growth in 5 days. 05/13/21 10:15 Wound - Hand Gram Stain - Final 05/13/21 10:15 Wound - Hand Wound Culture - Final Staphylococcus aureus 05/12/21 12:00 Sputum, Induced/Lukens Gram Stain - Final 05/12/21 12:00 Sputum, Induced/Lukens Respiratory Culture - Final Staphylococcus aureus 05/08/21 04:50 Blood Culture (Wb) - Anticubital Right Blood Culture - Final No growth in 5 days. 05/08/21 02:50 Blood Culture (Wb) - Anticubital Right Blood Culture - Final No growth in 5 days. 05/12/21 14:30 Urine Catheter - Collazo Legionella Antigen - Final 05/12/21 14:30 Urine Catheter - Collazo Streptococcus pneumoniae Antigen (M - Final 05/08/21 02:30 Urine, Catheterized Urine Culture - Final Culture exhibits no growth. 05/08/21 02:50 Mucosa - Nasopharyngeal Influenza Types A,B Direct FA (EUSEBIO) - Final 05/08/21 02:50 Nasal Secretion SARS-CoV-2 Antigen (Rapid) - Final SARS-CoV-2 (COVID 19) Radiography Diagnostic Testing: Radiology Impression Brain CT 05/22/21 11:53 IMPRESSION: There are no acute findings. Electronically Signed: Kleber Miles MD at 18:39 EST , Service support , Physical Exam GI GI Narrative: PEG tube in place with bumper at 4 cm from the stoma. Large hematoma Assessment & Plan Assessment/Plan (1) Severe malnutrition: PLAN: Status post PEG tube. Patient is doing very well. He can have medicine and feedings per PEG tube. Anticoagulation is okay in regards to the PEG tube.
[2021-05-23] MEDS: APIXABAN 5 MG TABLET 10 MG PO ×2 (11:26→22:46)
[2021-05-23 11:49] LABS: Partial Thromboplast Time 47.9 Seconds (24.1-36.2)
[2021-05-23] MEDS: 0.9% Saline Lock 10 ML Syringe IV (11:51)
[2021-05-23 12:11] LABS: Bedside Glucose 235 mg/dL (70-110)
[2021-05-23 17:25] LABS: Bedside Glucose 275 mg/dL (70-110)
[2021-05-23] MEDS: Rosuvastatin 20 MG Tablet GT (22:46)
--- NOTE | 2021-05-23 23:18 | NURSING ---
Spoke with Paul in pharmacy, x2. There is a shortage of Vital AF 1.2, unable to find any for pt's bolus feed tonight. Will need to speak with dietary in the morning, or have physician change order to Vital HP. Carolyn, RN
[2021-05-24] VITALS (11 sets, daily range): BP systolic 100–121; BP diastolic 58–76; PULSE 60–81; RESP 16–24; TEMP 36.7–37; O2SAT 92–96
[2021-05-24] MEDS: Insulin Lispro 100 UNIT/ML INSULN.PEN SC ×3 (00:21→16:41)
[2021-05-24 00:25] LABS: Bedside Glucose 170 mg/dL (70-110)
[2021-05-24 05:57] LABS: Absolute Lymphocyte Count 0.99 X10^3/uL (0.83-4.51); Absolute Neutrophil Count 22.7 X10^3/uL (2.0-7.7); Basophil# 0.04 X10^3/uL; Basophil% 0.2 % (0-1); Eosinophil# 0.01 X10^3/uL; Hematocrit 33.8 % (40-54); Hemoglobin 11.7 g/dL (13.0-16.5); Lymphocyte # 0.99 X10^3/ul (0.83-4.51); Mean Corp Hgb Conc 34.6 g/dL (32-36); Mean Corpuscular Hgb 31.6 pg (27.0-32.0); Mean Corpuscular Volume 91.4 fL (80-94); Mean Platelet Vol. 10.5 fl (6.2-12.0); Monocyte# 0.86 X10^3/uL; Monocyte% 3.4 % (0-10); NRBC Flagged by Analyzer 0 % (0-5); Neutrophil # 22.65 X10^3/uL (2.7-7.7); Neutrophil % 90.4 % (47-70); POSITIVE DIFFERENTIAL YES; Platelet Count 340 K/mm3 (150-450); RBC Distribution Width CV 14.7 % (11.6-14.6); RBC Distribution Width SD 47.9 fl (35.1-43.9); White Blood Count 25.1 K/mm3 (4.4-11.0)
[2021-05-24 06:01] LABS: Differential Indicated SCAN CRITERIA MET
[2021-05-24 06:24] LABS: ALB/GLOB Ratio 0.6 RATIO (0.9-2.4); AST(SGOT) 24 U/L (15-37); Alanine Aminotransfer ALT/SGPT 46 U/L (16-61); Albumin, Serum 2.2 g/dL (3.2-5.0); Alkaline Phosphatase 47 U/L (45-117); Anion Gap 8 (5-15); BUN 26 mg/dL (7-18); BUN/Creat Ratio 48.1 RATIO (10-20); Calcium,Total 8.3 mg/dL (8.5-10.1); Chloride 105 mmol/L (98-107); Creatinine, Serum 0.54 mg/dL (0.70-1.30); EST Glomerular Filtration Rate 157 mL/min (>60); Est Glom Filt Rate - Afr Amer 189 mL/min (>60); Estimated Creatinine Clearance 61.24 ml/min; Globulin 3.6 g/dL (2.2-4.2); Glucose 137 mg/dL (74-106); Potassium 4.5 mmol/L (3.5-5.1); Protein, Total 5.8 g/dL (6.4-8.2); Sodium Level 134 mmol/L (136-145)
[2021-05-24] MEDS: Carbidopa/Levodopa 25/100 Tablet GT ×3 (06:40→16:40)
[2021-05-24 06:56] LABS: Bedside Glucose 139 mg/dL (70-110)
[2021-05-24] MEDS: Ipratropium/Albuterol Sulfate 3 ML AMPUL.NEB INHALATION ×4 (08:06→19:30)
[2021-05-24 08:35] LABS: Bilirubin, Direct 0.36 mg/dL (0.00-0.30)
[2021-05-24] MEDS: Aspirin 81 MG TAB.CHEW GT (09:28)
[2021-05-24] MEDS: APIXABAN 5 MG TABLET 10 MG PO ×2 (09:28→20:45)
[2021-05-24] MEDS: Potassium Chloride Oral Soln 20 MEQ/15 ML UDC GT (09:28)
[2021-05-24] MEDS: Lansoprazole 15 MG Capsule.DR GT (09:29)
[2021-05-24] MEDS: Polyethylene Glycol 3350 17 GM PACKET 8.5 GM GT ×2 (09:29→20:45)
[2021-05-24] MEDS: NYSTATIN 500,000 UNIT/5 ML UDC 500000 UNIT PO ×3 (09:29→16:40)
[2021-05-24] MEDS: Menthol/Lanolin/Calamine/Znox 113 GM Tube 1 APPLIC TOPICAL ×2 (09:30→20:46)
[2021-05-24] MEDS: Finasteride 5 MG Tablet GT (09:30)
[2021-05-24] MEDS: Cyanocobalamin 500 MCG Tablet 1000 MCG GT (09:30)
[2021-05-24] MEDS: Jevity 1.5. 1,000 ML Bottle 275 ML GT ×4 (09:39→20:46)
[2021-05-24 11:36] LABS: Bedside Glucose 283 mg/dL (70-110)
--- NOTE | 2021-05-24 12:07 | PN.HOSP_ITS ---
Subjective Subjective Follow-up on acute hypoxic respiratory failure/acute COVID-19 pneumonia: Patient was seen and examined. No acute events. Patient is more alert today. Alert only to himself. Objective Data Objective Data Vital Signs: Vital Signs Temp Pulse Resp BP Pulse Ox 98.4 F 73 16 100/63 94 05/24/21 09:21 05/24/21 11:16 05/24/21 11:16 05/24/21 09:21 05/24/21 09:21 Oxygen Flow Rate (L/min) 1 Oxygen Delivery Method Room Air Weight: 67.8 kg Body Mass Index (BMI) 20.5 Intake & Output: Intake and Output for Last 24 Hours 05/22/21 05/23/21 05/24/21 23:59 23:59 23:59 Intake Total 1131.23 / 1131.23 577.45 / 577.45 Output Total 2251 / 2251 725 / 725 Balance -1119.77 / -1119.77 -147.55 / -147.55 Medical Nutrition Assessment Dietitian: Malnutrition Criteria Met Start: 05/13/21 10:34 Freq: Status: Active Protocol: Document 05/24/21 07:42 (Rec: 05/24/21 07:42 [id number]) Nutrition Malnutrition Evidence of Malnutrition Exists Yes Malnutrition (severe): Acute Illness/Injury Evidenced By Suboptimal Energy Intake ( Severe),Weight Loss (Severe) Intake Problem Inadequate Oral Intake Etiology r/t resp. failure, dysphagia Signs/Symptoms as evidenced by NPO status Status Active Problem Clinical Problem Acute Disease or Injury Related Malnutrition Etiology severe, acute malnutrition r/t inadequate energy intake w/ acute illness Signs/Symptoms as evidenced by unintentional wt loss of 11.1kg/14% wt loss since admission, estimated PO intake meeting <50% of estimated nutritional needs x 1 week Status Active Problem Unintended Weight Loss Etiology - Signs/Symptoms - Status Inactive Problem Recommendation Dietitian Recommendations/Changes 1) 275mL Bolus 5x/day via PEG. Start w/ 175mL for first bolus; increase to 250mL for second bolus as tolerated; increase to goal of 275mL for third bolus as tolerated. 200mL H2O flush w/ each bolus. Maintain appropriate positioning of pt after boluses. 2) Will adjust enteral nutrition if PO diet advanced or if pt continues to lose wt. 3) Continue daily wts. Lab / Micro Data Result Diagrams: 05/24/21 05:14 05/24/21 05:14 Labs: Laboratory Results - last 24 hr 05/23/21 11:35: POC Glucose 235 H 05/23/21 17:19: POC Glucose 275 H 05/24/21 00:19: POC Glucose 170 H 05/24/21 05:14: WBC 25.1 H, RBC 3.70 L, Hgb 11.7 L, Hct 33.8 L, MCV 91.4, MCH 31.6, MCHC 34.6, RDW Std Deviation 47.9 H, RDW Coeff of Evin 14.7 H, Plt Count 340, MPV 10.5, Immature Gran % (Auto) 2.000 H, Neut % (Auto) 90.4 H, Lymph % (Auto) 4.0 L, [place] % (Auto) 3.4, Eos % (Auto) 0.0, Baso % (Auto) 0.2, Absolute Neuts (auto) 22.7 H, Absolute Lymphs (auto) 0.99, Nucleated RBC % 0 05/24/21 05:14: Sodium 134 L, Potassium 4.5, Chloride 105, Carbon Dioxide 21.0, Anion Gap 8, BUN 26 H, Creatinine 0.54 L, Estim Creat Clear Calc 61.24, Est GFR (MDRD) Af Amer 189, Est GFR (MDRD) Non-Af 157, BUN/Creatinine Ratio 48.1 H, Glucose 137 H, Calcium 8.3 L, Total Bilirubin 1.20 H, AST 24, ALT 46, Alkaline Phosphatase 47, Total Protein 5.8 L, Albumin 2.2 L, Globulin 3.6, Albumin/Globulin Ratio 0.6 L 05/24/21 05:14: Total Bilirubin 1.20 H, Direct Bilirubin 0.36 H, Indirect Bilirubin 0.80 05/24/21 06:39: POC Glucose 139 H 05/24/21 11:11: POC Glucose 283 H Micro: Microbiology 05/12/21 14:40 Blood Culture (Wb) - Left Forearm Blood Culture - Final No growth in 5 days. 05/12/21 14:30 Blood Culture (Wb) - Left Hand Blood Culture - Final No growth in 5 days. 05/13/21 10:15 Wound - Hand Gram Stain - Final 05/13/21 10:15 Wound - Hand Wound Culture - Final Staphylococcus aureus 05/12/21 12:00 Sputum, Induced/Lukens Gram Stain - Final 05/12/21 12:00 Sputum, Induced/Lukens Respiratory Culture - Final Staphylococcus aureus 05/08/21 04:50 Blood Culture (Wb) - Anticubital Right Blood Culture - Final No growth in 5 days. 05/08/21 02:50 Blood Culture (Wb) - Anticubital Right Blood Culture - Final No growth in 5 days. 05/12/21 14:30 Urine Catheter - Collazo Legionella Antigen - Final 05/12/21 14:30 Urine Catheter - Collazo Streptococcus pneumoniae Antigen (M - Final 05/08/21 02:30 Urine, Catheterized Urine Culture - Final Culture exhibits no growth. 05/08/21 02:50 Mucosa - Nasopharyngeal Influenza Types A,B Direct FA (EUSEBIO) - Final 05/08/21 02:50 Nasal Secretion SARS-CoV-2 Antigen (Rapid) - Final SARS-CoV-2 (COVID 19) Physical Exam Narrative Physical exam: General: Alert oriented to self, appears frail, not on oxygen HEENT: Atraumatic Oral: Moist Mucosa Neck: Supple Lungs: Diminished to auscultation Cardiovascular: HS I+II, regular, no murmurs Abdomen: Hematoma/reddish discoloration of skin in the anterior abdominal wall, bowel Sounds Present, Soft, Non Tender Extremities: No edema HEENT normocephalic, head/scalp atraumatic and moist oral mucous membranes Assessment & Plan Assessment/Plan (1) Acute respiratory failure with hypoxia: (2) COVID-19: (3) Parkinson disease: (4) Severe malnutrition: PLAN: Summary: 78-year-old with Parkinson's who presented with generalized weakness and multiple falls. Patient was diagnosed with COVID-19 pneumonia. Initially on nasal cannula oxygen. Had elevated D-dimer, CTA showed bilateral lower lobe segmental and subsegmental PE. Transferred to ICU on 05/12. Emergently intubated on 05/13/21. Copious secretions found, sputum cultures growing MSSA. Extubated on 05/17/21. Patient with persistent dysphagia, acute on chronic, according to patient's , PEG tube placed on 05/22. 1. Acute hypoxic respiratory failure secondary to acute COVID-19 pneumoni a/superimposed MSSA pneumonia, resolved Status post extubation on 05/17/21. Patient is on room air Continue with breathing treatments, baricitinib (last dose is 05/25) Completed Remdesivir and dexamethasone 2. Dysphagia, status post PEG tube placement on 05/22, continue on tube feeds 3. Acute PE, noted on CTA of the chest on 05/12 Continue on Eliquis 4. Anterior abdominal wound hematoma, likely secondary to anticoagulation Vitals and hemoglobin continue to be stable Continue to monitor on anticoagulation 5. Acute MSSA pneumonia, completed antibiotics 6. Septic shock resolved 7. Hypokalemia, resolved 8. Severe acute malnutrition, business office coordinator consulted, on tube feeds 9. Rest of his chronic medical conditions including hypertension, dyslipidemia, GERD, BPH, remained stable Meds reviewed 10. Disposition: Discharge planning to assisted facility Charges/Coding Visit Charges Inpatient E&M: 32535 Subs Hosp L2
[2021-05-24 16:11] LABS: Bedside Glucose 268 mg/dL (70-110)
[2021-05-24] MEDS: Acetaminophen 650 MG/20 ML UDC GT (16:40)
[2021-05-24] MEDS: Rosuvastatin 20 MG Tablet GT (20:45)
[2021-05-25] VITALS (13 sets, daily range): BP systolic 112–122; BP diastolic 65–78; PULSE 58–82; RESP 16–26; TEMP 36.8–37.1; O2SAT 94–96
[2021-05-25] MEDS: Insulin Lispro 100 UNIT/ML INSULN.PEN SC ×3 (00:44→16:57)
[2021-05-25] MEDS: NYSTATIN 500,000 UNIT/5 ML UDC 500000 UNIT PO ×5 (00:45→23:19)
[2021-05-25 00:50] LABS: Bedside Glucose 150 mg/dL (70-110)
[2021-05-25 06:15] LABS: Bedside Glucose 132 mg/dL (70-110)
[2021-05-25 07:01] LABS: Absolute Lymphocyte Count 0.92 X10^3/uL (0.83-4.51); Absolute Neutrophil Count 13.5 X10^3/uL (2.0-7.7); Basophil# 0.02 X10^3/uL; Basophil% 0.1 % (0-1); Eosinophils% 0.6 % (0-5); Hematocrit 32.8 % (40-54); Hemoglobin 11.1 g/dL (13.0-16.5); Lymphocyte # 0.92 X10^3/ul (0.83-4.51); Lymphocyte % 5.9 % (19-41); Mean Corp Hgb Conc 33.8 g/dL (32-36); Mean Corpuscular Hgb 31.2 pg (27.0-32.0); Mean Corpuscular Volume 92.1 fL (80-94); Mean Platelet Vol. 10.4 fl (6.2-12.0); Monocyte# 0.84 X10^3/uL; Monocyte% 5.4 % (0-10); NRBC Flagged by Analyzer 0 % (0-5); Neutrophil # 13.52 X10^3/uL (2.7-7.7); Neutrophil % 86.3 % (47-70); Platelet Count 299 K/mm3 (150-450); RBC Distribution Width SD 49.3 fl (35.1-43.9); Red Blood Count 3.56 M/mm3 (4.6-6.2); White Blood Count 15.7 K/mm3 (4.4-11.0)
[2021-05-25] MEDS: Carbidopa/Levodopa 25/100 Tablet GT ×3 (07:05→16:57)
[2021-05-25] MEDS: Jevity 1.5. 1,000 ML Bottle 275 ML GT ×5 (07:05→23:15)
[2021-05-25 07:25] LABS: ALB/GLOB Ratio 0.6 RATIO (0.9-2.4); AST(SGOT) 20 U/L (15-37); Alanine Aminotransfer ALT/SGPT 45 U/L (16-61); Albumin, Serum 2.1 g/dL (3.2-5.0); Alkaline Phosphatase 46 U/L (45-117); Anion Gap 6 (5-15); BUN 18 mg/dL (7-18); BUN/Creat Ratio 30.3 RATIO (10-20); Calcium,Total 8.4 mg/dL (8.5-10.1); Chloride 103 mmol/L (98-107); EST Glomerular Filtration Rate 140 mL/min (>60); Est Glom Filt Rate - Afr Amer 170 mL/min (>60); Estimated Creatinine Clearance 62.84 ml/min; Globulin 3.5 g/dL (2.2-4.2); Glucose 124 mg/dL (74-106); Potassium 4.2 mmol/L (3.5-5.1); Protein, Total 5.6 g/dL (6.4-8.2); Sodium Level 135 mmol/L (136-145)
--- NOTE | 2021-05-25 09:23 | CASEMGMT ---
DYLLAN faxed clinical updates to Ed at [facility]. DYLLAN will follow up with her once fax has had a chance to go through. Cherie Diehl MSW ACTIVITY LEADER
[2021-05-25] MEDS: Aspirin 81 MG TAB.CHEW GT (09:59)
[2021-05-25] MEDS: Menthol/Lanolin/Calamine/Znox 113 GM Tube 1 APPLIC TOPICAL ×2 (09:59→23:20)
[2021-05-25] MEDS: APIXABAN 5 MG TABLET 10 MG PO (09:59)
[2021-05-25] MEDS: Cyanocobalamin 500 MCG Tablet 1000 MCG GT (10:00)
[2021-05-25] MEDS: Lansoprazole 15 MG Capsule.DR GT (10:00)
[2021-05-25] MEDS: Finasteride 5 MG Tablet GT (10:01)
[2021-05-25] MEDS: Potassium Chloride Oral Soln 20 MEQ/15 ML UDC GT (10:01)
[2021-05-25] MEDS: Ipratropium/Albuterol Sulfate 3 ML AMPUL.NEB INHALATION ×3 (10:21→19:20)
--- NOTE | 2021-05-25 12:24 | CASEMGMT ---
DYLLAN called Edra at the [facility] and left a voice mail requesting a return call. hCerie BALBUENA
[2021-05-25 12:35] LABS: Bedside Glucose 195 mg/dL (70-110)
[2021-05-25] MEDS: Acetaminophen 650 MG/20 ML UDC GT ×2 (13:35→23:19)
--- NOTE | 2021-05-25 13:35 | CASEMGMT ---
DYLLAN called Norma at [facility]. DYLLAN asked her about the request for SNF for patient. Norma reviewed her notes and said that request for SNF was denied on Tuesday. The Nurse Practitioner denied him for SNF as he had an NG tube, had a sitter due to behaviors, and was on O2. DYLLAN told her that DYLLAN faxed her updated information this am. Patient is on room air, no sitter, no NG tube, and he now has a peg tube in place. Norma said she will have to re-submit the request for SNF. She will let DYLLAN know when she hears back. Plan: [facility] pending [facility] approval. Cherie Diehl RATOPRINTER ESHA
--- NOTE | 2021-05-25 15:02 | CASEMGMT ---
DYLLAN called Norma at the [facility]. She was not available so DYLLAN left her a voice mail requesting a return call. Cherie BALBUENA
--- NOTE | 2021-05-25 15:56 | CASEMGMT ---
DYLLAN called Norma at the [facility]. She did not answer. Another message was not left. Cherie Diehl HULL AND DECK REMOVER ESHA
--- NOTE | 2021-05-25 16:22 | CHAPLAIN ---
Type of Pastoral Visit ___ Initial Visit _x__ Follow-up Visit ___ On-call Visit ___ General Patient Visit ___ Spiritual Assessment ___ Family Conference ___ Bereavement ___ Rapid Response ___ Code Blue ___ Other (describe below) Pastoral Care Referral From _x__ Patient ___ Family ___ Nurse ___ Physician ___ Material Specialist ___ Machine Rough Rounder ___ Other (describe below) Sacrament/Intervention _x__ Active listening ___ Anointing ___ Synagogue ___ Bereavement ___ Communion ___ Rosanna exploration ___ ___ Life review _x__ Prayer ___ Reconciliation ___ Sacrament of Sick _x__ Supportive presence ___ Wedding ___ Other (describe below) Pastoral Comments patient is awake and receiving a breathing treatment; pt responds to questions; pt welcomes prayer and presence; pt gets tearful at times when considering his future and his not being in [employer];
[2021-05-25 17:35] LABS: Bedside Glucose 247 mg/dL (70-110)
--- NOTE | 2021-05-25 17:53 | PN.HOSP_ITS ---
Subjective Subjective I talked to the patient's present in the room. Patient weight loss, loss of appetite poor intake, severe acute malnutrition. Had PEG tube. Still short of breath on mild exertion even on sitting up. Objective Data Objective Data Vital Signs: Vital Signs Temp Pulse Resp BP Pulse Ox 98.2 F 78 16 118/65 94 05/25/21 15:00 05/25/21 15:21 05/25/21 15:21 05/25/21 15:00 05/25/21 15:00 Oxygen Flow Rate (L/min) 95 Oxygen Delivery Method Room Air Weight: 161 lb 6.054 oz Body Mass Index (BMI) 20.5 Intake & Output: Intake and Output for Last 24 Hours 05/23/21 05/24/21 05/25/21 23:59 23:59 23:59 Intake Total 577.45 / 577.45 2100 / 2405 1560 / 1560 Output Total 725 / 725 900 / 900 Balance -147.55 / -147.55 2100 / 1505 660 / 660 Medical Nutrition Assessment Dietitian: Malnutrition Criteria Met Start: 05/13/21 10:34 Freq: Status: Active Protocol: Document 05/24/21 07:42 (Rec: 05/24/21 07:42 [id number]) Nutrition Malnutrition Evidence of Malnutrition Exists Yes Malnutrition (severe): Acute Illness/Injury Evidenced By Suboptimal Energy Intake ( Severe),Weight Loss (Severe) Intake Problem Inadequate Oral Intake Etiology r/t resp. failure, dysphagia Signs/Symptoms as evidenced by NPO status Status Active Problem Clinical Problem Acute Disease or Injury Related Malnutrition Etiology severe, acute malnutrition r/t inadequate energy intake w/ acute illness Signs/Symptoms as evidenced by unintentional wt loss of 11.1kg/14% wt loss since admission, estimated PO intake meeting <50% of estimated nutritional needs x 1 week Status Active Problem Unintended Weight Loss Etiology - Signs/Symptoms - Status Inactive Problem Recommendation Dietitian Recommendations/Changes 1) 275mL Bolus 5x/day via PEG. Start w/ 175mL for first bolus; increase to 250mL for second bolus as tolerated; increase to goal of 275mL for third bolus as tolerated. 200mL H2O flush w/ each bolus. Maintain appropriate positioning of pt after boluses. 2) Will adjust enteral nutrition if PO diet advanced or if pt continues to lose wt. 3) Continue daily wts. Lab / Micro Data Result Diagrams: 05/25/21 05:45 05/25/21 05:45 Labs: Laboratory Results - last 24 hr 05/25/21 00:42: POC Glucose 150 H 05/25/21 05:45: WBC 15.7 H, RBC 3.56 L, Hgb 11.1 L, Hct 32.8 L, MCV 92.1, MCH 31.2, MCHC 33.8, RDW Std Deviation 49.3 H, RDW Coeff of Evin 15.0 H, Plt Count 299, MPV 10.4, Immature Gran % (Auto) 1.700 H, Neut % (Auto) 86.3 H, Lymph % (Auto) 5.9 L, [place] % (Auto) 5.4, Eos % (Auto) 0.6, Baso % (Auto) 0.1, Absolute Neuts (auto) 13.5 H, Absolute Lymphs (auto) 0.92, Nucleated RBC % 0 05/25/21 05:45: Sodium 135 L, Potassium 4.2, Chloride 103, Carbon Dioxide 26.0, Anion Gap 6, BUN 18, Creatinine 0.60 L, Estim Creat Clear Calc 62.84, Est GFR (MDRD) Af Amer 170, Est GFR (MDRD) Non-Af 140, BUN/Creatinine Ratio 30.3 H, Glucose 124 H, Calcium 8.4 L, Total Bilirubin 1.00, AST 20, ALT 45, Alkaline Phosphatase 46, Total Protein 5.6 L, Albumin 2.1 L, Globulin 3.5, Albumin/Globulin Ratio 0.6 L 05/25/21 05:59: POC Glucose 132 H 05/25/21 12:02: POC Glucose 195 H 05/25/21 16:57: POC Glucose 247 H Micro: Microbiology 05/12/21 14:40 Blood Culture (Wb) - Left Forearm Blood Culture - Final No growth in 5 days. 05/12/21 14:30 Blood Culture (Wb) - Left Hand Blood Culture - Final No growth in 5 days. 05/13/21 10:15 Wound - Hand Gram Stain - Final 05/13/21 10:15 Wound - Hand Wound Culture - Final Staphylococcus aureus 05/12/21 12:00 Sputum, Induced/Lukens Gram Stain - Final 05/12/21 12:00 Sputum, Induced/Lukens Respiratory Culture - Final Staphylococcus aureus 05/08/21 04:50 Blood Culture (Wb) - Anticubital Right Blood Culture - Final No growth in 5 days. 05/08/21 02:50 Blood Culture (Wb) - Anticubital Right Blood Culture - Final No growth in 5 days. 05/12/21 14:30 Urine Catheter - Collazo Legionella Antigen - Final 05/12/21 14:30 Urine Catheter - Collazo Streptococcus pneumoniae Antigen (M - Final 05/08/21 02:30 Urine, Catheterized Urine Culture - Final Culture exhibits no growth. 05/08/21 02:50 Mucosa - Nasopharyngeal Influenza Types A,B Direct FA (EUSEBIO) - Final 05/08/21 02:50 Nasal Secretion SARS-CoV-2 Antigen (Rapid) - Final SARS-CoV-2 (COVID 19) Physical Exam Narrative General: Awake, lethargy, fatigue HEENT: Atraumatic, PERRLA, EOMI, Normocephalic Oral: No Gingival or Mucosal Lesions/ Ulcerations Neck: Supple, No JVD, Negative Carotid Bruits Lungs: Air entry diminished in bilateral lung bases. Bilateral coarse crepitations. Cardiovascular: Regular rate, Regular Rhythm, Normal S1, Normal S2, No murmurs Abdomen: PEG tube. : No renal angle tenderness. No suprapubic tenderness. Extremities: No edema, Capillary Refill Less than 3 Seconds Skin: Abdominal wall ecchymosis Lovenox. Musculoskeletal: No Tenderness to Palpation of Joints or Extremities. Weakness of muscles of extremities. Neurological: Cranial nerves II-XII grossly intact, DTR 2+/4 Psych/Mental Status: Flat affect Assessment & Plan Assessment/Plan (1) Acute respiratory failure with hypoxia: (2) COVID-19: (3) Parkinson disease: (4) Severe malnutrition: PLAN: 78-year-old with Parkinson's who presented with generalized weakness and multiple falls. Patient was diagnosed with COVID-19 pneumonia. Initially on na dinorah cannula oxygen. Had elevated D-dimer, CTA showed bilateral lower lobe segmental and subsegmental PE. Transferred to ICU on 05/12. Emergently intubated on 05/13/21. Copious secretions found, sputum cultures growing MSSA. Extubated on 05/17/21. Patient with persistent dysphagia, acute on chronic, according to patient's , PEG tube placed on 05/22. 1. Acute hypoxic respiratory failure secondary to acute COVID-19 pneumonia/superimposed MSSA pneumonia, resolved Status post extubation on 05/17/21. Patient is on room air Continue with breathing treatments, baricitinib (last dose is 05/25) Completed Remdesivir and dexamethasone 2. Dysphagia, status post PEG tube placement on 05/22, continue on tube feeds, intermittent bolus feeding 3. Acute PE, noted on CTA of the chest on 05/12: Patient had 7 days of therapeutic dose of Lovenox and then IV heparin drip after he had a bleeding. After that he was a started on Eliquis 10 mg twice daily 03/23. Patient is high risk of bleeding and he already had been therapeutic dose since 05/12 therefore Eliquis 5 mg twice daily will be a nobles decision based on history of bleeding and abdominal wall hematoma. Continue on Eliquis 4. Anterior abdominal wound hematoma, likely secondary to anticoagulation Vitals and hemoglobin continue to be stable Continue to monitor on anticoagulation 5. Acute MSSA pneumonia, completed antibiotics 6. Septic shock resolved 7. Hypokalemia, resolved 8. 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 Rest of his chronic medical conditions including hypertension, dyslipidemia, GERD, BPH, remained stable Meds reviewed 10. Disposition: Discharge planning to long-term facility Charges/Coding Visit Charges Inpatient E&M: 25453 Subs Hosp L2
[2021-05-25] MEDS: APIXABAN 5 MG TABLET PO (23:19)
[2021-05-25] MEDS: Rosuvastatin 20 MG Tablet GT (23:19)
[2021-05-25 23:50] LABS: Bedside Glucose 150 mg/dL (70-110)
[2021-05-26] VITALS (7 sets, daily range): BP systolic 105–113; BP diastolic 67–72; PULSE 65–74; RESP 16–20; TEMP 36.4–37.1; O2SAT 94–97
[2021-05-26] MEDS: Insulin Lispro 100 UNIT/ML INSULN.PEN SC ×3 (00:15→17:47)
[2021-05-26] MEDS: Carbidopa/Levodopa 25/100 Tablet GT ×3 (05:27→17:47)
[2021-05-26 06:27] LABS: Absolute Lymphocyte Count 0.82 X10^3/uL (0.83-4.51); Absolute Neutrophil Count 9.5 X10^3/uL (2.0-7.7); Basophil# 0.01 X10^3/uL; Basophil% 0.1 % (0-1); Eosinophil# 0.15 X10^3/uL; Eosinophils% 1.3 % (0-5); Hematocrit 32.2 % (40-54); Hemoglobin 10.9 g/dL (13.0-16.5); Lymphocyte # 0.82 X10^3/ul (0.83-4.51); Lymphocyte % 7.1 % (19-41); Mean Corp Hgb Conc 33.9 g/dL (32-36); Mean Corpuscular Hgb 31.4 pg (27.0-32.0); Mean Corpuscular Volume 92.8 fL (80-94); Mean Platelet Vol. 9.9 fl (6.2-12.0); Monocyte# 0.82 X10^3/uL; Monocyte% 7.1 % (0-10); NRBC Flagged by Analyzer 0 % (0-5); Neutrophil # 9.52 X10^3/uL (2.7-7.7); Neutrophil % 82.5 % (47-70); Platelet Count 285 K/mm3 (150-450); RBC Distribution Width CV 14.9 % (11.6-14.6); RBC Distribution Width SD 49.3 fl (35.1-43.9); Red Blood Count 3.47 M/mm3 (4.6-6.2); White Blood Count 11.5 K/mm3 (4.4-11.0)
[2021-05-26 06:46] LABS: Anion Gap 4 (5-15); BUN 15 mg/dL (7-18); BUN/Creat Ratio 25.6 RATIO (10-20); Calcium,Total 8.6 mg/dL (8.5-10.1); Chloride 103 mmol/L (98-107); Creatinine, Serum 0.59 mg/dL (0.70-1.30); EST Glomerular Filtration Rate 143 mL/min (>60); Est Glom Filt Rate - Afr Amer 173 mL/min (>60); Estimated Creatinine Clearance 62.84 ml/min; Glucose 124 mg/dL (74-106); Potassium 3.9 mmol/L (3.5-5.1); Sodium Level 134 mmol/L (136-145)
[2021-05-26] MEDS: Ipratropium/Albuterol Sulfate 3 ML AMPUL.NEB INHALATION ×2 (07:01→14:58)
[2021-05-26] MEDS: Jevity 1.5. 1,000 ML Bottle 275 ML GT ×5 (07:03→21:40)
[2021-05-26 07:06] LABS: Bedside Glucose 120 mg/dL (70-110)
--- NOTE | 2021-05-26 09:09 | CASEMGMT ---
DYLLAN contacted Nancy Greenberg at [facility]. She received DYLLAN's updates yesterday. DYLLAN asked if she has everything she needs from especially regarding the peg tube feeds. DYLLAN told her he is getting Jevity 1.5. She will check and make suer they have what they need. DYLLAN told her [facility]. [facility] is [facility] hear [facility] today. Cherie Diehl COLD MOLDING PRESS OPERATOR ESHA
--- NOTE | 2021-05-26 09:26 | CASEMGMT ---
DYLLAN called [facility] and left her a voice mail requesting return call. Cherie Diehl GROCERY SPECIALIST ESHA
[2021-05-26] MEDS: Menthol/Lanolin/Calamine/Znox 113 GM Tube 1 APPLIC TOPICAL ×2 (09:28→21:39)
[2021-05-26] MEDS: Lansoprazole 15 MG Capsule.DR GT (09:29)
[2021-05-26] MEDS: Aspirin 81 MG TAB.CHEW GT (09:29)
[2021-05-26] MEDS: Polyethylene Glycol 3350 17 GM PACKET 8.5 GM GT ×2 (09:29→21:40)
[2021-05-26] MEDS: APIXABAN 5 MG TABLET PO ×2 (09:29→21:41)
[2021-05-26] MEDS: Cyanocobalamin 500 MCG Tablet 1000 MCG GT (09:30)
[2021-05-26] MEDS: Potassium Chloride Oral Soln 20 MEQ/15 ML UDC GT (09:30)
[2021-05-26] MEDS: NYSTATIN 500,000 UNIT/5 ML UDC 500000 UNIT PO ×4 (09:30→22:24)
[2021-05-26] MEDS: Finasteride 5 MG Tablet GT (09:31)
[2021-05-26] MEDS: Acetaminophen 650 MG/20 ML UDC GT ×2 (09:34→22:24)
[2021-05-26 12:05] LABS: Bedside Glucose 241 mg/dL (70-110)
--- NOTE | 2021-05-26 13:05 | CASEMGMT ---
DYLLAN received a call from Norma at the [facility]. She has not heard anything yet regarding approval. The Nurse Practitioner that normally does the authorizations is out today. She will return tomorrow. There are others covering for her, but she does not know how fast they work. DYLLAN thanked her for the update. Cherie Diehl CELL TECHNICIAN ESHA
--- NOTE | 2021-05-26 15:06 | PN.HOSP_ITS ---
Subjective Subjective Patient is weak, emaciated, malnourished. Objective Data Objective Data Vital Signs: Vital Signs Temp Pulse Resp BP Pulse Ox 97.6 F L 66 16 108/72 94 05/26/21 09:00 05/26/21 09:00 05/26/21 09:00 05/26/21 09:00 05/26/21 09:00 Oxygen Flow Rate (L/min) 95 Oxygen Delivery Method Room Air Weight: 158 lb 1.143 oz Body Mass Index (BMI) 20.5 Intake & Output: Intake and Output for Last 24 Hours 05/24/21 05/25/21 05/26/21 23:59 23:59 23:59 Intake Total 2100 / 2405 2035 / 2035 1425 / 1425 Output Total 900 / 900 2 / 2 Balance 2100 / 1505 1135 / 1135 1423 / 1423 Medical Nutrition Assessment Dietitian: Malnutrition Criteria Met Start: 05/13/21 10:34 Freq: Status: Active Protocol: Document 05/24/21 07:42 AG (Rec: 05/24/21 07:42 AG [id number]) Nutrition Malnutrition Evidence of Malnutrition Exists Yes Malnutrition (severe): Acute Illness/Injury Evidenced By Suboptimal Energy Intake ( Severe),Weight Loss (Severe) Intake Problem Inadequate Oral Intake Etiology r/t resp. failure, dysphagia Signs/Symptoms as evidenced by NPO status Status Active Problem Clinical Problem Acute Disease or Injury Related Malnutrition Etiology severe, acute malnutrition r/t inadequate energy intake w/ acute illness Signs/Symptoms as evidenced by unintentional wt loss of 11.1kg/14% wt loss since admission, estimated PO intake meeting <50% of estimated nutritional needs x 1 week Status Active Problem Unintended Weight Loss Etiology - Signs/Symptoms - Status Inactive Problem Recommendation Dietitian Recommendations/Changes 1) 275mL Bolus 5x/day via PEG. Start w/ 175mL for first bolus; increase to 250mL for second bolus as tolerated; increase to goal of 275mL for third bolus as tolerated. 200mL H2O flush w/ each bolus. Maintain appropriate positioning of pt after boluses. 2) Will adjust enteral nutrition if PO diet advanced or if pt continues to lose wt. 3) Continue daily wts. Lab / Micro Data Result Diagrams: 05/26/21 06:05 05/26/21 06:05 Labs: Laboratory Results - last 24 hr 05/25/21 16:57: POC Glucose 247 H 05/25/21 23:17: POC Glucose 150 H 05/26/21 06:05: WBC 11.5 H, RBC 3.47 L, Hgb 10.9 L, Hct 32.2 L, MCV 92.8, MCH 31.4, MCHC 33.9, RDW Std Deviation 49.3 H, RDW Coeff of Evin 14.9 H, Plt Count 285, MPV 9.9, Immature Gran % (Auto) 1.900 H, Neut % (Auto) 82.5 H, Lymph % (Auto) 7.1 L, [place] % (Auto) 7.1, Eos % (Auto) 1.3, Baso % (Auto) 0.1, Absolute Neuts (auto) 9.5 H, Absolute Lymphs (auto) 0.82 L, Nucleated RBC % 0 05/26/21 06:05: Sodium 134 L, Potassium 3.9, Chloride 103, Carbon Dioxide 27.0, Anion Gap 4 L, BUN 15, Creatinine 0.59 L, Estim Creat Clear Calc 62.84, Est GFR (MDRD) Af Amer 173, Est GFR (MDRD) Non-Af 143, BUN/Creatinine Ratio 25.6 H, Glucose 124 H, Calcium 8.6 05/26/21 07:01: POC Glucose 120 H 05/26/21 11:55: POC Glucose 241 H Micro: Microbiology 05/12/21 14:40 Blood Culture (Wb) - Left Forearm Blood Culture - Final No growth in 5 days. 05/12/21 14:30 Blood Culture (Wb) - Left Hand Blood Culture - Final No growth in 5 days. 05/13/21 10:15 Wound - Hand Gram Stain - Final 05/13/21 10:15 Wound - Hand Wound Culture - Final Staphylococcus aureus 05/12/21 12:00 Sputum, Induced/Lukens Gram Stain - Final 05/12/21 12:00 Sputum, Induced/Lukens Respiratory Culture - Final Staphylococcus aureus 05/08/21 04:50 Blood Culture (Wb) - Anticubital Right Blood Culture - Final No growth in 5 days. 05/08/21 02:50 Blood Culture (Wb) - Anticubital Right Blood Culture - Final No growth in 5 days. 05/12/21 14:30 Urine Catheter - Collazo Legionella Antigen - Final 05/12/21 14:30 Urine Catheter - Collazo Streptococcus pneumoniae Antigen (M - Final 05/08/21 02:30 Urine, Catheterized Urine Culture - Final Culture exhibits no growth. 05/08/21 02:50 Mucosa - Nasopharyngeal Influenza Types A,B Direct FA (EUSEBIO) - Final 05/08/21 02:50 Nasal Secretion SARS-CoV-2 Antigen (Rapid) - Final SARS-CoV-2 (COVID 19) Physical Exam Narrative General: Awake, lethargy, fatigue HEENT: Atraumatic, PERRLA, EOMI, Normocephalic Oral: No Gingival or Mucosal Lesions/ Ulcerations Neck: Supple, No JVD, Negative Carotid Bruits Lungs: Air entry diminished in bilateral lung bases. Bilateral coarse crepitations. Cardiovascular: Sinus rhythm, Normal S1, Normal S2, No murmurs Abdomen: PEG tube. : No renal angle tenderness. No suprapubic tenderness. Extremities: No edema, Capillary Refill Less than 3 Seconds Skin: Abdominal wall ecchymosis Lovenox. Musculoskeletal: No Tenderness to Palpation of Joints or Extremities. Weakness of muscles of extremities. Neurological: Cranial nerves II-XII grossly intact, DTR 2+/4 Psych/Mental Status: Flat affect Assessment & Plan Assessment/Plan (1) Acute respiratory failure with hypoxia: (2) COVID-19: (3) Parkinson disease: (4) Severe malnutrition: PLAN: 78-year-old with Parkinson's who presented with generalized weakness and multiple falls. Patient was diagnosed with COVID-19 pneumonia. Initially on nasal cannula oxygen. Had elevated D-dimer, CTA showed bilateral lower lobe segmental and subsegmental PE. Transferred to ICU on 05/12. Emergently intubated on 05/13/21. Copious secretions found, sputum cultures growing MSSA. Extubated on 05/17/21. Patient with persistent dysphagia, acute on chronic, according to patient's , PEG tube placed on 05/22. 1. Acute hypoxic respiratory failure secondary to acute COVID-19 pneumonia/superimposed MSSA pneumonia, resolved Status post extubation on 05/17/21. Patient is on room air Continue with breathing treatments, baricitinib (last dose is 05/25) Completed Remdesivir and dexamethasone 2. Dysphagia, status post PEG tube placement on 05/22, continue on tube feeds, intermittent bolus feeding 05/26: On feeding. As per is very weak and unable to swallow before therefore high chances of aspiration and pneumonia. 3. Acute PE, noted on CTA of the chest on 05/12: Patient had 7 days of therapeutic dose of Lovenox and then IV heparin drip after he had a bleeding. After that he was a started on Eliquis 10 mg twice daily 03/23. Patient is high risk of bleeding and he already had been therapeutic dose since 05/12 therefore Eliquis 5 mg twice daily will be a nobles decision based on history of bleeding and abdominal wall hematoma. Continue on Eliquis. Monitor labs every 72 hours. 4. Anterior abdominal wound hematoma, likely secondary to anticoagulation Vitals and hemoglobin continue to be stable Continue to monitor on anticoagulation 05/26: There is ecchymosis all around the abdominal wall all the way going on the back. Hemoglobin is stable. 5. Acute MSSA pneumonia, completed antibiotics 6. Septic shock resolved 7. Hypokalemia, resolved 8. Severe acute malnutrition, maintenance representative consulted, on tube feeds 9. Rest of his chronic medical conditions including hypertension, dyslipidemia, GERD, BPH, remained stable Meds reviewed 10. [facility] Charges/Coding Visit Charges Inpatient E&M: 98935 Subs Hosp L2
[2021-05-26 18:06] LABS: Bedside Glucose 203 mg/dL (70-110)
[2021-05-26] MEDS: 0.9% Saline Lock 10 ML Syringe IV (21:40)
[2021-05-26] MEDS: Rosuvastatin 20 MG Tablet GT (22:24)
[2021-05-27] MEDS: Insulin Lispro 100 UNIT/ML INSULN.PEN SC ×2 (00:26→11:58)
[2021-05-27 00:30] LABS: Bedside Glucose 278 mg/dL (70-110)
[2021-05-27 04:01] VITALS: BP 107/58; PULSE 64; RESP 18; TEMP 36.9; O2SAT 94
[2021-05-27 05:45] LABS: Bedside Glucose 104 mg/dL (70-110)
[2021-05-27] MEDS: Jevity 1.5. 1,000 ML Bottle 275 ML GT ×3 (05:57→14:59)
[2021-05-27] MEDS: Carbidopa/Levodopa 25/100 Tablet GT ×2 (06:31→10:16)
[2021-05-27] MEDS: Acetaminophen 650 MG/20 ML UDC GT (06:31)
[2021-05-27 09:04] VITALS: O2SAT 94
--- NOTE | 2021-05-27 09:14 | CASEMGMT ---
DYLLAN called [facility] and spoke with learning and development administrator Juan Ramon. He will be covering admissions for now. DYLLAN told him [facility]. Hoping for approval today. Cherie BALBUENA
[2021-05-27 10:00] VITALS: BP 112/67; PULSE 68; RESP 18; TEMP 37; O2SAT 95
[2021-05-27] MEDS: APIXABAN 5 MG TABLET PO (10:10)
[2021-05-27] MEDS: Polyethylene Glycol 3350 17 GM PACKET 8.5 GM GT (10:14)
[2021-05-27] MEDS: NYSTATIN 500,000 UNIT/5 ML UDC 500000 UNIT PO ×2 (10:15→15:00)
[2021-05-27] MEDS: Menthol/Lanolin/Calamine/Znox 113 GM Tube 1 APPLIC TOPICAL (10:15)
[2021-05-27] MEDS: Aspirin 81 MG TAB.CHEW GT (10:16)
[2021-05-27] MEDS: Cyanocobalamin 500 MCG Tablet 1000 MCG GT (10:16)
--- NOTE | 2021-05-27 10:25 | CASEMGMT ---
DYLLAN called Norma at the [facility] and left her a voice mail requesting a return call. Plan: d/c to [facility] pending [place] approval. Cherie BALBUENA
--- NOTE | 2021-05-27 10:50 | CASEMGMT ---
DYLLAN received a call from Edra at the [facility] and patient was approved. DYLLAN notified physician and RN. Cherie BALBUENA
--- NOTE | 2021-05-27 10:56 | TREXTCAR_ITS ---
Diet 05/23/21 13:33 NPO [Diet: Nothing Per Oral] Is pt able to select menu?: No Diet Comments: Ok for chips and sips via tsp after oral care and with TOTAL assistance Routine Orders/Code Status Suppository Type: Dulcolax 10mg Suppository Frequency: Daily PRN Code Status: Full Code Wound(s) rt hand: Wound Type: Skin Tear rt knee: Wound Type: Abrasion left hand: Wound Type: Abrasion R ELBOW: Wound Type: Abrasion low abd: Wound Type: Hematoma ABD: Wound Type: PEG insertion Therapies Weight Bearing: Weight bearing as tolerated Extremity Affected:: Bilateral Lower Physical Therapy: Eval and Treat Occupational Therapy: Eval and Treat Speech Therapy: Eval and Treat Problem/Diagnosis (1) Acute respiratory failure with hypoxia: Status: Acute (2) COVID-19: Status: Acute (3) Parkinson disease: Status: Acute (4) Severe malnutrition: Status: Acute Allergies/Procedures Done in Hospital Allergies atorvastatin [From Lipitor] Adverse Reaction (Verified 05/02/21 07:54) Pain in joints Type of Care/Length of Stay Estimated LOS: Convalescent Care Less Than 30 days Type of Care Needed: Skilled Rehab Potential: Good Prognosis: Fair Additional Orders/Day of Discharge Day of Discharge: 05/27/21 Dietary and Speech Recommendations Dietitian Recommendations/Changes: 1) 275mL Bolus 5x/day via PEG. Start w/ 175mL for first bolus; increase to 250mL for second bolus as tolerated; increase to goal of 275mL for third bolus as tolerated. 200mL H2O flush w/ each bolus. Maintain appropriate positioning of pt after boluses. 2) Will adjust enteral nutrition if PO diet advanced or if pt continues to lose wt. 3) Continue daily wts. Discharge Plan Admission Admit Date/Time: 05/08/21 09:13 Primary Reason for Your Visit: Hypoxic respiratory failure/acute COVID-19 pneumonia Attending Provider: Alfonso Taylor Primary Care Provider: [facility],[place] Consulting Providers: Duncan Iniguez ; Yoel Calderon ; Nick Valladares ; Emelia Cormier DIRECTOR HRIS Discharge Orders/Prescriptions Prescriptions: New nystatin 100,000 unit/mL Suspension 500,000 unit PO 4X/DAY Qty: 0 RF: 0 ipratropium-albuterol 0.5 mg-3 mg(2.5 mg base)/3 mL Solution For Nebulization 3 ml inhalation Q4HWA.RT Qty: 0 RF: 0 carbidopa-levodopa 25-100 mg Tablet 1 tab G-tube TIDAC Qty: 0 RF: 0 menthol-zinc oxide [Calmoseptine] 0.44-20.6 % Ointment 1 applic topical BID Qty: 0 RF: 0 lansoprazole 15 mg Capsule,Delayed Release(Dr/Ec) 15 mg G-tube DAILY Qty: 0 RF: 0 insulin lispro [Humalog KwikPen Insulin] 100 unit/mL Insulin Pen See Protocol unit subcut Q6 Qty: 0 RF: 0 acetaminophen 650 mg/20.3 mL Solution 650 mg G-tube Q6H PRN PRN (Reason: Pain Score 1-10/Temp > 100.7 F) Qty: 0 RF: 0 Jevity 1.5 Reji 0.06 gram-1.5 kcal/mL Liquid 275 ml G-tube 5X/DAY Qty: 0 RF: 0 Eliquis 5 mg Tablet 5 mg feeding tube BID Qty: 0 RF: 0 Continued solifenacin 10 mg Tablet 10 mg PO DAILY RF: 0 tamsulosin 0.4 mg Capsule 0.4 mg PO QHS Qty: 0 RF: 0 Changed cyanocobalamin (vitamin B-12) 1,000 mcg Tablet 1,000 mcg feeding tube DAILY Qty: 0 RF: 0 potassium chloride 20 mEq Packet 20 meq feeding tube DAILY Qty: 0 RF: 0 lisinopril 2.5 mg Tablet 2.5 mg feeding tube DAILY Qty: 0 RF: 0 finasteride 5 mg Tablet 5 mg feeding tube DAILY Qty: 0 RF: 0 metoprolol tartrate 25 mg Tablet 12.5 mg feeding tube DAILY Qty: 0 RF: 0 polyethylene glycol 3350 8.5 gram Powder In Packet 8.5 g feeding tube BID PRN (Reason: constipation) Qty: 0 RF: 0 rosuvastatin 20 mg Capsule, Sprinkle 20 mg feeding tube QHS Qty: 0 RF: 0 aspirin 81 mg Capsule 81 mg feeding tube DAILY Qty: 0 RF: 0 Discontinued rabeprazole 20 mg Tablet,Delayed Release (Dr/Ec) 20 mg PO DAILY RF: 0 isosorbide mononitrate 30 mg Tablet Extended Release 24 Hr 30 mg PO DAILY RF: 0 tramadol 50 mg Tablet 50 mg PO BID PRN (Reason: Pain) RF: 0 hydrochlorothiazide 25 mg Tablet 25 mg PO DAILY RF: 0 [facility] - Within 2 Weeks Disposition Disposition (needs filled in before D/C Order can be placed): [facility]
--- NOTE | 2021-05-27 11:11 | PCM.DC.SUM ---
Providers Date of Admission: 05/08/21 Primary Care Physician: [facility] Consultations 05/12/21 09:38 Consult: Infectious Disease Routine Consulting Provider: Duncan Iniguez Reason for Consult: covid EMERGENT Consult: No Notified: Yes Date Notified: 05/12/21 Time Notified: 10:09 Method of Notification: Text Consult: Scout / Pulmonary Medicine Routine Consulting Provider: Pulmonary Medicine roverto Theresa Reason for Consult: covid EMERGENT Consult: No Notified: Yes Date Notified: 05/12/21 Time Notified: 09:03 Method of Notification: Text 05/21/21 12:10 Consult: Gastroenterology Routine Consulting Provider: [facility] Reason for Consult: peg tube placement EMERGENT Consult: No Notified: Yes Date Notified: 05/21/21 Time Notified: 12:11 Method of Notification: Verbal Reason For Visit: [place] Diagnosis Discharge Diagnosis (1) Acute respiratory failure with hypoxia: Status: Acute Code(s): J96.01 - Acute respiratory failure with hypoxia (2) COVID-19: Status: Acute Code(s): U07.1 - COVID-19 (3) Parkinson disease: Status: Acute Code(s): G20 - Parkinson's disease (4) Severe malnutrition: Status: Acute Code(s): E43 - Unspecified severe protein-calorie malnutrition Medications at Discharge Home Medications solifenacin 10 mg PO DAILY 05/05/21 carbidopa-levodopa 1 tab G-TUBE TIDAC #0 tab 05/22/21 ipratropium-albuterol 3 ml INHALATION Q4HWA.RT #0 ml 05/22/21 menthol-zinc oxide [Calmoseptine] 1 applic TOPICAL BID #0 g 05/22/21 nystatin 500,000 unit PO 4X/DAY #0 ml 05/22/21 acetaminophen 650 mg G-TUBE Q6H PRN PRN #0 ml 05/27/21 apixaban [Eliquis] 5 mg FEEDING TUBE BID #0 tab 05/27/21 aspirin 81 mg FEEDING TUBE DAILY #0 cap 05/27/21 cyanocobalamin (vitamin B-12) 1,000 mcg FEEDING TUBE DAILY #0 tab 05/27/21 finasteride 5 mg FEEDING TUBE DAILY #0 tab 05/27/21 insulin lispro [Humalog KwikPen Insulin] See Protocol SUBCUT Q6 #0 ml 05/27/21 lactose-reduced food with fibr [Jevity 1.5 Reji] 275 ml G-TUBE 5X/DAY #0 ml 05/27/21 lansoprazole 15 mg G-TUBE DAILY #0 cap 05/27/21 lisinopril 2.5 mg FEEDING TUBE DAILY #0 tab 05/27/21 metoprolol tartrate 12.5 mg FEEDING TUBE DAILY #0 tab 05/27/21 polyethylene glycol 3350 8.5 g FEEDING TUBE BID PRN #0 ea 05/27/21 potassium chloride 20 meq FEEDING TUBE DAILY #0 ea 05/27/21 rosuvastatin 20 mg FEEDING TUBE QHS #0 cap 05/27/21 tamsulosin 0.4 mg PO QHS #0 cap 05/27/21 Hospital Course Summary of Care Provided Hospital Course: 78-year-old with Parkinson's who presented with generalized weakness and multiple falls. Patient was diagnosed with COVID-19 pneumonia. Initially on nasal cannula oxygen. Had elevated D-dimer, CTA showed bilateral lower lobe segmental and subsegmental PE. Transferred to ICU on 05/12. Emergently intubated on 05/13/21. Copious secretions found, sputum cultures growing MSSA. Extubated on 05/17/21. Patient with persistent dysphagia, acute on chronic, according to patient's , PEG tube placed on 05/22. Patient is out of isolation 1. Acute hypoxic respiratory failure secondary to acute COVID-19 pneumonia/superimposed MSSA pneumonia, resolved Status post extubation on 05/17/21. Patient is on room air Continue with breathing treatments, baricitinib (last dose was 05/25) Completed Remdesivir and dexamethasone 2. Dysphagia, status post PEG tube placement on 05/22, continue on tube feeds, intermittent bolus feeding On feeding Jevity, bolus feeding. As per is very weak and unable to swallow before therefore high chances of aspiration and pneumonia. 3. Acute PE, noted on CTA of the chest on 05/12: Patient had 7 days of therapeutic dose of Lovenox and then IV heparin drip after he had a bleeding. After that he was a started on Eliquis 10 mg twice daily 03/23. Patient is high risk of bleeding and he already had been therapeutic dose since 05/12 therefore Eliquis 5 mg twice daily will be a nobles decision based on history of bleeding and abdominal wall hematoma. Continue on Eliquis. Monitor labs twice weekly for 1 week and if stable then weekly for 1 month and then monthly. 4. Anterior abdominal wound hematoma, likely secondary to anticoagulation Vitals and hemoglobin continue to be stable Continue to monitor on anticoagulation There is ecchymosis all around the abdominal wall all the way going on the back. Hemoglobin is stable. 5. Acute MSSA pneumonia, completed antibiotics 6. Septic shock resolved 7. Hypokalemia, resolved 8. Severe acute malnutrition, drum stock clerk consulted, on tube feeds 9. Rest of his chronic medical conditions including hypertension, dyslipidemia, GERD, BPH, remained stable Discharge medication reconciliation done. Discharge follow-up instructions completed. Discharge process discussed with the patient and all questions were answered to patient's satisfaction. Discharge to SNF. Total time spent, exact 35 minutes on discharge meds reconciliation, examination, coordination of care with nurses and ancillary staff, review of imaging and blood test and discussion with the patient on follow-up instructions Physical Exam Narrative Seen and examined Patient is sitting on the chair. General: Awake, more conversant. Although incomprehensible speech. HEENT: Atraumatic, PERRLA, EOMI, Normocephalic Oral: No Gingival or Mucosal Lesions/ Ulcerations Neck: Supple, No JVD, Negative Carotid Bruits Lungs: Air entry diminished in bilateral lung bases. Bilateral coarse crepitations. Does not seem pulmonary edema Cardiovascular: Sinus rhythm, Normal S1, Normal S2, No murmurs Abdomen: PEG tube. On bolus feeding. : No renal angle tenderness. No suprapubic tenderness. Extremities: No edema, Capillary Refill Less than 3 Seconds Skin: Abdominal wall ecchymosis due to Lovenox Lovenox. Musculoskeletal: No Tenderness to Palpation of Joints or Extremities. Weakness of muscles of extremities. Neurological: Cranial nerves II-XII grossly intact, DTR 2+/4 Psych/Mental Status: Flat affect Medical Records Data Medical Nutrition Assessment Dietitian: Malnutrition Criteria Met Start: 05/13/21 10:34 Freq: Status: Active Protocol: Document 05/24/21 07:42 (Rec: 05/24/21 07:42 [id number]) Nutrition Malnutrition Evidence of Malnutrition Exists Yes Malnutrition (severe): Acute Illness/Injury Evidenced By Suboptimal Energy Intake ( Severe),Weight Loss (Severe) Intake Problem Inadequate Oral Intake Etiology r/t resp. failure, dysphagia Signs/Symptoms as evidenced by NPO status Status Active Problem Clinical Problem Acute Disease or Injury Related Malnutrition Etiology severe, acute malnutrition r/t inadequate energy intake w/ acute illness Signs/Symptoms as evidenced by unintentional wt loss of 11.1kg/14% wt loss since admission, estimated PO intake meeting <50% of estimated nutritional needs x 1 week Status Active Problem Unintended Weight Loss Etiology - Signs/Symptoms - Status Inactive Problem Recommendation Dietitian Recommendations/Changes 1) 275mL Bolus 5x/day via PEG. Start w/ 175mL for first bolus; increase to 250mL for second bolus as tolerated; increase to goal of 275mL for third bolus as tolerated. 200mL H2O flush w/ each bolus. Maintain appropriate positioning of pt after boluses. 2) Will adjust enteral nutrition if PO diet advanced or if pt continues to lose wt. 3) Continue daily wts. Weight / BMI Weight Weight: 157 lb 10.088 oz Body Mass Index (BMI) 20.5 ABG / Lab / Microbiology Data Result Diagrams: 05/26/21 06:05 05/26/21 06:05 Laboratory: Laboratory Results - last 24 hr 05/26/21 11:55: POC Glucose 241 H 05/26/21 17:47: POC Glucose 203 H 05/27/21 00:25: POC Glucose 278 H 05/27/21 05:25: POC Glucose 104 Microbiology: Microbiology 05/12/21 14:40 Blood Culture (Wb) - Left Forearm Blood Culture - Final No growth in 5 days. 05/12/21 14:30 Blood Culture (Wb) - Left Hand Blood Culture - Final No growth in 5 days. 05/13/21 10:15 Wound - Hand Gram Stain - Final 05/13/21 10:15 Wound - Hand Wound Culture - Final Staphylococcus aureus 05/12/21 12:00 Sputum, Induced/Lukens Gram Stain - Final 05/12/21 12:00 Sputum, Induced/Lukens Respiratory Culture - Final Staphylococcus aureus 05/08/21 04:50 Blood Culture (Wb) - Anticubital Right Blood Culture - Final No growth in 5 days. 05/08/21 02:50 Blood Culture (Wb) - Anticubital Right Blood Culture - Final No growth in 5 days. 05/12/21 14:30 Urine Catheter - Collazo Legionella Antigen - Final 05/12/21 14:30 Urine Catheter - Collazo Streptococcus pneumoniae Antigen (M - Final 05/08/21 02:30 Urine, Catheterized Urine Culture - Final Culture exhibits no growth. 05/08/21 02:50 Mucosa - Nasopharyngeal Influenza Types A,B Direct FA (EUSEBIO) - Final 05/08/21 02:50 Nasal Secretion SARS-CoV-2 Antigen (Rapid) - Final SARS-CoV-2 (COVID 19) Meaningful Use Info Meaningful Use Diagnoses (Choose all that apply): None applicable Discharge Plan Admission Admit Date/Time: 05/08/21 09:13 Primary Reason for Your Visit: Hypoxic respiratory failure/acute COVID-19 pneumonia Attending Provider: Alfonso Taylor Primary Care Provider: [facility],[place] Consulting Providers: Duncan Iniguez ; Yoel Calderon ; Nick Valladares ; Emelia Cormier FOUNDRY TECHNICIAN Discharge Orders/Prescriptions Prescriptions: New nystatin 100,000 unit/mL Suspension 500,000 unit PO 4X/DAY Qty: 0 RF: 0 ipratropium-albuterol 0.5 mg-3 mg(2.5 mg base)/3 mL Solution For Nebulization 3 ml inhalation Q4HWA.RT Qty: 0 RF: 0 carbidopa-levodopa 25-100 mg Tablet 1 tab G-tube TIDAC Qty: 0 RF: 0 menthol-zinc oxide [Calmoseptine] 0.44-20.6 % Ointment 1 applic topical BID Qty: 0 RF: 0 lansoprazole 15 mg Capsule,Delayed Release(Dr/Ec) 15 mg G-tube DAILY Qty: 0 RF: 0 insulin lispro [Humalog KwikPen Insulin] 100 unit/mL Insulin Pen See Protocol unit subcut Q6 Qty: 0 RF: 0 acetaminophen 650 mg/20.3 mL Solution 650 mg G-tube Q6H PRN PRN (Reason: Pain Score 1-10/Temp > 100.7 F) Qty: 0 RF: 0 Jevity 1.5 Reji 0.06 gram-1.5 kcal/mL Liquid 275 ml G-tube 5X/DAY Qty: 0 RF: 0 Eliquis 5 mg Tablet 5 mg feeding tube BID Qty: 0 RF: 0 Continued solifenacin 10 mg Tablet 10 mg PO DAILY RF: 0 tamsulosin 0.4 mg Capsule 0.4 mg PO QHS Qty: 0 RF: 0 Changed cyanocobalamin (vitamin B-12) 1,000 mcg Tablet 1,000 mcg feeding tube DAILY Qty: 0 RF: 0 potassium chloride 20 mEq Packet 20 meq feeding tube DAILY Qty: 0 RF: 0 lisinopril 2.5 mg Tablet 2.5 mg feeding tube DAILY Qty: 0 RF: 0 finasteride 5 mg Tablet 5 mg feeding tube DAILY Qty: 0 RF: 0 metoprolol tartrate 25 mg Tablet 12.5 mg feeding tube DAILY Qty: 0 RF: 0 polyethylene glycol 3350 8.5 gram Powder In Packet 8.5 g feeding tube BID PRN (Reason: constipation) Qty: 0 RF: 0 rosuvastatin 20 mg Capsule, Sprinkle 20 mg feeding tube QHS Qty: 0 RF: 0 aspirin 81 mg Capsule 81 mg feeding tube DAILY Qty: 0 RF: 0 Discontinued rabeprazole 20 mg Tablet,Delayed Release (Dr/Ec) 20 mg PO DAILY RF: 0 isosorbide mononitrate 30 mg Tablet Extended Release 24 Hr 30 mg PO DAILY RF: 0 tramadol 50 mg Tablet 50 mg PO BID PRN (Reason: Pain) RF: 0 hydrochlorothiazide 25 mg Tablet 25 mg PO DAILY RF: 0 [facility]errals [facility] - Within 2 Weeks Disposition Disposition (needs filled in before D/C Order can be placed): [facility]
[2021-05-27] MEDS: Ipratropium/Albuterol Sulfate 3 ML AMPUL.NEB INHALATION ×2 (11:22→15:13)
[2021-05-27 11:26] VITALS: PULSE 70; RESP 24; O2SAT 96
--- NOTE | 2021-05-27 12:48 | CASEMGMT ---
DYLLAN faxed d/c orders to [facility]. DYLLAN spoke with Juan Ramon at [facility] and [facility] do have Jevity 1.5 for patient. DYLLAN spoke with patient and his and updated them that patient is being discharged today. DYLLAN will let them know a time. SW awaiting COVID test then transport will be set up. DYLLAN completed a PASRR as patient will likely be at the intermediate for more than 30 days. Plan: d/c to [facility] under skilled level of care on a PASRR. [facility] will transport via cot. Cherie BALBUENA
[2021-05-27 14:31] LABS: Bedside Glucose 214 mg/dL (70-110)
--- NOTE | 2021-05-27 14:31 | CASEMGMT ---
SW received orders and negative COVID for patient. DYLLAN arranged for patient to get picked up 4p via cot. DYLLAN faxed orders, negative COVID, and transport time to [facility]. DYLLAN notified RN, patient, his , physician office secretary, and Juan Ramon at [facility]. SW completed a PASRR as patient will likely be there more than 30 days. All in agreement with discharge plan. Plan: d/c to [facility] under skilled level of care on a PASRR. [facility] transported via cot. Cherie BALBUENA
[2021-05-27 15:00] VITALS: BP 111/70; PULSE 66; RESP 18; TEMP 36.9; O2SAT 97
[2021-05-27 15:16] VITALS: PULSE 67; RESP 20
== END 2021-05-27 16:36 | DRG 207 ==
LOC: ED 21:32 → MS3 23:52 → ICU 05-12 10:35 → PCU 05-22 17:12
PROVIDERS: Family Medicine; Internal Medicine; Internal Medicine Critical Care Medicine; Internal Medicine Gastroenterology; Internal Medicine Infectious Disease; Nurse Practitioner Family; Physician Assistant; Admitting Provider Hospitalist; Emergency Provider Emergency Medicine; Visit Provider Internal Medicine
PROC: 0DJ08ZZ Inspection of Upper Intestinal Tract, Via Natural or Artificial Opening Endoscopic (ICD-10-PCS; CPT 43235; principal; 2021-05-22 12:25)
DX: U07.1 COVID-19 (principal); J96.01 Acute respiratory failure with hypoxia; I26.93 Single subsegmental thrombotic pulmonary embolism without acute cor pulmonale; J12.82 Pneumonia due to coronavirus disease 2019; J15.211 Pneumonia due to Methicillin susceptible Staphylococcus aureus; A41.89 Other specified sepsis; R65.21 Severe sepsis with septic shock; E43 Unspecified severe protein-calorie malnutrition; G93.40 Encephalopathy, unspecified; R13.10 Dysphagia, unspecified; I25.10 Atherosclerotic heart disease of native coronary artery without angina pectoris; E87.6 Hypokalemia; G20 Parkinson's disease; I10 Essential (primary) hypertension; E78.5 Hyperlipidemia, unspecified; K21.9 Gastro-esophageal reflux disease without esophagitis; N40.0 Benign prostatic hyperplasia without lower urinary tract symptoms; H91.93 Unspecified hearing loss, bilateral; S30.1XXA Contusion of abdominal wall, initial encounter; Z68.25 Body mass index [BMI] 25.0-25.9, adult; Z68.20 Body mass index [BMI] 20.0-20.9, adult; R29.6 Repeated falls; S61.411A Laceration without foreign body of right hand, initial encounter; S61.412A Laceration without foreign body of left hand, initial encounter; W18.30XA Fall on same level, unspecified, initial encounter; Y92.009 Unspecified place in unspecified non-institutional (private) residence as the place of occurrence of the external cause; I25.2 Old myocardial infarction; Z86.73 Personal history of transient ischemic attack (TIA), and cerebral infarction without residual deficits; Z86.718 Personal history of other venous thrombosis and embolism; Z87.891 Personal history of nicotine dependence
CPT/HCPCS: 31500; 31720; 36415; 36600; 70450; 71045; 71275; 72125; 73502; 74018; 80048; 80053; 80076; 81001; 82140; 82247; 82248; 82306; 82550; 82607; 82803; 82962; 83735; 83880; 84100; 84145; 84439; 84443; 84478; 84481; 84484; 85025; 85379; 85610; 85730; 86140; 87040; 87070; 87077; 87086; 87186; 87205; 87426; 87449; 87641; 87804; 92526; 92610; 93005; 94002; 94003; 94640; 94660; 94667; 94668; 97110; 97116; 97162; 97166; 97530; 97535; 97802; 97803; 99251; 99285; J7050; Q9967; A4216; G0463; J2405; J3010; J7799

== ENCOUNTER 2021-10-21 11:14 | Emergency (ER) | payer OTHER, SELFPAY ==
[2021-10-21 11:15] VITALS: BP 138/74; PULSE 80; RESP 19; TEMP 36.5; O2SAT 96; BMI 25.1
--- NOTE | 2021-10-21 11:27 | EKG12_ITS ---
Test Reason : CP Blood Pressure : / mmHG Vent. Rate : 081 BPM Atrial Rate : 079 BPM P-R Int : 000 ms QRS Dur : 118 ms QT Int : 412 ms P-R-T Axes : 000 -37 043 degrees QTc Int : 478 ms Normal sinus rhythm Left axis deviation Incomplete left bundle branch block Abnormal ECG Confirmed by LORENZO CASTAÑEDA, LISA ([id number]), state editor ALMA ELENA ([id number]) on 10/23/2021 11:44:44 AM Referred By: LIBERTY Confirmed By:LISA VENTURA MD
[2021-10-21] MEDS: Aspirin 81 MG TAB.CHEW 324 MG PO (11:44)
[2021-10-21 11:46] VITALS: BP 128/70; PULSE 79; RESP 18; O2SAT 97
--- NOTE | 2021-10-21 11:50 | RAD_ITS ---
STUDY: X-RAY CHEST REASON FOR EXAM: Male, 76 years old. Chest pain TECHNIQUE: Single AP portable view of the chest. COMPARISON: Comparison is made with prior study of 05/12/2021. FINDINGS: EKG electrodes are seen. Mild degree of increased markings at the left lung base suggestive of left basilar atelectasis. There is no demonstrated pleural abnormality. Normal size heart. Normal mediastinum and iris. Normal visualized pulmonary arteries. There is atherosclerotic tortuosity of the aortic arch and descending thoracic aorta. There are diffuse degenerative changes of the visualized thoracic spine. There is degenerative osteoarthritis of the bilateral shoulders. There is no demonstrated abnormality of the visualized soft tissue structures of the upper abdomen. RAD/Chest 1 View (Portable) IMPRESSION: Mild degree of increased markings at the left lung base suggestive of left basilar atelectasis. Electronically Signed: Boone Leonard MD at 12:03 EDT ,
[2021-10-21 11:57] LABS: Absolute Lymphocyte Count 1.45 X10^3/uL (0.83-4.51); Absolute Neutrophil Count 5.2 X10^3/uL (2.0-7.7); Basophil# 0.05 X10^3/uL; Basophil% 0.7 % (0-1); Eosinophil# 0.07 X10^3/uL; Eosinophils% 0.9 % (0-5); Hematocrit 38.6 % (40-54); Hemoglobin 12.5 g/dL (13.0-16.5); Lymphocyte # 1.45 X10^3/ul (0.83-4.51); Lymphocyte % 19.2 % (19-41); Mean Corp Hgb Conc 32.4 g/dL (32-36); Mean Corpuscular Hgb 29.2 pg (27.0-32.0); Mean Corpuscular Volume 90.2 fL (80-94); Mean Platelet Vol. 9.4 fl (6.2-12.0); Monocyte# 0.76 X10^3/uL; Monocyte% 10.1 % (0-10); NRBC Flagged by Analyzer 0 % (0-5); Neutrophil # 5.17 X10^3/uL (2.7-7.7); Neutrophil % 68.6 % (47-70); Platelet Count 251 K/mm3 (150-450); RBC Distribution Width CV 15.5 % (11.6-14.6); RBC Distribution Width SD 50.4 fl (35.1-43.9); Red Blood Count 4.28 M/mm3 (4.6-6.2); White Blood Count 7.5 K/mm3 (4.4-11.0)
[2021-10-21 12:17] LABS: Anion Gap 6 (5-15); BUN 21 mg/dL (7-18); BUN/Creat Ratio 25.5 RATIO (10-20); Calcium,Total 8.9 mg/dL (8.5-10.1); Chloride 104 mmol/L (98-107); Creatinine, Serum 0.82 mg/dL (0.70-1.30); EST Glomerular Filtration Rate 96 mL/min (>60); Est Glom Filt Rate - Afr Amer 116 mL/min (>60); Estimated Creatinine Clearance 75.44 ml/min; Glucose 119 mg/dL (74-106); Sodium Level 140 mmol/L (136-145); Troponin-I HS (w/2H Reflex) 10 pg/mL (3.0-78.0)
[2021-10-21 12:22] VITALS: BP 122/64; PULSE 77; RESP 15; O2SAT 97
--- NOTE | 2021-10-21 12:24 | RAD_ITS ---
STUDY: X-RAY - LEFT ANKLE REASON FOR EXAM: Male, 76 years old. Ankle pain TECHNIQUE: 3 view(s) of the ankle. COMPARISON: None. FINDINGS: Normal visualized distal tibia and fibula. Normal medial and lateral malleoli. Normal tibiotalar articulation and ankle mortise. Normal visualized talus and calcaneus. The visualized subtalar, talonavicular, calcaneocuboid and tarsal articulations are normal. Soft tissue swelling overlying the lateral malleolus. RAD/Ankle min 3 Views IMPRESSION: Soft tissue swelling overlying the lateral malleolus. Electronically Signed: Boone Leonard MD at 13:17 EDT ,
--- NOTE | 2021-10-21 12:24 | RAD_ITS ---
STUDY: X-RAY - LEFT FOOT CLINICAL: Male, 76 years old. Foot pain. TECHNIQUE: 3 view(s) of the foot. COMPARISON: None. FINDINGS: There is a plantar calcaneal spur. Normal visualized subtalar, talonavicular, calcaneocuboid, tarsal and tarsometatarsal articulations. Normal metatarsi. There is degenerative arthrosis of the metatarsophalangeal joint of the hallux . Normal tibial and fibular sesamoid bones. Normal interphalangeal joint of the great toe. Normal phalanges of the great toe. Normal second through fifth metatarsophalangeal joints. Normal interphalangeal joints and phalanges of the lesser toes. The soft tissue structures are unremarkable. RAD/Foot min 3 Views IMPRESSION: Degenerative changes at first metatarsophalangeal joint. Electronically Signed: Boone Leonard MD at 13:14 EDT ,
--- NOTE | 2021-10-21 12:25 | EDS_ITS ---
HPI History of Present Illness Chief Complaint: Chest Pain Narrative Narrative: 76-year-old male presenting with left foot pain as a chief complaint. He states the left foot hurts on medial aspect around his ankle and extends to the great toe. He denies any injury. Patient states that he previously wore a brace on this and it healed up. Has braces at home. He states he has not been wearing it. He took nothing for foot pain prior to arrival. The patient does report that 3 days ago he had some sharp chest pain in the center of his chest which lasted about 3 to 4 seconds. This dissipated and then came back for another couple of seconds. He has not had a return of this chest pain. Denies fever, chills, cough. Denies nausea or vomiting. [facility] Medical History Aortic aneurysm Coronary artery disease Debility DVT (deep venous thrombosis) Frequent falls Hearing loss, left Hearing loss, right High cholesterol Hypertension Kidney stones Myocardial infarct Parkinson disease Severe malnutrition Stroke/cerebrovascular accident Home Medications solifenacin 10 mg PO DAILY 05/05/21 [History Last Taken Unknown] ipratropium-albuterol 3 ml INHALATION Q4HWA.RT #0 ml 05/22/21 [Rx Last Taken Unknown] menthol-zinc oxide [Calmoseptine] 1 applic TOPICAL BID #0 g 05/22/21 [Rx Last Taken Unknown] insulin lispro [Humalog KwikPen Insulin] See Protocol SUBCUT Q6 #0 ml 05/27/21 [Rx Last Taken Unknown] tamsulosin 0.4 mg PO QHS #0 cap 05/27/21 [Rx Last Taken Unknown] acetaminophen 650 mg PO Q6H PRN PRN 10/21/21 [History Last Taken Unknown] aspirin 81 mg PO DAILY 10/21/21 [History Last Taken Unknown] carbidopa-levodopa 1 tab PO TIDAC 10/21/21 [History Last Taken Unknown] cyanocobalamin (vitamin B-12) 1,000 mcg PO DAILY 10/21/21 [History Last Taken Unknown] finasteride 5 mg PO DAILY 10/21/21 [History Last Taken Unknown] hydrochlorothiazide 12.5 mg PO DAILY 10/21/21 [History Last Taken Unknown] isosorbide mononitrate 30 mg PO DAILY 10/21/21 [History Last Taken Unknown] melatonin 3 mg PO QHS 10/21/21 [History Last Taken Unknown] metoprolol tartrate 12.5 mg PO DAILY 10/21/21 [History Last Taken Unknown] potassium chloride 20 meq PO DAILY 10/21/21 [History Last Taken Unknown] quetiapine 50 mg PO QHS 10/21/21 [History Last Taken Unknown] rabeprazole 20 mg PO BID 10/21/21 [History Last Taken Unknown] rosuvastatin 20 mg PO QHS 10/21/21 [History Last Taken Unknown] Allergy/AdvReac Type Severity Reaction Status Date / Time atorvastatin [From Lipitor] AdvReac Pain in Verified 10/21/21 11:18 joints Family History Other Heart disease Surgical History History of heart valve repair Social History Smoking Status: Former smoker ROS ROS ED Constitutional Constitutional ED: Denies chills or fever(s) Eyes Eyes: Denies none or change in vision ENT ENT ED: Denies ear pain or rhinorrhea Cardiovascular Cardiovascular: Reports as per HPI Respiratory/Chest Respiratory/Chest: Denies cough, dyspnea or sputum Gastrointestinal Gastrointestinal: Denies abdominal pain or nausea Genitourinary Genitourinary ED: Denies dysuria or hematuria Musculoskeletal Musculoskeletal: Reports other Details: Left ankle and foot pain ; Denies myalgias Integumentary Denies abscess or rash Neurologic Neurologic: Denies headache(s) or weakness Psychiatric Psychiatric: Denies anxiety or depression EXAM Physical Exam Const Vital Signs: 10/21/21 11:15 10/21/21 11:46 10/21/21 11:48 Temperature 97.7 F L Temperature Source Oral Pulse Rate 80 79 Respiratory Rate 19 H 18 Respiratory Effort Normal Non-Labored Blood Pressure 138/74 H 128/70 H Blood Pressure Mean 95 89 Pulse Ox 96 97 Oxygen Delivery Method Room Air Room Air 10/21/21 12:22 10/21/21 13:15 Temperature Temperature Source Pulse Rate 77 76 Respiratory Rate 15 15 Respiratory Effort Blood Pressure 122/64 H 119/83 H Blood Pressure Mean 83 95 Pulse Ox 97 96 Oxygen Delivery Method Room Air Room Air Positive well nourished General Appearance ED: NAD HEENT Reports moist mucous membranes normocephalic and atraumatic Eyes PERRL and EOMs intact bilaterally Resp normal respiratory effort and clear to auscultation bilaterally Cardio regular rate and regular rhythm GI normal to inspection, nondistended, normoactive bowel sounds Extremity Extremity Narrative: Tenderness palpation of the left medial malleolus and the left medial foot extending in the plantar surface medially to the great toe. No obvious deformities. Left foot neurovascular intact prescription for all 5 toes. Neuro Sensorium / Orientation: awake and alert Psych mental status grossly normal Skin no rashes or lesions noted Heart Score History: Slightly/Non-Suspicious ECG: Normal Age: >/= 65 years Risk Factors: >/= 3 Risk Factors or History of CAD Troponin: </= Normal Limit Score: 4 MDM MDM MDM Narrative Medical decision making narrative: Patient presenting with chief complaint of left ankle and foot pain. He does have history of DVT. Patient is a poor informant, but does state he previously had a leg brace on his foot and ankle which resolved the symptoms. On physical exam his foot is not significantly swollen, erythematous. He has pain over the medial malleolus extending into the left foot medially and the base of the left great toe. Duplex of the left lower extremity is negative for DVT. X-rays of the left foot and left ankle on my interpretation show no acute process. The radiologist does state there is some mild soft tissue swelling over the lateral malleolus. The patient does not express that his pain here. Since the patient states he had a couple of seconds of chest pain the other day I did obtain a chest x-ray which on my in terpretation shows no acute cardiopulmonary process and the radiologist agree. EKG is sinus rhythm with a ventricular of 81 bpm without sign of ischemic change on my interpretation. There is no significant interval change from previous EKG. Left bundle branch block is noted. High-sensitivity troponin is initially 10 and repeat troponin at 2 hours is 6. There is no significant interval change. Patient's potassium was slightly low at 3.0. Otherwise his lab work is unremarkable. Patient counseled he will need to increase potassium rich foods. He is already on potassium 20 mill equivalents p.o. daily. I think he can continue this. Patient work-up ultimately negative. He is instructed to use Tylenol and ibuprofen at home for foot pain and he may reuse his foot ankle brace. He is to follow-up with his primary care physician to ensure resolution. Impression: 1. Left ankle pain 2. Left foot pain 3. Chest pain noncardiac Lab Data Attestation: I reviewed the patient's lab results. Labs: Laboratory Results - last 24 hr 10/21/21 10/21/21 10/21/21 11:40 11:40 13:55 WBC 7.5 RBC 4.28 L Hgb 12.5 L Hct 38.6 L MCV 90.2 MCH 29.2 MCHC 32.4 RDW Std Deviation 50.4 H RDW Coeff of Evin 15.5 H Plt Count 251 MPV 9.4 Immature Gran % (Auto) 0.500 Neut % (Auto) 68.6 Lymph % (Auto) 19.2 [place] % (Auto) 10.1 H Eos % (Auto) 0.9 Baso % (Auto) 0.7 Absolute Neuts (auto) 5.2 Absolute Lymphs (auto) 1.45 Nucleated RBC % 0 Differential Comment Platelet Estimate MOD DEC RBC Morphology N CHROM Anisocytosis 1+ Sodium 140 Potassium 3.0 L Chloride 104 Carbon Dioxide 30.0 Anion Gap 6 BUN 21 H Creatinine 0.82 Estim Creat Clear Calc 75.44 Est GFR (MDRD) Af Amer 116 Est GFR (MDRD) Non-Af 96 BUN/Creatinine Ratio 25.5 H Glucose 119 H Calcium 8.9 Troponin I High Sens 10 6 Radiography Diagnostic Testing: Clinical Impression(s) from Imaging Studies Chest X-Ray 10/21/21 11:50 IMPRESSION: Mild degree of increased markings at the left lung base suggestive of left basilar atelectasis. Electronically Signed: Boone Leonard MD at 12:03 EDT , Ankle X-Ray 10/21/21 12:24 IMPRESSION: Soft tissue swelling overlying the lateral malleolus. Electronically Signed: Boone Leonard MD at 13:17 EDT , Foot X-Ray 10/21/21 12:24 IMPRESSION: Degenerative changes at first metatarsophalangeal joint. Electronically Signed: Boone Leonard MD at 13:14 EDT , Venous Doppler Study 10/21/21 12:26 Interpretation Summary There is no evidence of left lower extremity deep vein thrombosis. Left great saphenous vein appears patent and compressible segmentally. Ordering Physician: Shaji Waters Referring Physician: [facility] Performed By: Kristina Kessler RVT Discharge Plan Triage Chief Complaint: Chest Pain ED Provider: Shaji Waters Dx/Rx/DC Orders Instructions: Understanding Heel Pain, ED Chest Pain, Noncardiac Prescriptions: No Action solifenacin 10 mg Tablet 10 mg PO DAILY RF: 0 ipratropium-albuterol 0.5 mg-3 mg(2.5 mg base)/3 mL Solution For Nebulization 3 ml inhalation Q4HWA.RT Qty: 0 RF: 0 menthol-zinc oxide [Calmoseptine] 0.44-20.6 % Ointment 1 applic topical BID Qty: 0 RF: 0 insulin lispro [Humalog KwikPen Insulin] 100 unit/mL Insulin Pen See Protocol unit subcut Q6 Qty: 0 RF: 0 tamsulosin 0.4 mg Capsule 0.4 mg PO QHS Qty: 0 RF: 0 isosorbide mononitrate 30 mg Tablet Extended Release 24 Hr 30 mg PO DAILY RF: 0 hydrochlorothiazide 12.5 mg Tablet 12.5 mg PO DAILY RF: 0 melatonin 3 mg Capsule 3 mg PO QHS RF: 0 rabeprazole 20 mg Tablet,Delayed Release (Dr/Ec) 20 mg PO BID RF: 0 quetiapine 50 mg Tablet Extended Release 24 Hr 50 mg PO QHS RF: 0 potassium chloride 20 mEq packet 20 meq PO DAILY RF: 0 metoprolol tartrate 25 mg tablet 12.5 mg PO DAILY RF: 0 acetaminophen 650 mg/20.3 mL solution 650 mg PO Q6H PRN PRN (Reason: Pain Score 1-10/Temp > 100.7 F) RF: 0 cyanocobalamin (vitamin B-12) 1,000 mcg tablet 1,000 mcg PO DAILY RF: 0 carbidopa-levodopa 25-100 mg tablet 1 tab PO TIDAC RF: 0 finasteride 5 mg tablet 5 mg PO DAILY RF: 0 rosuvastatin 20 mg capsule, sprinkle 20 mg PO QHS RF: 0 aspirin 81 mg capsule 81 mg PO DAILY RF: 0 [facility] [facility] [Primary Care Provider] - Disposition Disposition: Home, Self Care
--- NOTE | 2021-10-21 12:26 | VDLE_ITS ---
Reason For Study: Pain Procedure LEFT This is a venous duplex using B-mode, color GSV is normal. flow and spectral Doppler. CFV is compressible, spontaneous, phasic, Exam performed portable in ED. competent, and demonstrates normal A preliminary report was called and/or faxed augmentation. to [facility]. FV is compressible, spontaneous, phasic, competent and demonstrates normal augmentation. POP V is compressible, spontaneous, phasic, competent and demonstrates normal augmentation. T/P Trunk is compressible. PTV is compressible. LT PerV is compressible. VL/Venous Duplex US, Unilateral Interpretation Summary There is no evidence of left lower extremity deep vein thrombosis. Left great s aphenous vein appears patent and compressible segmentally. Ordering Physician: Shaji Waters Referring Physician: [facility] Performed By: Kristina Kessler RVT
[2021-10-21 13:15] VITALS: BP 119/83; PULSE 76; RESP 15; O2SAT 96
[2021-10-21 13:46] LABS: Reflex Troponin-HS? (from REC) Y
[2021-10-21 14:17] LABS: Troponin-I HS 6 pg/mL (3.0-78.0)
[2021-10-21 16:02] LABS: Platelet Estimate ADEQUATE (ADEQ); Red Cell Morphology NORM C+C NORMAL (NORM C&C)
== END 2021-10-21 15:58 | disposition home or self-care (01) ==
PROVIDERS: Emergency Provider Student in an Organized Health Care Education/Training Program; Visit Provider Student in an Organized Health Care Education/Training Program
DX: M79.672 Pain in left foot (principal); G20 Parkinson's disease; R07.89 Other chest pain; M25.572 Pain in left ankle and joints of left foot; M79.89 Other specified soft tissue disorders; I10 Essential (primary) hypertension; E78.00 Pure hypercholesterolemia, unspecified; I25.10 Atherosclerotic heart disease of native coronary artery without angina pectoris; H91.93 Unspecified hearing loss, bilateral; I25.2 Old myocardial infarction; Z79.82 Long term (current) use of aspirin; Z86.73 Personal history of transient ischemic attack (TIA), and cerebral infarction without residual deficits; Z86.718 Personal history of other venous thrombosis and embolism; Z87.891 Personal history of nicotine dependence
CPT/HCPCS: 36415; 71045; 73610; 73630; 80048; 84484; 85025; 93005; 93971; 99285; A4216

== ENCOUNTER 2023-09-21 20:41 | Emergency (ER) | payer OTHER, SELFPAY ==
[2023-09-21 20:41] VITALS: BP 151/104; PULSE 93; RESP 19; TEMP 36.2; O2SAT 94; BMI 29.0
[2023-09-21 20:46] VITALS: BP 136/76; PULSE 65; RESP 23; TEMP 37; O2SAT 97
[2023-09-21 21:46] VITALS: BP 120/74; PULSE 61; RESP 21; TEMP 36.7; O2SAT 94
[2023-09-21 21:50] LABS: Absolute Lymphocyte Count 2.03 X10^3/uL (0.83-4.51); Absolute Neutrophil Count 5.7 X10^3/uL (2.0-7.7); Basophil# 0.05 X10^3/uL; Basophil% 0.6 % (0-1); Eosinophil# 0.16 X10^3/uL; Eosinophils% 1.8 % (0-5); Hematocrit 45.3 % (40-54); Hemoglobin 14.7 g/dL (13.0-16.5); Lymphocyte # 2.03 X10^3/ul (0.83-4.51); Lymphocyte % 23.3 % (19-41); Mean Corp Hgb Conc 32.5 g/dL (32-36); Mean Corpuscular Hgb 29.9 pg (27.0-32.0); Mean Corpuscular Volume 92.1 fL (80-94); Mean Platelet Vol. 10.8 fl (6.2-12.0); Monocyte# 0.74 X10^3/uL; Monocyte% 8.5 % (0-10); NRBC Flagged by Analyzer 0 % (0-5); Neutrophil # 5.68 X10^3/uL (2.7-7.7); Neutrophil % 65.3 % (47-70); Platelet Count 257 K/mm3 (150-450); RBC Distribution Width CV 13.9 % (11.6-14.6); Red Blood Count 4.92 M/mm3 (4.6-6.2); White Blood Count 8.7 K/mm3 (4.4-11.0)
[2023-09-21 22:00] VITALS: BP 147/82; PULSE 65; RESP 16; TEMP 36.6; O2SAT 94
--- NOTE | 2023-09-21 22:02 | CT_ITS ---
STUDY: CT ABDOMEN AND PELVIS WITHOUT CONTRAST REASON FOR EXAM: Male, 78 years old. Right flank pain RADIATION DOSAGE (If Supplied By Facility): CTDIvol = ( 19.97 ) mGy, DLP = ( 1248.19 ) mGycm TECHNIQUE: Transaxial images were obtained from the dome of the diaphragm to the symphysis pubis without oral contrast, and without intravenous contrast. Sagittal and coronal images were reconstructed. Individualized dose optimization techniques were used for this CT. COMPARISON: None. FINDINGS: The visualized lung bases are unremarkable. The visualized portions of the heart are within normal limits. Normal liver. Cholelithiasis. No significant dilatation of extrahepatic biliary system. Normal spleen. Normal pancreas. Normal bilateral adrenal glands. 2 cm cystic lesion and up to 4 mm stones in the right kidney. Normal left kidney. Normal visualized stomach. Normal small intestine. Fecal retention in the colon. The appendix is not visualized. Calcified abdominal aorta. There is a left-sided inferior vena cava. Normal retroperitoneum. Normal urinary bladder. Fatty density in the right inguinal canal. Normal abdominal wall. Normal osseous structures. CT/Abdomen/Pelvis without Cont IMPRESSION: Right renal cyst and nonobstructing right renal calculi. No hydronephrosis. Colonic fecal retention. Left-sided IVC. Fatty density in the right inguinal canal. Cholelithiasis. Electronically Signed: Heath Oneill DO at 23:16 EDT ,
--- NOTE | 2023-09-21 22:02 | EDS_ITS ---
HPI History of Present Illness Chief Complaint: Back Informant: patient Onset/Context/Timing Onset: Today Context: Sudden Onset Timing: Waxes and wanes Quality: Sharp Location: Low back and right flank Worsened by: Deep breathing Relieved by: Nothing Narrative Narrative: Patient presents with back and right flank pain that began today. Patient states it began rather suddenly. Patient states he has a history of kidney stones. Patient describes his pain as sharp. Patient states his mainly over the right low back and right flank area. Patient states it is worse when he takes a deep breath. Patient states nothing makes it better. Patient states it has improved since he arrived here in the emergency department. Patient denies any fevers or chills. Patient denies any dysuria or hematuria. [facility] Medical History Aortic aneurysm Coronary artery disease Debility DVT (deep venous thrombosis) Frequent falls Hearing loss, left Hearing loss, right High cholesterol Hypertension Kidney stones Myocardial infarct Parkinson disease Severe malnutrition Stroke/cerebrovascular accident Home Medications solifenacin 10 mg tablet 10 mg PO DAILY 05/05/21 [History Last Taken Unknown] ipratropium 0.5 mg-albuterol 3 mg (2.5 mg base)/3 mL nebulization soln 3 ml inhalation Q4HWA.RT #0 mL 05/22/21 [Rx Last Taken Unknown] menthol 0.44 %-zinc oxide 20.6 % topical ointment (Calmoseptine) 1 applic topical BID #0 grams 05/22/21 [Rx Last Taken Unknown] insulin lispro 100 unit/mL subcutaneous pen (Humalog KwikPen (U-100) Insulin) See Protocol subcut Q6 #0 mL 05/27/21 [Rx Last Taken Unknown] tamsulosin 0.4 mg capsule 0.4 mg PO QHS #0 caps 05/27/21 [Rx Last Taken Unknown] acetaminophen 650 mg/20.3 mL oral solution 650 mg PO Q6H PRN PRN Pain Score 1- 10/Temp > 100.7 F 10/21/21 [History Last Taken Unknown] aspirin 81 mg capsule 81 mg PO DAILY 10/21/21 [History Last Taken Unknown] carbidopa 25 mg-levodopa 100 mg tablet 1 tab PO TIDAC 10/21/21 [History Last Taken Unknown] cyanocobalamin (vitamin B-12) 1,000 mcg tablet 1,000 mcg PO DAILY 10/21/21 [History Last Taken Unknown] finasteride 5 mg tablet 5 mg PO DAILY 10/21/21 [History Last Taken Unknown] hydrochlorothiazide 12.5 mg tablet 12.5 mg PO DAILY 10/21/21 [History Last Taken Unknown] isosorbide mononitrate 30 mg tablet,extended release 24 hr 30 mg PO DAILY 10/21/21 [History Last Taken Unknown] melatonin 3 mg capsule 3 mg PO QHS 10/21/21 [History Last Taken Unknown] metoprolol tartrate 25 mg tablet 12.5 mg PO DAILY 10/21/21 [History Last Taken Unknown] potassium chloride 20 mEq oral packet 20 meq PO DAILY 10/21/21 [History Last Taken Unknown] quetiapine 50 mg tablet,extended release 24 hr 50 mg PO QHS 10/21/21 [History Last Taken Unknown] rabeprazole 20 mg tablet,delayed release 20 mg PO BID 10/21/21 [History Last Taken Unknown] rosuvastatin 20 mg sprinkle capsule 20 mg PO QHS 10/21/21 [History Last Taken Unknown] Allergy/AdvReac Type Severity Reaction Status Date / Time atorvastatin [From Lipitor] AdvReac Pain in Verified 10/21/21 11:18 joints carbidopa [From Sinemet] AdvReac hallucinati Verified 09/21/23 20:43 ons levodopa [From Sinemet] AdvReac hallucinati Verified 09/21/23 20:43 ons Family History Other Heart disease Surgical History History of heart valve repair Social History Smoking Status: Former smoker ROS ROS ED Constitutional Constitutional ED: Denies chills or fever(s) Eyes Eyes: Denies blurry vision or change in vision ENT ENT ED: Denies rhinorrhea or sore throat Cardiovascular Cardiovascular: Denies chest pain or palpitations Respiratory/Chest Respiratory/Chest: Reports cough; Denies dyspnea Gastrointestinal Gastrointestinal: Denies nausea or vomiting Genitourinary Genitourinary ED: Denies dysuria or hematuria Musculoskeletal Musculoskeletal: Reports back pain; Denies neck pain Integumentary Denies abscess or rash Neurologic Neurologic: Reports headache(s); Denies weakness Allergic/Immunologic Allergic/Immunologic ED: Denies mouth swelling or urticaria EXAM Physical Exam Const Vital Signs: 09/21/23 20:41 09/21/23 20:46 09/21/23 21:46 Temperature 97.2 F L 98.6 F 98.1 F Temperature Source Temporal Temporal Oral Pulse Rate 93 65 61 Respiratory Rate 19 H 23 H 21 H Blood Pressure 151/104 H 136/76 H 120/74 Blood Pressure Mean 119 96 89 Pulse Ox 94 97 94 Oxygen Delivery Method Room Air Room Air Room Air 09/22/23 00:00 Temperature 97.9 F Temperature Source Temporal Pulse Rate 68 Respiratory Rate 21 H Blood Pressure 135/67 H Blood Pressure Mean 89 Pulse Ox 93 Oxygen Delivery Method Positive well nourished and well developed General Appearance ED: well developed and NAD HEENT Reports moist mucous membranes Neck supple and no JVD Chest Wall inspection of chest normal and palpation of chest normal Resp normal respiratory effort and clear to auscultation bilaterally Cardio regular rate and regular rhythm GI non-tender and non-distended Palpation: soft Back/Spine General Back: CVA tenderness right (Mild) Extremity normal to inspection Neuro oriented x3, CN's II-XII intact bilaterally and no sensory deficits noted Sensorium / Orientation: alert Motor Exam: strength 5/5 throughout Psych mental status grossly normal MDM MDM MDM Narrative Medical decision making narrative: Differential diagnosis includes ureteral calculus, pyelonephritis, cholecystitis, gastroenteritis, and urinary tract infection. CBC will be obtained to assess for leukocytosis and anemia. Comprehensive metabolic profile will be obtained to assess for hepatic function, renal function, and electrolyte abnormality. Urinalysis will be obtained to assess for urinary tract infection and pyelonephritis. CT scan of the abdomen pelvis will be obtained to assess for ureteral calculus. Lab Data Attestation: I reviewed the patient's lab results. Lab results narrative: CBC was reviewed and was within normal limits. Comprehensive metabolic profile was reviewed and was within normal limits. Labs: Laboratory Results - last 24 hr 09/21/23 20:50 WBC 8.7 RBC 4.92 Hgb 14.7 Hct 45.3 MCV 92.1 MCH 29.9 MCHC 32.5 RDW Std Deviation 47.0 H RDW Coeff of Evin 13.9 Plt Count 257 MPV 10.8 Immature Gran % (Auto) 0.500 Neut % (Auto) 65.3 Lymph % (Auto) 23.3 [place] % (Auto) 8.5 Eos % (Auto) 1.8 Baso % (Auto) 0.6 Absolute Neuts (auto) 5.7 Absolute Lymphs (auto) 2.03 Nucleated RBC % 0 Sodium 139 Potassium 3.9 Chloride 106 Carbon Dioxide 28.0 Anion Gap 5 BUN 18 Creatinine 1.15 Estim Creat Clear Calc 57.57 Est GFR (MDRD) Af Amer 79 Est GFR (MDRD) Non-Af 65 BUN/Creatinine Ratio 15.7 Glucose 116 H Calcium 9.6 Total Bilirubin 0.40 AST 14 L ALT 25 Alkaline Phosphatase 53 Total Protein 7.4 Albumin 3.8 Globulin 3.6 Albumin/Globulin Ratio 1.1 Radiography Diagnostic Testing: Clinical Impression(s) from Imaging Studies Abdomen/Pelvis CT 09/21/23 22:02 IMPRESSION: Right renal cyst and nonobstructing right renal calculi. No hydronephrosis. Colonic fecal retention. Left-sided IVC. Fatty density in the right inguinal canal. Cholelithiasis. Electronically Signed: Heath Oneill DO at 23:16 EDT Reading Location ID and State: [facility] / [place] Tel [phone], Service support , CT scan of the abdomen pelvis was obtained. There is a right renal cyst and nonobstructing right renal calculi. There is no hydronephrosis. There is some cholelithiasis but no evidence of cholecystitis. There is colonic fecal retention. There is a right inguinal hernia containing fat. There is no evidence for bowel obstruction or perforation. There is no other acute abnormality noted. This was interpreted by the radiologist and was also independently reviewed by myself. Treatment and Re-Evaluation :: Patient was given IV fluids. Patient was resting comfortably on reevaluation. Patient was advised of his findings. Care of the patient was turned over the oncoming physician pending urinalysis results. Patient will likely be discharged. Discharge Plan Triage Chief Complaint: Back Other Complaint: Flank Pain ED Provider: Paul Mcneil Dx/Rx/DC Orders Clinical Impression: Acute right flank pain, Low back pain Instructions: ED Flank Pain, Uncertain Cause, ED Back and Neck Pain, General Prescriptions: No Action solifenacin 10 mg Tablet 10 mg PO DAILY ipratropium-albuterol 0.5 mg-3 mg(2.5 mg base)/3 mL Solution For Nebulization 3 ml inhalation Q4HWA.RT Qty: 0 0RF menthol-zinc oxide [Calmoseptine] 0.44-20.6 % Ointment 1 applic topical BID Qty: 0 0RF Protocol: *Topical Application Instructions APPLICATION INSTRUCTIONS: coccyx insulin lispro [Humalog KwikPen Insulin] 100 unit/mL Insulin Pen See Protocol subcut Q6 Qty: 0 0RF Protocol: 3. Sliding Scale Insulin Med Dosing Condition: 150-189 mg/dl = 1 unit Condition: 190-229 mg/dl = 2 units Condition: 230-269 mg/dl = 3 units Condition: 270-309 mg/dl = 4 units Condition: 310-349 mg/dl = 5 units Condition: 350-399 mg/dl = 6 units Condition: 400-449 mg/dl = 7 units Condition: Greater than 449 call physician Protocol Text: - Use for Total Daily Dose of Insulin 37-55 units - Obsese, infected, or steroid patients MEDIUM DOSING ALGORITHIM tamsulosin 0.4 mg Capsule 0.4 mg PO QHS Qty: 0 0RF isosorbide mononitrate 30 mg Tablet Extended Release 24 Hr 30 mg PO DAILY hydrochlorothiazide 12.5 mg Tablet 12.5 mg PO DAILY melatonin 3 mg Capsule 3 mg PO QHS rabeprazole 20 mg Tablet,Delayed Release (Dr/Ec) 20 mg PO BID quetiapine 50 mg Tablet Extended Release 24 Hr 50 mg PO QHS potassium chloride 20 mEq packet 20 meq PO DAILY metoprolol tartrate 25 mg tablet 12.5 mg PO DAILY Rx Instructions: Hold for heart less than 60 or systolic blood pressure less than 110 mmHg. acetaminophen 650 mg/20.3 mL solution 650 mg PO Q6H PRN PRN (Reason: Pain Score 1-10/Temp > 100.7 F) cyanocobalamin (vitamin B-12) 1,000 mcg tablet 1,000 mcg PO DAILY carbidopa-levodopa 25-100 mg tablet 1 tab PO TIDAC finasteride 5 mg tablet 5 mg PO DAILY rosuvastatin 20 mg capsule, sprinkle 20 mg PO QHS aspirin 81 mg capsule 81 mg PO DAILY [facility] [Primary Care Provider] - 5-7 Days Disposition Disposition: Home, Self Care
[2023-09-21 22:06] LABS: ALB/GLOB Ratio 1.1 RATIO (0.9-2.4); AST(SGOT) 14 U/L (15-37); Alanine Aminotransfer ALT/SGPT 25 U/L (16-61); Albumin, Serum 3.8 g/dL (3.2-5.0); Alkaline Phosphatase 53 U/L (45-117); Anion Gap 5 (5-15); BUN 18 mg/dL (7-18); BUN/Creat Ratio 15.7 RATIO (10-20); Calcium,Total 9.6 mg/dL (8.5-10.1); Chloride 106 mmol/L (98-107); Creatinine, Serum 1.15 mg/dL (0.70-1.30); EST Glomerular Filtration Rate 65 mL/min (>60); Est Glom Filt Rate - Afr Amer 79 mL/min (>60); Estimated Creatinine Clearance 57.57 ml/min; Globulin 3.6 g/dL (2.2-4.2); Glucose 116 mg/dL (74-106); Potassium 3.9 mmol/L (3.5-5.1); Protein, Total 7.4 g/dL (6.4-8.2); Sodium Level 139 mmol/L (136-145)
[2023-09-21 23:00] VITALS: BP 146/82; PULSE 146; RESP 20; TEMP 36.5; O2SAT 94
[2023-09-22] VITALS: BP 135/67; PULSE 68; PULSE 70; RESP 21; RESP 22; TEMP 36.6; TEMP 36.8; O2SAT 93; O2SAT 94
[2023-09-22] MEDS: 0.9% Normal Saline (1000mL) 1,000 ML 1000 ML IV (00:07)
[2023-09-22 00:16] LABS: Bacteria 0 SEEN /hpf (None Seen); Mucous, Urine 0 SEEN /hpf (<or=2+)
[2023-09-22 00:17] LABS: Color, Urine Yellow (Yellow); Glucose, Dipstick Normal (Normal); Ketone-Dipstick Negative (Negative); Leukocyte Esterase-Dipstick 500 /ul (Negative); Nitrite-Dipstick Negative (Negative); Occult Blood-Urine 250 /ul (Negative); Protein-Dipstick 30 mg/dl (Negative); Urine Bilirubin Dipstick Negative (Negative); Urine Clarity Clear (Clear); Urine Urobilinogen Normal (Normal)
[2023-09-22 00:40] LABS: Red Blood Cells-Urine 5-10 SEEN /hpf (0-5); White Blood Cells 10-25 SEEN /hpf (0-5)
[2023-09-22 00:41] LABS: Squamous Epithelial Cells - UA 0-5 SEEN /hpf (0-5)
[2023-09-22 01:00] VITALS: BP 158/87; PULSE 75; RESP 24; TEMP 36.6; O2SAT 94
[2023-09-22 01:07] VITALS: BP 158/87; PULSE 77; RESP 24; TEMP 36.6; O2SAT 98
[2023-09-22] MEDS: Smz/Tmp Ds Tablet 1 TABLET PO (01:11)
[2023-09-22 02:00] VITALS: BP 147/73; PULSE 67; RESP 23; TEMP 36.6; O2SAT 93; O2SAT 94
[2023-09-22 03:00] VITALS: BP 135/93; PULSE 78; RESP 18; TEMP 36.3; O2SAT 97
--- NOTE | 2023-09-22 04:04 | ED.RN ---
CALLED PHYSICIANS ASKING FOR AN UPDATED ETA FOR PT. SHE SAID THE CREW WAS PULLED TO TAKE A KID TO [facility] THEY'D BE AT [facility] IN ABOUT 20 MIN, AND THEY'D BE AT OUR FACILITY IN ABOUT 60-75 MIN. I LET HER KNOW THAT THIS IS HARD ON US AND THAT THEY NEED TO NOTIFY US WHEN A CHANGE HAPPENS. SHE CLAIMED TO HAVE OUTSOURCED TO [facility] BUT THEY COULDN'T AND THEY DIDN'T GIVE HER A REASON WHY. I MADE THE POINT THAT [facility] ( SHE SAID) ONLY HAS 20 MINS LEFT SO SHE HAD AT LEAST 50 MINS TO CALL [facility] AND WAS ABLE TO NOTIFY US. SHE CLAIMED THAT SHE WAS THE ONLY ONE WORKING TONIGHT AND SHE ALSO HAD TO ANSWER INCOMING CALLS.
== END 2023-09-22 06:30 | disposition home or self-care (01) ==
PROVIDERS: Emergency Provider Emergency Medicine; Visit Provider Emergency Medicine
DX: R10.9 Unspecified abdominal pain (principal); G20.A1 Parkinson's disease without dyskinesia, without mention of fluctuations; Z79.4 Long term (current) use of insulin; M54.50 Low back pain, unspecified; I10 Essential (primary) hypertension; E78.00 Pure hypercholesterolemia, unspecified; I25.10 Atherosclerotic heart disease of native coronary artery without angina pectoris; I25.2 Old myocardial infarction; Z79.82 Long term (current) use of aspirin; Z79.899 Other long term (current) drug therapy; Z87.442 Personal history of urinary calculi; Z87.891 Personal history of nicotine dependence
CPT/HCPCS: 74176; 80053; 81001; 85025; 87086; 87088; 96360; 99285; J7030; P9612; A4216

== ENCOUNTER 2023-11-17 08:29 | Emergency (ER) | payer OTHER, SELFPAY ==
[2023-11-17] VITALS (7 sets, daily range): BP systolic 111–127; BP diastolic 68–76; PULSE 65–82; RESP 18–27; TEMP 36.4–36.8; O2SAT 92–97; BMI 31.9
--- NOTE | 2023-11-17 08:47 | ED.RN ---
THIS RN SPOKE WITH PRIMARY CAREGIVER, HIS DAJUAN. SHE STATES [facility]IR [facility] HIS CARE IS ALL HOME BASED, TWO DAYS AGO. SHE CHECKED HIM OVER AND PRESCRIBED MORE MEDICATION THAT THE HAS NOT BEEN ABLE TO PHYSICS FACULTY MEMBER YET BUT SHE BELIEVES IS FOR HIS COUGH. STATES HE HAS BEEN SICK FOR 4 DAYS COUGHING AND SPITTING UP GREEN STUFF. SHE STATES BASELINE HE DOES NOT SPEAK WELL AND ALWAYS HAS HIS HEAD DOWN BUT SEEMS WORSE THAN HIS BASELINE. SHE STATES HE IS WHEELCHAIR BOUND/ NONAMBULATORY.
[2023-11-17 09:18] LABS: Absolute Lymphocyte Count 1.55 X10^3/uL (0.83-4.51); Absolute Neutrophil Count 7.6 X10^3/uL (2.0-7.7); Basophil# 0.07 X10^3/uL; Basophil% 0.7 % (0-1); Eosinophil# 0.17 X10^3/uL; Eosinophils% 1.6 % (0-5); Hematocrit 37.3 % (40-54); Lymphocyte # 1.55 X10^3/ul (0.83-4.51); Lymphocyte % 14.6 % (19-41); Mean Corp Hgb Conc 32.2 g/dL (32-36); Mean Corpuscular Hgb 30.4 pg (27.0-32.0); Mean Corpuscular Volume 94.4 fL (80-94); Monocyte# 1.21 X10^3/uL; Monocyte% 11.4 % (0-10); NRBC Flagged by Analyzer 0 % (0-5); Neutrophil # 7.58 X10^3/uL (2.7-7.7); Neutrophil % 71.3 % (47-70); Platelet Count 232 K/mm3 (150-450); RBC Distribution Width CV 14.4 % (11.6-14.6); RBC Distribution Width SD 50.1 fl (35.1-43.9); Red Blood Count 3.95 M/mm3 (4.6-6.2); White Blood Count 10.6 K/mm3 (4.4-11.0)
[2023-11-17 09:30] LABS: Anion Gap 6 (5-15); BUN 20 mg/dL (7-18); BUN/Creat Ratio 20.9 RATIO (10-20); Calcium,Total 9.1 mg/dL (8.5-10.1); Chloride 106 mmol/L (98-107); Creatinine, Serum 0.96 mg/dL (0.70-1.30); EST Glomerular Filtration Rate 81 mL/min (>60); Est Glom Filt Rate - Afr Amer 97 mL/min (>60); Estimated Creatinine Clearance 65.52 ml/min; Glucose 100 mg/dL (74-106); Potassium 3.6 mmol/L (3.5-5.1); Sodium Level 139 mmol/L (136-145)
--- NOTE | 2023-11-17 09:35 | RAD_ITS ---
STUDY: X-RAY CHEST REASON FOR EXAM: Male, 78 years old. Cough/sob TECHNIQUE: Single AP portable view of the chest. COMPARISON: Comparison is made with prior study dated October 21, 2021. FINDINGS: EKG electrodes are seen. Limited inspiratory effort. Mild increased markings at the lung bases suggestive of linear basilar atelectasis. There is blunting of the left costophrenic angle. Normal size heart. Normal mediastinum and iris. Normal visualized pulmonary arteries. Normal visualized aortic arch and descending thoracic aorta. Normal visualized thoracic spine. Normal visualized ribs, clavicles, and shoulders. There is no demonstrated abnormality of the visualized soft tissue structures of the upper abdomen. RAD/Chest 1 View (Portable) IMPRESSION: Limited inspiratory effort suggestive of mild bibasilar linear atelectasis. Blunting of the left costophrenic angle. Electronically Signed: Boone Leonard MD at 10:07 EDT ,
[2023-11-17 09:39] LABS: BNP,B-Type NATRIURETIC PEPTIDE 39.8 pg/mL (0-100)
[2023-11-17 09:41] LABS: AST(SGOT) 14 U/L (15-37); Alanine Aminotransfer ALT/SGPT 16 U/L (16-61); Alkaline Phosphatase 54 U/L (45-117); Bilirubin, Direct 0.25 mg/dL (0.00-0.30); Globulin 3.4 g/dL (2.2-4.2); Lactic Acid 1.3 mmol/L (0.4-1.9); Lipase 15 U/L (13-75); Protein, Total 6.4 g/dL (6.4-8.2); Troponin-I HS 8 pg/mL (3.0-78.0)
--- NOTE | 2023-11-17 10:34 | EDS_ITS ---
HPI History of Present Illness Chief Complaint: General Illness Informant: patient and EMS [facility] Medical History Aortic aneurysm Coronary artery disease Debility DVT (deep venous thrombosis) Frequent falls Hearing loss, left Hearing loss, right High cholesterol Hypertension Kidney stones Myocardial infarct Parkinson disease Severe malnutrition Stroke/cerebrovascular accident Home Medications ?Medication ?Instructions ?Recorded ?Last Taken ?Type solifenacin 10 mg tablet 10 mg PO DAILY 05/05/21 Unknown History ipratropium 0.5 mg-albuterol 3 mg 3 ml inhalation Q4HWA.RT #0 mL 05/22/21 Unknown Rx (2.5 mg base)/3 mL nebulization soln menthol 0.44 %-zinc oxide 20.6 % 1 applic topical BID #0 grams 05/22/21 Unknown Rx topical ointment (Calmoseptine) insulin lispro 100 unit/mL See Protocol subcut Q6 #0 mL 05/27/21 Unknown Rx subcutaneous pen (Humalog KwikPen (U-100) Insulin) tamsulosin 0.4 mg capsule 0.4 mg PO QHS #0 caps 05/27/21 Unknown Rx acetaminophen 650 mg/20.3 mL oral 650 mg PO Q6H PRN PRN Pain Score 10/21/21 Unknown History solution 1-10/Temp > 100.7 F aspirin 81 mg capsule 81 mg PO DAILY 10/21/21 Unknown History carbidopa 25 mg-levodopa 100 mg 1 tab PO TIDAC 10/21/21 Unknown History tablet cyanocobalamin (vitamin B-12) 1,000 mcg PO DAILY 10/21/21 Unknown History 1,000 mcg tablet finasteride 5 mg tablet 5 mg PO DAILY 10/21/21 Unknown History hydrochlorothiazide 12.5 mg tablet 12.5 mg PO DAILY 10/21/21 Unknown History isosorbide mononitrate 30 mg 30 mg PO DAILY 10/21/21 Unknown History tablet,extended release 24 hr melatonin 3 mg capsule 3 mg PO QHS 10/21/21 Unknown History metoprolol tartrate 25 mg tablet 12.5 mg PO DAILY 10/21/21 Unknown History potassium chloride 20 mEq oral 20 meq PO DAILY 10/21/21 Unknown History packet quetiapine 50 mg tablet,extended 50 mg PO QHS 10/21/21 Unknown History release 24 hr rabeprazole 20 mg tablet,delayed 20 mg PO BID 10/21/21 Unknown History release rosuvastatin 20 mg sprinkle capsule 20 mg PO QHS 10/21/21 Unknown History sulfamethoxazole 800 1 tab PO BID 14 days #28 tabs 09/22/23 Unknown Rx mg-trimethoprim 160 mg tablet (Bactrim DS) albuterol sulfate 90 mcg/actuation 2 puff inhalation Q4H PRN PRN 11/17/23 Unknown Rx aerosol inhaler (Ventolin HFA) Wheezing ##1 doxycycline monohydrate 100 mg 100 mg PO BID #14 CAPSULES 11/17/23 Unknown Rx capsule Allergy/AdvReac Type Severity Reaction Status Date / Time atorvastatin (From Lipitor) AdvReac Pain in Verified 11/17/23 08:31 joints carbidopa (From Sinemet) AdvReac hallucinati Verified 11/17/23 08:31 ons levodopa (From Sinemet) AdvReac hallucinati Verified 11/17/23 08:31 ons Family History Other Heart disease Surgical History History of heart valve repair Social History Smoking Status: Former smoker ROS ROS ED Constitutional Constitutional ED: Denies chills, fever(s) or weight loss Eyes Eyes: Denies change in vision or diplopia ENT ENT ED: Denies ear pain, rhinorrhea or sore throat Cardiovascular Cardiovascular: Denies chest pain, orthopnea, palpitations or racing heartbeat Respiratory/Chest Respiratory/Chest: Reports cough and dyspnea; Denies orthopnea Gastrointestinal Gastrointestinal: Denies abdominal pain, diarrhea, nausea or vomiting Genitourinary Genitourinary ED: Denies dysuria, hematuria or urinary frequency Musculoskeletal Musculoskeletal: Denies arthralgias or myalgias Integumentary Denies abscess or rash Neurologic Neurologic: Denies headache(s) or weakness Psychiatric Psychiatric: Denies anxiety, depression, suicidal ideation or suicidal thoughts Endocrine Endocrinology: Denies polydipsia, polyphagia or polyuria Allergic/Immunologic Allergic/Immunologic ED: Denies mouth swelling, tongue swelling or urticaria EXAM Physical Exam Const Vital Signs: 11/17/23 08:31 11/17/23 08:35 11/17/23 08:59 Temperature 98.2 F 98.2 F Temperature Source Axillary Axillary Pulse Rate 69 70 Respiratory Rate 27 H 27 H Respiratory Effort Respiratory Pattern Blood Pressure 113/74 113/74 Blood Pressure Mean 87 87 Pulse Ox 93 93 Oxygen Delivery Method Room Air Room Air Room Air 11/17/23 08:59 11/17/23 09:30 11/17/23 10:30 Temperature Temperature Source Pulse Rate 65 Respiratory Rate 25 H Respiratory Effort Normal Non-Labored Respiratory Pattern Normal Blood Pressure 111/69 Blood Pressure Mean 83 Pulse Ox 92 93 Oxygen Delivery Method Room Air Room Air 11/17/23 11:51 11/17/23 12:00 Temperature Temperature Source Pulse Rate 71 79 Respiratory Rate 18 23 H Respiratory Effort Respiratory Pattern Normal Blood Pressure 123/76 H Blood Pressure Mean 91 Pulse Ox 92 Oxygen Delivery Method Room Air MDM MDM MDM Narrative Medical decision making narrative: Differential diagnosis includes pneumonia bronchitis CHF viral URI pharyngitis dehydration aspiration. My independent interpretation of the chest x-ray is no acute infiltrate. White count is normal at 10.6 71.3 neutrophils. Hemoglobin 12 BNP and troponin within normal limits. CMP unremarkable lactic acid is normal. Patient received a DuoNeb. At this point patient is on room air. Very difficult for us to try to understand him which is reportedly chronic. gave most of the history to nursing over the phone. I will write for a albuterol MDI at home as well as doxycycline. Follow-up with primary care if not improving return if worsening History & Record Review Discussion w/independent historian: EMS personnel, Patient and Family Lab Data Attestation: I reviewed the patient's lab results. Labs: Laboratory Results - last 24 hr 11/17/23 09:01 WBC 10.6 RBC 3.95 L Hgb 12.0 L Hct 37.3 L MCV 94.4 H MCH 30.4 MCHC 32.2 RDW Std Deviation 50.1 H RDW Coeff of Evin 14.4 Plt Count 232 MPV 10.0 Immature Gran % (Auto) 0.400 Neut % (Auto) 71.3 H Lymph % (Auto) 14.6 L [place] % (Auto) 11.4 H Eos % (Auto) 1.6 Baso % (Auto) 0.7 Absolute Neuts (auto) 7.6 Absolute Lymphs (auto) 1.55 Nucleated RBC % 0 Sodium 139 Potassium 3.6 Chloride 106 Carbon Dioxide 27.0 Anion Gap 6 BUN 20 H Creatinine 0.96 Estim Creat Clear Calc 65.52 Est GFR (MDRD) Af Amer 97 Est GFR (MDRD) Non-Af 81 BUN/Creatinine Ratio 20.9 H Glucose 100 Lactic Acid 1.3 Calcium 9.1 Total Bilirubin 0.70 Direct Bilirubin 0.25 AST 14 L ALT 16 Alkaline Phosphatase 54 Troponin I High Sens 8 B-Natriuretic Peptide 39.8 Total Protein 6.4 Albumin 3.0 L Globulin 3.4 Lipase 15 Radiography Diagnostic Testing: Clinical Impression(s) from Imaging Studies Chest X-Ray 11/17/23 09:35 IMPRESSION: Limited inspiratory effort suggestive of mild bibasilar linear atelectasis. Blunting of the left costophrenic angle. Electronically Signed: Boone Leonard MD at 10:07 EDT , Discharge Plan Triage Chief Complaint: General Illness ED Provider: Tej Coronado Dx/Rx/DC Orders Clinical Impression: Parkinson's disease, Cough, Bronchitis Instructions: ED Bronchitis with Wheezing (Adult) Prescriptions: New doxycycline monohydrate 100 mg capsule 100 mg PO BID Qty: 14 0RF albuterol sulfate [Ventolin HFA] 90 mcg/actuation HFA aerosol inhaler 2 puff inhalation Q4H PRN PRN (Reason: Wheezing) Qty: 1 0RF Rx Instructions: dispense with spacer No Action solifenacin 10 mg Tablet 10 mg PO DAILY ipratropium-albuterol 0.5 mg-3 mg(2.5 mg base)/3 mL Solution For Nebulization 3 ml inhalation Q4HWA.RT Qty: 0 0RF menthol-zinc oxide [Calmoseptine] 0.44-20.6 % Ointment 1 applic topical BID Qty: 0 0RF Protocol: *Topical Application Instructions APPLICATION INSTRUCTIONS: coccyx insulin lispro [Humalog KwikPen Insulin] 100 unit/mL Insulin Pen See Protocol subcut Q6 Qty: 0 0RF Protocol: 3. Sliding Scale Insulin Med Dosing Condition: 150-189 mg/dl = 1 unit Condition: 190-229 mg/dl = 2 units Condition: 230-269 mg/dl = 3 units Condition: 270-309 mg/dl = 4 units Condition: 310-349 mg/dl = 5 units Condition: 350-399 mg/dl = 6 units Condition: 400-449 mg/dl = 7 units Condition: Greater than 449 call physician Protocol Text: - Use for Total Daily Dose of Insulin 37-55 units - Obsese, infected, or steroid patients MEDIUM DOSING ALGORITHIM tamsulosin 0.4 mg Capsule 0.4 mg PO QHS Qty: 0 0RF isosorbide mononitrate 30 mg Tablet Extended Release 24 Hr 30 mg PO DAILY hydrochlorothiazide 12.5 mg Tablet 12.5 mg PO DAILY melatonin 3 mg Capsule 3 mg PO QHS rabeprazole 20 mg Tablet,Delayed Release (Dr/Ec) 20 mg PO BID quetiapine 50 mg Tablet Extended Release 24 Hr 50 mg PO QHS potassium chloride 20 mEq packet 20 meq PO DAILY metoprolol tartrate 25 mg tablet 12.5 mg PO DAILY Rx Instructions: Hold for heart less than 60 or systolic blood pressure less than 110 mmHg. acetaminophen 650 mg/20.3 mL solution 650 mg PO Q6H PRN PRN (Reason: Pain Score 1-10/Temp > 100.7 F) cyanocobalamin (vitamin B-12) 1,000 mcg tablet 1,000 mcg PO DAILY carbidopa-levodopa 25-100 mg tablet 1 tab PO TIDAC finasteride 5 mg tablet 5 mg PO DAILY rosuvastatin 20 mg capsule, sprinkle 20 mg PO QHS aspirin 81 mg capsule 81 mg PO DAILY sulfamethoxazole-trimethoprim [Bactrim DS] 800-160 mg tablet 1 tab PO BID 14 Days Qty: 28 0RF [facility]Primary [facility] Provider] - 1 Week if not improving Print Language: Romanian Disposition Disposition: Home, Self Care
[2023-11-17] MEDS: Ipratropium/Albuterol Sulfate 3 ML AMPUL.NEB INHALATION (11:50)
== END 2023-11-17 13:30 | disposition home or self-care (01) ==
PROVIDERS: Emergency Provider Emergency Medicine; Visit Provider Emergency Medicine
DX: J40 Bronchitis, not specified as acute or chronic (principal); G20.A1 Parkinson's disease without dyskinesia, without mention of fluctuations; Z79.4 Long term (current) use of insulin; Z87.891 Personal history of nicotine dependence; I25.10 Atherosclerotic heart disease of native coronary artery without angina pectoris; Z86.718 Personal history of other venous thrombosis and embolism; Z79.899 Other long term (current) drug therapy; E78.00 Pure hypercholesterolemia, unspecified; Z79.82 Long term (current) use of aspirin
CPT/HCPCS: 71045; 80048; 80076; 83605; 83690; 83880; 84484; 85025; 87040; 87631; 94640; 94760; 99283; A4216